=== PATIENT | female | born 1965 | race Caucasian/White ===

== ENCOUNTER 2018-07-21 15:04 | Outpatient (REF) | payer BC, SELFPAY ==
[2018-07-21 21:26] LABS: Absolute Basophil Count 0.05 k/cumm (0.0-0.2); Absolute Eosinophil Count 0.07 k/cumm (0.0-0.7); Absolute Lymphocyte Count 2.85 k/cumm (1.2-3.4); Absolute Neutrophil Count 3.22 k/cumm (1.2-6.7); Basophils % 0.7; HCT 39.5 % (36.0-46.0); HGB 13.5 g/dL (12.0-15.5); Lymphocytes % 42.6; Mean Corp. HGB Concentration 34.2 g/dL (32.0-36.0); Mean Corpuscular Hemoglobin 29.3 pg (27.0-33.0); Mean Corpuscular Volume 85.7 fL (80-95); Mean Platelet Volume 10.3 fL (8.0-11.0); Monocytes % 7.5; Neutrophils % 48.2; Platelet Count 246 x1000/uL (130-400); RBC 4.61 m/cumm (4.00-5.20); RBC Distribution Width 12.4 % (11.7-14.6); White Blood Cell Count 6.69 k/cumm (4.4-10.8)
[2018-07-21 21:46] LABS: Anion Gap 10.8 mmol/L (3-11); BUN 11 mg/dL (7-18); CO2 27.2 mmol/L (21.0-32.0); CREATININE 0.74 mg/dL (0.55-1.02); Chloride 103 mmol/L (98-107); Glucose 94 mg/dL (70-100); Potassium 3.9 mmol/L (3.5-5.1); Sodium 141 mmol/L (136-145); TSH (W/Ref FT4) 6.98 uIU/mL (0.358-3.74)
[2018-07-21 22:10] LABS: FREE T4 1.33 ng/dL (0.76-1.46)
== END 2018-07-21 15:24 ==
LOC: NCHCN 15:04
PROVIDERS: PCP Family Medicine; Visit Provider Specialist/Technologist Athletic Trainer
DX: E03.9 Hypothyroidism, unspecified (principal); K21.9 Gastro-esophageal reflux disease without esophagitis; Z01.818 Encounter for other preprocedural examination
CPT/HCPCS: 80048; 84439; 84443; 85025

== ENCOUNTER 2019-04-28 02:33 | Outpatient (CLI) | payer BC, SELFPAY ==
--- NOTE | 2019-04-28 12:48 | DI.MAMMO_ITS ---
EXAM: MAMMO SCREENING CLINICAL HISTORY: SCREENING, [facility],Z00.00 TECHNIQUE: Mammograms were interpreted according to the usual protocol including computer analysis w [employer] CAD system, tomosynthesis and C-view imaging. COMPARISON: 2010 through 2016 FINDINGS: The breasts are composed of heterogeneously dense fibroglandular densities, Breast Density category C . No suspicious masses or suspicious microcalcifications are seen. No skin thickening or abnormal axillary lymph nodes are seen. There has been no significant change from prior exams. IMPRESSION: BIRADS Category 1, negative mammogram. Yearly screening mammography is recommended. BI-RADS Cat 1 - Negative Breast Density - Category C - Heterogeneously dense BREAST DENSITY: The mammogram demonstrates the patient's breast tissue is dense. Dense breast tissue is very common and is not abnormal but dense breast tissue can make it harder to find cancer on a ma mmogram. Also, dense breast tissue may increase their breast cancer risk. This information about the result of the mammogram report was provided to the patient to raise their awareness. Use this report when you speak with the patient about their risks for breast cancer, which includes their family hist ory. At that time, you may recommend for more screening tests (Ultrasound or MRI) as they might be us eful based on their risk. A negative radiographic report should not delay biopsy if a dominant or clinically suspicious mass is present. Up to ten percent of cancers are not identified on mammography. A negative report may reinforce clinical impression. Adenosis and dense breasts may obscure an underlying neoplasm. False positive reports average 6 to 10%.
== END 2019-04-28 02:53 ==
PROVIDERS: PCP Family Medicine; Visit Provider Physician Assistant Medical
DX: Z00.00 Encounter for general adult medical examination without abnormal findings (principal); Z12.31 Encounter for screening mammogram for malignant neoplasm of breast
CPT/HCPCS: 77063; 77067

== ENCOUNTER 2019-09-21 16:30 | Outpatient (REF) | payer BC, SELFPAY ==
[2019-09-23 17:17] LABS: COVID-19 RT-PCR UVMMC Result Negative (Negative)
== END 2019-09-21 16:50 ==
LOC: NCHCN 16:30
PROVIDERS: PCP Family Medicine; Visit Provider Nurse Practitioner Family
DX: J06.9 Acute upper respiratory infection, unspecified (principal)
CPT/HCPCS: U0003

== ENCOUNTER 2019-12-02 04:01 | Outpatient (CLI) | payer BC, SELFPAY ==
[2019-12-02 09:36] LABS: ALT 23 U/L (14-59); Calculated LDL 165 mg/dL (<100); Cholesterol 235 mg/dL (<200); HDL Cholesterol 43 mg/dL (40-60); TSH 0.58 uIU/mL (0.36-3.74); Triglyceride 138 mg/dL (<150)
== END 2019-12-02 04:21 ==
PROVIDERS: PCP Family Medicine; Visit Provider Family Medicine
DX: E03.9 Hypothyroidism, unspecified (principal); E78.5 Hyperlipidemia, unspecified; Z00.00 Encounter for general adult medical examination without abnormal findings
CPT/HCPCS: 36415; 80061; 84439; 84443; 84460

== ENCOUNTER 2019-12-26 12:44 | Emergency (ER) | payer BC, SELFPAY ==
[2019-12-26 12:48] VITALS: BP 153/84; PULSE 86; RESP 16; TEMP 36.7; O2SAT 98
--- NOTE | 2019-12-26 12:53 | ED.GENADUL_ITS ---
Discharge Plan Disposition Patient Disposition: HOME Condition: Good Discharge Details Chief Complaint: Cellulitis Clinical Impression: Cellulitis of finger Primary Care Provider: Rand Harley V ED Provider: Tova Chandra Home Meds and New Rx's Prescriptions: New doxycycline hyclate 100 mg tablet 100 mg PO BID Qty: 14 RF: 0 Continued sumatriptan succinate 50 MG tablet 50 mg PO ONCE PRNRF: 0 pantoprazole 20 MG tablet,delayed release (DR/EC) 40 mg PO PRN RF: 0 levothyroxine [Synthroid] 50 MCG tablet 175 mcg PO DAILY RF: 0 bupropion HCl [Wellbutrin XL] 300 MG tablet extended release 24 hr 300 mg PO DAILY RF: 0 magnesium oxide 400 mg (241.3 mg magnesium) tablet 400 mg PO DAILY RF: 0 Discharge Instructions Instructions: Cellulitis (ED) Additional Instructions: Tylenol and/or ibuprofen as needed for discomfort. Please keep current dressing in place until tomorrow. After that time, he may cover with a Band-Aid. Please take the doxycycline as prescribed. Even if symptoms improve, please take the entire course. If you develop fever/chills, increased pain, spreading of the redness or other new/worsening symptoms please seek care urgently once again. Otherwise, I would like for you to follow-up with primary care at beginning the week for reevaluation. Referrals: Rand Harley MD [Primary Care Provider] - Discharge Data Discharge Date/Time-TO BE ENTERED AT DEPARTURE: 12/26/19 14:18 Medical Decision Making Patient is a pleasant 54 year old RHD female presenting today wtih discomfort, erythema and swelling along the dorsal aspect ofr the right ring finger DIP joint. She states that she suffered a small abrasion, believes that she may have scratched herself with her fingernail. She states that over the past 4 days the erythema has been developing. Has noted eruythema, warmth, swelling and pain. The small area of opening is not currently draining. No fevers/chills. States that she is feeling well otherwise. She sttes that she is UTD on immunization. On exam, campbell has a focal area of small abscess with surrounding cellulitis. She has normal passive and acitve ROM of DIP and PIP. Nail and distal finger is uninvolved. She appears nontoxic. She has a small open area that appears to have closed off. She and I discussed risk/benefits as well as expected procedural steps of opening abscess. She voices understanding and wishes to proceed. Please see procedure note. She tolerated this well. It was preformed using standard, sterile technique. We discussed care of the area. As she has surrounding cellulitis, and I am concerned given the location of the infection, will begin her on antibiotics. Encouraged close f/u with PCP for reevalutation. She was given strict return precautions. All of her questions and concerns were addressed, she is in agreement with this plan. HPI General Mode of arrival: ambulatory . Date/Time Provider Initiated Documentation: 12/26/19 12:53 . Limitations to Documentation: no limitations . Information obtained by: patient and RN notes reviewed . History of Present Illness 54 year old F presents to the emergency department with the chief complaint of right ring finger pain, erythema, described as mild, with intensity rated at 3. Quality is described as aching, and is localized to the right and upper extremity. Patient reports no radiation. Patient started experiencing this day(s) (4) and it has been constant. Immobilization improves symptom(s), Movement worsens symptoms . Patient notes no other symptoms.; denies fever/chills. Patient did receive the following treatments prior to arrival, none Related Data Home Medications Medication Instructions Recorded Confirmed levothyroxine [Synthroid] 175 mcg PO DAILY 12/22/12 12/26/19 pantoprazole 40 mg PO PRN tab-cap 07/12/16 12/26/19 sumatriptan succinate 50 mg PO ONCE PRN tab-cap 07/12/16 12/26/19 bupropion HCl [Wellbutrin XL] 300 mg PO DAILY 08/15/16 12/26/19 doxycycline hyclate 100 mg PO BID #14 tab 12/26/19 magnesium oxide 400 mg PO DAILY 12/26/19 12/26/19 Previous Rx's Medication Instructions Recorded doxycycline hyclate 100 mg PO BID #14 tab 12/26/19 Allergies Allergy/AdvReac Type Severity Reaction Status Date / Time atenolol AdvReac very sleepy Unverified 12/26/19 12:50 diltiazem AdvReac LE Unverified 12/26/19 12:50 edema/joint aches General Stated Complaint: Cellulitis CHERELLE: 4 Review of Systems Constitutional Constitutional: Reports as per HPI, Denies chills, Denies fever(s), Denies headache(s) and Denies weakness ENT Ears, Nose, Mouth, and Throat: Denies headache(s) Cardiovascular Cardiovascular: Reports as per HPI Respiratory Respiratory: Reports as per HPI and Denies cough Musculoskeletal Musculoskeletal: Reports as per HPI and Denies tingling Integumentary/Breasts Skin/Breast: Reports as per HPI, Reports erythema, Denies rash and Reports wounds (states she had a small abrasion over dorsal DIP) Neurologic Neurologic: Reports as per HPI, Denies headache(s), Denies tingling, Denies pa resthesias and Denies weakness PFSH Medical History GERD hx basal cell CA on chin hx tobacco use Hypothyroidism SAD Surgical History Abdominal hysterectomy Appendectomy Arthroplasty of knee section Colonoscopy - MAC (07/20/16) thyroidectomy Family History Father Diabetes Essential hypertension Heart disease Brother Essential hypertension Social History Smoking/Tobacco Use Status: Former Tobacco Use Drug use: Never Substance use type: does not use Do you feel safe at home: Yes Do you feel safe in your relationship?: Yes Exam Const General: cooperative, healthy appearing, comfortable, no acute distress, well developed and well groomed Nutritional Appearance: average body habitus and well nourished Orientation: alert and awake Resp Effort & Inspection: normal respiratory effort, able to speak in complete sentences and no respiratory distress Cardio Rate: regular rate Rhythm: regular rhythm Skin General skin exam: erythema and fluctuance Neuro General: patient alert and patient awake Cognition: normal cognition Speech: speech normal Gait: normal gait Motor: muscle tone normal throughout Sensory Exam: no sensory deficits noted Extrem Hand/finger images: 1. Well defined area of erythema over DIP. There is a small open area that appears that it has been draining but is not doing so now. Around this is a focal, circular fluctuant area consistent with abscess. Tender to palpation. Able to both passively and actively flex and extend the PIP and DIPwithout discomfort. No evidence of tendon involvement at this time. Brisk capillary refill. Sensation intact distally. This is only along the dorsal side, does not go along the palmar side. Exam is most consistent with abscess with cellulitis surrounding. Psych Appearance: grossly normal and well kempt Mental Status: mental status grossly normal Speech and Movement: speech and movement normal Course Vital Signs Vital signs: Vital Signs Temperature 36.7 C 12/26/19 12:48 Pulse 86 12/26/19 12:48 Respiratory Rate 16 12/26/19 12:48 Blood Pressure 153/84 H 12/26/19 12:48 Pulse Oximetry 98 12/26/19 12:48 Temperature 36.7 C 12/26/19 12:48 Temperature Source Skin 12/26/19 12:48 Pulse 86 12/26/19 12:48 Respiratory Rate 16 12/26/19 12:48 Blood Pressure 153/84 H 12/26/19 12:48 Blood Pressure Position Sitting 12/26/19 12:48 Pulse Oximetry 98 12/26/19 12:48 Oxygen Delivery Method Room Air 12/26/19 12:48 Oxygen Flow Rate 0 12/26/19 12:48 Pain Level 3 12/26/19 12:48 Procedures Abscess I/D Site: Hand Side (if applicable): Right Local Anesthetic: Lidocaine 1% Amount of anesthesia used (mL): 1 Technique: Incised with #11 Blade Amount of fluid expressed (mL): 1 Irrigation: Yes Packing used?: None Complications: Other (none)
== END 2019-12-26 14:18 | disposition home or self-care (01) ==
PROVIDERS: Emergency Provider Physician Assistant; PCP Family Medicine
DX: S61.234A Puncture wound without foreign body of right ring finger without damage to nail, initial encounter (principal); L02.413 Cutaneous abscess of right upper limb; L03.011 Cellulitis of right finger; X58.XXXA Exposure to other specified factors, initial encounter
CPT/HCPCS: 10060

== ENCOUNTER 2020-04-26 21:04 | Outpatient (REF) | payer BC, SELFPAY ==
[2020-04-26 20:43] LABS: Abs Immature Grans 0.01 10^3/uL (0.0-0.06); Absolute Basophil Count 0.08 10^3/uL (0.0-0.2); Absolute Lymphocyte Count 2.45 10^3/uL (1.2-3.4); Absolute Monocyte Count 0.38 10^3/uL (0.1-0.8); Absolute Neutrophil Count 2.85 10^3/uL (1.2-6.7); Basophils % 1.4; Eosinophils % 1.7; HCT 41.1 % (36.0-46.0); HGB 13.1 g/dL (11.2-15.7); Immature Grans % 0.2; Lymphocytes % 41.7; MCH 27.9 pg (27.0-33.0); MCHC 31.9 % (32.0-36.0); MCV 87.6 fL (80-95); MPV 10.5 fL (8.0-11.0); Monocytes % 6.5; Neutrophils % 48.5; Nucleated RBC 0 %; Platelet Count 245 10^3/uL (130-400); RBC 4.69 10^6/uL (3.93-5.22); RDW-SD 38.5 fL; WBC 5.87 10^3/uL (4.4-10.8)
[2020-04-26 21:06] LABS: Calculated LDL 95 mg/dL (<100); Cholesterol 162 mg/dL (<200); HDL Cholesterol 43 mg/dL (40-60); TSH 0.11 uIU/mL (0.36-3.74); Triglyceride 121 mg/dL (<150)
[2020-04-26 21:22] LABS: Creatine Kinase 80 U/L (26-192); FREE T4 1.46 ng/dL (0.76-1.46)
[2020-04-26 21:57] LABS: ESR 17 mm/hr (0-30)
== END 2020-04-26 21:24 ==
LOC: NCHCN 21:04
PROVIDERS: PCP Family Medicine; Visit Provider Family Medicine
DX: Z00.00 Encounter for general adult medical examination without abnormal findings (principal)
CPT/HCPCS: 80061; 82550; 85652; 84439; 84443; 85025

== ENCOUNTER 2020-05-08 17:21 | Emergency (ER) | payer BC, SELFPAY ==
[2020-05-08 17:25] VITALS: BP 163/85; PULSE 92; RESP 16; TEMP 36.7; O2SAT 98
--- NOTE | 2020-05-08 17:37 | ED.GENADUL_ITS ---
Discharge Plan Disposition Patient Disposition: HOME Condition: Improving Discharge Details Clinical Impression: Calcific tendinitis of left shoulder Primary Care Provider: Rand Harley V ED Provider: Kenn De Oliveira Home Meds and New Rx's Prescriptions: Continued sumatriptan succinate 50 MG tablet 50 mg PO ONCE PRNRF: 0 pantoprazole 20 MG tablet,delayed release (DR/EC) 40 mg PO PRN RF: 0 levothyroxine [Synthroid] 50 MCG tablet 175 mcg PO DAILY RF: 0 bupropion HCl [Wellbutrin XL] 300 MG tablet extended release 24 hr 300 mg PO DAILY RF: 0 magnesium oxide 400 mg (241.3 mg magnesium) tablet 400 mg PO DAILY RF: 0 Discharge Instructions Instructions: Tendinitis (ED) Stand Alone Forms: Physical Therapy Referral Medical Decision Making 54-year-old female states that she was lifting large objects such as [employer] tree and television yesterday with her . This morning she woke with dull achy left lateral shoulder pain that worsened throughout the day and became worse with movement particularly in abduction. No direct trauma, fall or other injury. She does not have a fever. She is tender overlying the lateral deltoid and I am most suspicious for calcific tendinitis. Patient referred for x-ray which does indeed reveal calcific tendinosis. Patient consented for steroid injection. She was prepped and draped in standard sterile fashion, Kenalog 40 mg and 2 and half cc of lidocaine were injected. Patient was placed in sling for comfort. I will have her follow-up in physical therapy. She is stable and appropriate for outpatient management. HPI General Mode of arrival: ambulatory . Date/Time Provider Initiated Documentation: 05/08/20 17:22 . Limitations to Documentation: no limitations . Information obtained by: patient . History of Present Illness 54 year old F presents to the emergency department with the chief complaint of Left lateral shoulder pain, described as moderate, Quality is described as dull, and is localized to the left and upper extremity. Patient reports no radiation. Patient started experiencing this hour(s) and it has been constant. Rest improves symptom(s), Movement worsens symptoms . Patient notes denies fever/chills and rash. Patient did receive the following treatments prior to arrival, other (Acetaminophen) Related Data Home Medications Medication Instructions Recorded Confirmed levothyroxine [Synthroid] 175 mcg PO DAILY 12/22/12 05/08/20 pantoprazole 40 mg PO PRN tab-cap 07/12/16 05/08/20 sumatriptan succinate 50 mg PO ONCE PRN tab-cap 07/12/16 05/08/20 bupropion HCl [Wellbutrin XL] 300 mg PO DAILY 08/15/16 05/08/20 magnesium oxide 400 mg PO DAILY 12/26/19 05/08/20 Allergies Allergy/AdvReac Type Severity Reaction Status Date / Time atenolol AdvReac very sleepy Unverified 05/08/20 17:28 diltiazem AdvReac LE Unverified 05/08/20 17:28 edema/joint aches General Stated Complaint: Orthopedic CHERELLE: 4 Review of Systems Narrative: 6 systems reviewed and otherwise negative. No weakness, no numbness, no rash or fever. PFSH Medical History GERD hx basal cell CA on chin hx tobacco use Hypothyroidism SAD Surgical History Abdominal hysterectomy Appendectomy Arthroplasty of knee section Colonoscopy - MAC (07/20/16) thyroidectomy Family History Father Diabetes Essential hypertension Heart disease Brother Essential hypertension Social History Smoking/Tobacco Use Status: Former Tobacco Use Smoking risk assessment performed?: Yes Drug use: Never Substance use type: does not use Do you feel safe at home: Yes Do you feel safe in your relationship?: Yes Exam Narrative Exam Narrative: GEN: awake, alert, oriented 3. Pleasant, well groomed, interactive. HEAD: Normocephalic, atraumatic ENT: External ear exam unremarkable EYES: PERRL, EOMI EXT: 2+ radial pulse bilateral upper extremity. Motor is intact and 5 out of 5 but limited by pain on the left, particularly with left shoulder abduction. Tender over the left lateral deltoid. Normal distal motor and sensory function. Neuro: Grossly normal neurologic exam, conversant, interactive. Psych: Speech fluent, thoughts congruent, affect normal Course Vital Signs Vital signs: Vital Signs Temperature 36.7 C 05/08/20 17:25 Pulse 92 H 05/08/20 17:25 Respiratory Rate 16 05/08/20 17:25 Blood Pressure 163/85 H 05/08/20 17:25 Pulse Oximetry 98 05/08/20 17:25 Temperature 36.7 C 05/08/20 17:25 Temperature Source Skin 05/08/20 17:25 Pulse 92 H 05/08/20 17:25 Respiratory Rate 16 05/08/20 17:25 Respiratory Effort Non-Labored 05/08/20 17:25 Blood Pressure 163/85 H 05/08/20 17:25 Pulse Oximetry 98 05/08/20 17:25 Oxygen Delivery Method Room Air 05/08/20 17:25 Oxygen Flow Rate 0 05/08/20 17:25 Pain Level 8 05/08/20 17:25 Procedures Joint Aspiration/Injection Joint Asp./Inject. 1: Time Out Performed: Yes Side of body: left Local Anesthetic: Lidocaine 1% Medication Injected, if any: Triamcinolone Acetate Patient Tolerated Procedure: well
[2020-05-08] MEDS: Ibuprofen 800 MG TAB PO (17:39)
--- NOTE | 2020-05-08 17:52 | DI.RAD_ITS ---
EXAM: XR SHOULDER LT COMPLETE 2+V CLINICAL HISTORY: LAteral pain, ? tendonitis. TECHNIQUE: 2D digital imaging was performed. COMPARISON: CR LEFT SHOULDER COMPLETE from 06/19/2017 FINDINGS: There is no evidence of acute fracture nor dislocation. Again noted is calcification in the subacrom ial space just above the greater tuberosity consistent with calcific tendinitis-bursitis. There is a lso a calcific density at the level of the coracoid process which is unchanged in probably related to calcification within the coracoacromial ligament. The AC joint appears unremarkable. No degenerati ve changes in the glenohumeral joint. IMPRESSION: No acute fracture or dislocation. Calcific rotator cuff tendinitis again evident. DATA REPOSITORY: RADIATION DOSE DELIVERED:
--- NOTE | 2020-05-08 17:56 | DI.VRAD_ITS ---
PROCEDURE INFORMATION: Exam: XR Left Shoulder Exam date and time: 05/08/2020 5:52 PM Age: 54 years old Clinical indication: Pain; Shoulder; Left TECHNIQUE: Imaging protocol: XR Left shoulder. Views: 2 or more views. COMPARISON: CR LEFT SHOULDER COMPLETE 06/19/2017 9:11 AM FINDINGS: Bones/joints: Calcific tendinosis of the rotator cuff is stable. No acute fracture or dislocation. No glenohumeral acromioclavicular joint space narrowing. Lungs: The visualized left upper lung field is clear. Soft tissues: Normal. IMPRESSION: 1. No acute findings of fracture or dislocation. No significant degenerative changes. 2. Calcific tendinosis. Dictated and Authenticated by: Danii Astorga MD. Ordering:CATALINA Hawk MD
[2020-05-08] MEDS: Triamcinolone 40 MG/ML VIAL IM (18:03)
== END 2020-05-08 18:30 | disposition home or self-care (01) ==
PROVIDERS: Emergency Provider Emergency Medicine; PCP Family Medicine
DX: M75.32 Calcific tendinitis of left shoulder (principal); X50.0XXA Overexertion from strenuous movement or load, initial encounter
CPT/HCPCS: 20610; 73030

== ENCOUNTER 2021-05-02 16:56 | Outpatient (REF) | payer BC, SELFPAY ==
[2021-05-02 21:36] LABS: ALT 29 U/L (14-59); AST 15 U/L (15-37); Albumin 4.4 g/dL (3.4-5.0); Alkaline Phosphatase 138 U/L (46-116); Anion Gap 11.4 mmol/L (3-11); BUN 8 mg/dL (7-18); Bilirubin, Total 0.5 mg/dL (0.2-1.0); CO2 26.6 mmol/L (21.0-32.0); CREATININE 0.6 mg/dL (0.55-1.02); Calcium 9.1 mg/dL (8.5-10.1); Chloride 104 mmol/L (98-107); FREE T4 1.32 ng/dL (0.76-1.46); Glucose 95 mg/dL (74-106); Sodium 142 mmol/L (136-145); Total Protein 7.6 g/dL (6.4-8.2)
== END 2021-05-02 16:57 | disposition home or self-care (01) ==
LOC: NCHCN 16:56
PROVIDERS: PCP Family Medicine; Visit Provider Family Medicine
DX: E03.9 Hypothyroidism, unspecified (principal); E78.5 Hyperlipidemia, unspecified; M25.59 Pain in other specified joint; I47.2 Ventricular tachycardia
CPT/HCPCS: 80053; 84439

== ENCOUNTER 2021-06-12 00:37 | Outpatient (CLI) | payer BC, SELFPAY ==
--- NOTE | 2021-06-12 08:13 | DI.MAMMO_ITS ---
Exam(s) MAMMO SCREENING EXAM: MAMMO SCREENING CLINICAL HISTORY: SCREENING, COUNTS INCLUDE 234 BEDS AT THE [facility], Z00.00 TECHNIQUE: Mammograms were interpreted according to the usual protocol including computer analysis w [employer] CAD system, tomosynthesis and C-view imaging. COMPARISON: 2013 through 2018 FINDINGS: The breasts are composed of scattered fibroglandular densities, Breast Density category B. No suspicious masses or suspicious microcalcifications are seen. No skin thickening or abnormal axillary lymph nodes are seen. There has been no significant change from prior exams. IMPRESSION: BI-RADS Category 1, Negative mammogram Yearly screening mammography is recommended. Breast Density - Category B, scattered fibroglandular densities. A negative radiographic report should not delay biopsy if a dominant or clinically suspicious mass is present. Up to ten percent of cancers are not identified on mammography. A negative report may reinforce clinical impression. Adenosis and dense breasts may obscure an underlying neoplasm. False positive reports average 6 to 10%. Patient will receive a letter notifying them of these results.
== END 2021-06-12 00:57 ==
PROVIDERS: PCP Family Medicine; Visit Provider Family Medicine
DX: Z00.00 Encounter for general adult medical examination without abnormal findings (principal); Z12.31 Encounter for screening mammogram for malignant neoplasm of breast
CPT/HCPCS: 77063; 77067

== ENCOUNTER 2021-11-02 16:42 | Outpatient (REF) | payer BC, SELFPAY ==
[2021-11-02 19:21] LABS: HCT 43.4 % (36.0-46.0); HGB 14.7 g/dL (11.2-15.7); MCH 28.7 pg (27.0-33.0); MCHC 33.9 % (32.0-36.0); MCV 85 fL (80-95); MPV 10.8 fL (8.0-11.0); Platelet Count 230 10^3/uL (130-400); RBC 5.12 10^6/uL (3.93-5.22); RDW 11.9 % (11.7-14.6); RDW-SD 36.8 fL; WBC 6.58 10^3/uL (4.4-10.8)
[2021-11-02 19:28] LABS: ALT 35 U/L (14-59); AST 26 U/L (15-37); Albumin 4.3 g/dL (3.4-5.0); Alkaline Phosphatase 130 U/L (46-116); Anion Gap 9.6 mmol/L (3-11); BUN 16 mg/dL (7-18); Bilirubin, Total 0.4 mg/dL (0.2-1.0); C-Reactive Protein 0.18 mg/dL (0.0-0.3); CO2 25.4 mmol/L (21.0-32.0); CREATININE 0.7 mg/dL (0.55-1.02); Calcium 8.8 mg/dL (8.5-10.1); Chloride 102 mmol/L (98-107); Creatine Kinase 69 U/L (26-192); FREE T4 1.48 ng/dL (0.76-1.46); Glucose 119 mg/dL (74-106); Potassium 4.1 mmol/L (3.5-5.1); Sodium 137 mmol/L (136-145); TSH 0.07 uIU/mL (0.36-3.74); Total Protein 8.1 g/dL (6.4-8.2)
[2021-11-02 19:52] LABS: Calculated LDL 87 mg/dL (<100); Cholesterol 174 mg/dL (<200); HDL Cholesterol 50 mg/dL (40-60); Triglyceride 189 mg/dL (<150)
[2021-11-03 22:06] LABS: Thyroglobulin Antibody <15 U/mL (<=60)
== END 2021-11-02 16:43 | disposition home or self-care (01) ==
LOC: NCHCN 16:42
PROVIDERS: PCP Family Medicine; Visit Provider Family Medicine
DX: Z00.00 Encounter for general adult medical examination without abnormal findings (principal); E03.9 Hypothyroidism, unspecified; I10 Essential (primary) hypertension; E78.5 Hyperlipidemia, unspecified; E06.3 Autoimmune thyroiditis; C73 Malignant neoplasm of thyroid gland
CPT/HCPCS: 80053; 80061; 82550; 85027; 84439; 84443; 86140; 86800

== ENCOUNTER 2022-01-16 17:29 | Outpatient (REF) | payer BC, SELFPAY ==
[2022-01-16 16:02] LABS: FREE T4 1.36 ng/dL (0.76-1.46)
== END 2022-01-16 17:30 | disposition home or self-care (01) ==
LOC: NCHCN 17:29
PROVIDERS: PCP Family Medicine; Visit Provider Family Medicine
DX: E03.9 Hypothyroidism, unspecified (principal); E06.3 Autoimmune thyroiditis
CPT/HCPCS: 84439

== ENCOUNTER 2022-02-12 11:08 | Emergency (ER) | payer BC, SELFPAY ==
[2022-02-12 11:12] VITALS: BP 145/87; PULSE 79; RESP 18; TEMP 36.8; O2SAT 98
[2022-02-12] MEDS: oxyCODONE 5 mg/Acetaminophen 325 mg TAB 1 TAB PO (12:45)
--- NOTE | 2022-02-12 13:01 | ED.GENADUL_ITS ---
Discharge Plan Disposition Patient Disposition: HOME Condition: Stable Discharge Details Clinical Impression: Chronic left shoulder pain Primary Care Provider: Rand Harley V ED Provider: Leonarda Montoya Home Meds and New Rx's Prescriptions: New oxycodone-acetaminophen [Percocet] 5-325 mg tablet 1 tab PO Q8H PRNQty: 8 0RF Continued sumatriptan succinate 50 MG tablet 50 mg PO ONCE PRN pantoprazole 20 MG tablet,delayed release (DR/EC) 40 mg PO PRN levothyroxine [Synthroid] 50 MCG tablet 175 mcg PO DAILY bupropion HCl [Wellbutrin XL] 300 MG tablet extended release 24 hr 300 mg PO DAILY magnesium oxide 400 mg (241.3 mg magnesium) tablet 400 mg PO DAILY Label Comments: TK 1 T PO QD atorvastatin 20 mg tablet 20 mg PO DAILY Label Comments: TAKE 1 TABLET BY MOUTH ONCE DAILY losartan 25 mg tablet 25 mg PO DAILY Label Comments: TAKE 1 TABLET BY MOUTH EVERY DAY cholecalciferol (vitamin D3) [Vitamin D3] 50 mcg (2,000 unit) tablet 50 mcg PO DAILY Label Comments: Take 1 tablet by mouth once a day use daily during the colder weather months Discharge Instructions Instructions: Oxycodone/Acetaminophen (By mouth), Shoulder Pain (ED) Additional Instructions: Please return immediately to the emergency department if you develop any new or worsening symptoms, if your condition does not improve as expected, or if you become otherwise concerned. It is extremely important that you call soon as possible to make an appointment to be seen in follow-up for this visit by your primary care doctor and orthopedic surgery. Referrals: Rand Harley MD [Primary Care Provider] - Saturnino Mendez MD [ [facility]] - Medical Decision Making Concern for exacerbation of chronic shoulder pain, other. Exam/history at this time is not consistent with septic arthritis, acute bony pathology, sepsis, other acute emergent life/limb threatening process. I offered the patient x- rays for screening and to facilitate outpatient follow-up, patient declined. Plan for outpatient follow-up with orthopedics and patient's PCP. Plan for Percocet, orthopedics referral, outpatient follow-up. I had a discussion with Patient regarding return to emergency department precautions, home care, and importance of outpatient follow-up. Pt verbalizes understanding of the plan and is amenable. Patient discharged to home with clear plan for outpatient follow- up. All questions were answered. Disposition decision was made weighing the risks and benefits of hospitalization versus outpatient treatment, the risk for further decompensation, and the patient's wishes. Medical Records Medical records reviewed: Yes I reviewed the patient's medical records. HPI General Mode of arrival: ambulatory . Date/Time Provider Initiated Documentation: 02/12/22 11:53 . Limitations to Documentation: no limitations . Information obtained by: patient, RN notes reviewed and old records reviewed . HPI Narrative: Jc James is a 56-year-old woman with a history of hyperlipidemia, hypertension, hypothyroidism status post thyroid resection for thyroid cancer 30 years ago presenting to the emergency department with shoulder pain. Patient reports that she has had left-sided shoulder pain for years and has been diagnosed with calcific tendinitis of the shoulder. Patient reports that she had steroid injection to the shoulder in 2017 and again in 2019. She reports that the steroid injections did improve symptoms for some time. Patient reports that over the past few weeks she has gradually noticed similar worsening of her pain that she has had in the past. Patient reports that she has not had to take pain medication at home until this morning when she did take Advil. Patient reports that pain is worse at night with sleeping. She states that pain is exactly similar as her prior exacerbations of pain in location, quality, and severity. She denies any new or unusual symptoms. Denies any other pain, fever, cough, shortness of breath, vomiting, diarrhea, numbness, weakness, rash. Denies any trauma or other apparent inciting event. Related Data Home Medications Medication Instructions Recorded Confirmed levothyroxine 50 mcg tablet 175 mcg PO DAILY 12/22/12 02/12/22 (Synthroid) pantoprazole 20 mg tablet,delayed 40 mg PO PRN 07/12/16 02/12/22 release sumatriptan succinate 50 mg tablet 50 mg PO ONCE PRN 07/12/16 02/12/22 bupropion HCl 300 mg 24 hr tablet, 300 mg PO DAILY 08/15/16 02/12/22 extended release (Wellbutrin XL) magnesium oxide 400 mg (241.3 mg 400 mg PO DAILY 12/26/19 02/12/22 magnesium) tablet atorvastatin 20 mg tablet 20 mg PO DAILY 02/12/22 02/12/22 cholecalciferol (vitamin D3) 50 50 mcg PO DAILY 02/12/22 02/12/22 mcg (2,000 unit) tablet (Vitamin D3) losartan 25 mg tablet 25 mg PO DAILY 02/12/22 02/12/22 oxycodone-acetaminophen 5 mg-325 1 tab PO Q8H PRN #8 tabs 02/12/22 mg tablet (Percocet) Previous Rx's Medication Instructions Recorded oxycodone-acetaminophen 5 mg-325 1 tab PO Q8H PRN #8 tabs 02/12/22 mg tablet (Percocet) Allergies Allergy/AdvReac Type Severity Reaction Status Date / Time atenolol AdvReac very sleepy Unverified 02/12/22 11:14 diltiazem AdvReac LE Unverified 02/12/22 11:14 edema/joint aches General Stated Complaint: Orthopedic CHERELLE: 4 Review of Systems Narrative: Constitutional: denies fevers Eyes: denies eye pain ENT: denies ear pain, dental pain, sore throat Cardiovascular: denies chest pain, edema Respiratory: denies SOB, cough GI: denies abdominal pain, vomiting, diarrhea : denies flank pain MSK: Reports left shoulder pain denies back pain, neck pain, other arthralgias, myalgias Skin: denies rash Neuro: denies headaches, numbness, weakness PFSH All Active Problems Chronic left shoulder pain (Acute) Medical History GERD hx basal cell CA on chin hx tobacco use Hypothyroidism SAD Surgical History Abdominal hysterectomy Appendectomy Arthroplasty of knee section Colonoscopy - MAC (07/20/16) thyroidectomy Family History Father Diabetes Essential hypertension Heart disease Brother Essential hypertension Social History Smoking/Tobacco Use Status: Former Tobacco Use Smoking risk assessment performed?: Yes Alcohol Intake: current Alcohol Intake frequency: holidays/special occasions only Drug use: Never Substance use type: does not use Do you feel safe at home: Yes Do you feel safe in your relationship?: Yes Exam Narrative Exam Narrative: Constitutional: well and [id number], pleasant, conversing normally HENT: head atraumatic/normocephalic/normal inspection, mucous membranes moist Eyes: conjunctiva normal, sclera normal, pupils 3mm b/l Neck: no stridor, normal ROM, trachea midline Resp: normal work of breathing, speaking in full sentences Cardio: normal rate, normal rhythm Skin: warm, dry, normal color, no rash Neuro: alert, not altered, grossly non-focal, normal tone Ext: no edema, left shoulder joint tender to palpation over anterior and posterior aspect, no clavicular tenderness, no scapular tenderness palpation, range of motion limited secondary to pain (able to range approximately 30 degrees in all directions without pain), motor 5 out of 5 left upper extremity, sensation intact, radial pulse intact Psych: normal mood, normal affect, normal behavior Course Vital Signs Vital signs: Vital Signs Temperature 36.8 C 02/12/22 11:12 Pulse 79 02/12/22 11:12 Respiratory Rate 18 02/12/22 11:12 Blood Pressure 145/87 H 02/12/22 11:12 Pulse Oximetry 98 02/12/22 11:12 Temperature 36.8 C 02/12/22 11:12 Temperature Source Temporal Artery Scan 02/12/22 11:12 Pulse 79 02/12/22 11:12 Respiratory Rate 18 02/12/22 11:12 Respiratory Effort Non-Labored 02/12/22 11:17 Blood Pressure 145/87 H 02/12/22 11:12 Blood Pressure Position Sitting 02/12/22 11:12 Pulse Oximetry 98 02/12/22 11:12 Oxygen Delivery Method Room Air 02/12/22 11:12 Oxygen Flow Rate 0 02/12/22 11:12
== END 2022-02-12 12:34 | disposition home or self-care (01) ==
PROVIDERS: Emergency Provider Student in an Organized Health Care Education/Training Program; PCP Family Medicine
DX: M25.512 Pain in left shoulder (principal); G89.29 Other chronic pain; I10 Essential (primary) hypertension; Z87.891 Personal history of nicotine dependence
CPT/HCPCS: 99283; 99284

== ENCOUNTER 2022-02-28 09:24 | Outpatient (CLI) | payer BC, SELFPAY ==
--- NOTE | 2022-02-28 09:00 | DI.RAD_ITS ---
Exam(s) XR SHOULDER LT COMPLETE 2+V EXAM: XR SHOULDER LT COMPLETE 2+V CLINICAL HISTORY: LEFT SHOULDER PAIN. TECHNIQUE: 2D digital imaging was performed. COMPARISON: CR,XR XR SHOULDER LT COMPLETE 2+V from 05/08/2020 FINDINGS: Two views: No evidence of acute fracture or dislocation. Calcification again noted in the soft tissues adjacent to the greater tuberosity off the lateral aspect of the humeral head, consistent with calcific rotat or cuff tendinitis.. There are no obvious degenerative changes in the glenohumeral joint. Minimal d egenerative change in the AC joint. Clavicle intact. No osseous lesions. IMPRESSION: Calcific rotator cuff tendinitis. DATA REPOSITORY: RADIATION DOSE DELIVERED:
== END 2022-02-28 09:25 | disposition home or self-care (01) ==
LOC: DIORS 09:24
PROVIDERS: PCP Family Medicine; Referring Provider Family Medicine; Visit Provider Student in an Organized Health Care Education/Training Program
DX: G89.29 Other chronic pain (principal); M75.32 Calcific tendinitis of left shoulder
CPT/HCPCS: 73030

== ENCOUNTER 2022-03-21 02:14 | Outpatient (CLI) | payer BC, SELFPAY ==
--- NOTE | 2022-03-21 07:00 | DI.MRI_ITS ---
Exam(s) MR UPPER JOINT LT WO EXAM: MR UPPER JOINT LT WO CLINICAL HISTORY: L SHOULDER Pain,m25.512. TECHNIQUE: Multiplanar multisequence MRI was performed. COMPARISON: CR XR SHOULDER LT COMPLETE 2+V from 02/28/2022 FINDINGS: BONES: There is no fracture or contusion pattern. JOINTS: There are mild degenerative changes of the acromioclavicular joint. The glenohumeral joint i s normal. TENDONS: Supraspinatus: There is tendinosis of the supraspinatus tendon. There is a focus of hyperintense sig nal in the central tendon which may represent a small intrasubstance tear. Infraspinatus: Unremarkable. Subscapularis: Unremarkable. Teres Minor: Unremarkable. Biceps and Atkinson: Unremarkable. MUSCLES: There is mild edema seen in the supraspinatus muscle. GLENOID LABRUM: Unremarkable on this noncontrast examination. SOFT TISSUES: Unremarkable. LIGAMENTS: Unremarkable. OTHER: There is a small amount of fluid in the subacromial subdeltoid bursa. IMPRESSION: 1. Findings suspicious for small intrasubstance supraspinatus tendon tear. Tendinosis of the suprasp inatus tendon. 2. Mild edema seen in the supraspinatus muscle without evidence of a annmarie tear. 3. Mild degenerative changes seen at the acromioclavicular joint. 4. Small amount of fluid in the subacromial subdeltoid bursa which may represent a bursitis. DATA REPOSITORY:
== END 2022-03-21 02:34 ==
LOC: DI 02:14
PROVIDERS: PCP Family Medicine; Visit Provider Student in an Organized Health Care Education/Training Program
DX: G89.29 Other chronic pain (principal); M25.512 Pain in left shoulder; M19.012 Primary osteoarthritis, left shoulder; R60.0 Localized edema
CPT/HCPCS: 73221

== ENCOUNTER 2022-11-22 13:02 | Outpatient (REF) | payer BC, SELFPAY | END 2022-11-22 13:03 | disposition home or self-care (01) | LOC: LBN 13:02 | PROVIDERS: PCP Family Medicine; Visit Provider Nurse Practitioner Family | DX: M79.674 Pain in right toe(s); L03.031 Cellulitis of right toe; S91.114D Laceration without foreign body of right lesser toe(s) without damage to nail, subsequent encounter | CPT/HCPCS: 87077; 87070; 87186; 87205 ==

== ENCOUNTER 2023-04-11 12:46 | Outpatient (REF) | payer BC, SELFPAY ==
[2023-04-11 15:53] LABS: Abs Immature Grans 0.04 10^3/uL (0.0-0.06); Absolute Basophil Count 0.09 10^3/uL (0.0-0.2); Absolute Lymphocyte Count 2.31 10^3/uL (1.2-3.4); Absolute Neutrophil Count 11.05 10^3/uL (1.2-6.7); Basophils % 0.6; HGB 13.5 g/dL (11.2-15.7); Immature Grans % 0.3; Lymphocytes % 16.3; MCH 28.4 pg (27.0-33.0); MCHC 32.9 % (32.0-36.0); MCV 86 fL (80-95); MPV 9.9 fL (8.0-11.0); Monocytes % 4.9; Neutrophils % 77.9; Platelet Count 279 10^3/uL (130-400); RBC 4.75 10^6/uL (3.93-5.22); RDW 12.2 % (11.7-14.6); RDW-SD 38.5 fL; WBC 14.19 10^3/uL (4.4-10.8)
[2023-04-11 16:10] LABS: ALT 24 U/L (14-59); AST 14 U/L (15-37); Albumin 4.3 g/dL (3.4-5.0); Alkaline Phosphatase 154 U/L (46-116); Anion Gap 11.3 mmol/L (3-11); BUN 12 mg/dL (7-18); Bilirubin, Total 0.8 mg/dL (0.2-1.0); CO2 29.7 mmol/L (21.0-32.0); CREATININE 0.9 mg/dL (0.55-1.02); Calcium 9.8 mg/dL (8.5-10.1); Chloride 103 mmol/L (98-107); Creatine Kinase 60 U/L (26-192); Estimated GFR 74.57 (mL/min/1.73m2); Glucose 115 mg/dL (74-106); Potassium 4.1 mmol/L (3.5-5.1); Sodium 144 mmol/L (136-145); TSH 0.13 uIU/mL (0.36-3.74)
[2023-04-12 00:02] LABS: FREE T4 1.32 ng/dL (0.76-1.46)
[2023-04-12 11:03] LABS: Lyme Ab w Rflx to Lyme Confirm Negative (Negative)
[2023-04-13 22:37] LABS: Anaplasma phagocytophilum Negative (Negative); B. miyamotoi PCR Negative (Negative); Babesia divergens/MO-1 Negative (Negative); Babesia duncani Negative (Negative); Babesia microti Negative (Negative); Ehrlichia chaffeensis Negative (Negative); Ehrlichia ewingii/canis Negative (Negative); Ehrlichia muris eauclairensis Negative (Negative)
== END 2023-04-11 12:47 | disposition home or self-care (01) ==
LOC: NCHCN 12:46
PROVIDERS: PCP Family Medicine; Visit Provider Family Medicine
DX: I10 Essential (primary) hypertension (principal); R50.9 Fever, unspecified; E03.9 Hypothyroidism, unspecified; E78.5 Hyperlipidemia, unspecified; W57.XXXA Bitten or stung by nonvenomous insect and other nonvenomous arthropods, initial encounter
CPT/HCPCS: 80053; 82550; 87798; 84439; 84443; 85025; 86618

== ENCOUNTER 2023-06-14 15:06 | Outpatient (REF) | payer BC, SELFPAY ==
[2023-06-14 15:17] LABS: HCT 40.3 % (36.0-46.0); HGB 13.5 g/dL (11.2-15.7); MCH 27.7 pg (27.0-33.0); MCHC 33.5 % (32.0-36.0); MCV 83 fL (80-95); MPV 10.2 fL (8.0-11.0); Platelet Count 240 10^3/uL (130-400); RBC 4.87 10^6/uL (3.93-5.22); RDW 12.2 % (11.7-14.6); RDW-SD 37.1 fL; WBC 14.47 10^3/uL (4.4-10.8)
[2023-06-14 15:44] LABS: ALT 25 U/L (14-59); AST 13 U/L (15-37); Albumin 4.1 g/dL (3.4-5.0); Alkaline Phosphatase 140 U/L (46-116); Anion Gap 10.7 mmol/L (3-11); BUN 10 mg/dL (7-18); CO2 26.3 mmol/L (21.0-32.0); CREATININE 0.8 mg/dL (0.55-1.02); Calcium 9.2 mg/dL (8.5-10.1); Chloride 101 mmol/L (98-107); Estimated GFR 85.89 (mL/min/1.73m2); Glucose 135 mg/dL (74-106); Lipase 36 U/L (16-77); Potassium 3.9 mmol/L (3.5-5.1); Sodium 138 mmol/L (136-145); Total Protein 8.1 g/dL (6.4-8.2)
[2023-06-14 15:54] LABS: Hemoglobin A1C 6.7 % (<5.7)
== END 2023-06-14 15:07 | disposition home or self-care (01) ==
LOC: NCHCN 15:06
PROVIDERS: PCP Family Medicine; Visit Provider Family Medicine
DX: R10.10 Upper abdominal pain, unspecified (principal)
CPT/HCPCS: 80053; 83690; 85027; 83036; 84439

== ENCOUNTER 2023-09-19 15:52 | Outpatient (REF) | payer BC, SELFPAY ==
[2023-09-19 19:08] LABS: Abs Immature Grans 0.01 10^3/uL (0.0-0.06); HCT 41.7 % (36.0-46.0); HGB 13.6 g/dL (11.2-15.7); MCH 28.3 pg (27.0-33.0); MCHC 32.6 % (32.0-36.0); MCV 87 fL (80-95); MPV 9.7 fL (8.0-11.0); Platelet Count 273 10^3/uL (130-400); RBC 4.81 10^6/uL (3.93-5.22); RDW 12.3 % (11.7-14.6); RDW-SD 39.3 fL; WBC 7.38 10^3/uL (4.4-10.8)
[2023-09-19 19:26] LABS: Absolute Basophil Count 0.07 10^3/uL (0.0-0.2); Absolute Eosinophil Count 0.07 10^3/uL (0.0-0.7); Absolute Lymphocyte Count 3.39 10^3/uL (1.2-3.4); Absolute Monocyte Count 0.22 10^3/uL (0.1-0.8); Absolute Neutrophil Count 3.62 10^3/uL (1.2-6.7); Atypical Lymphocytes % 1 %
[2023-09-19 19:27] LABS: Diff Comment Manual Differential; RBC Morphology Normal
[2023-09-19 19:31] LABS: Iron 45 ug/dL (50-170)
[2023-09-19 19:45] LABS: ALT 36 U/L (14-59); AST 17 U/L (15-37); Albumin 4.4 g/dL (3.4-5.0); Alkaline Phosphatase 144 U/L (46-116); Anion Gap 7.9 mmol/L (3-11); BUN 16 mg/dL (7-18); Bilirubin, Total 0.4 mg/dL (0.2-1.0); CO2 32.1 mmol/L (21.0-32.0); CREATININE 0.9 mg/dL (0.55-1.02); Calcium 9.4 mg/dL (8.5-10.1); Chloride 102 mmol/L (98-107); Estimated GFR 74.57 (mL/min/1.73m2); FREE T4 1.26 ng/dL (0.76-1.46); Glucose 113 mg/dL (74-106); Sodium 142 mmol/L (136-145); Total Protein 7.9 g/dL (6.4-8.2); Vitamin B12 385 pg/mL (193-986)
[2023-09-19 20:16] LABS: Creatine Kinase 100 U/L (26-192)
== END 2023-09-19 15:53 | disposition home or self-care (01) ==
LOC: NCHCN 15:52
PROVIDERS: PCP Family Medicine; Visit Provider Family Medicine
DX: E03.9 Hypothyroidism, unspecified (principal)
CPT/HCPCS: 80053; 82550; 82607; 83540; 84439; 85025

== ENCOUNTER 2024-02-10 18:21 | Outpatient (REF) | payer BC, SELFPAY ==
--- NOTE | 2024-02-10 17:20 | SKI_PTH ---
PATIENT: Jc James LOC: [facility]#:[id number] AGE/SX: 58/F ROOM: RE02/10/[address]: Madiha Dillon : 1965 BED: DIS: 02/10/2024 SPEC #: [id number] RECD: 02/10/24 18:40 STATUS: ROSALINDA REQ #: [id number] ELIANE: 02/10/24 17:[address]: Madiha Dillon DEPT: Surgical Specimen RECD BY: Brooke Vázquez ENTERED: 02/10/24 18:41 SP TYPE: SKI OTHR DR: Rand Harley V Tissues: 1 - SKIN BIOPSY(SHAVE/PUNCH) Procedures: SKIN LEVEL 4 Comments: [id number]
--- OUTSIDE RECORDS SUMMARY | 2024-02-10 18:23 | XMS_ITS | Encounter Summary ---
Author Organization [facility] Address [address] [place] [address] Care Team Providers Care Cemetery Laborer Name Role Phone Rand Harley MD Primary Care Provider [phone] Encounter Details Date Type Department Care Team (Late st Contact Info) Description 09/22/2019 Lab Requisition [facility] Pathology & Laboratory Medicine - [address] [address] Outr Resulting Lab, Provider Social History Tobacco Use Types Packs/Day Years Used Date Smoking Tobacco: Former Cigarettes 0.8 7 0 05/13/2004 - 05/13/2011 Smokeless Tobacco: Never Alcohol Use Standard Drinks/Week Comments Yes 0 (1 standard drink = 0.6 oz pur e alcohol) 1/5months Sex and Gender Information Value Date Recorded Sex Assigned at Not on file Gender Identity Not on file Sexual Orientation Not on file documented as of this encounter Functional Status Functional Status Response Date of Assess ment Because of a physical, menta l, or emotional condition, does this person have difficulty doing errands alone such as visiting a doctor's office or shopping? No 01/31/2016 Cognitive Status Response Date of Assessm ent Because of a physical, menta l, or emotional condition, does this person have serious difficulty concentrating, remembering, or making decisions? No 01/31/2016 documented as of this encounter Plan of Treatment Not on file documented as of this encounter Procedures Procedure Name Priority Date/Time Associated Diagnosis Comments ZZCOVID-19 TEST [facility] PCR Today 09/21/2019 15:30 EDT COVID-19 TESTING Routine 09/21/2019 15:3 0 EDT documented in this encounter Results * COVID-19 TEST [facility] PCR (09/21/2019 15:30 EDT) Swab ENTIRE NASOPHARYNX / Unknown 09/21/2019 15:30 EDT 09/22/2019 20:22 EDT Provider Outr Resulting Lab MICROBIOLOGY - GENERAL ORDERABLES Performing Organization Address [facility] Co de Phone Number [facility] [address] [place] [address] * COVID-19 TESTING (09/21/2019 15:30 EDT) COVID-19 rt-PCR Result Negative Negative 09/23/2019 17:[address] [facility] Comment: Negative results do not preclude 2019-nCoV infection and should not be used as the sole basis for treatment or other patient management decisions. Negative results must be combined with clinical observations, patient history, and epidemiological information. This test was developed and its performance characteristics determined by [facility]. It has not been cleared or approved by the US Food and Drug Administration. FDA does not require this test to go through premarket FDA review. This test is used for clinical purposes. It should not be regarded as investigational or for research. This laboratory is certified under the Clinical Laboratory Improvement Amendments (CLIA) as qualified to perform high complexity clinical laboratory testing. This test is based on the CDC COVID-19 Emergency Use Authorization (EUA) assay, with minor modification as defined by the FDA Performed on the [employer] - teamwork across global offices Fast. Performing Lab [facility] 09/23/2019 17:[address] [facility] Swab ENTIRE NASOPHARYNX / Unknown 09/21/2019 15:30 EDT 09/22/2019 20:22 EDT Provider Outr Resulting Lab MICROBIOLOGY - GENERAL ORDERABLES Performing Organization Address City/[facility]/ZIP Co de Phone Number [facility] [address] [place] [address] documented in this encounter Visit Diagnoses Not on filedocumented in this encounter Care Teams Cemetery Laborer Relationship Specialty Start Date End Date Rand Harley MD [address] [place] [id number] PCP - General 07/30/16 documented as of this encounter
--- OUTSIDE RECORDS SUMMARY | 2024-02-10 18:23 | XMS_ITS | Encounter Summary ---
Author Organization [facility] Address [address] [place] [address] Care Team Providers Care Scale Attendant Name Role Phone Rand Harley MD Primary Care Provider [phone] Encounter Details Date Type Department Care Team (Latest Contact Info) Description 01/20/2018 11:40 EDT Procedure visit [facility] Endocrinology - [facility] [address] [place] [address] Ale Hsu MD PhD [address] [place] [address] Phlebotomy, [facility] Postsurgical hypothyroidism; History of thyroid cancer Discharge Disposition: Auto Discharge Social History Tobacco Use Types Packs/Day Years [...] No 01/31/2016 documented as of this encounter Discharge Diagnoses Diagnosis E89.0 POSTPROCEDURAL HYPOTHYROIDISM[ICD-10-CM] documented in this encounter Discharge Disposition Disposition Code Departure Means Destination Auto Discharge documented in this encounter Progress Notes * Carolyn Khoury - 01/20/2018 1140 EDT Venipuncture preformed for Thyroglobulin TM, TSH, T4 free Per orders of Ronnell Hsu Diagnosis of Z85.850 V10.87 I was supervised by Ronnell Oneill who was present and immediately available in the office suite. Carolyn Khoury 01/20/2018 11:48 documented in this encounter Plan of Treatment Not on file documented as of this encounter Procedures Procedure Name Priority Date/Time Associated Diagnosis Comments THYROGLOBULIN, TUMOR MARKER, S Routine 01/20/2018 11:43 EDT History of thyroid cancer TSH Routine 01/20/2018 11:43 EDT Postsurgical hypothyroidism T4 FREE Routine 01/20/2018 11:43 EDT Postsurgical hypothyroidism documented in this encounter Results * THYROGLOBULIN, TUMOR MARKER, S (01/20/2018 11:43 EDT) Thyroid Suppression? YES 01/20/2018 11:43 EDT [facility] Thyroglob,Tumor Mrkr <0.1 ng/mL 01/22/2018 8:16 [facility] Comment: (Note) . REFERENCE VALUE Athyrotic <0.1 Intact Thyroid <=33 . Thyroglobulin Ab, S 3.5 <4.0 IU/mL 01/22/2018 8:16 T [facility] Thyroglobulin Interp (Note) 01/22/2018 8:16 T [facility] Comment: Thyroglobulin (Tg) levels must be interpreted in the context of TSH levels, serial Tg measurements and radioiodine ablation status. Tg levels <0.1 ng/mL in athyrotic individuals on suppressive therapy indicate a minimal risk (<1-2%) of clinically detectable recurrent papillary/follicular thyroid cancer. . ADDITIONAL INFORMATION PLEASE NOTE: Thyroglobulin flagging is based on athyrotic reference values. . The thyroglobulin and thyroglobulin antibody testing methods are immunoenzymatic assays manufactured by [employer]. and performed on the [employer]. . Values obtained from different assay methods or kits may be different and cannot be used interchangeably. . The results cannot be interpreted as absolute evidence for the presence or absence of malignant disease. Performed by: [facility]: [address], [place] [address] Blood specimen (specimen) BLOOD SPECIMEN / Unknown 01/20/2018 11:43 EDT 01/20/2018 15:59 EDT Ale Hsu MD PhD CHEMISTRY & BLOOD GAS ORDERABLES Performing Organization Address City/[facility]/ZIP Co de Phone Number [facility] [address] [place] [address] * T4 FREE (01/20/2018 11:43 EDT) T4, Free 1.5 0.8 - 2.2 ng/dl 01/20/2018 16:37 EDT [facility] Blood specimen (specimen) BLOOD SPECIMEN / Unknown 01/20/2018 11:43 EDT 01/20/2018 15:59 EDT Ale Hsu MD PhD CHEMISTRY & BLOOD GAS ORDERABLES [facility] [address] [place] [address] * TSH (01/20/2018 11:43 EDT) TSH 3.41 0.47 - 4.68 uIU/ml 01/20/2018 16:49 EDT [facility] Comment: The results of this assay can be falsely lowered due to the consumption of Biotin. Blood specimen (specimen) BLOOD SPECIMEN / Unknown 01/20/2018 11:43 EDT 01/20/2018 15:59 EDT Ale Hsu MD PhD CHEMISTRY & BLOOD GAS ORDERABLES [facility] [address] [place] [address] documented in this encounter Visit Diagnoses Diagnosis Postsurgical hypothyroidism History of thyroid cancer Personal history of malignant neoplasm of thyroid documented in this encounter Care Teams Scale Attendant Relationship Specialty Start Date End Date Rand Harley MD [address] [place] [id number] PCP - General 07/30/16 documented as of this encounter
--- OUTSIDE RECORDS SUMMARY | 2024-02-10 18:23 | XMS_ITS | Encounter Summary ---
Author Organization [facility] Address [address] [place] [address] Care Team Providers Care Weigher And Charger Name Role Phone Rand Harley MD Primary Care Provider [phone] Reason for Visit * Reason Comments New Patient Visit Skin lesion of phillip rn on chest present for 4-5 weeks, patient reports changes * Consult (3 - 10 Business Days) - Closed Specialty Diagnoses / Procedures Referred By Uriel kramer Referred To Contact Dermatology Diagnoses Disorder of the skin and subcutaneous tissue, unspecified Zahra Edgar, SLEEVE FIXER [address] [place] [address] [facility] Dermatology [address] [place] [id number] Referral ID Status Reason Start Date Expiration Date Visits Re quested Visits Authorized [id number] Closed 1 1 Encounter Details Date Type Department Care Team (Late st Contact Info) Description 01/30/2021 15:10 EDT Office Visit [facility] Dermatology 5th Floor [facility] [address], [place] [address] Iron De Oliveira MD [address] [place] [phone] Neoplasm of uncertain behavior of skin (Primary Dx) Social History Tobacco Use Types Packs/Day Years Used Date Smoking Tobacco: Former Cigarettes 0.8 7 0 05/13/2004 - 05/13/2011 Smokeless Tobacco: Never Alcohol Use Standard Drinks/Week Comments Yes 0 (1 standard drink = 0.6 oz pur e alcohol) 1/5months Interpersonal Safety Answer Date Record ed Physically Hurt Never 12/13/2019 Verbally Threaten Not on file 12/13/2019 Sex and Gender Information Value Date Recorded [...] No 01/31/2016 documented as of this encounter Patient Instructions * Patient Instructions* Iron De Oliveira MD - 01/30/2021 15:10 EDT DERMATOLOGY WOUND CARE INSTRUCTIONS FOR SKIN BIOPSY The DRESSING/BANDAID should remain in place for 24 hours. You may shower or bathe after 24 hours; remove the bandage and replace it after the shower. DISCOMFORT: Extra-Strength Tylenol, as directed by ticket attendant, usually relieves any pain you may have. BLEEDING: You may notice some blood on the edges of the dressing the first day and this is NORMAL. If the bleeding soaks through the dressing, remove the dressing, and apply firm, steady pressure with a moist clean wash cloth for fifteen minutes. If the bleeding stops, redress the wound, if not, call our office at . ACTIVITY: You may resume normal activity in 1 day unless instructed otherwise. WOUND CARE: ?? Wash hands with soap and water before changing the dressing. ?? Change the dressing daily and when it becomes wet. Clean the wound daily with mild soap and water. You may gently loosen any crusts with a cotton swab. The wound may be slightly tender and may bleed a small amount. A small amount of discharge is normal. Apply a thin layer of sterile petroleum jelly over the wound. Cover the wound with a Telfa (non-stick) dressing or bandage. It is important to keep the wound covered. CONTACT THE OFFICE IF YOU EXPERIENCE: ?? increased redness ?? warmth to touch ?? increased pain ?? drainage with a foul odor ?? rapid swelling of the wound ?? fever or chills Please call our office or . documented in this encounter Progress Notes * Iron De Oliveira MD - 01/30/2021 1510 EDT Dermatology Outpatient Visit Note Chief Complaint Patient presents with ??? New Patient Visit Skin lesion of concern on chest present for 4-5 weeks, patient reports changes Dermatologic History: History of basal cell carcinoma of right chin, s/p Mohs in Dec 2011 (at [facility]) SUBJECTIVE: Ms. James is a 55 y.o. female who presents for evaluation of spot of concern on the left chest. It has been present for approximately 5 to 6 weeks, and occasionally opens up. She has a history of BCC of the right chin as noted above. She is diligent about sun protection. OBJECTIVE: Focused cutaneous examination was performed. -Eroded pink papule on the left upper chest ASSESSMENT & PLAN: Neoplasm of uncertain behavior of , left upper chest -Differential includes basal cell carcinoma, squamous cell carcinoma, and inflamed seborrheic keratosis versus less likely persistent arthropod bite -Given the diagnostic uncertainty, offered biopsy today. Patient agrees. PROCEDURE: SHAVE BIOPSY PATIENT INFORMATION: Jc James : MRN: [id number] SURGEON: MD Anderson Flores MD The indication, risks, benefits and alternatives to this procedure were discussed in detail with the patient and all questions were answered. Informed consent was obtained in writing. PROCEDURE NOTE Specimen A Procedure: Tangential Shave Indication: Diagnostic Biopsy Site: left chest Anesthesia: 1% lidocaine with epinephrine 1:100,000 local infiltration Prep: Alcohol The lesion was prepped as above and locally anesthetized. The specimen was removed by tangential shave using a Dermablade??. Hemostasis was achieved with pressure and/or aluminum chloride. The wound was cleansed with alcohol and a sterile dressing was applied over Petrolatum ointment. Verbal and written wound care instructions were given.The specimen was submitted to pathology for histological evaluation. FOLLOW UP: Return for f/u pending biopsy results. Iron De Oliveira MD 01/30/2021 19:32 Attestation Statement: I saw and examined the patient with the resident/fellow. I agree with the findings and plan of care documented in the resident's/fellow's note. I was present for the entire procedure. Anderson Wagner MD * Suhail Walter MA - 01/30/2021 1510 EDT Review of Systems Constitutional: Negative for fatigue, fever and unexpected weight change. HENT: Negative for mouth sores. Eyes: Negative for pain. Respiratory: Negative for cough and shortness of breath. Cardiovascular: Negative for chest pain and palpitations. Gastrointestinal: Negative for abdominal pain, blood in stool, constipation, diarrhea, nausea and vomiting. Genitourinary: Negative for dysuria, frequency and hematuria. Musculoskeletal: Negative for myalgias, joint swelling, arthralgias and muscle stiffness in the morning. Skin: Negative for rash. Neurological: Negative for numbness and headaches. Endo/Heme/Allergies: Does not bruise/bleed easily. Psychiatric/Behavioral: Negative for sleep disturbance. The patient is not nervous/anxious. SUHAIL WALTER MA 01/30/2021 15:24 documented in this encounter Miscellaneous Notes * Result Encounter Note - Iron De Oliveira MD - 01/30/2021 1510 EDT Spoke with patient regarding benign biopsy results - inflamed keratosis. Analy, please call patient to schedule FBSE in my clinic in 2-3 months. Thanks! Iron * Result Encounter Note - Jenny Oates MA - 01/30/2021 1510 EDT Patient is scheduled 04/24 at 3:30pm with Dr. Yennifer OATES MA 02/01/2021 14:04 documented in this encounter Plan of Treatment Not on file documented as of this encounter Procedures Procedure Name Priority Date/Time Associated Diagnosis Comments SURGICAL PATHOLOGY Routine 01/30/2021 15 :38 EDT Neoplasm of uncertain behavior of skin documented in this encounter Results * SURGICAL PATHOLOGY (01/30/2021 15:38 EDT) Note to Patient The following pathology results have been interpreted by your pathologist and may be available to you before your health provider has had the opportunity to review them. Please allow time for your provider to receive these results and explore management options, if applicable. 01/31/2021 9:55 [facility] Final Diagnosis A. SKIN OF CHEST, LEFT, SHAVE BIOPSY: - Lichenoid keratosis (lichen planus-like keratosis). 01/31/2021 9:55 [facility] Attestation By the signature below, the attending physician certifies that they have 1) personally conducted a gross and/or microscopic examination of the described specimen(s), and/or personally interpreted the results of laboratory testing of the described specimen(s), and 2) personally rendered or confirmed the above diagnosis. 01/31/2021 9:55 [facility] at 0955 Microscopic Description There is mild compact ortho- and parakeratosis. The epidermis is of variable thickness with areas of relative rete effacement. The dermis is marked by a lichenoid lymphomononuclear inflammatory infiltrate that partially obscures the dermal-epidermal interface. The infiltrate is associated with vacuolar change of the basal keratinocytes and scattered necrotic cells. Melanophages are present in the superficial dermis. 01/31/2021 9:55 [facility] Clinical History Eroded pink papule; BCC vs. SCCIS vs. inflamed SK vs. other; clinical diagnosis code: D48.5 01/31/2021 9:55 [facility] Gross Description A. Received in formalin labelled with proper patient identification (initials M, A) and left chest is a shave biopsy of white-pink skin (0.8 x 0.6 x 0.1 cm). There is a red-pink eroded focus (0.3 x 0.2 x less than 0.1 cm) located on the skin surface. The margin is inked blue. The tissue is trisected and entirely submitted in A1. RJ CONRAD(ASCP) 01/30/2021 17:34 01/31/2021 9:55 EDT [facility] Performing Lab [facility] 01/31/2021 9:55 EDT [facility] Scanned Images 01/31/2021 9:55 T [facility] Tissue TISSUE SPECIMEN FROM SKIN / Unknown Collection, Other / Unknown 01/30/2021 15:38 EDT 01/30/2021 16:47 EDT Anderson Wagner MD PATHOLOGY ORDERABLES Performing Organization Address City/State/[facility] Co de Phone Number [facility] [address] [place] [address] documented in this encounter Visit Diagnoses Diagnosis Neoplasm of uncertain behavior of skin- Primary documented in this encounter Care Teams Weigher And Charger Relationship Specialty Start Date End Date Rand Harley MD [address] [place] [id number] PCP - General 07/30/16 documented as of this encounter
--- OUTSIDE RECORDS SUMMARY | 2024-02-10 18:23 | XMS_ITS | Encounter Summary ---
Author Organization [facility] Address [address] [place] [address] Care Team Providers Care Special Warfare Combatant Crewman Name Role Phone Rand Harley MD Primary Care Provider [phone] Encounter Details Date Type Department Care Team (Late st Contact Info) Description 11/03/2021 Lab Requisition [facility] Pathology & Laboratory Medicine - [address] [address] Outr Resulting Lab, Provider Social History Tobacco [...] Procedure Name Priority Date/Time Associated Diagnosis Comments ANTI THYROGLOBULIN Routine 11/02/2021 15 :52 EDT documented in this encounter Results * ANTI THYROGLOBULIN (11/02/2021 15:52 EDT) Anti-Thyroglob ulin <15 <=60 U/mL 11/03/2021 22:02 EDT [facility] Blood VENOUS BLOOD / Unknown 11/02/2021 15:52 EDT 11/03/2021 20:06 EDT Provider Outr Resulting Lab CHEMISTRY & BLOOD GAS ORDERABLES [facility] [address] [place] [address] documented in this encounter Visit Diagnoses Not on filedocumented in this encounter Care Teams Special Warfare Combatant Crewman Relationship Specialty Start Date End Date Rand Harley MD [address] [place] [id number] PCP - General 07/30/16 documented as of this encounter
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
--- OUTSIDE RECORDS SUMMARY | 2024-02-10 18:23 | XMS_ITS | Encounter Summary ---
Author Organization [facility] Address [address] [place] [address] Care Team Providers Care Auto Air Conditioning Mechanic Name Role Phone Rand Harley MD Primary Care Provider [phone] Reason for Visit * Reason Comments Thyroid Problem Encounter Details Date Type Department Care Team (Latest Contact Info) Description 01/20/2018 11:00 EDT Office Visit [facility] Endocrinology - [address] [address] Ale Hsu MD PhD [address] [place] [address] [place] [phone] Postsurgical hypothyroidism (Primary Dx); History of thyroid cancer Discharge Disposition: Auto [...] on file documented as of this encounter Last Filed Vital Signs Vital Sign Reading Time Taken Comments Blood Pressure 149/73 01/20/2018 1110 EDT Pulse 73 01/20/2018 1110 EDT Temperature - - Respiratory Rate - - Oxygen Saturation - - Inhaled Oxygen Concentration - - Weight 82.6 kg (182 lb) 01/20/2018 1110 EDT Height 165.1 cm (5' 5) 01/20/2018 1110 EDT Body Mass Index 30.29 01/20/2018 1110 EDT documented in this encounter Functional Status Functional Status Response [...] encounter Discharge Diagnoses Diagnosis E89.0 POSTPROCEDURAL HYPOTHYROIDISM[ICD-10-CM] Z85.850 Personal history of malignant neoplasm of thyroid-Z85.850[ICD-10-CM] documented in this encounter Patient Instructions * Patient Instructions* Ale Hsu MD - 01/20/2018 11:00 EDT TSH goal is around 0.5 Thyroglobulin tumor marker < 2 is good and < 0.1 excellent. documented in this encounter Ordered Prescriptions Prescription Sig Dispensed Refills Start Date End Da te levothyroxine (SYNTHROID) 125 mcg tablet Take 1 Tab by mouth daily. 90 Tab 3 01/20/2018 documented in this encounter Discharge Disposition Disposition Code Departure Means Destination Auto Discharge documented in this encounter Progress Notes * Ale Hsu MD - 01/20/2018 1100 EDT Endocrinology Thyroid Follow-Up Evaluation CHIEF COMPLAINT: Chief Complaint Patient presents with ??? Thyroid Problem HPI: Jc Banerjee is a 52 y.o. female who I am asked to see in consultation for evaluation of 1. Postsurgical hypothyroidism 2. History of thyroid cancer HPI History of papillary thyroid cancer, 1988. ?? A. T2, N1, M0. ?? B. Treated with total thyroidectomy. ?? C. Post-surgical hypothyroidism . Cancer was diagnosed 30??years ago. She never had I-131 due to . ? Medications: Synthroid (Levothyroxine) 125 mcg/d. ? Prior studies/tests include Prior Thyroid Imaging: thyroid ultrasound 2000. ? 1. Several small nonpathological lymph nodes in the right and left? neck. No masses are seen.?? U/SD 2003 ?? Sonography of the thyroid bed shows no normal thyroid structure.? Comparison is made with the prior study of 03/05/01. There has been? no significant change. ?? CT neck , 2005 ?? EXAM: CONTRAST-ENHANCED CT SCAN OF THE NECK: 07/13/05 1244 HOURS? COMPARISON: None.? IMPRESSION:? 1. 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 2. Patient has had prior thyroidectomy.? 3. No radiographic evidence of metastatic disease.?? CT chest, 2005 IMPRESSION:? 1. No evidence of metastatic disease to the chest.?? Tg <??0.1 in 2013, but in 2014, assay changed and AB level was positive at 11. That assay last used 2009-AB at that time was 13. 2017- TSH < 0.02, Tg < 0.1, AB positive at 5.1. PAST SOCIAL HISTORY Social History Social History ??? Marital status: Spouse name: N/A ??? Number of children: N/A ??? Years of education: N/A Social History Main Topics ??? Smoking status: Former Smoker Packs/day: 0.75 Years: 7.00 Quit date: 05/13/2011 ??? Smokeless tobacco: Never Used ??? Alcohol use Yes Comment: 1/5months ??? Drug use: No ??? Sexual activity: Not Asked Other Topics Concern ??? None Social History Narrative MEDICATIONS Jc has a current medication list which includes the following prescription(s): bupropion, levothyroxine, loratadine, and ranitidine hcl. ALLERGIES Cardizem [diltiazem hcl] REVIEW OF SYSTEMS: ROMMEL Denies dysphagia, hoarseness, no diarrhea or constip,no muscle cramping. Losing some wt.. No chest pain, SOB or palpitations. BMI AND WEIGHT 04/30/2017 01/20/2018 Weight (lb) 187 lb 182 lb OBJECTIVE: Vitals: BP (!) 149/73 Pulse 73 Ht 165.1 cm (65) Wt 82.6 kg (182 lb) LMP 02/06/2010 BMI 30.29 kg/m2 BMI: Body mass index is 30.29 kg/(m^2). Physical Exam General: alert, cooperative, no distress Eyes: no lid lag, periorbital edema, stare, proptosis or exophthalamus. EOM full. Neck: supple, symmetrical, trachea midline, no adenopathy, no carotid bruit and no JVD Lung: clear to auscultation bilaterally, non labored breathing Heart: regular rate and rhythm, S1, S2 normal, no murmur, click, rub or gallop Abdomen: deferred Extremities: extremities warm, atraumatic, no cyanosis or edema positive pulses bilat Pulses: 2+ and symmetric Skin: warm and dry Neuro: reflexes normal with no hung-up relaxation phase mental status, speech normal, alert and oriented x iii fundi are normal cranial nerves 2-12 intact muscle tone and strength normal and symmetric no tremors LAB REVIEW: TSH < 0.02, FT4 2.0, Tg < 0.1, AB 5.1. ASSESSMENT: 1. Postsurgical hypothyroidism 2. History of thyroid cancer This woman had a more aggressive papillary due to , but the T-score was <3, so good prognosis. Her AB level for thyroglobulin tumor marker has been decreasing, but to date has still been positive, interfering with measurement of the Tg. Decreasing is a good sign, but with this in mind, would keep TSH 0.1- 0.5. For bone health would avoid undetectable levels now due to perimenopause. PLAN: 1. TSH and Tg level. 2. Continue for now 125 mcg/d LT4 as this is < 1.6 mcg/kg. The risks and benefits of my recommendations, as well as other treatment options were discussed with the patient today. Questions were answered. Ale Hsu MD 01/20/2018 12:37 documented in this encounter Plan of Treatment Not on file documented as of this encounter Results * THYROGLOBULIN, TUMOR MARKER, S (01/20/2018 11:43 EDT) Thyroid Suppression? YES 01/20/2018 11:43 EDT [facility] Thyroglob,Tumor Mrkr <0.1 ng/mL 01/22/2018 8:16 EDT [facility] Comment: (Note) . REFERENCE VALUE Athyrotic <0.1 Intact Thyroid <=33 . Thyroglobulin Ab, S 3.5 <4.0 IU/mL 01/22/2018 8:16 T [facility] Thyroglobulin Interp (Note) 01/22/2018 8:16 EDT [facility] Comment: Thyroglobulin (Tg) levels must [...] testing methods are immunoenzymatic assays manufactured by [employer] and performed on the [employer] DXI 800. . Values obtained from different assay methods or kits may be different and cannot be used interchangeably. . The results cannot be interpreted as absolute evidence for the presence or absence of malignant disease. Performed by: [facility]: [address], [place] [address] Blood specimen (specimen) BLOOD SPECIMEN / Unknown 01/20/2018 11:43 EDT 01/20/2018 15:59 EDT Ale Hsu MD PhD CHEMISTRY & BLOOD GAS ORDERABLES [facility] [address] [place] [address] * T4 FREE (01/20/2018 11:43 EDT) Pathologist [facility] T4, Free 1.5 0.8 - 2.2 ng/dl 01/20/2018 16:37 EDT [facility] Blood specimen (specimen) BLOOD SPECIMEN / Unknown 01/20/2018 11:43 EDT 01/20/2018 15:59 EDT Ale Hsu MD PhD CHEMISTRY & BLOOD GAS ORDERABLES Performing Organization Address [facility] [address] [facility] Co de Phone Number [facility] [address] [place] [address] * TSH (01/20/2018 11:43 EDT) TSH 3.41 0.47 - 4.68 uIU/ml 01/20/2018 16:49 EDT [facility] Comment: The results of this assay can be falsely lowered due to the consumption of Biotin. Blood specimen (specimen) BLOOD SPECIMEN / Unknown 01/20/2018 11:43 EDT 01/20/2018 15:59 EDT Ale Hsu MD PhD CHEMISTRY & BLOOD GAS ORDERABLES Performing Organization Address [facility] [address]/[facility] Co de Phone Number [facility] [address] [place] [address] documented in this encounter Visit Diagnoses Diagnosis Postsurgical hypothyroidism- Primary History of thyroid cancer Personal history of malignant neoplasm of thyroid documented in this encounter Discontinued Medications Medication Sig Discontinue Reason Start Date End Da te levothyroxine (SYNTHROID) 125 mcg tablet Take 1 Tab by mouth daily. Reorder 05/03/2017 01/20/2018 documented as of this encounter Care Teams Auto Air Conditioning Mechanic Relationship Specialty Start Date End Date Rand Harley MD [address] [place] [address] PCP - General 07/30/16 documented as of this encounter
--- OUTSIDE RECORDS SUMMARY | 2024-02-10 18:23 | XMS_ITS | Encounter Summary ---
Author Organization [facility] Address [address] [place] [address] Care Team Providers Care Generation Technologist Name Role Phone Rand Harley MD Primary Care Provider [phone] Reason for Visit * Reason Comments Follow-up 2-3 month re-eval Encounter Details Date Type Department Care Team (Late st Contact Info) Description 04/24/2021 15:30 EST Office Visit [facility] Dermatology 5th Floor [address] [address] Iron De Oliveira MD [address] [place] [phone] Adverse effect of vaccine, initial encounter (Primary Dx); Multiple benign nevi; History of malignant neoplasm of skin Social History Tobacco Use Types Packs/Day Years [...] No 01/31/2016 documented as of this encounter Ordered Prescriptions Prescription Sig Dispensed Refills Start Date End Da te triamcinolone (KENALOG) 0.1 % ointment Apply topically to affected area 2 times daily. Do not apply to face, armpit or groin. 80 g 3 04/24/2021 documented in this encounter Progress Notes * Iron De Oliveira MD - 04/24/2021 1530 EST Dermatology Outpatient Visit Note Dermatologic History: History of basal cell carcinoma of right chin, s/p Mohs in Dec 2011 (at [facility]) SUBJECTIVE: Ms. James is a 55 y.o. female who presents for a chief complaint of: Follow-up (2-3 month re-eval) She has no new spots of concern, but has developed redness and itchiness at the site of her COVID booster vaccine from last week and wonders if anything can be prescribed topically for this. She has a history of BCC as noted above. OBJECTIVE: Cutaneous full body examination was performed. - erythematous plaque with some overlying scale on the left shoulder and arm - Scattered medium brown macules and low papules with uniform pigment pattern on dermoscopy - scar on the right chin without nodularity or ulceration ASSESSMENT & PLAN: Adverse effect of vaccine, initial encounter - rx triamcinolone 0.1% ointment to be applied twice daily until resolution Multiple benign nevi - counseled on benign appearance today. Call the office with any concerning changes. History of malignant neoplasm of skin - well-healed scar, no evidence of recurrence FOLLOW UP: Return in about 1 year (around 04/24/2022) for FBSE, h/o BCC. Iron De Oliveira MD 04/24/2021 17:04 I saw and examined the patient with the resident/fellow. I agree with the findings and plan of caredocumented in the resident's/fellow's note. Injection site reaction is pruritic - agree with short course of topical steroid. Christian Gutierres MD 04/25/21 documented in this encounter Plan of Treatment Not on file documented as of this encounter Visit Diagnoses Diagnosis Adverse effect of vaccine, initial encounter- Primary Multiple benign nevi Benign neoplasm of skin, site unspecified History of malignant neoplasm of skin Personal history of other malignant neoplasm of skin documented in this encounter Care Teams Generation Technologist Relationship Specialty Start Date End Date Rand Harley MD [address] [place] [id number] PCP - General 07/30/16 documented as of this encounter
--- OUTSIDE RECORDS SUMMARY | 2024-02-10 18:23 | XMS_ITS | Referral Summary ---
Author Organization [facility] Address [address] [place] [address] Care Team Providers Care Manager Investigations Name Role Phone Rand Harley MD Primary Care Provider [phone] Allergies Active Allergy Reactions Criticality Noted Date Comments Diltiazem Hcl Swelling,Muscle Aches 02/14/2016 Medications Medication Sig Dispensed Refills Start Date End Date Status RANITIDINE HCL ORAL Take 1 Tab by mouth as needed. 02/06/2010 Active loratadine (CLARITIN) 10 mg tablet Take 10 mg by mouth at bedtime as needed. 02/05/2011 Active buPROPion (WELLBUTRIN SR) 150 mg SR tablet Take 150 mg by mouth daily. Active levothyroxine (SYNTHROID) 125 mcg tablet Take 1 Tab by mouth daily. 90 Tab 3 01/20/2018 Active triamcinolone (KENALOG) 0.1 % ointment Apply topically to affected area 2 times daily. Do not apply to face, armpit or groin. 80 g 3 04/24/2021 Active Active Problems Problem Noted Date Diagnosed Date SVT (supraventricular tachycardia) ([facility]) Postsurgical hypothyroidism 02/04/2012 Malignant neoplasm of thyroid gland ([facility]) Endometriosis 02/01/2010 Overview: S/p hysterectomy, 10/16 Resolved Problems Problem Noted Date Diagnosed Date Resolved Date Hypothyroidism, iatrogenic 02/01/2010 0 02/04/2012 Overview: ICD10 Update Auto Replacement History of malignant neoplasm of thyroid 02/01/2010 02/04/2012 Overview: Papillary thyroid cancer, T2 N1 M0 S/p total thyroidectomy, 1988 Social History Tobacco Use Types Packs/Day Years [...] on file Sexual Orientation Not on file Last Filed Vital Signs Vital Sign Reading Time Taken Comments Blood Pressure 149/73 01/20/2018 1110 EDT Pulse 73 01/20/2018 1110 EDT Temperature 36.6 ??C (97.9 ??F) 07/01/2013 1245 EST Respiratory Rate 17 07/01/2013 1600 EST Oxygen Saturation 95% 07/01/2013 1600 EST Inhaled Oxygen Concentration - - Weight 82.6 kg (182 lb) 01/20/2018 1110 EDT Height 165.1 cm (5' 5) 01/20/2018 1110 EDT Body Mass Index 30.29 01/20/2018 1110 EDT Functional Status Functional Status Response Date of [...] concentrating, remembering, or making decisions? No 01/31/2016 Plan of Treatment Not on file Advance Directives For more information, please contact: [phone] * Full Code (Latest Code Status on File) Date Activated Date Inactivated Comments 07/01/2013 6:57 07/01/2013 18:36 Care Teams Manager Investigations Relationship Specialty Start Date End Date Rand Harley MD [address] [place] [phone] (work) [facility] - General 07/30/16
--- OUTSIDE RECORDS SUMMARY | 2024-02-10 18:23 | XMS_ITS | Encounter Summary ---
Author Organization [facility] Address [address] [place] [address] Care Team Providers Care Plumbing Designer Name Role Phone Rand Harley MD Primary Care Provider [phone] Encounter Details Date Type Department Care Team (Late st Contact Info) Description 04/11/2023 Lab Requisition [facility] Pathology & Laboratory Medicine - [address] [address] Outr Resulting Lab, Provider Social History Tobacco [...] Procedure Name Priority Date/Time Associated Diagnosis Comments LYME AB Routine 04/11/2023 11:05 EST documented in this encounter Results * LYME AB (04/11/2023 11:05 EST) Lyme Ab Negative Negative 04/12/2023 10:57 EST [facility] Blood VENOUS BLOOD / Unknown 04/11/2023 11:05 EST 04/11/2023 22:00 EST Provider Outr Resulting Lab IMMUNOLOGY A ND SEROLOGY ORDERABLES [facility] [address] [place] [address] documented in this encounter Visit Diagnoses Not on filedocumented in this encounter Care Teams Plumbing Designer Relationship Specialty Start Date End Date Rand Harley MD [address] [place] [id number] PCP - General 07/30/16 documented as of this encounter
--- OUTSIDE RECORDS SUMMARY | 2024-02-10 18:23 | XMS_ITS | Encounter Summary ---
Author Organization [facility] Address [address] [place] [address] Care Team Providers Care Video Coordinator Name Role Phone Rand Harley MD Primary Care Provider [phone] Reason for Visit * Reason Onset Date Comments Appointment Related 03/13/2018 Encounter Details Date Type Department Care Team (Late st Contact Info) Description 03/13/2018 Telephone [facility] Dermatology [address] [facility] [address] [place], [place] [phone] Elida Culp MD [address] [place] [phone] Appointment Related Social History Tobacco Use Types Packs/Day Years [...] No 01/31/2016 documented as of this encounter Miscellaneous Notes * Telephone Encounter - Elissa Lan - 03/13/2018 1651 EDT Left message for patient to call back to reschedule appointment which was bumped. When patient calls back, ok to offer frozen/ available appointment with Meche Weiss MD or Bob Casarez MD in late March or early/ mid April. Appointment type to be scheduled: FUR Scheduling comment: 1 yr fbse Elissa Lan 03/13/2018 16:52 documented in this encounter Plan of Treatment Not on file documented as of this encounter Visit Diagnoses Not on filedocumented in this encounter Care Teams Video Coordinator Relationship Specialty Start Date End Date Rand Harley MD [address] [place] [address] PCP - General 07/30/16 documented as of this encounter
--- OUTSIDE RECORDS SUMMARY | 2024-02-10 18:23 | XMS_ITS | Clinical Summary ---
Author Organization [facility] Address [address] [place] [address] Care Team Providers Care Corrections Nurse Name Role Phone Rand Harley MD Primary Care Provider [phone] Allergies Active Allergy Reactions Criticality Noted Date [...] Noted Date Diagnosed Date SVT (supraventricular tachycardia) ([facility]) Postsurgical hypothyroidism 02/04/2012 Malignant neoplasm of thyroid gland ([facility]) Endometriosis 02/01/2010 Overview: S/p hysterectomy, 10/16 Resolved Problems Problem Noted Date Diagnosed Date Resolved Date Hypothyroidism, iatrogenic 02/01/2010 0 02/04/2012 Overview: ICD10 Update Auto Replacement History of malignant neoplasm of thyroid 02/01/2010 02/04/2012 Overview: Papillary thyroid cancer, T2 N1 M0 S/p total thyroidectomy, 1987 Surgical History Surgery Date Site/Laterality Comments HYSTERECTOMY, TOTAL ABDOMINAL 10/16 ovaries intact, endometriosis THYROIDECTOMY 1987 total, cancer APPENDECTOMY ABDOMEN SURGERY SECTION Medical History Medical History Date Comments Basal cell carcinoma Thyroid cancer ([facility]) SVT (supraventricular tachycardia) ([facility]) Social History Tobacco Use Types Packs/Day Years [...] on file Sexual Orientation Not on file Obstetrics History Last Filed Vital Signs Vital Sign Reading [...] Body Mass Index 30.29 01/20/2018 1110 EDT Plan of Treatment Health Maintenance Due Date Last Done Comments Hepatitis C Screen 1965 Hepatitis B Vaccine (1 of 3 - 19+ 3-dose series) 10/31 COVID-19 Vaccine (2022-24 season) 2023 Advance Directives For more information, please contact: [phone] * Full Code (Latest Code Status on File) Date Activated Date Inactivated Comments 07/01/2013 6:57 07/01/2013 18:36 Care Teams Corrections Nurse Relationship Specialty Start Date End Date Rand Harley MD [address] [place] [id number] PCP - General 07/30/16
--- OUTSIDE RECORDS SUMMARY | 2024-02-10 18:24 | XMS_ITS | Encounter Summary ---
Author Organization [facility] Address [address] [place] [address] Care Team Providers Care Pole Peeling Machine Operator Helper Name Role Phone Catina Chowdhury NP Primary Care Provider [phone] Reason for Visit * Reason Onset Date Comments Medications Refill 03/25/2014 Encounter Details Date Type Department Care Team (Late st Contact Info) Description 03/25/2014 Refill [facility] Endocrinology - [address] [address] Ale Hsu MD PhD [address] [place] [address] [place] [phone] Medications Refill Social History Tobacco Use Types Packs/Day Years [...] on file documented as of this encounter Ordered Prescriptions Prescription Sig Dispensed Refills Start Date End Da te levothyroxine (SYNTHROID) 137 mcg tablet Take 137 mcg by mouth daily Brand Only. 90 Tab 3 03/25/2014 02/05/2016 documented in this encounter Miscellaneous Notes * Telephone Encounter - Charley Navarro - 03/25/2014 0941 EST Abu from [facility] asking for a verbal to dispense this as brand only Synthroid, received script butit didn't have [facility] documented in this encounter Plan of Treatment Not on file documented as of this encounter Visit Diagnoses Not on filedocumented in this encounter Discontinued Medications Medication Sig Discontinue Reason Start Date End Da te levothyroxine (SYNTHROID) 137 mcg tablet Take 137 mcg by mouth daily. Reorder 03/25/2014 03/25/2014 documented as of this encounter Care Teams Pole Peeling Machine Operator Helper Relationship Specialty Start Date End Date Catina Chowdhury NP [facility] [address] [place] [address] PCP - General 02/02/14 07/29/16 documented as of this encounter
--- OUTSIDE RECORDS SUMMARY | 2024-02-10 18:24 | XMS_ITS | Encounter Summary ---
Author Organization [facility] Address [address] [place] [address] Care Team Providers Care Cold Mill Operator Name Role Phone Rand Harley MD Primary Care Provider [phone] Reason for Visit * Reason Comments Follow-up FBSE Hx BCC Encounter Details Date Type Department Care Team ([facility] Contact Info) Description 02/04/2013 10:15 EDT Office Visit [facility] Dermatology 3rd Floor [facility] [address] [place], [place] [id number] Elida Culp MD [address] [place] [address] Md Jose Francisco History of basal cell cancer (Primary Dx) Social History Tobacco Use Types Packs/Day Years Used Date Smoking Tobacco: Former Cigarettes 0.8 7 Smokeless Tobacco: Never Alcohol Use Standard Drinks/Week Comments Yes 0 (1 standard drink = 0.6 oz pur e alcohol) Sex and Gender Information Value Date Recorded Sex Assigned at Not on file Gender Identity Not on file Sexual Orientation Not on file documented as of this encounter Progress Notes * Elida Culp - 02/04/2013 1630 EDT DIVISION OF DERMATOLOGY?? PROGRESS NOTE - 02/04/2013 ? Chief Complaint Patient presents with ??? Follow-up FBSE Hx BCC Problem List: 1. History of basal cell carcinoma of right chin, s/p Mohs in Dec 2011 (at [facility]) 2. History of angiofibroma of the right cheek SUBJECTIVE:?? Ms. Up presents today to the clinic in follow up, requesting a skin check. The patient has been doing well since the last visit. Nothing on the skin has been bleeding or changing. Ather last visit, she had a changing papule on the right cheek, and biopsy proved to be angiofibroma.She thinks that the spot healed well after shave biopsy. She has no concerns about her skin today. S he works for [employer]. The patient does try to be reasonable about sun exposure. For patient's past medical history, past surgical history, medications, medication allergies, social history and family history please refer to the patient's electronic record in [facility]. OBJECTIVE: VS: LMP 02/06/2010 On physical examination, Ms. Up is a female who is alert and interactive and is in no apparent distress. She has a fair skin phenotype. Cutaneous examination of the head (including scalp and face), neck, back, chest, abdomen, upper extremities, lower extremities, hands and feet was performed. Significant findings: - On the right chin is an arcuate well healed scar without nodularity or pigmentation - subtle scar on the right cheek - In a photo-distribution there are multiple homogeneously pigmented medium brown macules. ASSESSMENT 1. Lentigines and actinic injury, mild 2. History of basal cell carcinoma, without evidence of recurrence PLAN: 1. Patient education and reassurance about the benign nature of the remainder of the exam. The importance of sunscreen use, sun avoidance and self-examination was discussed. The patient showed a goodunderstanding. 2. The importance of sun avoidance, sun protection and regular self skin examinations for the prevention and detection of skin cancers reviewed. Return for skin check in 12 months, sooner as needed for any new or changing lesions as ongoing skin surveillance is recommended. Elida Culp MD * Ranjit Sheth IV - 02/04/2013 1030 EDT Review of Systems Constitutional: Negative for fever, fatigue and unexpected weight change. HENT: Negative for mouth sores. Eyes: Negative for pain. Respiratory: Negative for cough and shortness of breath. Cardiovascular: Negative for chest pain and palpitations. Gastrointestinal: Negative for nausea, vomiting, abdominal pain, diarrhea, constipation and blood in stool. Genitourinary: Negative for dysuria, frequency and hematuria. Musculoskeletal: Negative for myalgias, joint swelling, arthralgias and muscle stiffness in the morning. Skin: Negative for rash. Neurological: Negative for numbness and headaches. Endo/Heme/Allergies: Does not bruise/bleed easily. Psychiatric/Behavioral: Negative for sleep disturbance. The patient is not nervous/anxious. Elida Culp MD 02/04/2013 documented in this encounter Plan of Treatment Not on file documented as of this encounter Visit Diagnoses Diagnosis History of basal cell cancer- Primary Personal history of other malignant neoplasm of skin documented in this encounter Care Teams Cold Mill Operator Relationship Specialty Start Date End Date Rand Harley MD [address] [place] [id number] PCP - General 07/21/12 02/01/14 documented as of this encounter
--- OUTSIDE RECORDS SUMMARY | 2024-02-10 18:24 | XMS_ITS | Encounter Summary ---
Author Organization [facility] Address [address] [place] [address] Care Team Providers Care Knife Edger Name Role Phone Catina Chowdhury NP Primary Care Provider [phone] Reason for Visit * Reason Comments Follow-up thyroid CA Encounter Details Date Type Department Care Team (Late st Contact Info) Description 10/06/2010 15:00 EDT Office Visit [address] [address] Lance Valdes MD [address] [facility], [address] [place] [address] Thyroid cancer (CMS-HCC) (HCC-CMS) (Primary Dx) Social History Tobacco Use Types Packs/Day Years Used Date Smoking Tobacco: Never Assessed Sex and Gender Information Value Date Recorded Sex Assigned at Not on file Gender Identity Not on file Sexual Orientation Not on file documented as of this encounter Progress Notes * Lance Valdes MD, MD - 10/06/2010 9538 EDT SUBJECTIVE Jc Banerjee is seen in follow up today for a history of thyroid papillary carcinoma. This was a T2, N1, M0 lesion treated with total thyroidectomy back in 1987. She did not receive radioactive iodine at that time because she was despite several positive nodes. I last saw her in March 2010. Ultrasound of the neck was clear at that time but there is concern regarding trending upward thyroglobulin antibody levels. She has not had a recent metastatic survey. She had a neck/chest CT scan in 2005 which was clear. She has continued to do well with no hoarseness, dysphagia or palpable neck masses. Recent Labs: 02/06/2010 11:59 TSH 1.45 uIU/m... 0.35-5.00 Final * 02/06/2010 11:59 T4, Free 1.5 ng/dL 0.8-1.8 Final * 02/06/2010 11:59 Thyroglob Ab Scrn H 13 02/06/2010 11:59 Thyroglob Tumor Mrkr <0.1 Final * OBJECTIVE On examination today the patient was in no acute distress with no stridor. Her voice is normal. Otologic exam is normal bilaterally. Anterior rhinoscopy is within normal limits. The oral cavity and oropharynx are free of masses or lesions. Her thyroidectomy incision has healed well with minimal scarring. There is no palpable adenopathy or masses in the neck. A comprehensive ultrasound of the thyroid bed, central ellie compartment and bilateral internal jugular chains was performed with the Hodges IU-22 system in biplanar mode with power doppler. There is no residual thyroid tissue or masses in the area of the previous thyroidectomy. The esophagus is prominent. There is no adenopathy in the neck of concern. ASSESSMENT/PLAN Remote history of papillary thyroid carcinoma (T2N1M0). There has been a slight increase in her thyroglobulin antibodies (from 11 to 13, although was 14 back in 2006). Today's ultrasound did not demonstrate any suspicious adenopathy or masses. I have ordered updated labs today. If the thyroglobulinantibody levels continue to rise, she will need an updated NASH metastatic survey. Otherwise, I willsee her back in [address] Hsu again in 6 months. documented in this encounter Plan of Treatment Not on file documented as of this encounter Visit Diagnoses Diagnosis Thyroid cancer (HCC-CMS)- Primary Malignant neoplasm of thyroid gland documented in this encounter Care Teams Knife Edger Relationship Specialty Start Date End Date Catina Chowdhury NP [facility] [address] [place], [place] [address] PCP - General 02/03/09 07/20/12 documented as of this encounter
--- OUTSIDE RECORDS SUMMARY | 2024-02-10 18:24 | XMS_ITS | Encounter Summary ---
Author Organization [facility] Address [address] [place] [address] Care Team Providers Care Horticulture Teacher Name Role Phone Catina Chowdhury NP Primary Care Provider [phone] Encounter Details Date Type Department Care Team (Late st Contact Info) Description 01/31/2016 Phlebotomy Only [address] [address] Social Worker Masters, Outpatient Postsurgical hypothyroidism; History of thyroid cancer Social History Tobacco Use Types Packs/Day Years [...] Diagnosis Comments THYROGLOBULIN, TUMOR MARKER, S Routine 01/31/2016 12:16 EDT History of thyroid cancer TSH Routine 01/31/2016 12:16 EDT Postsurgical hypothyroidism T4 FREE Routine 01/31/2016 12:16 EDT Postsurgical hypothyroidism documented in this encounter Results * (ABNORMAL) THYROGLOBULIN, TUMOR MARKER, S (01/31/2016 12:16 EDT) Thyroid Suppression? YES 01/31/2016 12:15 EDT [facility] Thyroglob,Tumor Mrkr <0.1 ng/mL 02/02/2016 9:00 [facility] Comment: (Note) REFERENCE VALUE Athyrotic <0.1 Intact Thyroid <=33 Thyroglobulin Ab, S 5.9(H) <4.0 IU/mL 02/02/2016 9:00 T [facility] Thyroglobulin Interp (Note) 02/02/2016 9:00 [facility] Comment: Quantitation of thyroglobulin may be unreliable due to the presence of anti-thyroglobulin antibodies. Thyroglobulin (Tg) levels must be interpreted in the context of TSH levels, serial Tg measurements and radioiodine ablation status. Tg levels <0.1 ng/mL in athyrotic individuals on suppressive therapy indicate a minimal risk (<1-2%) of clinically detectable recurrent papillary/follicular thyroid cancer. ADDITIONAL INFORMATION PLEASE NOTE: Thyroglobulin flagging is based on athyrotic reference values. The thyroglobulin and thyroglobulin antibody testing methods are immunoenzymatic assays manufactured by [employer] and performed on the [employer] DXI 800. Values obtained from different assay methods or kits may be different and cannot be used interchangeably. The results cannot be interpreted as absolute evidence for the presence or absence of malignant disease. Performed by: [facility]: [facility], [place] [address], Lab Dir: Andrew Jimenez II, M.D., Ph.D. Blood specimen (specimen) BLOOD SPECIMEN / Unknown 01/31/2016 12:16 EDT 01/31/2016 12:44 EDT Ale Hsu MD PhD CHEMISTRY & BLOOD GAS ORDERABLES Performing Organization Address City/[facility]/ZIP Co de Phone Number [facility] [address] [place] [address] * T4 FREE (01/31/2016 12:16 EDT) Free T4 1.5 0.8 - 1.8 ng/dl 01/31/2016 14:45 EDT [facility] Blood specimen (specimen) BLOOD SPECIMEN / Unknown 01/31/2016 12:16 EDT 01/31/2016 12:44 EDT Ale Hsu MD PhD CHEMISTRY & BLOOD GAS ORDERABLES Performing Organization Address [facility] Co de Phone Number [facility] [address] [place] [phone] * (ABNORMAL) TSH (01/31/2016 12:16 EDT) TSH 0.03(L) 0.55 - 4.78 uIU/ml 01/31/2016 14:45 EDT [facility] Blood specimen (specimen) BLOOD SPECIMEN / Unknown 01/31/2016 12:16 EDT 01/31/2016 12:44 EDT Ale Hsu MD PhD CHEMISTRY & BLOOD GAS ORDERABLES Performing Organization Address City/[facility] Co de Phone Number [facility] [address] [place] [address] documented in this encounter Visit Diagnoses Diagnosis Postsurgical hypothyroidism History of thyroid cancer Personal history of malignant neoplasm of thyroid documented in this encounter Care Teams Horticulture Teacher Relationship Specialty Start Date End Date Catina Chowdhury NP [facility] [address] [place] [id number] PCP - General 02/02/14 07/29/16 documented as of this encounter
--- OUTSIDE RECORDS SUMMARY | 2024-02-10 18:24 | XMS_ITS | Encounter Summary ---
Author Organization [facility] Address [address] [place] [address] Care Team Providers Care Shactor Helper Name Role Phone Rand Harley MD Primary Care Provider [phone] Encounter Details Date Type Department Care Team (Late st Contact Info) Description 10/01/2012 Results Only [facility] Dermatology 5th Floor [address] [address] Yuri Cowan MD Social History Tobacco Use Types Packs/Day Years Used Date Smoking Tobacco: Former Alcohol Use Standard Drinks/Week Comments Yes 0 (1 standard drink = 0.6 oz pur e alcohol) Sex and Gender Information Value Date Recorded Sex Assigned at Not on file Gender Identity Not on file Sexual Orientation Not on file documented as of this encounter Plan of Treatment Not on file documented as of this encounter Procedures Procedure Name Priority Date/Time Associated Diagnosis Comments SURGICAL PATHOLOGY Routine 10/01/2012 15 :13 EDT documented in this encounter Results * SURGICAL PATHOLOGY (10/01/2012 15:13 EDT) Pathology Report: SURGICAL PATHOLOGY REPORT Reports generated via electronic interface contain original data; however they are lacking the format of the original report. Caution should be taken when reading/interpreti ng unformatted reports. Name: ? JC BANERJEE ? Accession #: ? [id number] ? : ? 1965 (Age: 46) ??F ? Collect Date: ? 10/01/2012 ? Location: ? [facility] ? Receive Date: ? 10/01/2012 ? Provider: YURI COWAN MD Copy to: MARGARITA MCCALL MD ? Final Pathologic Diagnosis: ? Skin of cheek, right, shave biopsy: - Angiofibroma, irritated. ??See comment. Comment: ? Present are features of an angiofibroma with associated excoriation. ??(Dr. Delgado)/[facility] Document reviewed and electronically signed by: SHUKRI DELGADO MD Report ??Date: 10/02/2012 16:58 By the signature above, the attending physician certifies that he/she has personally conducted a gross and/or microscopic examination of the described specimens and rendered or confirmed the above diagnosis. Specimen(s) Received: ? Right cheek shave Clinical History: ? New pink papule with rolled edges. DDX: BCC, irritated SK, other; clinical diagnosis code: ??239.2 Gross Description: ? Received in formalin labelled Jc Banerjee and right cheek is a 0.5 x 0.4 cm irregular shave biopsy of luis-white skin. ??There is a central 0.4 x 0.4 by less than 0.1 cm circular luis-white smooth papule. ??The specimen is bisected and entirely submitted as (1). (Lydia Jauregui/radha ?? End of Report KIIK MARTINEZ 10/01/2012 15:1 3 EDT 10/01/2012 15:13 EDT Yuri Cowan MD PATHOLOGY [facility] [address] [place] [address] documented in this encounter Visit Diagnoses Not on filedocumented in this encounter Care Teams Shactor Helper Relationship Specialty Start Date End Date Rand Harley MD [address] [place] [address] PCP - General 07/21/12 02/01/14 documented as of this encounter
--- OUTSIDE RECORDS SUMMARY | 2024-02-10 18:24 | XMS_ITS | Encounter Summary ---
Author Organization [facility] Address [address] [place] [address] Care Team Providers Care Obstetrical Anesthesiologist Name Role Phone Jerry Harley MD Primary Care Provider [phone] Encounter Details Date Type Department Care Team (Latest Contact Info) Description 07/01/2013 6:37 EST - 07/01/2013 16:15 EST Hospital Encounter [facility] Cardiovascular Unit [address] [place] [address] Hebert Malone MD [address] [place] [address] [address] [place] [address] SVT (supraventricular tachycardia) ([facility]) (Primary Dx) Discharge Disposition: Home or Self Care Social History Tobacco Use Types Packs/Day Years [...] Sign Reading Time Taken Comments Blood Pressure 108/73 07/01/2013 1600 EST Pulse - - Temperature 36.6 ??C (97.9 ??F) 07/01/2013 1245 EST Respiratory Rate 17 07/01/2013 1600 EST Oxygen Saturation 95% 07/01/2013 1600 EST Inhaled Oxygen Concentration - - Weight 76.2 kg (168 lb) 07/01/2013 0700 EST Height 170.2 cm (5' 7) 07/01/2013 0700 EST Body Mass Index 26.31 07/01/2013 0700 EST documented in this encounter Discharge Instructions * Discharge Instructions* Kennedi Zapata RN - 07/01/2013 14:07 EST [facility] Department of Cardiology Ablation Discharge Instructions: Jc Banerjee has had a SVT Ablation today Performed by . Phone# : [facility] Department of Cardiology Wound Care: You May Shower tomorrow.NO Tub bath, Swimming or Jacuzzi use for 1 Week. -Remove the dressings from the sites the next morning in the shower. Dry area gently & then place a clean dry Band Aid in each site daily after your shower for the next 3-4 days. DO NOT put any lotion, powder or Antibiotic ointment on procedure areas. Watch areas for any signs of infection or bleeding. Call Our Office If You Have Any Of The Following Problems: -You develop drainage, redness, or swelling at any of the sites -You develop a fever -You develop increased tenderness and/or increased bruising over sites which does not resolve in 2 days. -Your symptoms resume -You have any questions Activity: -You can resume your normal activities in 1 week, unless you have been otherwise instructed. -If you are traveling by car or airplane in the next week, you will need to stand and move around every 2 hours to promote circulation. -No vigorous activity for 1 week -You may resume driving after 3-4 days You may return to work in 3-4 days unless directed otherwise by your Doctor. Medications: -Resume your prior medications UNLESS otherwise indicated by your Doctor. Please call our office if you have any questions or concerns about your Ablation sites. We can be reached At Wound Care: You May Shower tomorrow.NO Tub bath, Swimming or Jacuzzi use for 1 Week. -Remove the dressings from the sites the next morning in the shower. Dry area gently & then place a clean dry Band Aid in each site daily after your shower for the next 3-4 days. DO NOT put any lotion, powder or Antibiotic ointment on procedure areas. Watch areas for any signs of infection or bleeding. Call Our Office If You Have Any Of The Following Problems: -You develop drainage, redness, or swelling at any of the sites -You develop a fever -You develop increased tenderness and/or increased bruising over sites which does not resolve in 2 days. -Your symptoms resume -You have any questions Activity: -You can resume your normal activities in 1 week, unless you have been otherwise instructed. -If you are traveling by car or airplane in the next week, you will need to stand and move around every 2 hours to promote circulation. -No vigorous activity for 1 week -You may resume driving after 3-4 days You may return to work in 3-4 days unless directed otherwise by your Doctor. Medications: -Resume your prior medications UNLESS otherwise indicated by your Doctor. Please call our office if you have any questions or concerns about your Ablation sites. We can be reached At documented in this encounter Medications at Time of Discharge Medication Sig Dispensed Refills Start Date End Date loratadine (CLARITIN) 10 mg tablet Take 10 mg by mouth at bedtime as needed. 02/05/2011 RANITIDINE HCL ORAL Take 1 Tab by mouth as needed. 02/06/2010 SYNTHROID 150 mcg tablet Take 1 Tab by mouth daily. 90 Tab 3 02/09/2013 03/25/2014 documented as of this encounter Discharge Disposition Disposition Code Departure Means Destination Home or Self Care documented in this encounter Progress Notes * Sparkle Salas RN - 07/01/2013 1630 EST 1550 Received report from Gatito De RN assumed responsibility of pt. Pt states feels much better, vss right and left groin cdi.Pt up oob orthostatic vss. Pt amb to bathroom voided. Discharge instructions reviewed. IV dc'd dry sterile dressing applied 1615 Pt discharged to home via wheel chiar in stable condition. * Radha De RN - 07/01/2013 1543 EST 1540 Report from Kennedi. Patient with no further vomiting at present. Dr. Malone in to see patient and Mother. Patient states much more comfortable at present. Tolerating po without difficulty. 1600 report to PARISH Villagran and care assumed by her. * Kennedi Zapata RN - 07/01/2013 1322 EST 1216 pt arrives to CVU s/pSVT ablation. PT denies pain, vss, monitored post procedure as ordered, family at bedside, post 12 lead EKG obtained, remains on bedrest post procedure as ordered, ket Family in at intervals, voided on bedpan, tolerates regular diet, d/c instructions reviewed, Dr Malone in to see pt post procedure. KET 1450 d/c instructions reviewed, written copy given, 1500 Pt sitting at bedside, tolerates well, 1510 blood noted from R groin dsg, pt back to bed, dsg changed, pt became diaphoretic, nauseated, bp and HR as documented, IV fluids running, Dr Malone into see pt at 1540, Attempted to void on bedpan, vomited mod amt, medicated w zofran by CJS. CJS given report and assumes care of pt. KET * Staci Hernandez RN - 07/01/2013 0738 EST Do not need to send UA per Dr. Malone. * Coby Mckinley RN - 07/01/2013 0754 EST Jc Neema Banerjee arrived to the Cardiovascular Unit via ambulatory. Patient greeted and identified per [facility] policy, Allergies, procedure verified & patient oriented to Unit. Reviewed all pre-procedure instructions with Jc Banerjee. Patient denies pain. Discussed history, med list, allergies, NPO, sedation,& procedure information. All questions answered & patient verbalizes understandi kika. Pre-SVT Ablation prep completed. Patient stretcher in low position with side rails up & call [place] within patient reach. Patient's boyfriend Kip & her mother not available at present.0735Dr. Roxanne in to see patient. documented in this encounter H&P Notes * Hebert Malone MD - 07/01/2013 0755 EST Cardiology Admitting H&P Admit Date: 07/01/2013 Date of Service: 07/01/2013 PCP: JERRY HARLEY MD Code Status: Full Code Chief Complaint: Recurrent palpitations HPI: 47 yo W with remote h/o thyroid cancer, now presenting with a 2 year history of palpitations occurring increasing frequency. Initially episodes lasted only seconds to minutes, happening a few times ayear. She now has episodes up to several time a month lasting up to several hours. They are associated with dizziness and presyncope. Vagal maneuvers have worked in the past, but less currently. Onset and offset of tachycardia up to 170-180/min is abrupt. Both betablockers and CCB have caused severe fatigue. She denies CP, SOB, syncope, orthopnea, PND, fevers, chills, bleeding, digestive troubles. Prior Cardiac History: PMH PSH Past Medical History Diagnosis Date ??? Basal cell carcinoma ??? Thyroid cancer ??? SVT (supraventricular tachycardia) Past Surgical History Procedure Laterality Date ??? Hysterectomy, total abdominal 10/16 ovaries intact, endometriosis ??? Thyroidectomy 1988 total, cancer ??? Appendectomy ??? Abdomen surgery ??? section Social History Family History History Substance Use Topics ??? Smoking status: Former Smoker -- 0.75 packs/day for 7 years Quit date: 05/13/2011 ??? Smokeless tobacco: Never Used ??? Alcohol Use: Yes Comment: 1/5months Both parents with sleep apnea. Father with NE at 49. Medications Prescriptions prior to admission Medication Sig Dispense Refill ??? loratadine (CLARITIN) 10 mg tablet Take 10 mg by mouth at bedtime as needed. ??? RANITIDINE HCL ORAL Take 1 Tab by mouth as needed. ??? SYNTHROID 150 mcg tablet Take 1 Tab by mouth daily. 90 Tab 3 Allergies Allergies Allergen Reactions ??? No Known Allergies Review of Systems: A ten point review of systems was performed. Pertinent positives are listed above in HPI, all others are negative. Objective/Physical Exam: VS: Patient Vitals for the past 8 hrs: BP Resp Temp SpO2 O2 Device 07/01/13 0700 104/72 mmHg 16 36.8 ??C (98.2 ??F) 95 % Room air Pain: Patient Vitals for the past 8 hrs: Numeric Pain Level (Scale 1-10) 07/01/13 0700 0 Weight: Weight : 76.204 kg (168 lb) Body mass index is 26.31 kg/(m^2). Glucose Readings (last 8 hours): No results found for this basename: GLUCOSEFINGE, in the last 72 hours Exam: General appearance: alert, cooperative, no distress Skin: Skin color, temperature, turgor normal. No rashes or lesions Head: Normocephalic, without obvious abnormality, atraumatic Eyes: conjunctivae/corneas clear. Throat/Mouth: lips, mucosa, and tongue normal; teeth and gums normal Neck: supple, symmetrical, trachea midline, no carotid bruit and no JVD Lungs: clear to auscultation bilaterally Heart: regular rate and rhythm, S1, S2 normal, no murmur, click, rub or gallop Abdomen: soft, non-tender; bowel sounds normal Mental Status: awake and alert; oriented to person, place, and time Extremities: extremities warm, atraumatic, no cyanosis or edema, 2+ pulses B. Pressure Ulcer Present on admission? No Data Review: Labs: I have personally reviewed CBC: Lab Results Component Value Date WBC 11.74 07/01/2013 RBC 4.56 07/01/2013 HGB 13.6 07/01/2013 HCT 40.4 07/01/2013 MCV 89 07/01/2013 MCH 29.9 07/01/2013 MCHC 33.7 07/01/2013 PLT 209 07/01/2013 BMP: Lab Results Component Value Date NA 138 07/01/2013 K 4.3 07/01/2013 CL 105 07/01/2013 CO2 22* 07/01/2013 BUN 11 07/01/2013 CREATININE 0.54 07/01/2013 Coagulation: Lab Results Component Value Date PROTIME 10.0 07/01/2013 INR 0.9 07/01/2013 eGFR calculation: GFR, Calculated Date Value Range Status 07/01/2013 >60 >60 ml/min/1.73m2 Final Assessment: 47 yo W with remote h/o thyroid cancer, now presenting with a 2 year history of palpitations and tachycardia occurring with increasing frequency. Clinically documented HR 170-180/min at ED visits. Tachycardia terminated before EKG documentation could be obtained. History c/w reentrant SVT. Patient does not tolerate AV node slowing meds. Tachycardia is very symptomatic and patient desires definitive treatment if possible. Plan : Patient Active Hospital Problem List: SVT (supraventricular tachycardia) (07/01/2013) Assessment: see above. Plan: EPS +/- ablation today. Discharge Plan: Home or self care Today. HEBERT MALONE MD 07/01/2013 7:56 documented in this encounter Procedure Notes * Hebert Malone MD - 07/01/2013 1515 ESTProcedure(s): [id number] Pre-Procedure Diagnose(s): SVT (supraventricular tachycardia) ([facility]) Post-Procedure Diagnose(s): AVNRT (AV ellie re-entry tachycardia) ([facility]) Electrophysiology Laboratory Preliminary Report -- Invasive Electrophysiology Procedure Date of Service/Procedure: 07/01/2013 Attending Physician: Hebert Malone MD Zoning Engineer: Aniket Cruz RN Pre-Procedure Diagnosis/Indication: Jc Banerjee is a 47 y.o. year old female Presents to [facility] Electrophysiology Laboratory on [address] for an Electrophysiological study which is Indicated for supraventricular tachycardia, based on findings of EP study an ablation was indicated for AVNRT. Anesthesia: A moderate level of anesthesia/conscious sedation was used., Local anesthesia was used.. Access: Right femoral vein 1 x 7.0 fr and 8.5 fr Left femoral vein 3 x 7.0 fr Post-Procedure Condition: The condition of the patient was Good. Complications: None. Estimated Blood Loss: Minimal. Unless otherwise noted, there were no specimens removed, cultures obtained, or drains retained. Clinical Trial: The patient is not enrolled in a clinical trial. Summary of Procedure: 1. Comprehensive EPS with induction of AVNRT at Isoproterenol 2 mcg/min. 2. Successful Slow pathway ablation. Post-Procedure Diagnosis: AVNRT Plan: see post-procedure orders, bedrest for 3 hour(s) and discharge home from CVU after bedrest. At the completion of the procedure, the attending physician has explained the findings, therapies, any complications and treatment plan to the patient. With the patients consent, all family members and patient support persons who were present at the conclusion of the procedure have been notified ofthese results and treatment plans as well. Post Procedural Disposition: Outpatient status is indicated. Reference: Hospitalization Criteria for Pacemaker and ICD Placement and EP/Ablation; Heart Rhythm Society; Revised October, Final report will appear on imaging tab when complete. HEBERT MALONE MD 07/01/2013 15:17 documented in this encounter Plan of Treatment Not on file documented as of this encounter Procedures Procedure Name Priority Date/Time Associated Diagnosis Comments ECG REPORT - SCANNED 07/08/2013 14:02 EST ECG REPORT - SCANNED 07/06/2013 12:29 EST ECG REPORT - SCANNED 07/06/2013 11:14 EST INVASIVE CARDIOLOGY REPORT-SCANNED 07/06/2013 11:14 EST EKG 12-LEAD Routine 07/01/2013 13:14 EST EKG 12-LEAD Routine 07/01/2013 7:14 EST PROTIME STAT 07/01/2013 7:09 EST COMPLETE BLOOD COUNT STAT 07/01/2013 7:09 EST QUANT BETA HCG, STAT 07/01/2013 7:09 EST BUN STAT 07/01/2013 7:09 EST CREATININE STAT 07/01/2013 7:09 EST ELECTROLYTES STAT 07/01/2013 7:09 EST documented in this encounter Results * ECG REPORT - SCANNED (07/08/2013 14:02 EST) 07/08/2013 14:0 2 EST Scan 2 Ancillary Services Manager Therapy PROCEDURE/MINOR SHITAL GICAL ORDERABLES * ECG REPORT - SCANNED (07/06/2013 12:29 EST) 07/06/2013 12:2 9 EST Scan 2 Ancillary Services Manager Therapy PROCEDURE/MINOR SHITAL GICAL ORDERABLES * ECG REPORT - SCANNED (07/06/2013 11:14 EST) 07/06/2013 11:1 4 EST Scan 2 Ancillary Services Manager Therapy PROCEDURE/MINOR SHITAL GICAL ORDERABLES * INVASIVE CARDIOLOGY REPORT-SCANNED (07/06/2013 11:14 EST) 07/06/2013 11:1 4 EST Scan 2 Ancillary Services Manager Therapy PROCEDURE/MINOR SHITAL GICAL ORDERABLES * EKG 12-LEAD (07/01/2013 13:14 EST) 07/01/2013 13:1 4 EST Narrative [facility] EKG - 07/07/2013 11:39 EST ?[facility] ? Test Date: ?2013-07-01 Pat Name: ? JC BANERJEE ? Department: ?? CVU ? Room: ? CVU02 Gender: ? F ?Manager Learning: ?? [id number] : ?1965 ? Requested By: HEBERT MALONE MD Order Number: [id number] ? Reading MD: ?? JACOB CAMERON MD ? Measurements Intervals ?[place] ? Rate: ? 79 ? P: ?61 W[place]: ? 158 ?QRS: ?52 QRSD: ? 82 ? T: ?22 QT: ? 370 ? QTc: ?425 ? Interpretive Statements SINUS RHYTHM Nonspecific T abnormalities diffuse leads. Compared to ECG 07/01/2013 07:14:00 No significant changes I have reviewed the tracing and have either agreed or edited the findings in this report. Electronically Signed On 07-07-13 11:39:10 EST by JACOB CAMERON MD. Procedure Note Jacob Cameron MD - 07/07/2013 [facility] Cardiology Test Date: 2013-07-01 Pat Name: JC BANERJEE Department: CVU Room: [facility] Gender: F Manager Learning: [id number] : 1965 Requested By: HEBERT MALONE MD Order Number: [id number] Reading MD: JACOB CAMERON MD Measurements Intervals [place] Rate: 79 P: 61 W[place]: 158 QRS: 52 QRSD: 82 T: 22 QT: 370 QTc: 425 Interpretive Statements SINUS RHYTHM Nonspecific T abnormalities diffuse leads. Compared to ECG 07/01/2013 07:14:00 No significant changes I have reviewed the tracing and have either agreed or edited the findingsin this report. Electronically Signed On 07-07-13 11:39:10 EST by JACOB CAMERON MD. Hebert Malone MD CARDIAC ECG ORD ERABLES [facility] EKG * EKG 12-LEAD (07/01/2013 7:14 EST) 07/01/2013 7:14 EST Narrative [facility] EKG - 07/03/2013 13:07 EST ?[facility] ? Test Date: ?2013-07-01 Pat Name: ? JC BANERJEE ? Department: ?? CVU ? Room: ? CVU02 Gender: ? F ?Manager Learning: ?? [id number] : ?1965 ? Requested By: HEBERT MALONE MD Order Number: [id number] ? Reading MD: ?? GELACIO MELLO MD ? Measurements Intervals ?[place] ? Rate: ? 69 ? P: ?58 WY: ? 154 ?QRS: ?49 QRSD: ? 80 ? T: ?36 QT: ? 403 ? QTc: ?433 ? Interpretive Statements SINUS RHYTHM normal ecg No previous ECG available for comparison I have reviewed the tracing and have either agreed or edited the findings in this report. Electronically Signed On 07-03-13 13:07:22 EST by GELACIO MELLO MD. Procedure Note Gelacio Mello MD - 07/03/2013 [facility] Test Date: 2013-07-01 Pat Name: JC BANERJEE Department: CVU Room: [facility] Gender: F Manager Learning: [id number] : 1965 Requested By: HEBERT MALONE MD Order Number: [id number] Reading MD: GELACIO MELLO MD Measurements Intervals [place] Rate: 69 P: 58 WY: 154 QRS: 49 QRSD: 80 T: 36 QT: 403 QTc: 433 Interpretive Statements SINUS RHYTHM normal ecg No previous ECG available for comparison I have reviewed the tracing and have either agreed or edited the findingsin this report. Electronically Signed On 07-03-13 13:07:22 EST by EUSEBIO MENDEZ. Hebert Malone MD CARDIAC ECG ORD ERABLES Performing Organization Address City/[facility] Co de Phone Number [facility] EKG * PROTIME (07/01/2013 7:09 EST) Pro Time 10.0 9.5 - 13.1 secs [facility] I.N.R. 0.9 0.9 - 1.1 Ratio [facility] Comment: Moderate Intensity Coumadin INR = 2.0-3.0 Adjustments in anticoagulant therapy dose should be based upon the INR and NOT the Pro Time. Blood specimen (specimen) 07/01/2013 7:09 EST 07/01/2013 7:10 EST Hebert Malone MD HEMATOLOGY & PF 4 ORDERABLES Performing Organization Address City/[facility] Co de Phone Number [facility] [address] [place] [address] * HEMAGRAM (07/01/2013 7:09 EST) WBC 11.74 4.0 - 12.4 K/cmm [facility] RBC 4.56 3.86 - 5.04 M/cmm [facility] Hemoglobin 13.6 11.6 - 15.2 gm/dl [facility] HCT 40.4 34.9 - 44.4 % [facility] MCV 89 81 - 98 fl [facility] MCH 29.9 26.7 - 33.3 pg [facility] MCHC 33.7 32.1 - 35.9 gm/dl [facility] PLT 209 141 - 320 K/cmm [facility] RDW-CV 12.8 11.7 - 14.6 % [facility] Blood specimen (specimen) 07/01/2013 7:09 EST 07/01/2013 7:10 EST Hebert Malone MD HEMATOLOGY & PF 4 ORDERABLES Performing Organization Address [facility] Co de Phone Number [facility] [address] [place] [address] * HCG FOR (07/01/2013 7:09 EST) Pathologist [facility] Quant Beta HCG, Preg <5 <5 mIU/ml [facility] Comment: Reference Range: Negative = <5 Indeterminate = 5-25 recommend repeat in 48 hours. Positive = >25 Blood specimen (specimen) 07/01/2013 7:09 EST 07/01/2013 7:10 EST Hebert Malone MD CHEMISTRY & BLO OD GAS ORDERABLES Performing Organization Address [facility] Co de Phone Number [facility] [address] [place] [address] * (ABNORMAL) ELECTROLYTES (07/01/2013 7:09 EST) Pathologist [facility] Sodium 138 136 - 145 mEq/L [facility] Potassium 4.3 3.5 - 5.0 mEq/L [facility] Chloride 105 96 - 110 mEq/L [facility] CO2 22(L) 24 - 32 mEq/L [facility] Blood specimen (specimen) 07/01/2013 7:09 EST 07/01/2013 7:10 EST Hebert Malone MD CHEMISTRY & BLO OD GAS ORDERABLES Performing Organization Address [facility] Co de Phone Number [facility] [address] [place] [address] * CREATININE (07/01/2013 7:09 EST) Creatinine 0.54 0.52 - 1.04 mg/dl [facility] GFR, Calculated >60 >60 ml/min/1.7 3m2 [facility] Blood specimen (specimen) 07/01/2013 7:09 EST 07/01/2013 7:10 EST Hebert Malone MD CHEMISTRY & BLO OD GAS ORDERABLES Performing Organization Address [facility] de Phone Number [facility] [address] [place] [address] * BUN (07/01/2013 7:09 EST) BUN 11 10 - 26 mg/dl [facility] Blood specimen (specimen) 07/01/2013 7:09 EST 07/01/2013 7:10 EST Hebert Malone MD CHEMISTRY & BLO OD GAS ORDERABLES Performing Organization Address [facility] de Phone Number [address] [address] documented in this encounter Visit Diagnoses Diagnosis SVT (supraventricular tachycardia) (HCC-CMS)- Primary Other specified cardiac dysrhythmias SVT (supraventricular tachycardia) (HCC-CMS) Other specified cardiac dysrhythmias documented in this encounter Administered Medications Inactive Administered Medications - up to 3 most recent administrations Medication Order MAR Action Action Date Dose Rate Site sodium chloride 0.9 % (NS) infusion 30 mL/hr, intravenous, CONTINUOUS, Starting on Sat07/01/13 at 0715, Until Sat07/01/13 at 1836, Routine, Preprocedure New Bag 07/01/2013 7:18 EST 30 mL/hr 30 mL/hr documented in this encounter Active and Recently Administered Medications Times are shown in EST. Continuous Medication Order 06/29/2013 06/30/2013 07/01/2013 sodium chloride 0.9 % (NS) infusion (CANCELED) 30 mL/hr, intravenous, CONTINUOUS, Starting on Sat07/01/13 at 0715, Until Sat07/01/13 at 1836, Routine, Preprocedure 0718 (New Bag - Prov ider: Coby Mckinley RN) documented in this encounter Orders Medications Ordered That Yoandy ht Not Have Been Administered Count Last Ordered Date First Ordered Date Acetaminophen (TYLENOL) tablet 650 mg 1 fentaNYL citrate (PF) 50 mcg/mL injection 2 07/01/2013 heparin 1,000 unit/mL injection 1 4 isoproterenol (ISUPREL) 0.2 mg/mL injection 1 07/01/2013 lidocaine 10 mg/mL (1 %) injection 1 2013 midazolam (PF) (VERSED) 1 mg/mL injection 1 07/01/2013 ondansetron (PF) (ZOFRAN) 4 mg/2 mL injection 1 07/01/2013 ondansetron (PF) (ZOFRAN) injection 4 mg 1 07/01/2013 sodium chloride 0.9 % (NS) infusion 1 07/01 Nursing Count Last Ordered Date First Orde red Date BEDREST 1 07/01/2013 CARDIAC MONITORING 1 07/01/2013 CHANGE IV TO SALINE LOCK 1 07/01/2013 CONTRAINDICATION TO ANTICOAG ULATION THERAPY 1 07/01/2013 INSERT PERIPHERAL IV 1 07/01/2013 PATIENT NOT A CANDIDATE FOR MECHANICAL VTE PROPHYLAXIS 1 07/01/2013 VITAL SIGNS 1 07/01/2013 Admission Count Last Ordered Date First Orde red Date STATUS: OUTPATIENT MEDICAL OP BED/SERVICES 1 07/01/2013 STATUS: OUTPATIENT OBSERVATION SERVICES 1 0 07/01/2013 Transfer Count Last Ordered Date First Orde red Date NON-TEACHING SERVICE 1 07/01/2013 NOTIFY PPS OF DISCHARGE COMPLETE 1 07/01/19 14 Discharge Count Last Ordered Date First Orde red Date DISCHARGE PATIENT 1 07/01/2013 documented in this encounter Care Teams Obstetrical Anesthesiologist Relationship Specialty Start Date End Date Jerry Harley MD [address] [place] [address] PCP - General 07/21/12 02/01/14 documented as of this encounter
--- OUTSIDE RECORDS SUMMARY | 2024-02-10 18:24 | XMS_ITS | Encounter Summary ---
Author Organization [facility] Address [address] [place] [address] Care Team Providers Care Operation Manager Name Role Phone Rand Harley MD Primary Care Provider Reason for Visit * Reason Comments Skin Exam h/o bcc, spots on ch eeks and joint pain Encounter Details Date Type Department Care Team (Late st Contact Info) Description 04/16/2017 10:45 EST Office Visit [facility] Dermatology [address] [facility] [address], [place] [id number] Elida Culp MD [address] [place] [id number] Rash (Primary Dx); History of basal cell carcinoma Social History Tobacco Use Types Packs/Day Years [...] No 01/31/2016 documented as of this encounter Progress Notes * Stevie Saini MD - 04/16/2017 1045 EST Dermatology Outpatient Visit Note Chief Complaint Patient presents with ??? Skin Exam h/o bcc, spots on cheeks and joint pain Dermatologic History: 1. History of basal cell carcinoma of right chin, s/p Mohs in Dec 2011 (at [facility]) Last Dermatology office visit: 07/2016 SUBJECTIVE Ms. Banerjee is a 51 y.o. female who presents for follow up for FBSE. Patient has recently been having rash on face and joint pains. She is being worked up by rheumatology. Rash is improved today. Patient denies any spots that are changing, bleeding, itching, painful. In usual state of health otherwise. For full Medical, Surgical, Family, and Social histories, please see the History section of this encounter in the electronic chart which I have personally reviewed. For Review of Systems, Medications and Allergies, please see those sections of this encounter in the electronic chart which I have also reviewed. She has a current medication list which includes the following prescription(s): bupropion, levothyroxine, loratadine, and ranitidine hcl. She is allergic to cardizem [diltiazem hcl]. OBJECTIVE VS: LMP 02/06/2010 Ms. Banerjee is healthy female sitting on the examination table with a normal affect. She is alert andoriented to person, place and time. She has Montaño type II skin. Cutaneous full body examination including the hair, scalp, face, eyelids, lips, neck, chest, back, abdomen, all four extremities,hands, feet, digits and nails was performed.The examination was normal with the addition of the following comments: There were no lesions suspicious for malignancy. - Bilateral cheeks: scattered telangectasia with occasional acneiform papules - Well healed surgical scar on right chin ASSESSMENT and PLAN 1. Rash NOS: being worked up by rheumatology for rash and joint pains. Possible rosacea vs lupus vsDM vs other - The nature of sun-induced photo-aging and skin cancers is discussed. Sun avoidance, protective clothing, and the use of 30-SPF sunscreens is advised. Observe closely for skin damage/changes, and call if such occurs. - Can consider metrocream, if workup negative 2. History of BCC: no evidence of recurrence - The nature of sun-induced photo-aging and skin cancers is discussed. Sun avoidance, protective clothing, and the use of 30-SPF sunscreens is advised. Observe closely for skin damage/changes, and call if such occurs. - ABCDE's of melanoma discussed as well as the importance of the ugly duckling rule and self skin exams at least monthly or every other month of which the patient showed a good understanding. She will f/u as planned or in the interim should problems arise. Stevie Saini MD 04/16/2017 10:57 Attestation Statement: I saw and examined the patient with the resident/fellow. I agree with the findings and plan of care documented in the resident's/fellow's note. Elida Culp MD 04/16/2017 * Zahra Cobb. - 04/16/2017 1045 EST Review of Systems Constitutional: Positive for fatigue. Negative for fever and unexpected weight change. HENT: Negative for mouth sores. Eyes: Negative for pain. Respiratory: Negative for cough and shortness of breath. Cardiovascular: Negative for chest pain and palpitations. Gastrointestinal: Negative for abdominal pain, blood in stool, constipation, diarrhea, nausea and vomiting. Genitourinary: Negative for dysuria, frequency and hematuria. Musculoskeletal: Positive for myalgias, back pain, joint swelling and muscle stiffness in the morning. Negative for arthralgias. Skin: Positive for rash. Neurological: Negative for numbness and headaches. Endo/Heme/Allergies: Does not bruise/bleed easily. Psychiatric/Behavioral: Negative for sleep disturbance. The patient is not nervous/anxious. Zahra Cobb 04/16/2017 10:45 documented in this encounter Plan of Treatment Not on file documented as of this encounter Visit Diagnoses Diagnosis Rash- Primary Rash and other nonspecific skin eruption History of basal cell carcinoma Personal history of other malignant neoplasm of skin documented in this encounter Care Teams Operation Manager Relationship Specialty Start Date End Date Rand Harley MD [address] [place] [address] PCP - General 07/30/16 documented as of this encounter
--- OUTSIDE RECORDS SUMMARY | 2024-02-10 18:24 | XMS_ITS | Encounter Summary ---
Author Organization [facility] Address [address] [place] [address] Care Team Providers Care Retail Warehouse Associate Name Role Phone Catina Chowdhury NP Primary Care Provider Reason for Visit * Reason Comments Follow-up FBSE. Lesion right n ose Encounter Details Date Type Department Care Team (Late st Contact Info) Description 02/03/2014 10:15 EDT Office Visit [facility] Dermatology 3rd Floor [facility] [address] [place] [address] Elida Culp MD [address] [place] [phone] Personal history of other malignant neoplasm of skin (Primary Dx); Sun-damaged skin Social History Tobacco Use Types Packs/Day [...] on file documented as of this encounter Discharge Diagnoses Diagnosis 692.74 CHR SOLAR SKIN DAMAGE NOS[ICD-9-CM] V10.83 PERS HX SKIN MALIGNANCY NEC[ICD-9-CM] documented in this encounter Patient Instructions * Patient Instructions* Viet Rashid - 02/03/2014 10:11 EDT SUN PROTECTION AND SUN SCREENS Most of a person's lifetime sun exposure occurs before the age of 18!! Skin cancer can be prevented! Protect yourself and your child from the sun! Avoiding the sun is the best protection! IF YOUR CHILD IS GETTING A SUNTAN DESPITE USING SUNSCREEN, THEY ARE STILL GETTING TOO MUCH SUN! YOUWILL NEED TO USE COVER-UP CLOTHING AND KEEP THEM OUT OF THE SUN! Repeated and prolonged exposure to sunlight greatly increases your risk of all types of skin cancer. In addition, chronic sun exposure is the major cause of wrinkles, spotty, and unhealthy appearing skin. It???s important to have a healthy and active lifestyle and we encourage you to continue this.However, some common sense guidelines will help to keep your skin and eyes safe. ?? Avoid the hot mid-day sun. Try to schedule your outdoor activities for heavy equipment operator or early evening. ?? Make clothing a regular part of protection. Keep your shirt on - wear long sleeves and a wide brimmed hat. ?? Be especially careful when on the water, snow or sand as sunlight is reflected upwards from these surfaces. ?? Don???t forget your eyes and lips! Wear sunglasses- Sun exposure increases your risk for cataracts. Wear lip balm with an SPF. ?? Make sure your children practice good sun protection. Early sun damage increases their risk of developing skin cancer. ?? Wear a sunscreen. We recommend using a sunscreen with both UVA and UVB protection and a SPF of at least 30. If you sunburn more easily or are in more intense sun, you will need a higher SPF. A ???waterproof?? sunscreen is usually good for about 2 hours, even if you???re swimming. A sunscreen should be reapplied every 2 hours and after swimming. Remember to put sunscreen on your ears and lips.There are many lip balms available with sunscreen. For more information about sun protection, skin cancer, and all skin topics, visit: www.skincancer.org and www.aad.org Sunscreens: Sunlight is made up of different wavelengths, some of which we can see as the various colors of therainbow, or ???visible?? light. UVA and UVB are invisible wavelengths, which penetrate into the skin and in excess amounts, cause injury. When the injury is severe, skin cells and become inflamed and we see sunburn. UVB causes sunburn more quickly than UVA and most sunscreens are targeted towards this wavelength. Tanning while wearing sunscreen may mean that primarily UVA light is reaching the skin. This is the same UVA light that is used in tanning beds and is responsible for causing wrinkles, brown spots and possibly melanoma. For this reason, we recommend that you don???t use tanning b eds and that you use sunscreen with both UVA and UVB protection. Most sunscreen ingredients are good at blocking UVB light. The only ingredients that also do a goodjob blocking UVA light are listed below. Make sure your sunscreen contains one of these ingredients. CAUTION: in some people Parasol may cause staining of white clothing. ?? Parasol (avobenzone) ?? Zinc Oxide ?? Titanium Oxide Some recommended brands: ?? Blue Lizard ?? Coppertone ?? Neutrogena ?? Bull Frog Good ???everyday?? moisturizer for the face: ?? Tizo daily moisturizer with SPF ?? Elta MD daily moisturizer with SPF ?? Oil of Olay Complete Sun Protection ?? Cetaphil daily facial moisturizer ?? Neutrogena daily facial moisturizer Recommended resources for sun protective clothing and hats: ?? www.Playfish.Price Squid ?? Www.Datumate.Price Squid ?? For sensitive skin, look for sunscreens that contain: Zinc Oxide & Titanium Oxide. These areoften labeled baby or sensitive. documented in this encounter Progress Notes * Viet Rashid - 02/03/2014 1010 EDT Dermatology Outpatient Visit Note Chief Complaint Patient presents with ??? Follow-up FBSE. Lesion right nose Dermatologic History: 1. History of basal cell carcinoma of right chin, s/p Mohs in Dec 2011 (at [facility]) Last Dermatology office visit: Jan 2013 SUBJECTIVE Ms. Banerjee is a 48 y.o. female who presents for follow up for a skin check. There are is one spot of concern today on the right cheek that looked like a zit back in December, and was very tender. She used hot compresses and slowly went down. It eventually broke open and bled, but now it is largely resolved. There are no significant interim health changes. The patient reports regular sun avoidance and sunscreen use. For full Medical, Surgical, Family, and Social histories, please see the History section of this encounter in the electronic chart which I have personally reviewed. For Review of Systems, Medications and Allergies, please see those sections of this encounter in the electronic chart which I have also reviewed. She has a current medication list which includes the following prescription(s): loratadine, ranitidine hcl, and synthroid. She is allergic to no known allergies. OBJECTIVE VS: LMP 02/06/2010 Ms. Banerjee is well developed, well-nourished and in no acute distress female sitting on the examination table with a normal affect. She is alert and oriented to person, place and time. She has Montaño type II skin. Cutaneous full body examination including the hair, scalp, face, eyelids, lips, neck, chest, back, abdomen, all four extremities, hands, feet, digits and nails was performed.The examination was normal with the addition of the following comments: There were no lesions suspicious for malignancy. -There is evidence of photodamage in sun exposed areas ASSESSMENT 1. Chronic actinic damage 2. History of BCC PLAN 1. The nature of sun-induced photo-aging and skin cancers is discussed. Sun avoidance, protective clothing, and the use of 30-SPF sunscreens is advised. Observe closely for skin damage/changes, and call if such occurs. 2. Return in about 1 year (around 02/03/2015) for FBSE, h/o NMSC. She will f/u as planned or in the interim should problems arise. Viet Rashid MD 02/03/2014 10:11 Attestation Statement: I saw and examined the patient with the resident/fellow. I agree with the findings and plan of care documented in the resident's/fellow's note. Elida Culp MD 02/03/2014 * Ranjit Sheth IV - 02/03/2014 1007 EDT Review of Systems Constitutional: Negative for [...] sleep disturbance. The patient is not nervous/anxious. documented in this encounter Plan of Treatment Not on file documented as of this encounter Visit Diagnoses Diagnosis Personal history of other malignant neoplasm of skin- Primary Sun-damaged skin Other dermatitis due to solar radiation documented in this encounter Care Teams Retail Warehouse Associate Relationship Specialty Start Date End Date Catina Chowdhury NP [facility] [address] [place] [address] PCP - General 02/02/14 07/29/16 documented as of this encounter
--- OUTSIDE RECORDS SUMMARY | 2024-02-10 18:24 | XMS_ITS | Encounter Summary ---
Author Organization [facility] Address [address] [place] [address] Care Team Providers Care Mainspring Former Arbor End Name Role Phone Catina Chowdhury NP Primary Care Provider [phone] Reason for Visit * Reason Comments Thyroid Problem Encounter Details Date Type Department Care Team (Latest Contact Info) Description 01/31/2015 11:20 EDT Office Visit [facility] Endocrinology - [address] [address] Ale Hsu MD PhD [address] [place] [address] [place] [phone] Malignant neoplasm of thyroid gland (HCC-CMS) (Primary Dx); Postsurgical hypothyroidism Social History Tobacco Use Types Packs/Day Years [...] Sign Reading Time Taken Comments Blood Pressure 134/75 01/31/2015 1108 EDT Pulse 86 01/31/2015 1108 EDT Temperature - - Respiratory Rate - - Oxygen Saturation - - Inhaled Oxygen Concentration - - Weight 77 kg (169 lb 11.2 oz) 01/31/2015 1108 ED T Height 167.6 cm (5' 6) 01/31/2015 1108 EDT Body Mass Index 27.39 01/31/2015 1108 EDT documented in this encounter Functional Status Functional Status Response Date of Assess ment Because of a physical, menta l, or emotional condition, does this person have difficulty doing errands alone such as visiting a doctor's office or shopping? No 01/31/2015 Cognitive Status Response Date of Assessm ent Because of a physical, menta l, or emotional condition, does this person have serious difficulty concentrating, remembering, or making decisions? No 01/31/2015 documented as of this encounter Discharge Diagnoses Diagnosis 193. MALIGN NEOPL THYROID[ICD-9-CM] 244.0 POSTSURGICAL HYPOTHYROID[ICD-9-CM] documented in this encounter Progress Notes * Ale Hsu MD - 02/03/2015 0807 EDT Endocrinology Thyroid Follow-Up Evaluation CHIEF COMPLAINT: Chief Complaint Patient presents with ??? Thyroid Problem HPI: Jc Banerjee is a 49 y.o. female who I am asked to see in consultation for evaluation of 1. Malignant neoplasm of thyroid gland 2. Postsurgical hypothyroidism HPI This woman is seen for thyroid replacement and surveillance for a remote hx of 1. History of papillary thyroid cancer, 1987. A. T2, N1, M0. B. Treated with total thyroidectomy. C. Post-surgical hypothyroidism She states that she feel fine now. Hx cardiac bypass tract ablation. Cancer was diagnosed 17 years ago. She never had I-131 due to . Medications: Synthroid (Levothyroxine) 137 mcg/d. Prior studies/tests include Prior Thyroid Imaging: thyroid ultrasound 2000. 1. Several small nonpathological lymph nodes in the right and left neck. No masses are seen. U/SD 2003 Sonography of the thyroid bed shows no normal thyroid structure. Comparison is made with the prior study of 03/05/01. There has been no significant change. CT neck , 2005 EXAM: CONTRAST-ENHANCED CT SCAN OF THE NECK: 07/13/05 1244 HOURS COMPARISON: None. IMPRESSION: 1. Degenerative disc disease of C5-6. 2. Patient has had prior thyroidectomy. 3. No radiographic evidence of metastatic disease. CT chest, 2005 IMPRESSION: 1. No evidence of metastatic disease to the chest. PAST SOCIAL HISTORY History Social History ??? Marital Status: Spouse Name: N/A Number of Children: N/A ??? Years of Education: N/A Social History Main Topics ??? Smoking status: Former Smoker -- 0.75 packs/day for 7 years Quit date: 05/13/2011 ??? Smokeless tobacco: Never Used ??? Alcohol Use: Yes Comment: 1/5months ??? Drug Use: No ??? Sexual Activity: None Other Topics Concern ??? None Social History Narrative MEDICATIONS Jc has a current medication list which includes the following prescription(s): levothyroxine, loratadine, and ranitidine hcl. ALLERGIES No known allergies REVIEW OF SYSTEMS: ROMMEL Denies dysphagia, hoarseness, no diarrhea or constip,no muscle cramping. Appetite and weight are stable. OBJECTIVE: Vitals: BP 134/75 mmHg Pulse 86 Ht 167.6 cm (66) Wt 76.975 kg (169 lb 11.2 oz) BMI 27.40 kg/m2 LMP 02/06/2010 BMI: Body mass index is 27.4 kg/(m^2). Physical Exam General: alert, cooperative, no distress Eyes: no lid lag, periorbital edema, stare, proptosis or exophthalamus. EOM full. Neck: supple, symmetrical, trachea midline, no adenopathy, no carotid bruit and no JVD Lung: clear to auscultation bilaterally, non labored breathing Heart: regular rate and rhythm, S1, S2 normal, no murmur, click, rub or gallop Abdomen: soft, non-tender; bowel sounds normal; no masses, no organomegaly Extremities: extremities warm, atraumatic, no cyanosis or edema positive pulses bilat Pulses: 2+ and symmetric Skin: cool and dry Neuro: reflexes normal with no hung-up relaxation phase mental status, speech normal, alert and oriented x iii fundi are normal cranial nerves 2-12 intact muscle tone and strength normal and symmetric no tremors LAB REVIEW: Lab Results Component Value Date TSH 0.39 01/31/2015 ASSESSMENT: 1. Malignant neoplasm of thyroid gland 2. Postsurgical hypothyroidism This woman has a remote history of papillary thyroid cancer with some aggressive features. She had a positive anti-thyroglobulin antibody leading to more investigation 9 years ago, but then cleared the antibody in 2010. At this time she seems free of disease. As for her TSH goal we were keeping this low because of the positive antibody but she no longer needs to be suppressed. PLAN: 1. TSH and Tg 2. Can continue Medications: Synthroid (Levothyroxine) 137 mcg/d. The risks and benefits of my recommendations, as well as other treatment options were discussed with the patient today. Questions were answered. Ale Hsu MD 02/03/2015 8:07 documented in this encounter Plan of Treatment Not on file documented as of this encounter Results * (ABNORMAL) THYROGLOBULIN, TUMOR MARKER, S (01/31/2015 11:33 EDT) [facility] Thyroid Suppression? YES 01/31/2015 11:32 EDT [facility] Thyroglob,Tumor Mrkr <0.1 ng/mL 02/01/2015 7:51 [facility] Comment: (Note) REFERENCE VALUE Athyrotic <0.1 Intact Thyroid <=33 Thyroglobulin Ab, S 11(H) <4.0 IU/mL 02/01/2015 7:51 EDT [facility] Thyroglobulin Interp (Note) 02/01/2015 7:51 T [facility] Comment: Quantitation of thyroglobulin may [...] testing methods are immunoenzymatic assays manufactured by [employer] and performed on the [employer] DXI 800. Values obtained from different assay methods or kits may be different and cannot be used interchangeably. The results cannot be interpreted as absolute evidence for the presence or absence of malignant disease. Performed by: [facility], [address], [place] [address], Photostat Operator: Brooke Flores, Ph.D. Blood specimen (specimen) BLOOD SPECIMEN / Unknown 01/31/2015 11:33 EDT 01/31/2015 13:15 EDT Ale Hsu MD PhD CHEMISTRY & BLOOD GAS ORDERABLES Performing Organization Address City/[facility]/ZIP Co de Phone Number [facility] [address] [place] [address] * THYROID CASCADE (01/31/2015 11:33 EDT) TSH 0.39 0.35 - 5.00 uIU/ml 01/31/2015 15:09 EDT [facility] Comment: TSH cascade is not recommended for patients in which pituitary or hypothalamic disorders are suspected. Blood specimen (specimen) BLOOD SPECIMEN / Unknown 01/31/2015 11:33 EDT 01/31/2015 13:15 EDT Ale Hsu MD PhD CHEMISTRY & BLOOD GAS ORDERABLES Performing Organization Address City/[facility]/ZIP Co de Phone Number [facility] [address] [place] [address] documented in this encounter Visit Diagnoses Diagnosis Malignant neoplasm of thyroid gland (HCC-CMS)- Primary Malignant neoplasm of thyroid gland Postsurgical hypothyroidism documented in this encounter Care Teams [employer] Former [employer] End Relationship Specialty Start Date End Date Catina Chowdhury NP [facility] [address] [place] [address] PCP - General 02/02/14 07/29/16 documented as of this encounter
--- OUTSIDE RECORDS SUMMARY | 2024-02-10 18:24 | XMS_ITS | Encounter Summary ---
Author Organization [facility] Address [address] [place] [address] Care Team Providers Care Horticultural Manager Name Role Phone Rand Harley MD Primary Care Provider [phone] Encounter Details Date Type Department Care Team (Late st Contact Info) Description 04/30/2017 Phlebotomy Only [address] [address] Box [place], Outpatient S/P total thyroidectomy; History of thyroid cancer; Pain of both hip joints Social History Tobacco Use Types Packs/Day Years [...] Procedure Name Priority Date/Time Associated Diagnosis Comments LUPUS ANTICOAGULANT CASCADE Routine 04/30/2017 13:42 EST Pain of both hip joints THYROGLOBULIN, TUMOR MARKER, S Routine 04/30/2017 13:42 EST History of thyroid cancer ZZHN SSA ANTIBODIES BY LLUVIA Routine 04/30/2017 13:42 EST Pain of both hip joints SM (BANERJEE) ANTIBODY, IGG Routine 04/30/2017 13:42 EST Pain of both hip joints CCP ANTIBODIES Routine 04/30/2017 13:42 EST Pain of both hip joints THYROID CASCADE Routine 04/30/2017 13:42 EST S/P total thyroidectomy MYOMARKER PANEL 2 Routine 04/30/2017 13: 42 EST Pain of both hip joints ALDOLASE Routine 04/30/2017 13:42 EST Pain of both hip joints ANCA, IFA Routine 04/30/2017 13:42 EST Pain of both hip joints SED RATE Routine 04/30/2017 13:42 EST Pain of both hip joints ANGIOTENSIN CONVERTING ENZYME (JEFERSON) Routine 04/30/2017 13:42 EST Pain of both hip joints C REACTIVE PROTEIN Routine 04/30/2017 13 :42 EST Pain of both hip joints CK Routine 04/30/2017 13:42 EST Pain of both hip joints documented in this encounter Results * ANCA, IFA (04/30/2017 13:42 EST) ANCA Interpretation Negative Negative 05/01/2017 12:45 EST [facility] Comment: MARC Positive, suggest follow-up MARC testing if clinically indicated. Cannot rule out Atypical ANCA (A-ANCA). No titer performed, ANCA screen is negative. Results were obtained with the INOVA NOVA Lite ANCA kit by indirect immunofluorescence. Blood specimen (specimen) BLOOD SPECIMEN / Unknown 04/30/2017 13:42 EST 04/30/2017 15:29 EST Ale Hsu MD PhD IMMUNOLOGY AND SE ROLOGY ORDERABLES [facility] [address] [place] [address] * ANGIOTENSIN CONVERTING ENZYME (JEFERSON) (04/30/2017 13:42 EST) Pathologist [facility] Angiotensin Converting Enzyme 42 8 - 53 U/L 05/02/2017 8:07 EST [facility] Comment: Performed or Referred by: [facility], [address] [place] [address], Lab Dir: Andrew Jimenez II, M.D., Ph.D. Blood specimen (specimen) BLOOD SPECIMEN / Unknown 04/30/2017 13:42 EST 04/30/2017 15:29 EST Ale Hsu MD PhD CHEMISTRY & BLOOD GAS ORDERABLES Performing Organization Address [facility] Co de Phone Number [facility] [address] [place] [address] * LUPUS ANTICOAGULANT CASCADE (04/30/2017 13:42 EST) [facility] [place] Summary Negative for detection of lupus anticoagulant (LA). 05/02/2017 15:43 EST [facility] Comment: Where clinical suspicion for antiphospholipid syndrome is high, it may be appropriate to perform alternative LA or aPL assays. The laboratory criteria for Antiphospholipid Syndrome (aPL) include positive testing for one of the following on 2 or more occasions, atleast 12 weeks apart: 1. Lupus anticoagulant (LA), 2. Cardiolipin antibodies (IgG or IgM) in medium or high titer, 3. Beta 2 glycoprotein 1 antibodies (IgG of IgM). Solid-phase assays for Beta2 glycoprotein 1 (B2GP1) and Cardiolipin antibodies are recommended when evaluating a patient for antiphospholipid syndrome. ?? Correlation with those results is advised. Reviewed by Dr. Rand Esquivel Dilute Viper Venom 33.0 secs 2016 10:58 EST [facility] Comment: Reference Range = 27.2-36.9 secs Results must be interpreted with caution if the patient is on oral anticoagulant, direct thrombin inhibitors or heparin. Silica Clotting Time 33.7 sec 05/02/2017 10:20 [facility] Comment: Reference Range = 30.2-48.4 secs Results must be interpreted with caution if the patient is on oral anticoagulant, direct thrombin inhibitors or heparin. Blood specimen (specimen) BLOOD SPECIMEN / Unknown 04/30/2017 13:42 EST 04/30/2017 15:29 EST Ale Hsu MD PhD HEMATOLOGY & PF4 ORDERABLES Performing Organization Address [facility] Co de Phone Number [facility] [address] [place] [address] * CK (04/30/2017 13:42 EST) CK 63 30 - 135 U/L 04/30/2017 16:01 [facility] Blood specimen (specimen) BLOOD SPECIMEN / Unknown 04/30/2017 13:42 EST 04/30/2017 15:29 EST Ale Hsu MD PhD CHEMISTRY & BLOOD GAS ORDERABLES Performing Organization Address [facility] Co de Phone Number [facility] [address] [place] [address] * MYOMARKER PANEL 2 (04/30/2017 13:42 EST) PA 2 Negative Negative 06/01/2017 12:49 [facility] [address] Negative Negative 06/01/2017 12:49 [facility] [address] Negative Negative 06/01/2017 12:49 [facility] EJ Negative Negative 06/01/2017 12:49 [facility] OJ Negative Negative 06/01/2017 12:49 [facility] SRP Negative Negative 06/01/2017 12:49 [facility] KU Negative Negative 06/01/2017 12:49 [facility] U2 snRNP Negative Negative 06/01/2017 12:49 [facility] Anti PM/Scl 100 Ab <20 <20 Units 2017 12:49 EST [facility] Anti Tere 1 Ab <20 <20 Units 06/01/2017 12:49 EST [facility] Comment: (Note) . ADDITIONAL INFORMATION EIA Interpretation: Negative ? <20 Units Weak Positive ?20-39 Units Moderate Positive ??40-80 Units Strong Positive ?>80 Units . This panel was developed and its performance characteristics validated by [facility]. There is no FDA approved assay for the above tests. As a lab developed test (LDT), approval or clearance by the FDA is not required. This test may be used for clinical purposes and should not be regarded as investigational or for research. . Test Performed by: [facility] [address] [place] [address] BLOOD SPECIMEN / Unknown 04/30/2017 13:42 EST 04/30/2017 15:29 EST Ale Hsu MD PhD IMMUNOLOGY AND CHELERishi ORDERABLES [facility] [address] [place] [address] * SM (BANERJEE) ANTIBODY (04/30/2017 13:42 EST) Sm (Banerjee) Antibody 2.6 <20 Units 05/02/2017 14:40 EST [facility] Comment: Negative: <20 Units Weak Positive: 20 - 39 Units Moderate Positive: 40 - 80 Units Strong Positive: >80 Units Results were obtained with the [employer] QUANTA Lite Sm LLUVIA. Sm values obtained with different manufacturers' assay methods may not be used interchangeably. The magnitude of the reported IgG levels cannot be correlated to an endpoint titer. Blood specimen (specimen) BLOOD SPECIMEN / Unknown 04/30/2017 13:42 EST 04/30/2017 15:29 EST Ale Hsu MD PhD IMMUNOLOGY AND SE ROLOGY ORDERABLES Performing Organization Address City/[facility]/ZIP Co de Phone Number [facility] [address] [place] [address] * CCP ANTIBODIES (04/30/2017 13:42 EST) CCP Antibodies <2.5 <5.0 U/mL 05/01/2017 13:07 EST [facility] BLOOD SPECIMEN / Unknown 04/30/2017 13:42 EST 04/30/2017 15:29 EST Ale Hsu MD PhD IMMUNOLOGY AND SE ROLOGY ORDERABLES Performing Organization Address [facility] Co de Phone Number [facility] [address] [place] [address] * SED. RATE:WESTERGREN (04/30/2017 13:42 EST) Pathologist [facility] Sed. Rate Westergren 8 0 - 30 mm/hr 04/30/2017 15:54 EST [facility] Blood specimen (specimen) BLOOD SPECIMEN / Unknown 04/30/2017 13:42 EST 04/30/2017 15:29 EST Ale Hsu MD PhD HEMATOLOGY & PF4 ORDERABLES Performing Organization Address [facility] Co de Phone Number [facility] [address] [place] [address] * C REACTIVE PROTEIN (04/30/2017 13:42 EST) Pathologist [facility] C Reactive Protein <7.0 <10.0 mg/L 04/30/2017 16:05 EST [facility] Blood specimen (specimen) BLOOD SPECIMEN / Unknown 04/30/2017 13:42 EST 04/30/2017 15:29 EST Ale Hsu MD PhD CHEMISTRY & BLOOD GAS ORDERABLES Performing Organization Address City/[facility]/ZIP Co de Phone Number [facility] [address] [place] [address] * SSA ANTIBODIES BY LLUVIA (04/30/2017 13:42 EST) [facility] SSA Antibody 3.1 <20 Units 05/02/2017 14:40 EST [facility] Comment: Negative: <20 Units Weak Positive: 20 - 39 Units Moderate Positive: 40 - 80 Units Strong Positive: >80 Units Results were obtained with the [employer] QUANTA Lite SS-A LLUVIA. SS-A values obtained with different manufacturers' assay methods may not be used interchangeably. The magnitude of the reported IgG levels cannot be correlated to an endpoint titer. Blood specimen (specimen) BLOOD SPECIMEN / Unknown 04/30/2017 13:42 EST 04/30/2017 15:29 EST Ale Hsu MD PhD IMMUNOLOGY AND SE ROLOGY ORDERABLES Performing Organization Address [facility] de Phone Number [facility] [address] [place] [address] * ALDOLASE (04/30/2017 13:42 EST) [facility] Aldolase, S 5.5 <7.7 U/L 05/02/2017 8:07 [facility] Comment: Performed or Referred by: [facility], [address] [place] [address], Lab Dir: Andrew Jimenez II, M.D., Ph.D. Blood specimen (specimen) BLOOD SPECIMEN / Unknown 04/30/2017 13:42 EST 04/30/2017 15:29 EST Ale Hsu MD PhD CHEMISTRY & BLOOD GAS ORDERABLES Performing Organization Address [facility] de Phone Number [facility] [address] [place] [address] * (ABNORMAL) THYROGLOBULIN, TUMOR MARKER, S (04/30/2017 13:42 EST) [facility] Thyroid Suppression? YES 04/30/2017 13:29 EST [facility] Thyroglob,Tumor Mrkr <0.1 ng/mL 05/02/2017 8:07 [facility] Comment: (Note) . REFERENCE VALUE Athyrotic <0.1 Intact Thyroid <=33 . Thyroglobulin Ab, S 5.1(H) <4.0 IU/mL 05/02/2017 8:07 EST [facility] Thyroglobulin Interp (Note) 05/02/2017 8:07 EST [facility] Comment: Quantitation of thyroglobulin may be unreliable due to the presence of anti-thyroglobulin antibodies. . Thyroglobulin (Tg) levels must be interpreted in [...] testing methods are immunoenzymatic assays manufactured by [employer] and performed on the LMN-1 DXI 800. . Values obtained from different assay methods or kits may be different and cannot be used interchangeably. . The results cannot be interpreted as absolute evidence for the presence or absence of malignant disease. Performed by: [facility]: [facility] [address], [place] [address], Lab Dir: Andrew Jimenez II, M.D., Ph.D. Blood specimen (specimen) BLOOD SPECIMEN / Unknown 04/30/2017 13:42 EST 04/30/2017 15:29 EST Ale Hsu MD PhD CHEMISTRY & BLOOD GAS ORDERABLES [facility] [address] [place] [address] * (ABNORMAL) THYROID CASCADE (04/30/2017 13:42 EST) TSH <0.02(L) 0.47 - 4.68 uIU/ml 04/30/2017 16:30 EST [facility] Comment: New methodology in use 11/07/16. TSH cascade is not recommended for patients in which pituitary or hypothalamic disorders are suspected. Blood specimen (specimen) BLOOD SPECIMEN / Unknown 04/30/2017 13:42 EST 04/30/2017 15:29 EST Ale Hsu MD PhD CHEMISTRY & BLOOD GAS ORDERABLES [facility] [address] [place] [address] documented in this encounter Visit Diagnoses Diagnosis S/P total thyroidectomy Other postprocedural status History of thyroid cancer Personal history of malignant neoplasm of thyroid Pain of both hip joints documented in this encounter Care Teams Horticultural Manager Relationship Specialty Start Date End Date Rand Harley MD [address] [place] [address] PCP - General 07/30/16 documented as of this encounter
--- OUTSIDE RECORDS SUMMARY | 2024-02-10 18:24 | XMS_ITS | Encounter Summary ---
Author Organization [facility] Address [address] [place] [address] Care Team Providers Care Custom Wood Stair Builder Name Role Phone Rand Harley MD Primary Care Provider [phone] Reason for Visit * Reason Onset Date Comments Results 02/16/2013 Encounter Details Date Type Department Care Team (Late st Contact Info) Description 02/16/2013 Telephone [facility] Endocrinology - [address] [address] Ale Fernández MD PhD [address] [place] [address] [place] [id number] Results Social History Tobacco Use Types Packs/Day Years Used Date Smoking Tobacco: Former Cigarettes 0.8 7 Smokeless Tobacco: Never Alcohol Use Standard Drinks/Week Comments Yes 0 (1 standard drink = 0.6 oz pur e alcohol) Sex and Gender Information Value Date Recorded Sex Assigned at Not on file Gender Identity Not on file Sexual Orientation Not on file documented as of this encounter Miscellaneous Notes * Telephone Encounter - Nirali Rivera - 02/16/2013 1412 EDT Left message labs are all normal. Gave her values. Advised make no changes per Dr fernández's note. Can call back with questions/concerns. * Telephone Encounter - Carolyn Aden - 02/16/2013 1101 EDT Pt calling for results of 02-02 labs documented in this encounter Plan of Treatment Not on file documented as of this encounter Visit Diagnoses Not on filedocumented in this encounter Care Teams Custom Wood Stair Builder Relationship Specialty Start Date End Date Rand Harley MD [address] [place] [address] PCP - General 07/21/12 02/01/14 documented as of this encounter
--- OUTSIDE RECORDS SUMMARY | 2024-02-10 18:24 | XMS_ITS | Encounter Summary ---
Author Organization [facility] Address [address] [place] [address] Care Team Providers Care Traffic Supervisor Name Role Phone Catina Chowdhury NP Primary Care Provider [phone] Reason for Visit * Reason Comments Labs Only Encounter Details Date Type Department Care Team (Latest Contact Info) Description 02/03/2014 13:15 EDT Procedure visit [facility] [place] [address] Unknown, Provider, Phlebotomy, [facility] Postsurgical hypothyroidism; History of thyroid cancer Social [...] as of this encounter Discharge Diagnoses Diagnosis 244.0 POSTSURGICAL HYPOTHYROID[ICD-9-CM] V10.87 PERS HX OF THYROID MALIGNANCY[ICD-9-CM] documented in this encounter Progress Notes * Colette Glover - 02/08/2014 1600 EDT Blood sample drawn from vein for testing at the order of Dr. Hsu ???I was supervised by Dr. Hsu who was in the suite and readily available.?? documented in this encounter Plan of Treatment Not on file documented as of this encounter Procedures Procedure Name Priority Date/Time Associated Diagnosis Comments THYROGLOBULIN, TUMOR MARKER, S Routine 02/03/2014 13:07 EDT History of thyroid cancer THYROID CASCADE Routine 02/03/2014 13:07 EDT Postsurgical Hypothyroidism T4, FREE REFLEX Routine 02/03/2014 13:07 EDT documented in this encounter Results * (ABNORMAL) T4, FREE REFLEX (02/03/2014 13:07 EDT) Free T4 2.0(H) 0.8 - 1.8 ng/dl [facility] 02/03/2014 13:0 7 EDT 02/03/2014 15:22 EDT Ale Hsu MD PhD CHEMISTRY & BLOOD GAS ORDERABLES Performing Organization Address City/State/[facility] Co de Phone Number [facility] [address] [place] [address] * THYROGLOBULIN TUMOR MARKER (02/03/2014 13:07 EDT) Thyroid Suppression? YES [facility] Thyroglob Ab Screen <20 <22 IU/mL [facility] Comment: (Note) The thyroglobulin testing method is an immunoenzymatic assay manufactured by [employer] and performed on the [employer] DXI 800. The thyroglobulin antibody testing method is an electrochemiluminescence assay manufactured by [employer] and performed on the Modular or Demi System. ? Values obtained from different assay methods or kits may be different and cannot be used interchangeably. ? The results cannot be interpreted as absolute evidence for the presence or absence of malignant disease. ? Specimens with thyroglobulin concentrations greater than 250,000 ng/mL may give falsely lower results. Thyroglobulin, Tumor Marker, S <0.1 ng/mL [facility] Comment: (Note) -- REFERENCE VALUE -- <=33 Athyrotic individuals normally have hTg values <=2. Performed by: [facility], [address], [place] [address], Skin Drier: Brooke Flores, Ph.D. Blood specimen (specimen) 02/03/2014 13:07 EDT 02/03/2014 15:22 EDT Ale Hsu MD PhD CHEMISTRY & BLOOD GAS ORDERABLES Performing Organization Address City/[facility] Co de Phone Number [facility] [address] [place] [address] * (ABNORMAL) THYROID CASCADE (02/03/2014 13:07 EDT) TSH 0.13(L) 0.35 - 5.00 uIU/ml [facility] Comment: TSH cascade is not recommended for patients in which pituitary or hypothalamic disorders are suspected. Blood specimen (specimen) 02/03/2014 13:07 EDT 02/03/2014 15:22 EDT Ale Hsu MD PhD CHEMISTRY & BLOOD GAS ORDERABLES Performing Organization Address [facility] Co de Phone Number [facility] [address] [place] [address] documented in this encounter Visit Diagnoses Diagnosis Postsurgical hypothyroidism History of thyroid cancer Personal history of malignant neoplasm of thyroid documented in this encounter Care Teams Traffic Supervisor Relationship Specialty Start Date End Date Catina Chowdhury NP [facility] [address] [place] [address] PCP - General 02/02/14 07/29/16 documented as of this encounter
--- OUTSIDE RECORDS SUMMARY | 2024-02-10 18:24 | XMS_ITS | Encounter Summary ---
Author Organization [facility] Address [address] [place] [address] Care Team Providers Care Boil[employer]aker [employer] Name Role Phone Catina Chowdhury NP Primary Care Provider [phone] Reason for Visit * Reason Comments Other Thyroid U/S Encounter Details Date Type Department Care Team (Late st Contact Info) Description 03/30/2010 14:20 EST Office Visit [address] [address] Lance Valdes MD [address] [facility], [address] [place] [address] Malignant neoplasm of thyroid gland (HCC-CMS) (Primary Dx) Social History Tobacco Use Types Packs/Day Years Used Date Smoking Tobacco: Never Assessed Sex and Gender Information Value Date Recorded Sex Assigned at Not on file Gender Identity Not on file Sexual Orientation Not on file documented as of this encounter Progress Notes * Lance Valdes MD - 03/30/2010 5378 EST SUBJECTIVE Jc Banerjee is seen in follow up today for a history of thyroid papillary carcinoma. This was a T2, N1, M0 lesion treated with total thyroidectomy back in 1987. She did not receive radioactive iodine at that time because she was despite several positive nodes. I last saw her in 2006. She has continued to do well. She has antibodies to thyroglobulin which precludes accurate monitoring with thyroglobulin levels alone. She has has not kept her follow-up appointments with me for annual neck ultrasound as recommended. She is also followed by Dr. Hsu in endocrinology, who saw her in January with concerns about rising thyroglobulin antibodies ( had been in the 7-11 range in recent years). She had similar issues in 2005 when her antibody went up to 14. A CT scan of the neck atthat time was clear. Recent Labs: 02/06/2010 11:59 TSH 1.45 uIU/m... [...] to 13, although was 14 back in 2005). Today's ultrasound did not demonstrate any suspicious adenopathy or masses. She will continue to follow up with Dr. Hsu. If the levels continue to rise over time, she may benefit from more aggressive imaging (ie. NASH metastatic survey) Otherwise, I will see her back in 6 months for a repeat ultrasound. documented in this encounter Miscellaneous Notes * Scanned Note-Null - Jacinto, Chip Person - 10/03/2010 1353 EDT * Scanned Note-Null - Inpatient, Physician - 04/25/2010 1131 EST documented in this encounter Plan of Treatment Not on file documented as of this encounter Visit Diagnoses Diagnosis Malignant neoplasm of thyroid gland (HCC-CMS)- Primary Malignant neoplasm of thyroid gland documented in this encounter Care Teams [employer] Relationship Specialty Start Date End Date Catina Chowdhury NP [facility] [address] [place] [address] PCP - General 02/03/09 07/20/12 documented as of this encounter
--- OUTSIDE RECORDS SUMMARY | 2024-02-10 18:24 | XMS_ITS | Encounter Summary ---
Author Organization [facility] Address [address] [place] [address] Care Team Providers Care Yardage Tufting Machine Operator Name Role Phone Rand Harley MD Primary Care Provider [phone] Reason for Visit * Reason Comments New Patient Visit skin check Encounter Details Date Type Department Care Team (Late st Contact Info) Description 07/22/2012 14:30 EDT Office Visit [facility] Dermatology 3rd Floor [address] [id number] Yuri Cowan MD History of basal cell cancer (Primary Dx); Dermatofibroma Discharge Disposition: Auto Discharge Social History Tobacco Use Types Packs/Day Years Used Date Smoking Tobacco: Former Alcohol Use Standard Drinks/Week Comments Yes 0 (1 standard drink = 0.6 oz pur e alcohol) Sex and Gender Information Value Date Recorded Sex Assigned at Not on file Gender Identity Not on file Sexual Orientation Not on file documented as of this encounter Discharge Disposition Disposition Code Departure Means Destination Auto Discharge documented in this encounter Progress Notes * Sindy Rose MD - 07/22/2012 8711 EDT Dermatology Outpatient Visit Note Problem List 1. History of basal cell carcinoma of right chin, s/p Mohs in Dec 2011 (at [facility]) SUBJECTIVE Chief Complaint Patient presents with ??? New Patient Visit skin check History of Present Illness: Ms. Banerjee is a 46 y.o. female who presents for new evaluation and full skin check with a history of basal cell carcinoma of the chin. 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 She does not have any spots that she is concerned about today, although she states she has a few bumps on her right lower leg that get traumatized when she shaves and have not healed. They have been present about one year and are otherwise asymptomatic. She sees Dr. Ale Hsu here for endocrine visits for her history papillary thyroid cancer, and is happy to follow up with us for skin checks on the same days she is scheduled to see endocrine. For full Medical, Surgical, Family, and Social histories, please see the History section of this encounter in the electronic chart which I have personally reviewed. For Review of Systems, Medications and Allergies, please see those sections of this encounter in the electronic chart which I have also reviewed. OBJECTIVE VS: LMP 02/06/2010 Physical Exam: On physical examination, Ms. Banerjee is a female who is alert and interactive and is in no apparent distress. She has a fair skin phenotype. Cutaneous examination of the head (including scalp and face), neck, back, chest, abdomen, upper extremities, lower extremities, hands and feet was performed.Theexamination was normal with the addition of the following comments: - Well healed surgical scar on right chin, no evidence or recurrence of BCC - Three 2-3 mm pink firm papules of right lower legs ASSESSMENT 1. Dermatofibromas of right lower leg 2. History of basal cell carcinoma, chin, no evidence of recurrence PLAN 1. Reassurance about the benign nature of the dermatofibromas was discussed. 2. The nature of sun-induced photo-aging and skin cancers was discussed. Sun avoidance, protective clothing, and the use of 30-SPF sunscreens is advised. Observe closely for skin damage/changes, and call if such occurs. 3. Recommend follow up in 6 months to one year. The patient has an appointment with Dr. Ale Hsu in January and can come back to see us on the same day. Sindy Rose MD 07/22/2012 14:51 Attestation Statement: I saw and examined the patient with the resident/fellow. I agree with the findings and plan of care documented in the resident's/fellow's note. YURI COWAN MD 07/24/2012 17:33 pharmaceutical service representative * Daniela Ordaz - 07/22/2012 1420 EDT Review of Systems Constitutional: Negative for [...] Does not bruise/bleed easily. Psychiatric/Behavioral: Negative for disturbed wake/sleep cycle. The patient is not nervous/anxious. SINDY ROSE MD 07/22/2012 16:50 documented in this encounter Plan of Treatment Not on file documented as of this encounter Visit Diagnoses Diagnosis History of basal cell cancer- Primary Personal history of other malignant neoplasm of skin Dermatofibroma Benign neoplasm of skin, site unspecified documented in this encounter Care Teams Yardage Tufting Machine Operator Relationship Specialty Start Date End Date Rand Harley MD [address] [place] [address] PCP - General 07/21/12 02/01/14 documented as of this encounter
--- OUTSIDE RECORDS SUMMARY | 2024-02-10 18:24 | XMS_ITS | Encounter Summary ---
Author Organization [facility] Address [address] [place] [address] Care Team Providers Care Safety Risk Lead Name Role Phone Rand Harley MD Primary Care Provider [phone] Reason for Visit * Reason Comments Skin Lesion spots on scalp, h/o BCC Encounter Details Date Type Department Care Team (Late st Contact Info) Description 07/31/2016 15:45 EDT Office Visit [facility] Dermatology 3rd Floor [address] [address] Yuri Cowan MD Neoplasm of uncertain behavior (Primary Dx); History of basal cell carcinoma Discharge Disposition: Auto Discharge Social History Tobacco [...] as of this encounter Discharge Diagnoses Diagnosis D48.5 Neoplasm of uncertain behavior of skin-D48.5[ICD-10-CM] D23.9 Other benign neoplasm of skin, unspecified-D23.9[ICD-10-CM] documented in this encounter Discharge Disposition Disposition Code Departure Means Destination Auto Discharge documented in this encounter Progress Notes * Lilia Pan MD - 07/31/2016 1545 EDT Images from the original note were not included. DERMATOLOGY OUTPATIENT CLINIC NOTE Chief Complaint Patient presents with ??? Skin Lesion spots on scalp, h/o BCC Dermatologic History: 1. History of basal cell carcinoma of right chin, s/p Mohs in Dec 2011 (at [facility]) Last Dermatology office visit: 02/14/2016 SUBJECTIVE Ms. Banerjee is a 50 y.o. female who presents for two spots she has noticed on her scalp. She has regular skin exams but she recently noticed these spots since her last appointment. They are both on her scalp and neither is painful tender or bleeds. She has just noticed them when running herfingers through her hair. She has no other cutaneous concerns today. For full Medical, Surgical, Family, and Social [...] allergic to cardizem [diltiazem hcl]. OBJECTIVE VS: Visit Vitals ??? LMP 02/06/2010 Ms. Banerjee is healthy, well developed, well-nourished and in no acute distress female sitting on theexamination table with a normal affect. She is alert and oriented to person, place and time. She has Montaño type II skin. Cutaneous head, neck and arms examined including the hair, scalp, face, eyelids, lips, neck, upper extremities, hands, digits and nails was performed. The dermatologic examination was normal with the addition of the following comments: A) pink-fleshy papule on right parietal scalp with dermoscopic telangiectasia B) anterior parietal scalp: verrucous luis fleshy papule IMPRESSION: 1.Neoplasm of uncertain diagnosis of right superior parietal scalp. Differential diagnosis includesthe following: benign intradermal nevus vs basal cell carcinoma vs other 2. Seborrheic keratosis of scalp 3. History of basal cell carcinoma of chin, no evidence of recurrence PLAN: 1. Recommended biopsy of the lesion located on the right superoparietal scalp given the diagnostic uncertainty. Patient was advised of the risks of biopsy, including pain, infection, bleeding and inevitability of scar formation. Patient was made aware he/she will be called with biopsy results when available, at which time further treatment recommendations will be made based on the results attained. The patient understood and was in agreement with this plan. 2. The benign nature of this/these lesion(s) was discussed and patient was made aware no further treatment is needed to the area. 3. The nature of skin cancers and sun-induced photo-aging was discussed. Sun avoidance, protective clothing, and the use of 30-SPF sunscreens is advised. The ABCDEs and leoly duckling rule of melanoma screening were reviewed with the patient. Vitamin D supplementation encouraged for health maintenance particularly in the winter and while practicing good photoprotection techniques. Patient was instructed to observe closely for any skin damage/changes, and call if such occurs. Otherwise, to follow-up in 1 year (or as planned) for repeat full-body skin exam. She will follow-up as outlined above or in the interim should concerns arise. SHAVE BIOPSY PATIENT INFORMATION: Jc Banerjee : MRN: [id number] SURGEON: Lilia Pan MD, Yuri Cowan MD The indication, risks, benefits and alternatives to this procedure were discussed in detail with the patient and all questions were answered. Informed consent was obtained in writing. PROCEDURE NOTE Specimen A Procedure: Tangential Shave Indication: Diagnostic Biopsy Site: right and superior parietal scalp Anesthesia: 1% lidocaine with epinephrine 1:100,000 local [...] was submitted to pathology for histological evaluation. Lilia Pan MD 07/31/2016 16:48 Attestation Statement: I saw and examined the patient with the resident/fellow. I agree with the findings and plan of care documented in the resident's/fellow's note. I was present for the entire procedure. YURI COWAN MD 08/01/2016 18:22 chip frier * Padmaja Mcknight - 07/31/2016 1545 EDT Review of Systems Constitutional: Negative for [...] sleep disturbance. The patient is not nervous/anxious. Padmaja Mcknight 07/31/2016 15:38 documented in this encounter Plan of Treatment Scheduled Orders Name Type Priority Associated Diagnoses Orde r Schedule SURGICAL PATHOLOGY- ORDER ONLY Pathology Routine Neoplasm of uncertain behavior Ordered: 07/31/2016 documented as of this encounter Visit Diagnoses Diagnosis Neoplasm of uncertain behavior- Primary Neoplasm of uncertain behavior, site unspecified History of basal cell carcinoma Personal history of other malignant neoplasm of skin documented in this encounter Historical Medications * This list may reflect changes made after this encounter. Medication Sig Dispensed Refills Start Date End Date buPROPion (WELLBUTRIN SR) 150 mg SR tablet Take 150 mg by mouth daily. added in this encounter Care Teams Safety Risk Lead Relationship Specialty Start Date End Date Rand Harley MD [address] [place] [id number] PCP - General 07/30/16 documented as of this encounter
--- OUTSIDE RECORDS SUMMARY | 2024-02-10 18:24 | XMS_ITS | Encounter Summary ---
Author Organization [facility] Address [address] [place] [address] Care Team Providers Care Hand Splitter Name Role Phone Rand Harley MD Primary Care Provider Reason for Visit * Reason Comments Thyroid Problem Encounter Details Date Type Department Care Team (Latest Contact Info) Description 02/02/2013 11:20 EDT Office Visit [facility] - [address] [address] Con Tillman MD PhD [address] [place] [address] [place] [id number] History of thyroid cancer (Primary Dx); Postsurgical hypothyroidism Social History Tobacco [...] Sign Reading Time Taken Comments Blood Pressure 118/74 02/02/2013 1125 EDT Pulse 72 02/02/2013 1125 EDT Temperature - - Respiratory Rate - - Oxygen Saturation - - Inhaled Oxygen Concentration - - Weight 74.4 kg (164 lb) 02/02/2013 1125 EDT Height 170.2 cm (5' 7) 02/02/2013 1125 EDT Body Mass Index 25.69 02/02/2013 1125 EDT documented in this encounter Progress Notes * Con Tillman MD - 02/02/2013 1142 EDT Endocrinology Thyroid Follow-Up Evaluation CHIEF COMPLAINT: Chief Complaint Patient presents with ??? Thyroid Problem HPI: Jc Banerjee is a 47 y.o. female who I am asked to see in consultation for evaluation of 1. History of thyroid cancer 2. Postsurgical hypothyroidism HPI This 47 year old woman has a remote hx of thyroid cancer (a. T2N1M0. b. Treated with thyroid lobectomy. c. Thyroid hormone replacement. and is here for replacement of thyroid hormone. She states that she had an episode in December, she has been losing wt by dieting and exercising, where she felt her heart racing after exercise and she felt SOB. After a few hours at home, it did not arian, and she went to the ER. Just when they were going to give her IV medication, the tachycardia resolved without treatment. The ER suspected her thyroid medication, but after all she has been on this for 25 years, and she believes her TSH that day was normal at 0.5-range. She has not been on suppression, and her last TSH here was 0.97 (normal). Cancer was diagnosed 25 years ago. The patient denies URI symptoms, tender neck / sore throat. Medications: Synthroid (Levothyroxine) 150 mcg/d. PAST SOCIAL HISTORY History Social History ??? Marital Status: Spouse Name: N/A Number of Children: N/A ??? Years of Education: N/A Social History Main Topics ??? Smoking status: Former Smoker ??? Smokeless tobacco: None ??? Alcohol Use: Yes ??? Drug Use: No ??? Sexually Active: None Other Topics Concern ??? None Social History Narrative ??? None MEDICATIONS Jc has a current medication list which includes the following prescription(s): levothyroxine, loratadine, and ranitidine hcl. ALLERGIES Review of patient's allergies indicates no known allergies. REVIEW OF SYSTEMS: ROS Denies dysphagia, hoarseness, no diarrhea or constip,no muscle cramping. Lost around ten lbs ondiet. OBJECTIVE: Vitals: BP 118/74 Pulse 72 Ht 170.2 cm (67) Wt 74.39 kg (164 lb) BMI 25.69 kg/m2 LMP 02/06/2010 BMI: Body mass index is 25.69 kg/(m^2). General: alert, cooperative Eyes: no lid lag, periorbital edema, stare, [...] reflexes normal with no hung-up relaxation phase fundi are normal muscle tone and strength normal and symmetric no tremors LAB REVIEW: Lab Results Component Value Date TSH 0.97 02/04/2012 ASSESSMENT: 1. History of thyroid cancer 2. Postsurgical hypothyroidism This woman has a remote hx of thyroid cancer with an intact lobe and is not on suppression but at aims to keeping the TSH in the lower end of the normal range. While her wt loss may mean that she needs tweaking of the dose to prevent a lower level, it is not likely that the thyroid medication led to tachycardia with exercise--more likely this was due to dehydration/skipped beat. PLAN: 1. TSH today with goal of 0.4-2.5. The risks and benefits of my recommendations, as well as other treatment options were discussed with the patient today. Questions were answered. CON TILLMAN MD 02/02/2013 11:42 Procedure visit on 02/02/2013 Component Date Value Range Status ??? TSH 02/02/2013 1.67 0.35 - 5.00 uIU/ml Final Comment: TSH cascade is not recommended for patients in which pituitary or hypothalamic disorders are suspected. ??? Thyroid Suppression? 02/02/2013 YES Final ? ? Thyroglob Ab Screen 02/02/2013 <20 <22 IU/mL Final Comment: (Note) The thyroglobulin testing method is an immunoenzymatic assay manufactured by [employer] and performed on the [employer] DXI 800. The thyroglobulin antibody testing method is an electrochemiluminescence assay manufactured by [employer] and performed on the Modular [employer] Demi System. Values obtained from different assay methods or kits may be different and cannot be used interchangeably. The results cannot be interpreted as absolute evidence for the presence or absence of malignant disease. Specimens with thyroglobulin concentrations greater than 250,000 ng/mL may give falsely lower results. ? ? Thyroglobulin, Tumor Marker, S 02/02/2013 <0.1 Final Comment: (Note) -- REFERENCE VALUE -- <=33 Athyrotic individuals normally have hTg values <=2. Performed by: [email or web address] [place], [address], [place] [address], [place]: Brooke Flores, Ph.D. All at [facility]. Formerly [facility]. documented in this encounter Plan of Treatment Not on file documented as of this encounter Results * THYROGLOBULIN TUMOR MARKER (02/02/2013 11:56 EDT) Pathologist [facility] Thyroid Suppression? YES [facility] Thyroglob Ab Screen <20 <22 IU/mL [facility] Comment: (Note) The thyroglobulin testing method is an immunoenzymatic assay manufactured by [employer] and performed on the [employer] DXI 800. The thyroglobulin antibody testing method [...] normally have hTg values <=2. Performed by: [email or web address] [place], [address], [place] [address], [place]ank Turner: Brooke Flores, Ph.D. Blood specimen (specimen) 02/02/2013 11:56 EDT 02/02/2013 15:41 EDT Con Tillman MD PhD CHEMISTRY & BLOOD GAS ORDERABLES Performing Organization Address City/[facility] Co de Phone Number [facility] [address] [place] [address] * THYROID CASCADE (02/02/2013 11:56 EDT) TSH 1.67 0.35 - 5.00 uIU/ml [facility] Comment: TSH cascade is not recommended for patients in which pituitary or hypothalamic disorders are suspected. Blood specimen (specimen) 02/02/2013 11:56 EDT 02/02/2013 15:41 EDT Con Tillman MD PhD CHEMISTRY & BLOOD GAS ORDERABLES Performing Organization Address [facility] de Phone Number [facility] [address] [place] [address] documented in this encounter Visit Diagnoses Diagnosis History of thyroid cancer- Primary Personal history of malignant neoplasm of thyroid Postsurgical hypothyroidism documented in this encounter Care Teams Hand Splitter Relationship Specialty Start Date End Date Rand Harley MD [address] [place] [address] PCP - General 07/21/12 02/01/14 documented as of this encounter
--- OUTSIDE RECORDS SUMMARY | 2024-02-10 18:24 | XMS_ITS | Encounter Summary ---
Author Organization [facility] Address [address] [place] [address] Care Team Providers Care Pocketed Spring Machine Operator Name Role Phone Catina Chowdhury NP Primary Care Provider [phone] Encounter Details Date Type Department Care Team (Latest Contact Info) Description 03/25/2014 Orders Only [facility] Endocrinology - [facility] [address] [place] [address] Ale Hsu MD PhD [address] [facility] [address] [place] [address] Postsurgical hypothyroidism (Primary Dx); History of thyroid cancer Social History Tobacco [...] tablet Take 137 mcg by mouth daily. 90 Tab 3 03/25/2014 03/25/2014 documented in this encounter Plan of Treatment Not on file documented as of this encounter Visit Diagnoses Diagnosis Postsurgical hypothyroidism- Primary History of thyroid cancer Personal history of malignant neoplasm of thyroid documented in this encounter Discontinued Medications Medication Sig Discontinue Reason Start Date End Da te SYNTHROID 150 mcg tablet Take 1 Tab by mouth daily. Dose adjustment 02/09/2013 03/25/2014 documented as of this encounter Care Teams Pocketed Spring Machine Operator Relationship Specialty Start Date End Date Catina Chowdhury, CONCR[employer] [facility] [address] [place] [address] PCP - General 02/02/14 07/29/16 documented as of this encounter
--- OUTSIDE RECORDS SUMMARY | 2024-02-10 18:24 | XMS_ITS | Encounter Summary ---
Author Organization [facility] Address [address] [place] [address] Care Team Providers Care Powder Blender Name Role Phone Catina Chowdhury NP Primary Care Provider [phone] Encounter Details Date Type Department Care Team (Late st Contact Info) Description 01/31/2015 Phlebotomy Only [address] [address] [place], Outpatient Postsurgical hypothyroidism; Malignant neoplasm of thyroid gland (HCC-CMS) Social History Tobacco Use Types Packs/Day [...] No 01/31/2015 documented as of this encounter Plan of Treatment Not on file documented as of this encounter Procedures Procedure Name Priority Date/Time Associated Diagnosis Comments THYROGLOBULIN, TUMOR MARKER, S Routine 01/31/2015 11:33 EDT Malignant neoplasm of thyroid gland (HCC-CMS) THYROID CASCADE Routine 01/31/2015 11:33 EDT Postsurgical hypothyroidism documented in this encounter Results * (ABNORMAL) THYROGLOBULIN, TUMOR MARKER, S (01/31/2015 11:33 EDT) Thyroid Suppression? YES 01/31/2015 11:32 EDT [facility] Thyroglob,Tumor Mrkr <0.1 ng/mL 02/01/2015 7:51 [facility] Comment: (Note) REFERENCE VALUE Athyrotic <0.1 Intact Thyroid <=33 Thyroglobulin Ab, S 11(H) <4.0 IU/mL 02/01/2015 7:51 T [facility] Thyroglobulin Interp (Note) 02/01/2015 7:51 [facility] Comment: Quantitation of thyroglobulin [...] testing methods are immunoenzymatic assays manufactured by [employer] and performed on the [employer] DXI 800. Values obtained from different assay methods or kits may be different and cannot be used interchangeably. The results cannot be interpreted as absolute evidence for the presence or absence of malignant disease. Performed by: [facility], [facility] [place], [place] [address], Development Scientist: Brooke Flores, Ph.D. Blood specimen (specimen) BLOOD SPECIMEN / Unknown 01/31/2015 11:33 EDT 01/31/2015 13:15 EDT Ale Hsu MD PhD CHEMISTRY & BLOOD GAS ORDERABLES Performing Organization Address City/[facility] Co de Phone Number [facility] [address] [place] [address] * THYROID CASCADE (01/31/2015 11:33 EDT) TSH 0.39 0.35 - 5.00 uIU/ml 01/31/2015 15:09 EDT [facility] Comment: TSH cascade is not recommended for patients in which pituitary or hypothalamic disorders are suspected. Blood specimen (specimen) BLOOD SPECIMEN / Unknown 01/31/2015 11:33 EDT 01/31/2015 13:15 EDT Ale Hsu MD PhD CHEMISTRY & BLOOD GAS ORDERABLES Performing Organization Address [facility] Co de Phone Number [facility] [address] [place] [address] documented in this encounter Visit Diagnoses Diagnosis Postsurgical hypothyroidism Malignant neoplasm of thyroid gland (HCC-CMS) Malignant neoplasm of thyroid gland documented in this encounter Care Teams Powder Blender Relationship Specialty Start Date End Date Catina Chowdhury NP [facility] [address] [place] [address] PCP - General 02/02/14 07/29/16 documented as of this encounter
--- OUTSIDE RECORDS SUMMARY | 2024-02-10 18:24 | XMS_ITS | Encounter Summary ---
Author Organization [facility] Address [address] [place] [address] Care Team Providers Care Wool Sorter Name Role Phone Rand Harley MD Primary Care Provider [phone] Encounter Details Date Type Department Care Team (Late st Contact Info) Description 04/30/[address] [facility] Endocrinology - [address] [address] Ale Hsu MD PhD [address] [facility] [address] [place] [address] Social History Tobacco Use Types Packs/Day Years [...] Procedure Name Priority Date/Time Associated Diagnosis Comments T4, FREE REFLEX Routine 04/30/2017 13:42 EST documented in this encounter Results * T4, FREE REFLEX (04/30/2017 13:42 EST) T4, Free Reflex 2.0 0.8 - 2.2 ng/dl 04/30/2017 17:15 EST [facility] Comment:New methodology in u se 11/07/16. BLOOD SPECIMEN / Unknown 04/30/2017 13:42 EST 04/30/2017 15:29 EST Ale Hsu MD PhD CHEMISTRY & BLOOD GAS ORDERABLES Performing Organization Address City/State/[facility] Co de Phone Number [facility] [address] [place] [address] documented in this encounter Visit Diagnoses Not on filedocumented in this encounter Care Teams Wool Sorter Relationship Specialty Start Date End Date Rand Harley MD [address] [place] [address] PCP - General 07/30/16 documented as of this encounter
--- OUTSIDE RECORDS SUMMARY | 2024-02-10 18:24 | XMS_ITS | Encounter Summary ---
Author Organization [facility] Address [address] [place] [address] Care Team Providers Care Power House Control Room Operator Name Role Phone Catina Chowdhury NP Primary Care Provider [phone] Reason for Visit * Reason Comments Skin Exam Annual FBSE, h/o BCC Encounter Details Date Type Department Care Team (Late st Contact Info) Description 02/14/2016 11:00 EDT Office Visit [facility] Dermatology 3rd Floor [facility] [address] [place] [address] Elida Culp MD [address] [place] [id number] History of basal cell carcinoma (Primary Dx); Sun-damaged skin Social History Tobacco [...] as of this encounter Discharge Diagnoses Diagnosis Z85.828 Personal history of other malignant neoplasm of skin-Z85.828[ICD-10-CM] L57.8 Other skin changes due to chronic exposure to nonionizing radiation-L57.8[ICD-10-CM] documented in this encounter Progress Notes * Stevie Saini MD - 02/14/2016 1100 EDT Dermatology Outpatient Visit Note Chief Complaint Patient presents with ??? Skin Exam Annual FBSE, h/o BCC Dermatologic History: 1. History of basal cell carcinoma of right chin, s/p Mohs in Dec 2011 (at [facility]) Last Dermatology office visit: 01/2015 SUBJECTIVE Ms. Banerjee is a 50 y.o. female who presents for follow up for FBSE. Patient has no areas of concern today. She denies any new, changing, bleeding, itching or painful lesions. She regularly practices sun protection with SPF30 or above sunscreen and sun avoidance. She is otherwise in her usual state of health. For full Medical, Surgical, Family, and Social [...] following prescription(s): levothyroxine, loratadine, and ranitidine hcl. She is allergic to cardizem [diltiazem hcl]. OBJECTIVE VS: Visit Vitals ??? LMP 02/06/2010 Ms. Banerjee is healthy female [...] were no lesions suspicious for malignancy. - Well healed linear scar on right chin ASSESSMENT and PLAN 1. History of BCC: no evidence of recurrence - The benign nature of her exam was discussed today. - The nature of sun-induced photo-aging and [...] interim should problems arise. Stevie Saini MD 02/14/2016 11:19 Attestation Statement: I saw and examined the patient with the resident/fellow. I agree with the findings and plan of care documented in the resident's/fellow's note. Elida Culp MD 02/20/2016 * Barb Rooney - 02/14/2016 1100 EDT Review of Systems Constitutional: Negative for [...] sleep disturbance. The patient is not nervous/anxious. Barb Rooney 02/14/2016 11:05 documented in this encounter Plan of Treatment Not on file documented as of this encounter Visit Diagnoses Diagnosis History of basal cell carcinoma- Primary Personal history of other malignant neoplasm of skin Sun-damaged skin Other dermatitis due to solar radiation documented in this encounter Care Teams Power House Control Room Operator Relationship Specialty Start Date End Date Catina Chowdhury NP [facility] [address] [place] [address] PCP - General 02/02/14 07/29/16 documented as of this encounter
--- OUTSIDE RECORDS SUMMARY | 2024-02-10 18:24 | XMS_ITS | Encounter Summary ---
Author Organization [facility] Address [address] [place] [address] Care Team Providers Care Joiner Apprentice Name Role Phone Rand Harley MD Primary Care Provider [phone] Catina Chowdhury NP Primary Care Provider [phone] Rand Harley MD Primary Care Provider [phone] Reason for Visit * Reason Onset Date Comments Medications Refill 02/09/2013 Encounter Details Date Type Department Care Team (Late st Contact Info) Description 02/09/2013 Refill [facility] Endocrinology - [address] [address] Ale Hsu MD PhD [address] [place] [address] [address] [place] [address] Medications Refill Social History Tobacco Use [...] Dispensed Refills Start Date End Da te SYNTHROID 150 mcg tablet Take 1 Tab by mouth daily. 90 Tab 3 02/09/2013 03/25/2014 documented in this encounter Miscellaneous Notes * Telephone Encounter - Krysta Lamas - 02/09/2013 1610 EDT Venessa Baron has not received script for patient's Synthroid, patient needs brand name, patient is out of medication. Patient checking for lab results on 02/02/13 documented in this encounter Plan of Treatment Not on file documented as of this encounter Visit Diagnoses Not on filedocumented in this encounter Discontinued Medications Medication Sig Discontinue Reason Start Date End Da te levothyroxine (SYNTHROID) 150 mcg tablet Take 1 Tab by mouth daily. Reorder 02/04/2012 02/09/2013 documented as of this encounter Care Teams Joiner Apprentice Relationship Specialty Start Date End Date Rand Harley MD [address] [place] [address] PCP - General 07/21/12 02/01/14 Catina Chowdhury NP [facility] [address] [place] [address] PCP - General 02/02/14 07/29/16 Rand Harley MD [address] [place] [address] PCP - General 07/30/16 documented as of this encounter
--- OUTSIDE RECORDS SUMMARY | 2024-02-10 18:24 | XMS_ITS | Encounter Summary ---
Author Organization [facility] Address [address] [place] [address] Care Team Providers Care Warehouse Team Member Name Role Phone Catina Chowdhury NP Primary Care Provider Reason for Visit * Reason Onset Date Comments Appointment Related 04/10/2010 Patient call ed to discuss her Dr Valdes appointment with Dr. Hsu Encounter Details Date Type Department Care Team (Late st Contact Info) Description 04/10/2010 Telephone [facility] Endocrinology - [address] [address] Ale Hsu MD PhD [address] [place] [address] [place] [address] Appointment Related (Patient called to discuss her Dr Valdes appointment with Dr. Hsu) Social History Tobacco Use Types Packs/Day Years Used Date Smoking Tobacco: Never Assessed Sex and Gender Information Value Date Recorded Sex Assigned at Not on file Gender Identity Not on file Sexual Orientation Not on file documented as of this encounter Miscellaneous Notes * Telephone Encounter - Janae Chamorro - 12/05/2010 3527 EDT Follow up documented in this encounter Plan of Treatment Not on file documented as of this encounter Visit Diagnoses Not on filedocumented in this encounter Care Teams Warehouse Team Member Relationship Specialty Start Date End Date Catina Chowdhury NP [facility] [address] [place] [address] PCP - General 02/03/09 07/20/12 documented as of this encounter
--- OUTSIDE RECORDS SUMMARY | 2024-02-10 18:24 | XMS_ITS | Encounter Summary ---
Author Organization [facility] Address [address] [place] [address] Care Team Providers Care Chicken Buyer Name Role Phone Rand Harley MD Primary Care Provider [phone] Encounter Details Date Type Department Care Team (Late st Contact Info) Description 05/03/2017 Orders Only [facility] Endocrinology - [address] [address] Ale Hsu MD PhD [address] [place] [address] [address] [place] [address] Social History Tobacco Use Types [...] Tab by mouth daily. 90 Tab 3 05/03/2017 01/20/2018 documented in this encounter Plan of Treatment Not on file documented as of this encounter Visit Diagnoses Not on filedocumented in this encounter Discontinued Medications Medication Sig Discontinue Reason Start Date End Da te levothyroxine (SYNTHROID) 112 mcg tabletIndications:S/P complete thyroidectomy Take 1 Tab by mouth daily. Dose adjustment 02/05/2016 05/03/2017 documented as of this encounter Care Teams Chicken Buyer Relationship Specialty Start Date End Date Rand Harley MD [address] [place] [address] PCP - General 07/30/16 documented as of this encounter
--- OUTSIDE RECORDS SUMMARY | 2024-02-10 18:24 | XMS_ITS | Encounter Summary ---
Author Organization [facility] Address [address] [place] [address] Care Team Providers Care Pusher Runner Name Role Phone Catina Chowdhury NP Primary Care Provider [phone] Reason for Visit * Reason Comments Labs Only Encounter Details Date Type Department Care Team (Latest Contact Info) Description 02/04/2012 11:45 EDT Procedure visit [facility] [place] [address] Unknown, Provider, Phlebotomy, [facility] Postsurgical hypothyroidism; Malignant neoplasm of thyroid gland [...] Diagnosis Comments THYROGLOBULIN, TUMOR MARKER, S Routine 02/04/2012 11:36 EDT Malignant neoplasm of thyroid gland (HCC-CMS) THYROID CASCADE Routine 02/04/2012 11:36 EDT Postsurgical hypothyroidism documented in this encounter Results * THYROGLOBULIN TUMOR MARKER (02/04/2012 11:36 EDT) Thyroid Suppression? YES [facility] Thyroglob Ab Screen <20 <22 IU/mL [facility] Comment: (Note) The thyroglobulin testing method is an immunoenzymatic assay manufactured by [employer] and performed on the [employer] DXI 800. The thyroglobulin antibody testing method [...] results. Thyroglobulin, Tumor Marker, S <0.1 ng/mL [facility] Comment: (Note) -- REFERENCE VALUE -- <=33 Athyrotic individuals normally have hTg values <=2. Performed by: [facility], [address], [place] [address], Lithographic Camera Operator: Brooke Flores, Ph.D. Blood specimen (specimen) 02/04/2012 11:36 EDT 02/04/2012 15:30 EDT Ale Hsu MD PhD CHEMISTRY & BLOOD GAS ORDERABLES Performing Organization Address [facility] de Phone Number [facility] [address] [place] [address] * THYROID CASCADE (02/04/2012 11:36 EDT) TSH 0.97 0.35 - 5.00 uIU/ml [facility] Comment: TSH cascade is not recommended for patients in which pituitary or hypothalamic disorders are suspected. Blood specimen (specimen) 02/04/2012 11:36 EDT 02/04/2012 15:30 EDT Ale Hsu MD PhD CHEMISTRY & BLOOD GAS ORDERABLES Performing Organization Address [facility] de Phone Number [facility] [address] [place] [address] documented in this encounter Visit Diagnoses Diagnosis Postsurgical hypothyroidism Malignant neoplasm of thyroid gland (HCC-CMS) Malignant neoplasm of thyroid gland documented in this encounter Care Teams Pusher Runner Relationship Specialty Start Date End Date Catina Chowdhury NP [facility] [address] [place] [address] PCP - General 02/03/09 07/20/12 documented as of this encounter
--- OUTSIDE RECORDS SUMMARY | 2024-02-10 18:24 | XMS_ITS | Encounter Summary ---
Author Organization [facility] Address [address] [place] [address] Care Team Providers Care Direct Customer Service Representative Name Role Phone Catina Chowdhury NP Primary Care Provider Reason for Visit * Reason Comments Thyroid Cancer Encounter Details Date Type Department Care Team (Latest Contact Info) Description 02/04/2012 11:20 EDT Office Visit [facility] Endocrinology - [address] [address] Ale Hsu MD PhD [address] [place] [address] [place] [phone] Postsurgical hypothyroidism; Malignant neoplasm of thyroid gland (HCC-CMS) Discharge Disposition: Auto Discharge Social History Tobacco Use Types Packs/Day Years Used Date Smoking Tobacco: Never Assessed Sex and Gender Information Value Date Recorded Sex Assigned at Not on file Gender Identity Not on file Sexual Orientation Not on file documented as of this encounter Last Filed Vital Signs Vital Sign Reading Time Taken Comments Blood Pressure 128/80 02/04/2012 1105 EDT Pulse 72 02/04/2012 1105 EDT Temperature - - Respiratory Rate - - Oxygen Saturation - - Inhaled Oxygen Concentration - - Weight 78.2 kg (172 lb 4.8 oz) 02/04/2012 1105 E DT Height 170.2 cm (5' 7) 02/04/2012 1105 EDT Body Mass Index 26.99 02/04/2012 1105 EDT documented in this encounter Ordered Prescriptions Prescription Sig Dispensed Refills Start Date End Da te levothyroxine (SYNTHROID) 150 mcg tablet Take 1 Tab by mouth daily. 90 Tab 3 02/04/2012 02/09/2013 documented in this encounter Discharge Disposition Disposition Code Departure Means Destination Auto Discharge documented in this encounter Progress Notes * Ale Hsu MD - 02/04/2012 1118 EDT Subjective: Patient ID: Jc Banerjee is an 46 y.o. female. Chief Complaint Patient presents with ??? Thyroid Cancer HPI This 46 year old woman is seen for thyroid hormone replacement and surveillance. 1. History of papillary thyroid cancer in 1987 a. T2N1M0. b. Treated with thyroid lobectomy. c. Thyroid hormone suppression. She is on 150 Mcg of LT4/d. Denies dysphagia, hoarseness, no diarrhea or constip,no muscle cramping. Appetite and weight are stable. Recently had Mohs for basal cell Ca. Patient Active Problem List Diagnoses ??? Endometriosis ??? Postsurgical hypothyroidism ??? Malignant neoplasm of thyroid gland History reviewed. No pertinent past medical history. Past Surgical History Procedure Date ??? Hysterectomy, total abdominal 10/16 ovaries intact, endometriosis ??? Thyroidectomy 1987 total, cancer History reviewed. No pertinent family history. Social History Social History ??? Marital Status: Spouse Name: N/A Number of Children: N/A ??? Years of Education: N/A Occupational History ??? Not on file. Social History Main Topics ??? Smoking status: Not on file ??? Smokeless tobacco: Not on file ??? Alcohol Use: Not on file ??? Drug Use: Not on file ??? Sexually Active: Not on file Other Topics Concern ??? Not on file Social History Narrative ??? No narrative on file Current Outpatient Prescriptions on File Prior to Visit Medication Sig Dispense Refill ??? levothyroxine (SYNTHROID) 150 mcg tablet Take 1 Tab by mouth daily. 90 Tab 3 ??? loratadine (CLARITIN) 10 mg tablet Take 10 mg by mouth at bedtime as needed. ??? RANITIDINE HCL ORAL Take 1 Tab by mouth as needed. No Known Allergies ROS - See HPI Objective: BP 128/80 Pulse 72 Ht 170.2 cm (67) Wt 78.155 kg (172 lb 4.8 oz) BMI 26.99 kg/m2 LMP 02/06/2010 Physical Exam Constitutional: She is oriented to person, place, and time. She appears well- developed and well-nourished. HENT: Head: Normocephalic. Mouth/Throat: No oropharyngeal exudate. Eyes: Conjunctivae and EOM are normal. Pupils are equal, round, and reactive to light. No scleral icterus. Neck: Normal range of motion. Neck supple. No thyromegaly present. Cardiovascular: Normal rate, regular rhythm, normal heart sounds and intact distal pulses. Exam reveals no gallop. No murmur heard. Pulmonary/Chest: Effort normal and breath sounds normal. She has no wheezes. Abdominal: Soft. Bowel sounds are normal. She exhibits no distension. Musculoskeletal: Normal range of motion. She exhibits no edema and no tenderness. Lymphadenopathy: She has no cervical adenopathy. Neurological: She is alert and oriented to person, place, and time. She has normal reflexes. Coordination normal. Skin: Skin is warm and dry. No rash noted. No erythema. No pallor. Psychiatric: She has a normal mood and affect. Her behavior is normal. Judgment and thought contentnormal. No palpable tissue in neck. Assessment: This woman has had thyroid cancer and is doing well on medication. She is not having issues about this and last Tg was undetectable. Her prognosis is excellent and will recheck for stability. Plan: Jc was seen today for thyroid cancer. Diagnoses and associated orders for this visit: Postsurgical hypothyroidism Malignant neoplasm of thyroid gland 1. Continue medication. RX renewed. Procedure visit on 02/04/2012 Component Date Value Range Status ??? TSH (uIU/ml) 02/04/2012 0.97 0.35-5.00 Final Comment: TSH cascade is not recommended for patients in which pituitary or hypothalamic disorders are suspected. ??? Thyroid Suppression? 02/04/2012 YES Final ? ? Thyroglob Ab Screen (IU/mL) 02/04/2012 <20 <22 Final Comment: (Note) The thyroglobulin testing method is an immunoenzymatic assay manufactured by [employer] and performed on the [employer]) DXI 800. The thyroglobulin antibody testing method is an electrochemiluminescence assay manufactured by [employer] and performed on the Veebeam or Demi System. Values obtained from different assay methods or kits may be different and cannot be used interchangeably. The results cannot be interpreted as absolute evidence for the presence or absence of malignant disease. Specimens with thyroglobulin concentrations greater than 250,000 ng/mL may give falsely lower results. ? ? Thyroglobulin, Tumor Marker, S (ng/mL) 02/04/2012 <0.1 Final Comment: (Note) -- REFERENCE VALUE -- <=33 Athyrotic individuals normally have hTg values <=2. Performed by: [facility], [address], [place] [address], Soup Mixer: Brooke Flores, Ph.D. Everything is at goal. documented in this encounter Plan of Treatment Not on file documented as of this encounter Results * THYROGLOBULIN TUMOR MARKER (02/04/2012 11:36 EDT) Thyroid Suppression? YES [facility] Thyroglob Ab Screen <20 <22 IU/mL [facility] Comment: (Note) The thyroglobulin testing method is an immunoenzymatic assay manufactured by [employer] and performed on the [employer] Direct ([employer]) DXI 800. The thyroglobulin antibody testing method [...] normally have hTg values <=2. Performed by: [facility], [address], [place] [address], Soup Mixer: Brooke Flores, Ph.D. Blood specimen (specimen) 02/04/2012 11:36 EDT 02/04/2012 15:30 EDT Ale Hsu MD PhD CHEMISTRY & BLOOD GAS ORDERABLES Performing Organization Address City/[facility] Co de Phone Number [facility] [address] [place] [address] * THYROID CASCADE (02/04/2012 11:36 EDT) TSH 0.97 0.35 - 5.00 uIU/ml [facility] Comment: TSH cascade is not recommended for patients in which pituitary or hypothalamic disorders are suspected. Blood specimen (specimen) 02/04/2012 11:36 EDT 02/04/2012 15:30 EDT Ale Hsu MD PhD CHEMISTRY & BLOOD GAS ORDERABLES Performing Organization Address [facility] Co de Phone Number [facility] [address] [place] [address] documented in this encounter Visit Diagnoses Diagnosis Postsurgical hypothyroidism Malignant neoplasm of thyroid gland ([facility]-CMS) Malignant neoplasm of thyroid gland documented in this encounter Discontinued Medications Medication Sig Discontinue Reason Start Date End Da te levothyroxine (SYNTHROID) 150 mcg tablet Take 1 Tab by mouth daily. Reorder 02/05/2011 02/04/2012 documented as of this encounter Care Teams Direct Customer Service Representative Relationship Specialty Start Date End Date Ctaina Chowdhury NP [facility] [address] [place] [address] PCP - General 02/03/09 07/20/12 documented as of this encounter
--- OUTSIDE RECORDS SUMMARY | 2024-02-10 18:24 | XMS_ITS | Encounter Summary ---
Author Organization [facility] Address [address] [place] [address] Care Team Providers Care Wine Maker Name Role Phone Catina Chowdhury NP Primary Care Provider [phone] Reason for Visit * Reason Comments Thyroid Cancer f/u Encounter Details Date Type Department Care Team (Latest Contact Info) Description 02/05/2011 11:20 EDT Office Visit [facility] Endocrinology - [address] [address] Ale Hsu MD PhD [address] [place] [address] [place] [phone] Hx of thyroid cancer; Postsurgical hypothyroidism Social History Tobacco Use Types Packs/Day Years Used Date Smoking Tobacco: Never Assessed Sex and Gender Information Value Date Recorded Sex Assigned at Not on file Gender Identity Not on file Sexual Orientation Not on file documented as of this encounter Last Filed Vital Signs Vital Sign Reading Time Taken Comments Blood Pressure 112/64 02/05/2011 1154 EDT Pulse 64 02/05/2011 1154 EDT Temperature - - Respiratory Rate - - Oxygen Saturation - - Inhaled Oxygen Concentration - - Weight 77.1 kg (170 lb) 02/05/2011 1154 EDT Height 170.2 cm (5' 7) 02/05/2011 1154 EDT Body Mass Index 26.63 02/05/2011 1154 EDT documented in this encounter Ordered Prescriptions Prescription Sig Dispensed Refills Start Date End Da te levothyroxine (SYNTHROID) 150 mcg tablet Take 1 Tab by mouth daily. 90 Tab 3 02/05/2011 02/04/2012 documented in this encounter Progress Notes * Ale Hsu MD - 02/05/2011 1221 EDT This 45 year old woman with a hx of papillary thyroid cancer (T2N1) is here for thyroid replacementand surveillance. She is on 150 mcg LT4/d. Denies dysphagia, hoarseness, no diarrhea or constip,no muscle cramping. Appetite and weight are stable. She had LN disease on presentation, never had I-131due to , and has had a recent visit with Dr. Valdes where U/SD showed no recurrent disea se. BP 112/64 Pulse 64 Ht 170.2 cm (67) Wt 77.111 kg (170 lb) BMI 26.63 kg/m2 LMP 02/06/2010 Neck: No tissue palpated in the neck nor LNs in the cervical or supraclavicular areas. A: This patient had a hx of a papillary thyroid cancer with one aggressive feature (spread to LNs).It has been 20 years-plus since diagnosis and initial surgery, and she is well except that blood testing has shown positive ABs rendering the Tg tumor marker inaccurate for follow up (and the possible low risk of ellie recurrence). She could not get her blood tests when she saw Dr. Valdes in to a computer glitch. We will get this today. Given her positive ABs would like TSH in the low range of normal, but no longer needs to be suppressed to undetectable. P:1) Put in labs again. 2) Renewed RX TSH 1.74 with Tg <0.1, neg ABs. As ABs are negative, does not need suppression. Goal for TSH is now 0.4-2.5 range. Pt called. documented in this encounter Plan of Treatment Not on file documented as of this encounter Results * THYROGLOBULIN TUMOR MARKER (02/05/2011 12:42 EDT) Thyroid Suppression? Yes [facility] Thyroglob Ab Screen <20Reference range: <22 Unit: IU/mL [facility] Thyroglobulin , Tumor Marker, S <0.1Unit: ng/mL -- REFERENCE VALUE -- ? <=33 ? Athyrotic individuals ? normally have hTg values ? <=2. ? The thyroglobulin testing method is an immunoenzymatic ? assay manufactured by [employer] and ? performed on the [employer] DXI 800. ? The thyroglobulin antibody testing method is an ? electrochemilumine scence assay manufactured by [employer] and performed on the [employer] ? System. ? Values obtained from different assay methods or kits ? may be different and cannot be used interchangeably. ? The results cannot be interpreted as absolute evidence ? for the presence or absence of malignant disease. ? Specimens with thyroglobulin concentrations greater ? than 250,000 ng/mL may give falsely lower results. ? Performed by: [facility], [address], ? [place] [address], Test And Research Reactor Operator: Brooke Flores, Ph.D. ? [facility] Blood specimen (specimen) 02/05/2011 12:42 EDT 02/05/2011 12:43 EDT Ale Hsu MD PhD CHEMISTRY & BLOOD GAS ORDERABLES [facility] [address] [place] [address] * THYROID CASCADE (02/05/2011 12:42 EDT) TSH 1.74 0.35 - 5.00 uIU/ml [facility] Comment: ??TSH cascade is not recommended for patients in which pituitary or hypothalamic disorders are suspected. Blood specimen (specimen) 02/05/2011 12:42 EDT 02/05/2011 12:43 EDT Ale Hsu MD PhD CHEMISTRY & BLOOD GAS ORDERABLES [facility] [address] [place] [address] documented in this encounter Visit Diagnoses Diagnosis Hx of thyroid cancer Personal history of malignant neoplasm of thyroid Postsurgical hypothyroidism documented in this encounter Discontinued Medications Medication Sig Discontinue Reason Start Date End Da te BUPROPION HCL (WELLBUTRIN ORAL) Take 150 mg by mouth 2 times daily. Discontinued by another clinician 02/01/2010 02/05/2011 levothyroxine (SYNTHROID) 150 mcg tablet Take 1 Tab by mouth daily. Reorder 02/06/2010 02/05/2011 documented as of this encounter Care Teams Wine Maker Relationship Specialty Start Date End Date Catina Chowdhury NP [facility] [address] [place] [address] PCP - General 02/03/09 07/20/12 documented as of this encounter
--- OUTSIDE RECORDS SUMMARY | 2024-02-10 18:24 | XMS_ITS | Encounter Summary ---
Author Organization [facility] Address [address] [place] [address] Care Team Providers Care Associate Relations Specialist Name Role Phone Rand Harley MD Primary Care Provider [phone] Reason for Visit * Reason Onset Date Comments Requesting Sooner Appointment 09/26/2012 Encounter Details Date Type Department Care Team (Late st Contact Info) Description 09/26/2012 Telephone [facility] Dermatology 3rd Floor [facility] [address], [place] [id number] Robbin Garcia MD Requesting Sooner Appointment Social History Tobacco Use Types Packs/Day Years Used Date Smoking Tobacco: Former Alcohol Use Standard Drinks/Week Comments Yes 0 (1 standard drink = 0.6 oz pur e alcohol) Sex and Gender Information Value Date Recorded Sex Assigned at Not on file Gender Identity Not on file Sexual Orientation Not on file documented as of this encounter Miscellaneous Notes * Telephone Encounter - Angelica Griffith RN - 09/26/2012 7446 EDT Spoke with patient. She states she has a history of basal cell carcinoma and has a lesion that is behaving similar to the basal cell carcinoma. She reports she has an appointment in January but thinks she should be seen sooner. She describes the lesion as a blood filled pimple that started 1 week ago. Now it is a little bump that is sunk in in the middle that looks like a volcano that the top has blown off. It is pearly. It is sore, she rates her pain as 1- 2/10. Patient scheduled 10/01/12 with Robbin Garcia MD. ANGELICA GRIFFITH RN 09/26/2012 15:43 * Telephone Encounter - Isamar Elizabeth - 09/26/2012 1103 EDT Patient has a spot on the right side of the face. Patient has personal history of skin cancer. Please call patient about the appointment. documented in this encounter Plan of Treatment Not on file documented as of this encounter Visit Diagnoses Not on filedocumented in this encounter Care Teams Associate Relations Specialist Relationship Specialty Start Date End Date Rand Harley MD [address] [place] [address] PCP - General 07/21/12 02/01/14 documented as of this encounter
--- OUTSIDE RECORDS SUMMARY | 2024-02-10 18:24 | XMS_ITS | Encounter Summary ---
Author Organization [facility] Address [address] [place] [address] Care Team Providers Care Department Of Natural Resources Officer Name Role Phone Rand Harley MD Primary Care Provider [phone] Encounter Details Date Type Department Care Team (Late st Contact Info) Description 07/31/2016 Results Only [facility] Dermatology 5th Floor [facility] [address] [place] [address] Yuri Cowan MD Social History Tobacco Use [...] Date/Time Associated Diagnosis Comments SURGICAL PATHOLOGY Routine 07/31/2016 18 :13 EDT documented in this encounter Results * SURGICAL PATHOLOGY (07/31/2016 18:13 EDT) Pathology Report: SURGICAL PATHOLOGY REPORT Reports generated via electronic interface contain original data; however they are lacking the format of the original report. Caution should be taken when reading/interpret ing unformatted reports. Name: ? JC BANERJEE ? Accession #: ? [id number] ? : ? 1965 (Age: 50) ??F ? Collect Date: ? 07/31/2016 ? Location: ? [facility] ? Receive Date: ? 08/01/2016 ? Provider: YURI COWAN MD Copy to: EBONIE STARR MD ? Final Pathologic Diagnosis: SKIN OF SCALP, RIGHT PARIETAL, SHAVE BIOPSY: - Melanocytic nevus, intradermal type. - Lesion extends to biopsy base. Document reviewed and electronically signed by: SHUKRI TEJEDA MD Report ??Date: 08/02/2016 16:55 By the signature above, the attending physician certifies that he/she has personally conducted a gross and/or microscopic examination of the described specimens and rendered or confirmed the above diagnosis. Specimen(s) Received: Right parietal scalp Clinical History: New pink flat papule in scalp; R/O BCC vs. IDN vs. other; clinical diagnosis code: D48.9 Gross Description: ? Received in formalin labelled with proper patient identification (initials S, A) and right parietal scalp is a shave biopsy of pearly yellow-white skin (0.5 x 0.4 x 0.1 cm). Bisected and submitted in 1. Dr. Clifford 08/01/2016 7:11 PM End of Report [facility] 07/31/2016 18:1 3 EDT 08/01/2016 18:13 EDT Yuri Cowan MD PATHOLOGY ORDERA HOWARD [facility] [address] [place] [address] documented in this encounter Visit Diagnoses Not on filedocumented in this encounter Care Teams Department Of Natural Resources Officer Relationship Specialty Start Date End Date Rand Harley MD [address] [place] [address] PCP - General 07/30/16 documented as of this encounter
--- OUTSIDE RECORDS SUMMARY | 2024-02-10 18:24 | XMS_ITS | Encounter Summary ---
Author Organization [facility] Address [address] [place] [address] Care Team Providers Care Brick Pointer Name Role Phone Rand Harley MD Primary Care Provider [phone] Reason for Visit * Reason Onset Date Comments Biopsy Results 08/07/2016 Encounter Details Date Type Department Care Team (Late st Contact Info) Description 08/07/2016 Telephone [facility] Dermatology 3rd Floor [facility] [address] [place] [address] Yuri Cowan MD Biopsy Results Social History Tobacco Use Types Packs/Day [...] encounter Miscellaneous Notes * Telephone Encounter - Padmaja Mcknight - 08/07/2016 1401 EDT Patient informed of biopsy results and verbalized understanding. Padmaja Mcknight 08/07/2016 14:01 * Telephone Encounter - Padmaja Mcknight - 08/07/2016 1322 EDT Left message for patient to call back to discuss biopsy results. Padmaja Mcknight 08/07/2016 13:22 * Telephone Encounter - Padmaja Mcknight - 08/07/2016 1322 EDT ----- Message from Yuri Cowan MD sent at 08/07/2016 11:48 EDT ----- PLEASE INFORM PATIENT OF BIOPSY RESULTS: SKIN OF SCALP, RIGHT PARIETAL, SHAVE BIOPSY: - Melanocytic nevus, intradermal type. ??- Lesion extends to biopsy base. BENIGN MOLE, IT DOES EXTEND TO THE BASE. SO IT MAY GROW BACK HOWEVER IT DOES NOT NEED TO BE REMOVED FURTHER YURI COWAN MD 08/07/2016 11:48 physician office assistant documented in this encounter Plan of Treatment Not on file documented as of this encounter Visit Diagnoses Not on filedocumented in this encounter Care Teams Brick Pointer Relationship Specialty Start Date End Date Rand Harley MD [address] [place] [address] PCP - General 07/30/16 documented as of this encounter
--- OUTSIDE RECORDS SUMMARY | 2024-02-10 18:24 | XMS_ITS | Encounter Summary ---
Author Organization [facility] Address [address] [place] [address] Care Team Providers Care Licensed Mental Health Professional Name Role Phone Catina Chowdhury NP Primary Care Provider [phone] Reason for Visit * Reason Comments Hypothyroidism Encounter Details Date Type Department Care Team (Latest Contact Info) Description 01/31/2016 11:20 EDT Office Visit [facility] Endocrinology - [address] [address] Ale Hsu MD PhD [address] [place] [address] [place] [phone] History of thyroid cancer (Primary Dx); Postsurgical hypothyroidism Discharge Disposition: Auto Discharge Social History Tobacco [...] Sign Reading Time Taken Comments Blood Pressure 129/67 01/31/2016 1147 EDT Pulse 72 01/31/2016 1147 EDT Temperature - - Respiratory Rate - - Oxygen Saturation - - Inhaled Oxygen Concentration - - Weight 78.9 kg (174 lb) 01/31/2016 1147 EDT Height 167 cm (5' 5.75) 01/31/2016 1147 EDT Body Mass Index 28.3 01/31/2016 1147 EDT documented in this encounter Functional Status [...] as of this encounter Discharge Diagnoses Diagnosis Z85.850 Personal history of malignant neoplasm of thyroid-Z85.850[ICD-10-CM] E89.0 POSTPROCEDURAL HYPOTHYROIDISM[ICD-10-CM] documented in this encounter Discharge Disposition Disposition Code Departure Means Destination Auto Discharge documented in this encounter Progress Notes * Ale Hsu MD - 02/02/2016 0829 EDT Endocrinology Thyroid Follow-Up Evaluation CHIEF COMPLAINT: Chief Complaint Patient presents with ??? Hypothyroidism HPI: Jc Banerjee is a 50 y.o. female who I am asked to see in consultation for evaluation of 1. History of thyroid cancer 2. Postsurgical hypothyroidism HPI HPI This woman is seen for thyroid replacement and surveillance for a remote hx of 1. History of papillary thyroid cancer, 1987. ?? A. T2, N1, M0. ?? B. Treated with total thyroidectomy. ?? C. Post-surgical hypothyroidism . Cancer was diagnosed 28 years ago. She never had I-131 due to . ?? Medications: Synthroid (Levothyroxine) 137 mcg/d. ?? Prior studies/tests include Prior Thyroid Imaging: thyroid ultrasound 2000. ?? 1. Several small nonpathological lymph nodes in [...] of metastatic disease to the chest.?? Tg < 0.1 in 2013, but in 2014, assay cahnged and AB level was positive at 11. That assay last used 2009-AB at that time was 13. PAST SOCIAL HISTORY Social History Social History [...] dysphagia, hoarseness, no diarrhea or constip,no muscle cramping.Gained back lost wt BMI AND WEIGHT 02/04/2012 02/02/2013 07/01/2013 02/03/2014 Weight (lb) 172 lb 4.8 oz 164 lb 168 lb 163 lb BMI AND WEIGHT 01/31/2015 01/31/2016 Weight (lb) 169 lb 11.2 oz 174 lb OBJECTIVE: Vitals: Visit Vitals ??? BP 129/67 (BP Cuff Location: Right arm, Patient Position: Sitting, BP Cuff Sizes: Adult, regular) ??? Pulse 72 ??? Ht 167 cm (65.75) ??? Wt 78.9 kg (174 lb) ??? LMP 02/06/2010 ??? BMI 28.3 kg/m2 BMI: Body mass index is 28.3 kg/(m^2). Physical Exam General: alert, cooperative, no [...] reflexes normal with no hung-up relaxation phase ASSESSMENT: 1. History of thyroid cancer 2. Postsurgical hypothyroidism This woman has a more than 20-year hx post-surgery for thyroid cancer. While she did have positive LNs at the time of her surgery, she has had U/Sd done 18 years out and CTs that did not show any local LN recurrence (done as positive ABs restricted interpretation of the Tg). Using a different assaythe Tg was undetectable, but with this present assay ABs are positive but not increasing. Will await reading today to decide if additional imaging is needed, bearing in mind her Tg may not be zero asshe did not have ablation. TSH goal is 0.55-3.0 with newer assay and guidelines. PLAN: 1. TFTs and Tg 2. Continue LT4 at 137 mcg/d. The risks and benefits of my recommendations, as well as other treatment options were discussed with the patient today. Questions were answered. Ale Hsu MD 02/02/2016 8:29 documented in this encounter Plan of Treatment Not on file documented as of this encounter Results * (ABNORMAL) THYROGLOBULIN, TUMOR MARKER, S (01/31/2016 12:16 EDT) Thyroid Suppression? YES 01/31/2016 12:15 EDT [facility] Thyroglob,Tumor Mrkr <0.1 ng/mL 02/02/2016 9:00 EDT [facility] Comment: (Note) REFERENCE VALUE Athyrotic <0.1 Intact Thyroid <=33 Thyroglobulin Ab, S 5.9(H) <4.0 IU/mL 02/02/2016 9:00 EDT [facility] Thyroglobulin Interp (Note) 02/02/2016 9:00 EDT [facility] Comment: Quantitation of thyroglobulin may [...] testing methods are immunoenzymatic assays manufactured by [employer] and performed on the [employer] DXI 800. Values obtained from different assay methods or kits may be different and cannot be used interchangeably. The results cannot be interpreted as absolute evidence for the presence or absence of malignant disease. Performed by: [facility]: [address], [place] [address], Lab Dir: Andrew Jimenez II, M.D., Ph.D. Blood specimen (specimen) BLOOD SPECIMEN / Unknown 01/31/2016 12:16 EDT 01/31/2016 12:44 EDT Ale Hsu MD PhD CHEMISTRY & BLOOD GAS ORDERABLES [facility] [address] [place] [address] * T4 FREE (01/31/2016 12:16 EDT) Free T4 1.5 0.8 - 1.8 ng/dl 01/31/2016 14:45 EDT [facility] Blood specimen (specimen) BLOOD SPECIMEN / Unknown 01/31/2016 12:16 EDT 01/31/2016 12:44 EDT Ale Hsu MD PhD CHEMISTRY & BLOOD GAS ORDERABLES Performing Organization Address City/[facility]/ZIP Co de Phone Number [facility] [address] [place] [address] * (ABNORMAL) TSH (01/31/2016 12:16 EDT) TSH 0.03(L) 0.55 - 4.78 uIU/ml 01/31/2016 14:45 EDT [facility] Blood specimen (specimen) BLOOD SPECIMEN / Unknown 01/31/2016 12:16 EDT 01/31/2016 12:44 EDT Ale Hsu MD PhD CHEMISTRY & BLOOD GAS ORDERABLES Performing Organization Address City/[facility] Co de Phone Number [facility] [address] [place] [address] documented in this encounter Visit Diagnoses Diagnosis History of thyroid cancer- Primary Personal history of malignant neoplasm of thyroid Postsurgical hypothyroidism documented in this encounter Care Teams Licensed Mental Health Professional Relationship Specialty Start Date End Date Catina Chowdhury, [facility] [address] [place], [place] [address] PCP - General 02/02/14 07/29/16 documented as of this encounter
--- OUTSIDE RECORDS SUMMARY | 2024-02-10 18:24 | XMS_ITS | Encounter Summary ---
Author Organization [facility] Address [address] [place] [address] Care Team Providers Care Animal Nutrition Teacher Name Role Phone Catina Chowdhury NP Primary Care Provider [phone] Reason for Visit * Reason Onset Date Comments Requesting Sooner Appointment 12/26/2015 Encounter Details Date Type Department Care Team (Late st Contact Info) Description 12/26/2015 Telephone [facility] Dermatology 3rd Floor [facility] [address] [place], [place] [address] Elida Culp MD [address] [place] [address] Requesting Sooner Appointment Social History Tobacco Use [...] No 01/31/2015 documented as of this encounter Miscellaneous Notes * Telephone Encounter - Jenny Armando - 12/26/2015 1656 EDT Spoke with patient, she is rescheduled to 02/14/16 @11:00. Jenny Armando 12/26/2015 16:56 * Telephone Encounter - Hailey Mack - 12/26/2015 1451 EDT Patient needs to reschedule 01/31/16 w/ Dr. Culp due to a scheduling conflict. Would like an appointment sooner than next available. Please call patient. documented in this encounter Plan of Treatment Not on file documented as of this encounter Visit Diagnoses Not on filedocumented in this encounter Care Teams Animal Nutrition Teacher Relationship Specialty Start Date End Date Catina Chowdhury, [facility] [address] [place] [address] PCP - General 02/02/14 07/29/16 documented as of this encounter
--- OUTSIDE RECORDS SUMMARY | 2024-02-10 18:24 | XMS_ITS | Encounter Summary ---
Author Organization [facility] Address [address] [place] [address] Care Team Providers Care Correspondence Review Clerk Name Role Phone Catina Chowdhury NP Primary Care Provider [phone] Reason for Visit * Reason Comments Skin Exam Annual FBSE. h/o BCC . Encounter Details Date Type Department Care Team (Late st Contact Info) Description 02/07/2015 10:45 EDT Office Visit [facility] Dermatology 3rd Floor [address] [id number] Elida Culp MD [address] [place] [id number] Sun-damaged skin (Primary Dx); Personal history of other malignant neoplasm of skin Social History Tobacco [...] this encounter Patient Instructions * Patient Instructions* Rock Knight MD - 02/07/2015 11:13 EDT Recommendations for Sun Protection Ultraviolet (UV) radiation is a known carcinogen (cancer-causing agent) and is primarily responsible for most skin cancers, including Basal Cell Carcinoma, Squamous Cell Carcinoma, and many Melanomas. UV radiation also rapidly ages the skin, leading to wrinkles, uneven color, and poor texture. Minimizing UV exposure has been shown in multiple studies to decrease the likelihood of developing cancers and pre-cancers of the skin, as well as improve overall appearance. To minimize UV exposure: 1) Avoid exposure to sunlight during the middle of the day (10am to 4pm). Seek shade when outside during these hours. Limit outdoor activities to home health outreach coordinator and/or evening hours when the sunlight is less intense. Remember that UV is reflected from water and snow, and can pass through window glass. It is still possible to get burned during cloudy weather and in the winter months. You can check the forecast for the UV Index in your area at most weather sites online. If the UV index is 3 or higher, sun protection/avoidance is recommended. 2) Wear protective clothing. Hats with wide brims that cover the ears and neck, sunglasses (sun exposure increases your risk for cataracts), long-sleeved shirts, long pants, and closed-top shoes offer good protection. Many makers of outdoor clothing test their fabrics for UV Protection Factor (UPF), which is a guide to the level of protection a particular item of clothing should provide. In general, loose weaves (Cotton) and tool room supervisor-colored fabrics offer less protection than tighter weaves or darker/thicker fabrics. It is possible to get a sunburn through clothing, especially if it is wet. 3) Use sunscreen on exposed areas. Choose a sunscreen that has a Sun Protection Factor (SPF) of 30+or higher. Apply the sunscreen generously (so much that you can barely rub it in) to exposed areas 30 minutes before sun exposure. Reapply every 2-3 hours, especially if you are in water or sweating.If you tend to break out from sunscreen, choose a sunscreen designed for Sensitive Skin and/or one with physical blocking agents, such as Zinc Oxide and Titanium Dioxide. For vigorous activity, look for Sport sunscreens, which are resistant to sweating. 4) Avoid artificial sources of UV, such as tanning beds or sun lamps. The UV emitted by these devices is just as damaging, if not more so, than natural sunlight. There is a well-documented increase in the incidence of all common skin cancers in frequent tanning bed users. Other considerations: Vitamin D: Exposure to UV light is one of the ways your body gets Vitamin D, a necessary nutrient. Other sources are from the diet and/or dietary supplements. If you are actively avoiding the sun, itmay be advisable to discuss Vitamin D supplementation with your Primary Care Provider (PCP). In general, taking a supplement of 1,000 to 2,000 International Units (IU) of Vitamin D3 is safe and well-tolerated in individuals who get minimal sun exposure and have normal kidney function. However, moreor less Vitamin D may be recommended, depending on your individual needs, and the use of such supplements should be discussed with your PCP. For more information about sun protection and skin cancer: www.skincancer.org Recommended sunscreens: Chemical sunscreen Neutrogena Ultra Sheer Dry Touch (helioplex) Aveeno (same sunscreen as in Neutrogena) Coppertone Sport La Ariadne-Posay Anthelios (mexoryl -good UVA and UVB) Vichy (mexoryl - available in Sherly) Gel formulations good for hair bearing skin Bullfrog Alcohol based - goes on quickly and good for skin with hair Solbar Physical sunblock good for sensitive skin (titanium dioxide and zinc oxide chemical/fragrance free) Blue Lizard sensitive COTZ TiZO (comes in tinted form) Neutrogena pure and free baby or sensitive Recommended sun protection clothing websites www.sunprecautions.The Library www.coolibar.The Library www.Gesplan www.[employer] documented in this encounter Progress Notes * Rock Knight MD - 02/07/2015 1102 EDT Dermatology Outpatient Visit Note Chief Complaint Patient presents with ??? Skin Exam Annual FBSE. h/o BCC. Dermatologic History: 1. History of basal cell carcinoma of right chin, s/p Mohs in Dec 2011 (at [facility]) Last Dermatology office visit: 02/03/14 SUBJECTIVE Ms. Banerjee is a 49 y.o. female who presents for follow up for history of basal cell carcinoma in 2012 on her anterior chin. She has no lesions of concern today. She denies any new, bleeding,or painful lesions. She is wearing SPF 30+ very diligently while kayaking. She has never had any other skin cancers or actinic keratoses, no family history of melanoma. 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 The patient has no other concerns today on exam. See documentation in [facility] for medical, surgical, social and family history, and the review of systems which I reviewed at this visit. She has a current medication list which includes the following prescription(s): levothyroxine, loratadine, and ranitidine hcl. She is allergic to no known allergies. Objective Ms. Banerjee is healthy female that is alert and oriented to person, place and time. She has Montaño type I skin. Cutaneous exam was performed today of the scalp, face, neck, upper extremities, hands, trunk, lower extremities, feet. The remainder of the skin examination was otherwise normal exceptfor: 1. On the back, shoulders and dorsal forearms there is actinic damage with brown circular macules 2. On the right chin is a 3cm depressed healed surgical scar. There are no lesions concerning for malignancy Assessment: 1. Chronic actinic damage- shoulders, arms, back 2. History of basal cell carcinoma 2012- no evidence of recurrance PLAN 1. The nature of sun-induced photo-aging and skin cancers is discussed. Sun avoidance, protective clothing, and the use of 30-SPF sunscreens is advised. Observe closely for skin damage/changes, and call if such occurs. 2. ABCDE's of melanoma discussed as well as the importance of the ugly duckling rule and self skin exams at least monthly or every other month of which the patient showed a good understanding. Follow up: 1 year or in the interim should problems arise. Rock Knight MD 02/07/2015 11:02 Attestation Statement: I saw and examined the patient with the resident/fellow. I agree with the findings and plan of care documented in the resident's/fellow's note. Elida Culp MD 02/09/2015 * Barb Rooney - 02/07/2015 1058 EDT Review of Systems Constitutional: Negative for [...] The patient is not nervous/anxious. Barb Rooney 02/07/2015 10:59 documented in this encounter Plan of Treatment Not on file documented as of this encounter Visit Diagnoses Diagnosis Sun-damaged skin- Primary Other dermatitis due to solar radiation Personal history of other malignant neoplasm of skin documented in this encounter Care Teams Correspondence Review Clerk Relationship Specialty Start Date End Date Catina Chowdhury NP [facility] [address] [place] [address] PCP - General 02/02/14 07/29/16 documented as of this encounter
--- OUTSIDE RECORDS SUMMARY | 2024-02-10 18:24 | XMS_ITS | Encounter Summary ---
Author Organization [facility] Address [address] [place] [address] Care Team Providers Care Academic Services Coordinator Name Role Phone Catina Chowdhury NP Primary Care Provider [phone] Encounter Details Date Type Department Care Team (Late st Contact Info) Description 07/20/2016 Results Only [facility] [phone] Maria D Krishnan, DO [address] [place] [address] Social History Tobacco Use Types Packs/Day Years [...] Date/Time Associated Diagnosis Comments SURGICAL PATHOLOGY Routine 07/20/2016 9:44 EST documented in this encounter Results * SURGICAL PATHOLOGY (07/20/2016 9:44 EST) Pathology Report: SURGICAL PATHOLOGY REPORT Reports generated via electronic interface contain original data; however they are lacking the format of the original report. Caution should be taken when reading/interpret ing unformatted reports. Name: ? JC BANERJEE ? Accession #: ? [id number] ? : ? 1965 (Age: 50) ??F ? Collect Date: ? 07/20/2016 ? Location: ? [facility] ? Receive Date: ? 07/21/2016 ? Provider: MARIA D KRISHNAN DO Copy to: JERRY SUBRAMANIAN MD ? Final Pathologic Diagnosis: COLON, SIGMOID, POLYP, BIOPSY: - Hyperplastic polyp (1); negative for adenoma. Document reviewed and electronically signed by: Jay Jay Lewis MD Report ??Date: 07/24/2016 13:18 By the signature above, the attending physician certifies that he/she has personally conducted a gross and/or microscopic examination of the described specimens and rendered or confirmed the above diagnosis. Specimen(s) Received: Sigmoid colon polyp Clinical History: Not listed Gross Description: ? Received in formalin labelled with proper patient identification (initials S, A) and sigmoid colon polyp is a single luis-yellow polypoid tissue fragment (0.4 x 0.3 x 0.1 cm). Submitted intact in 1. Jess Pugh 07/23/2016 9:30 AM End of Report [facility] 07/20/2016 9:44 EST 07/21/2016 9:44 EST Maria D Krishnan DO PATHOLOGY ORDERABLES [facility] [address] [place] [address] documented in this encounter Visit Diagnoses Not on filedocumented in this encounter Care Teams Academic Services Coordinator Relationship Specialty Start Date End Date Catina Chowdhury NP [facility] [address] [place] [id number] PCP - General 02/02/14 07/29/16 documented as of this encounter
--- OUTSIDE RECORDS SUMMARY | 2024-02-10 18:24 | XMS_ITS | Encounter Summary ---
Author Organization [facility] Address [address] [place] [address] Care Team Providers Care Pmo Manager Name Role Phone Catina Chowdhury NP Primary Care Provider [phone] Encounter Details Date Type Department Care Team (Latest Contact Info) Description 07/20/2016 6:46 EST - 07/20/2016 23:59 EST Hospital Encounter [address] [address] Unknown, Provider, Discharge Disposition: Home or Self Care Social [...] No 01/31/2016 documented as of this encounter Medications at Time of Discharge Medication Sig Dispensed Refills Start Date End Date loratadine (CLARITIN) 10 mg tablet Take 10 mg by mouth at bedtime as needed. 02/05/2011 RANITIDINE HCL ORAL Take 1 Tab by mouth as needed. 02/06/2010 levothyroxine (SYNTHROID) 112 mcg tabletIndications:S/P complete thyroidectomy Take 1 Tab by mouth daily. 90 Tab 3 02/05/2016 05/03/2017 documented as of this encounter Discharge Disposition Disposition Code Departure Means Destination Home or Self Jail documented in this encounter Plan of Treatment Not on file documented as of this encounter Visit Diagnoses Not on filedocumented in this encounter Care Teams Pmo Manager Relationship Specialty Start Date End Date Catina Chowdhury, [facility] [address] [place] [address] PCP - General 02/02/14 07/29/16 documented as of this encounter
--- OUTSIDE RECORDS SUMMARY | 2024-02-10 18:24 | XMS_ITS | Encounter Summary ---
Author Organization [facility] Address [address] [place] [address] Care Team Providers Care Time Lock Expert Name Role Phone Rand Harley MD Primary Care Provider [phone] Reason for Visit * Reason Comments Labs Only Encounter Details Date Type Department Care Team (Latest Contact Info) Description 02/02/2013 11:[address] [facility] Endocrinology - [address] [address] Ale Hsu MD PhD [address] [place] [address] [place] [phone] Phlebotomy, [facility] Endo Postsurgical hypothyroidism; History of [...] as of this encounter Progress Notes * Colette Glover - 02/02/2013 1205 EDT Blood sample drawn from vein for testing at the order of Dr. Hsu ???I was supervised by Dr. Hsu who was in the suite and readily available.?? documented in this encounter Plan of Treatment Not on file documented as of this encounter Procedures Procedure Name Priority Date/Time Associated Diagnosis Comments THYROGLOBULIN, TUMOR MARKER, S Routine 02/02/2013 11:56 EDT History of thyroid cancer THYROID CASCADE Routine 02/02/2013 11:56 EDT Postsurgical hypothyroidism documented in this encounter Results * THYROGLOBULIN TUMOR MARKER (02/02/2013 11:56 EDT) Thyroid Suppression? YES [facility] Thyroglob Ab Screen <20 <22 IU/mL KIKI MARTINEZ Comment: (Note) The thyroglobulin testing method is an immunoenzymatic assay manufactured by [employer]. and performed on the Done In :60 Seconds DXI 800. The thyroglobulin antibody testing method is an electrochemiluminescence assay manufactured by [employer] and performed on the Modular or [...] normally have hTg values <=2. Performed by: [facility], [address], [place] [address], Sales Team Recruiter: Brooke Flores, Ph.D. Blood specimen (specimen) 02/02/2013 11:56 EDT 02/02/2013 15:41 EDT Ale Hsu MD PhD CHEMISTRY & BLOOD GAS ORDERABLES [facility] [address] [place] [address] * THYROID CASCADE (02/02/2013 11:56 EDT) TSH 1.67 0.35 - 5.00 uIU/ml KIKI MARTINEZ Comment: TSH cascade is not recommended for patients in which pituitary or hypothalamic disorders are suspected. Blood specimen (specimen) 02/02/2013 11:56 EDT 02/02/2013 15:41 EDT Ale Hsu MD PhD CHEMISTRY & BLOOD GAS ORDERABLES Performing Organization Address City/State/[facility] Co de Phone Number [facility] [address] [place] [address] documented in this encounter Visit Diagnoses Diagnosis Postsurgical hypothyroidism History of thyroid cancer Personal history of malignant neoplasm of thyroid documented in this encounter Care Teams Time Lock Expert Relationship Specialty Start Date End Date Rand Harley MD [address] [place] [id number] PCP - General 07/21/12 02/01/14 documented as of this encounter
--- OUTSIDE RECORDS SUMMARY | 2024-02-10 18:24 | XMS_ITS | Encounter Summary ---
Author Organization [facility] Address [address] [place] [address] Care Team Providers Care Town Justice Name Role Phone Rand Harley MD Primary Care Provider [phone] Reason for Visit * Reason Comments Thyroid Problem Encounter Details Date Type Department Care Team (Latest Contact Info) Description 04/30/2017 11:40 EST Office Visit [facility] Endocrinology - [address] [address] Ale Hsu MD PhD [address] [place] [address] [place] [phone] S/P total thyroidectomy (Primary Dx); History of thyroid cancer; Pain of both hip joints Discharge Disposition: Auto Discharge Social History Tobacco [...] Sign Reading Time Taken Comments Blood Pressure 122/65 04/30/2017 1134 EST Pulse 75 04/30/2017 1134 EST Temperature - - Respiratory Rate - - Oxygen Saturation - - Inhaled Oxygen Concentration - - Weight 84.8 kg (187 lb) 04/30/2017 1134 EST Height 167 cm (5' 5.75) 04/30/2017 1134 EST Body Mass Index 30.41 04/30/2017 1134 EST documented in this encounter Functional Status Functional [...] Personal history of malignant neoplasm of thyroid-Z85.850[ICD-10-CM] M25.551 Pain in right hip-M25.551[ICD-10-CM] M25.552 Pain in left hip-M25.552[ICD-10-CM] documented in this encounter Patient Instructions * Patient Instructions* Ale Hsu MD - 04/30/2017 11:40 EST We will check your thyroid tests and the tumor marker. We are getting all the tests that your box blank machine operator helper wanted and they should be sent to her. documented in this encounter Discharge Disposition Disposition Code Departure Means Destination Auto Discharge documented in this encounter Progress Notes * Ale Hsu MD - 04/30/2017 1140 EST Endocrinology Thyroid Follow-Up Evaluation CHIEF COMPLAINT: Chief Complaint Patient presents with ??? Thyroid Problem HPI: Jc Banerjee is a 51 y.o. female who I am asked to see in consultation for evaluation of 1. S/P total thyroidectomy 2. History of thyroid cancer 3. Pain of both hip joints HPI History of papillary thyroid cancer, 1987. ?? A. T2, N1, M0. ?? B. Treated with total thyroidectomy. ?? C. Post-surgical hypothyroidism . Cancer was diagnosed 29 years ago. She never had I-131 due to . Recent problems with bilateral hip pain, keeps her up at night. Saw a box blank machine operator helper outside of [facility], and asking for blood tests when seen here today. ? Medications: Synthroid (Levothyroxine) 112 mcg/d. ? Prior studies/tests include Prior Thyroid [...] 0.1 in 2013, but in 2014, assay changed and AB level was positive at 11. That assay last used 2009-AB at that time was 13. Results for JC BANERJEE ( ) as of 05/01/2017 10:24 Ref. Range 01/31/2016 12:16 Free T4 Latest Ref Range: 0.8 - 1.8 ng/dl 1.5 TSH Latest Ref Range: 0.55 - 4.78 uIU/ml 0.03 (L) THYROGLOBULIN, TUMOR MARKER, S AB < 4 to be accurate for Tg Tg <0.1 AB now 5.9 PAST SOCIAL HISTORY Social History Social History ??? Marital status: Spouse name: N/A ??? Number of children: N/A ??? Years of education: N/A Social History Main Topics ??? Smoking status: Former Smoker Packs/day: 0.75 Years: 7.00 Quit date: 05/13/2011 ??? Smokeless tobacco: Never Used ??? Alcohol use Yes Comment: 15months ??? Drug use: No ??? Sexual activity: Not Asked Other Topics Concern ??? None Social History Narrative MEDICATIONS Jc has a current medication list which includes the following prescription(s): bupropion, levothyroxine, loratadine, and ranitidine hcl. ALLERGIES Cardizem [diltiazem hcl] REVIEW OF SYSTEMS: ROMMEL Denies dysphagia, hoarseness, no diarrhea or constip,no muscle cramping. Wt gain of 13 lbs.. Nochest pain, SOB or palpitations. BMI AND WEIGHT 01/31/2016 04/30/2017 Weight (lb) 174 lb 187 lb OBJECTIVE: Vitals: BP 122/65 Pulse 75 Ht 167 cm (65.75) Wt 84.8 kg (187 lb) LMP 02/06/2010 BMI 30.41 kg/m2 BMI: Body mass index is 30.41 kg/(m^2). Physical Exam General: alert, cooperative, mild distress Eyes: no lid lag, periorbital edema, [...] speech normal, alert and oriented x iii cranial nerves 2-12 intact muscle tone and strength normal and symmetric no tremors ASSESSMENT: 1. S/P total thyroidectomy 2. History of thyroid cancer 3. Pain of both hip joints This woman has a remote hx of thyroid cancer and has a positive but falling AB titer which is good that it is decreasing. She could be prone to other autoimmune disease given positive thyroid AB, andcould have psoriatic arthritis (mother with psoriasis) or osteoarthritis which would be non-autoimmune. Her blood tests for her box blank machine operator helper were ordered and that doctor should get the copy. We discussed that I could send her the results, but may not be able to give her the best Interpretation ofthese. TFTs today with Tg tumor marker which I can do and looking for Tg AB to be same or falling. Hard toknow if wt gain is due to less activity alone or could be under-replaced now, but her pulse is not low. PLAN: 1. TFTs, Tg and rheumatology work up per specialist. Medications: Synthroid (Levothyroxine) 112 mcg/d. Continue for now. The risks and benefits of my recommendations, as well as other treatment options were discussed with the patient and mother today. Questions were answered. Ale Hsu MD 05/01/2017 10:21 documented in this encounter Plan of Treatment Not on file documented as of this encounter Results * ANCA, IFA (04/30/2017 13:42 EST) Pathologist [facility] ANCA Interpretation Negative Negative 05/01/2017 12:45 EST [facility] Comment: MARC Positive, suggest follow-up MARC testing if clinically indicated. Cannot rule out Atypical ANCA (A-ANCA). No titer performed, ANCA screen is negative. Results were obtained with the [employer] NOVA Lite ANCA kit by indirect immunofluorescence. Blood specimen (specimen) BLOOD SPECIMEN / Unknown 04/30/2017 13:42 EST 04/30/2017 15:29 EST Ale Hsu MD PhD IMMUNOLOGY AND SE ROLOGY ORDERABLES [facility] [address] [place] [address] * ANGIOTENSIN CONVERTING ENZYME (JEFERSON) (04/30/2017 13:42 EST) Pathologist [facility] Angiotensin Converting Enzyme 42 8 - 53 U/L 05/02/2017 8:07 EST [facility] Comment: Performed or Referred by: [facility], [facility] [place] [address], Lab Dir: Andrew Jimenez II, M.D., Ph.D. Blood specimen (specimen) BLOOD SPECIMEN / Unknown 04/30/2017 13:42 EST 04/30/2017 15:29 EST Ale Hsu MD PhD CHEMISTRY & BLOOD GAS ORDERABLES [facility] [address] [place] [address] * LUPUS ANTICOAGULANT CASCADE (04/30/2017 13:42 EST) [place] Summary Negative for detection of lupus anticoagulant (LA). 05/02/2017 15:43 EST [facility] Comment: Where clinical suspicion [...] Viper Venom 33.0 secs 2016 10:58 EST [facility] Comment: Reference Range = 27.2-36.9 secs Results must be interpreted with caution if the patient is on oral anticoagulant, direct thrombin inhibitors or heparin. Silica Clotting Time 33.7 sec 05/02/2017 10:20 EST [facility] Comment: Reference Range = 30.2-48.4 secs Results must be interpreted with caution if the patient is on oral anticoagulant, direct thrombin inhibitors or heparin. Blood specimen (specimen) BLOOD SPECIMEN / Unknown 04/30/2017 13:42 EST 04/30/2017 15:29 EST Ale Hsu MD PhD HEMATOLOGY & PF4 ORDERABLES Performing Organization Address City/[facility]/ZIP Co de Phone Number [facility] [address] [place] [address] * CK (04/30/2017 13:42 EST) CK 63 30 - 135 U/L 04/30/2017 16:01 EST [facility] Blood specimen (specimen) BLOOD SPECIMEN / Unknown 04/30/2017 13:42 EST 04/30/2017 15:29 EST Ale Hsu MD PhD CHEMISTRY & BLOOD GAS ORDERABLES [facility] [address] [place] [address] * MYOMARKER PANEL 2 (04/30/2017 13:42 EST) NV 2 Negative Negative 06/01/2017 12:49 EST [facility] [address] Negative Negative 06/01/2017 12:49 EST [facility] [address] Negative Negative 06/01/2017 12:49 EST [facility] EJ Negative Negative 06/01/2017 12:49 EST [facility] OJ Negative Negative 06/01/2017 12:49 EST [facility] SRP Negative Negative 06/01/2017 12:49 [facility] KU Negative Negative 06/01/2017 12:49 [facility] U2 snRNP Negative Negative 06/01/2017 12:49 [facility] Anti PM/Scl 100 Ab <20 <20 Units 2017 12:49 [facility] Anti Tere 1 Ab <20 <20 Units 06/01/2017 12:49 [facility] Comment: (Note) . ADDITIONAL INFORMATION EIA Interpretation: Negative ? <20 Units Weak Positive ?20-39 Units Moderate Positive ??40-80 Units Strong Positive ?>80 Units . This panel was developed and its performance characteristics validated by [facility]. There is no FDA approved assay for the above tests. As a lab developed test (LDT), approval or clearance by the FDA is not required. This test may be used for clinical purposes and should not be regarded as investigational or for research. . Test Performed by: [facility] [address] [place] [address] BLOOD SPECIMEN / Unknown 04/30/2017 13:42 EST 04/30/2017 15:29 EST Ale Hsu MD PhD IMMUNOLOGY AND SE ROLOGY ORDERABLES Performing Organization Address [facility] de Phone Number [facility] [address] [place] [address] * SM (BANERJEE) ANTIBODY (04/30/2017 13:42 EST) Sm (Banerjee) Antibody 2.6 <20 Units 05/02/2017 14:40 EST [facility] Comment: Negative: <20 Units Weak Positive: 20 - 39 Units Moderate Positive: 40 - 80 Units Strong Positive: >80 Units Results were obtained with the [employer] QUANTA Lite Sm LLUVIA. Sm values obtained with different manufacturers' assay methods may not be used interchangeably. The magnitude of the reported IgG levels cannot be correlated to an endpoint titer. Blood specimen (specimen) BLOOD SPECIMEN / Unknown 04/30/2017 13:42 EST 04/30/2017 15:29 EST Ale Hsu MD PhD IMMUNOLOGY AND SE ROLOGY ORDERABLES Performing Organization Address [facility] de Phone Number [facility] [address] [place] [address] * CCP ANTIBODIES (04/30/2017 13:42 EST) CCP Antibodies <2.5 <5.0 U/mL 05/01/2017 13:07 EST [facility] BLOOD SPECIMEN / Unknown 04/30/2017 13:42 EST 04/30/2017 15:29 EST Ale Hsu MD PhD IMMUNOLOGY AND SE ROLOGY ORDERABLES Performing Organization Address [facility] Co de Phone Number [facility] [address] [place] [address] * SED. RATE:WESTERGREN (04/30/2017 13:42 EST) Sed. Rate Westergren 8 0 - 30 mm/hr 04/30/2017 15:54 EST [facility] Blood specimen (specimen) BLOOD SPECIMEN / Unknown 04/30/2017 13:42 EST 04/30/2017 15:29 EST Ale Hsu MD PhD HEMATOLOGY & PF4 ORDERABLES Performing Organization Address [facility] Co de Phone Number [facility] [address] [place] [address] * C REACTIVE PROTEIN (04/30/2017 13:42 EST) C Reactive Protein <7.0 <10.0 mg/L 04/30/2017 16:05 EST [facility] Blood specimen (specimen) BLOOD SPECIMEN / Unknown 04/30/2017 13:42 EST 04/30/2017 15:29 EST Ale Hsu MD PhD CHEMISTRY & BLOOD GAS ORDERABLES Performing Organization Address [facility] Phone Number [facility] [address] [place] [address] * SSA ANTIBODIES BY LLUVIA (04/30/2017 13:42 EST) SSA Antibody 3.1 <20 Units 05/02/2017 14:40 EST [facility] Comment: Negative: <20 Units Weak Positive: 20 - 39 Units Moderate Positive: 40 - 80 Units Strong Positive: >80 Units Results were obtained with the [employer] QUANTA Lite SS-A LLUVIA. SS-A values obtained with different manufacturers' assay methods may not be used interchangeably. The magnitude of the reported IgG levels cannot be correlated to an endpoint titer. Blood specimen (specimen) BLOOD SPECIMEN / Unknown 04/30/2017 13:42 EST 04/30/2017 15:29 EST Ale Hsu MD PhD IMMUNOLOGY AND SE ROLOGY ORDERABLES Performing Organization Address [facility] Co de Phone Number [facility] [address] [place] [address] * ALDOLASE (04/30/2017 13:42 EST) Aldolase, S 5.5 <7.7 U/L 05/02/2017 8:07 [facility] Comment: Performed or Referred by: [facility], [address] [place] [address], Lab Dir: Andrew Jimenez II, M.D., Ph.D. Blood specimen (specimen) BLOOD SPECIMEN / Unknown 04/30/2017 13:42 EST 04/30/2017 15:29 EST Ale Hsu MD PhD CHEMISTRY & BLOOD GAS ORDERABLES [facility] [address] [place] [address] * (ABNORMAL) THYROGLOBULIN, TUMOR MARKER, S (04/30/2017 13:42 EST) Thyroid Suppression? YES 04/30/2017 13:29 [facility] Thyroglob,Tumor Mrkr <0.1 ng/mL 05/02/2017 8:07 [facility] Comment: (Note) . REFERENCE VALUE Athyrotic <0.1 Intact Thyroid <=33 . Thyroglobulin Ab, S 5.1(H) <4.0 IU/mL 05/02/2017 8:07 [facility] Thyroglobulin Interp (Note) 05/02/2017 8:07 [facility] Comment: Quantitation of [...] testing methods are immunoenzymatic assays manufactured by [employer] and performed on the [employer] DXI 800. . Values obtained from different assay methods or kits may be different and cannot be used interchangeably. . The results cannot be interpreted as absolute evidence for the presence or absence of malignant disease. Performed by: [facility]: [facility] [address], [place] [address], Lab Dir: Andrew Jimenez II, M.D., Ph.D. Blood specimen (specimen) BLOOD SPECIMEN / Unknown 04/30/2017 13:42 EST 04/30/2017 15:29 EST Ale Hsu MD PhD CHEMISTRY & BLOOD GAS ORDERABLES Performing Organization Address City/[facility] Co de Phone Number [facility] [address] [place] [phone] * (ABNORMAL) THYROID CASCADE (04/30/2017 13:42 EST) TSH <0.02(L) 0.47 - 4.68 uIU/ml 04/30/2017 16:30 EST [facility] Comment: New methodology in use 11/07/16. TSH cascade is not recommended for patients in which pituitary or hypothalamic disorders are suspected. Blood specimen (specimen) BLOOD SPECIMEN / Unknown 04/30/2017 13:42 EST 04/30/2017 15:29 EST Ale Hsu MD PhD CHEMISTRY & BLOOD GAS ORDERABLES Performing Organization Address City/[facility] Co de Phone Number [facility] [address] [place] [address] documented in this encounter Visit Diagnoses Diagnosis S/P total thyroidectomy- Primary Other postprocedural status History of thyroid cancer Personal history of malignant neoplasm of thyroid Pain of both hip joints documented in this encounter Care Teams Town Justice Relationship Specialty Start Date End Date Rand Harley MD [address] [place] [address] PCP - General 07/30/16 documented as of this encounter
--- OUTSIDE RECORDS SUMMARY | 2024-02-10 18:24 | XMS_ITS | Encounter Summary ---
Author Organization [facility] Address [address] [place] [address] Care Team Providers Care Receptionist Clerk Name Role Phone Catina Chowdhury NP Primary Care Provider [phone] Reason for Visit * Reason Comments Thyroid Problem Encounter Details Date Type Department Care Team (Latest Contact Info) Description 02/03/2014 11:40 EDT Office Visit [facility] Endocrinology - [address] [address] Ale Hsu MD PhD [address] [place] [address] [place] [phone] History of thyroid cancer (Primary Dx); [...] Sign Reading Time Taken Comments Blood Pressure 139/75 02/03/2014 1148 EDT Pulse 78 02/03/2014 1148 EDT Temperature - - Respiratory Rate - - Oxygen Saturation - - Inhaled Oxygen Concentration - - Weight 73.9 kg (163 lb) 02/03/2014 1148 EDT Height 170.2 cm (5' 7) 02/03/2014 1148 EDT Body Mass Index 25.53 02/03/2014 1148 EDT documented in this encounter Discharge Diagnoses Diagnosis 244.0 POSTSURGICAL HYPOTHYROID[ICD-9-CM] V10.87 PERS HX OF THYROID MALIGNANCY[ICD-9-CM] documented in this encounter Progress Notes * Ale Hsu MD - 02/03/2014 1331 EDT Endocrinology Thyroid Follow-Up Evaluation CHIEF COMPLAINT: Chief Complaint Patient presents with ??? Thyroid Problem HPI: Jc Banerjee is a 48 y.o. female who I am asked to see in consultation for evaluation of 1. History of thyroid cancer 2. Postsurgical hypothyroidism HPI This 48 year old woman is here for her annual check up for: 1. History of papillary thyroid cancer, 1987. A. T2, N1, M0. B. Treated with total thyroidectomy. C. Post-surgical hypothyroidism She states that she feel fine now. She is having trouble with palpitations but was found to have a cardiac bypass track and this was ablated in the Spring. Cancer was diagnosed 16 years ago. Medications: Synthroid (Levothyroxine) 150 mcg/d. PAST SOCIAL [...] following prescription(s): loratadine, ranitidine hcl, and synthroid. ALLERGIES No known allergies REVIEW OF SYSTEMS: ROMMEL Denies dysphagia, hoarseness, no diarrhea or constip,no muscle cramping. Appetite and weight are stable. OBJECTIVE: Vitals: BP 139/75 Pulse 78 Ht 170.2 cm (67) Wt 73.936 kg (163 lb) BMI 25.52 kg/m2 LMP 02/06/2010 BMI: Body mass index is 25.52 kg/(m^2). General: alert, cooperative, no distress Eyes: no [...] reflexes normal with no hung-up relaxation phase KATYA fundi are normal cranial nerves 2-12 intact muscle tone and strength normal and symmetric no tremors LAB REVIEW: Lab Results Component Value Date TSH 1.67 02/02/2013 ASSESSMENT: 1. History of thyroid cancer 2. Postsurgical hypothyroidism This woman appears to be doing well. I am happy to hear that she is having no palpitations. Her last TSH was at goal and given that she is more than 10 years out, leading to keep her TSH in the 0.4-2.5 range. Further imaging would only be done if tumor marker is increasing. On exam today her neck was without palpable masses. PLAN: 1. TFTs and Tg today. 2. Continue medication of 150 mcg/d. The risks and benefits of my recommendations, as well as other treatment options were discussed with the patient today. Questions were answered. Ale Hsu MD 02/03/2014 13:31 documented in this encounter Plan of Treatment Not on file documented as of this encounter Results * THYROGLOBULIN TUMOR MARKER (02/03/2014 13:07 EDT) Thyroid Suppression? YES [facility] Thyroglob Ab Screen <20 <22 IU/mL [facility] Comment: (Note) The thyroglobulin testing method is an immunoenzymatic assay manufactured by [employer] and performed on the [employer] DXI 800. The thyroglobulin antibody testing method is an electrochemiluminescence assay manufactured by [employer] and performed on the Smart Checkout or Demi System. ? Values obtained from different assay methods or kits may be different and cannot be used interchangeably. ? The results cannot be interpreted as absolute evidence for the presence or absence of malignant disease. ? Specimens with thyroglobulin concentrations greater than 250,000 ng/mL may give falsely lower results. Thyroglobulin, Tumor Marker, S <0.1 ng/mL [facility] Comment: (Note) -- REFERENCE VALUE -- <=33 Athyrotic individuals normally have hTg values <=2. Performed by: [facility] [place], [address], [place] [address], Rail Car Mechanic: Brooke Flores, Ph.D. Blood specimen (specimen) 02/03/2014 13:07 EDT 02/03/2014 15:22 EDT Ale Hsu MD PhD CHEMISTRY & BLOOD GAS ORDERABLES Performing Organization Address [facility] Co de Phone Number [facility] [address] [place] [address] * (ABNORMAL) THYROID CASCADE (02/03/2014 13:07 EDT) TSH 0.13(L) 0.35 - 5.00 uIU/ml [facility] Comment: TSH cascade is not recommended for patients in which pituitary or hypothalamic disorders are suspected. Blood specimen (specimen) 02/03/2014 13:07 EDT 02/03/2014 15:22 EDT Ale Hsu MD PhD CHEMISTRY & BLOOD GAS ORDERABLES Performing Organization Address [facility] de Phone Number [facility] [address] [place] [address] documented in this encounter Visit Diagnoses Diagnosis History of thyroid cancer- Primary Personal history of malignant neoplasm of thyroid Postsurgical hypothyroidism documented in this encounter Care Teams Receptionist Clerk Relationship Specialty Start Date End Date Catina Chowdhury NP [facility] [address] [place], [place] [id number] PCP - General 02/02/14 07/29/16 documented as of this encounter
--- OUTSIDE RECORDS SUMMARY | 2024-02-10 18:24 | XMS_ITS | Encounter Summary ---
Author Organization [facility] Address [address] [place] [address] Care Team Providers Care Lead Simulation Modeling Engineer Name Role Phone Catina Chowdhury NP Primary Care Provider Encounter Details Date Type Department Care Team (Late st Contact Info) Description 02/05/2011 Phlebotomy Only [address] [address] Client Development Director, Outpatient Postsurgical hypothyroidism; Hx of thyroid cancer Social History Tobacco Use [...] Diagnosis Comments THYROGLOBULIN, TUMOR MARKER, S Routine 02/05/2011 12:42 EDT Hx of thyroid cancer THYROID CASCADE Routine 02/05/2011 12:42 EDT Postsurgical hypothyroidism documented in this encounter Results * THYROGLOBULIN TUMOR MARKER (02/05/2011 12:42 EDT) Thyroid Suppression? Yes [facility] Thyroglob Ab Screen <20Reference range: <22 Unit: IU/mL [facility] Thyroglobulin , Tumor Marker, S <0.1Unit: ng/mL -- REFERENCE VALUE -- ? <=33 ? Athyrotic individuals ? normally have hTg values ? <=2. ? The thyroglobulin testing method is an immunoenzymatic ? assay manufactured by [employer] and ? performed on the [employer] DXI 800. ? The thyroglobulin antibody testing method is an ? electrochemilumine scence assay manufactured by [employer] and performed on the Modular or Demi ? System. ? Values obtained from different assay methods or kits ? may be different and cannot be used interchangeably. ? The results cannot be interpreted as absolute evidence ? for the presence or absence of malignant disease. ? Specimens with thyroglobulin concentrations greater ? than 250,000 ng/mL may give falsely lower results. ? Performed by: [facility] [place], [address], ? [place] [address], Program Management Intern: Brooke Flores, Ph.D. ? KIKI MARTINEZ Blood specimen (specimen) 02/05/2011 12:42 EDT 02/05/2011 12:43 EDT Ale Hsu MD PhD CHEMISTRY & BLOOD GAS ORDERABLES Performing Organization Address [facility] de Phone Number KIKI MARTINEZ [address] [place] [address] * THYROID CASCADE (02/05/2011 12:42 EDT) TSH 1.74 0.35 - 5.00 uIU/ml KIKI MARTINEZ Comment: ??TSH cascade is not recommended for patients in which pituitary or hypothalamic disorders are suspected. Blood specimen (specimen) 02/05/2011 12:42 EDT 02/05/2011 12:43 EDT Ale Hsu MD PhD CHEMISTRY & BLOOD GAS ORDERABLES [facility] [address] [place] [address] documented in this encounter Visit Diagnoses Diagnosis Postsurgical hypothyroidism Hx of thyroid cancer Personal history of malignant neoplasm of thyroid documented in this encounter Care Teams Lead Simulation Modeling Engineer Relationship Specialty Start Date End Date Catina Chowdhury NP [facility] [address] [place] [id number] PCP - General 02/03/09 07/20/12 documented as of this encounter
--- OUTSIDE RECORDS SUMMARY | 2024-02-10 18:24 | XMS_ITS | Encounter Summary ---
Author Organization [facility] Address [address] [place] [address] Care Team Providers Care Suspect Artist Supervisor Name Role Phone Rand Harley MD Primary Care Provider [phone] Reason for Visit * Reason Onset Date Comments Biopsy Results 10/07/2012 Encounter Details Date Type Department Care Team ([facility] Contact Info) Description 10/07/2012 Telephone [facility] Dermatology 3rd Floor [facility] [address], [place] [address] Robbin Garcia MD Biopsy Results Social History Tobacco Use [...] encounter Miscellaneous Notes * Telephone Encounter - Debbie Ordaz - 10/07/2012 1126 EDT Patient called looking for biopsy results. Informed patient of results. Patient verbalized understanding. Debbie Ordaz 10/07/2012 11:26 documented in this encounter Plan of Treatment Not on file documented as of this encounter Visit Diagnoses Not on filedocumented in this encounter Care Teams Suspect Artist Supervisor Relationship Specialty Start Date End Date Rand Harley MD [address] [place] [address] PCP - General 07/21/12 02/01/14 documented as of this encounter
--- OUTSIDE RECORDS SUMMARY | 2024-02-10 18:24 | XMS_ITS | Encounter Summary ---
Author Organization [facility] Address [address] [place] [address] Care Team Providers Care Process Equipment Operator Name Role Phone Rand Harley MD Primary Care Provider [phone] Reason for Visit * Reason Comments Skin Lesion right cheek x 3 week s Encounter Details Date Type Department Care Team (Late st Contact Info) Description 10/01/2012 10:30 EDT Office Visit [facility] Dermatology 3rd Floor [facility] [address] [place], [place] [id number] Yuri Cowan MD Neoplasm of unspecified nature of bone, soft tissue, and skin (Primary Dx) Social History Tobacco Use Types Packs/Day Years Used Date Smoking Tobacco: Former Alcohol Use Standard Drinks/Week Comments Yes 0 (1 standard drink = 0.6 oz pur e alcohol) Sex and Gender Information Value Date Recorded Sex Assigned at Not on file Gender Identity Not on file Sexual Orientation Not on file documented as of this encounter Patient Instructions * Patient Instructions* Rock Campa MD - 10/01/2012 11:04 EDT DERMATOLOGY WOUND CARE INSTRUCTIONS FOR SKIN BIOPSY The DRESSING/BANDAID should remain in place for 24 hours. You may shower or bathe after 24 hours; remove the bandage and replace it after the shower. DISCOMFORT: Extra-Strength Tylenol, as directed by skip loader, usually relieves any pain you may have. [...] in this encounter Progress Notes * Rock Campa MD - 10/01/2012 1057 EDT Images from the original note were not included. Dermatology Outpatient Visit Note Chief Complaint Patient presents with ??? Skin Lesion right cheek x 3 weeks Dermatologic problem list: 1. History of basal cell carcinoma of right chin, s/p Mohs in Dec 2011 (at [facility]) SUBJECTIVE Jc Up is a 46 y.o. female who presents for follow up for new concerning lesion on her right cheek. Present for 3 weeks. She endorses squeezing it 3 weeks ago and since then it has bled profusely and has never completely healed. She has not manipulated it since then. It is very similar in appearance to her previous basal cell carcinoma on her chin. See documentation in [facility] for medical, surgical, social and family history, which I reviewed at this visit. Medications: She has a current medication list which includes the following prescription(s): levothyroxine, loratadine, and ranitidine hcl. Allergies: She has no known allergies. Review of Systems Constitutional: Negative for fever, [...] wake/sleep cycle. The patient is not nervous/anxious. OBJECTIVE VS: vitals taken Physical Exam: Ms. Up is healthy and in no acute distress with a normal affect. She is alert and oriented to person, place and time. She has Montaño type II skin. Cutaneous head and neck examination including the hair, scalp, face, eyelids, lips and neck. was performed. The examination was normal with the addition of the following comments: - Right cheek: 4 mm bright red papule with rolled borders. ASSESSMENT Neoplasm of uncertain etiology, right cheek. This could represent a new basal cell carcinoma versusinflammatory papule vs angiofibroma. PLAN Recommended biopsy of the papule on the cheek given the concern for malignancy. The patient agrees with this plan. Advised the patient on the risks of biopsy, including pain, infection, bleeding and scar formation. Will call with biopsy results when available, and make further treatment recommendations based on the results. See procedure note below. Follow-up: has appointments already scheduled for October for full skin exam SHAVE BIOPSY PATIENT INFORMATION: Jc Up : MRN: [id number] SURGEON: Rock Campa MD The indication, risks, benefits and alternatives to this procedure were discussed in detail with the patient and all questions were answered. Informed consent was obtained in writing. PROCEDURE NOTE Specimen A Procedure: Tangential Shave Indication: Diagnostic Biopsy Site: right cheek Anesthesia: 1% lidocaine with epinephrine 1:100,000 local [...] was submitted to pathology for histological evaluation. Rock Campa MD 10/01/2012 10:52 Attestation Statement: I saw and examined the patient with the resident/fellow. I agree with the findings and plan of care documented in the resident's/fellow's note. YURI COWAN MD 10/06/2012 22:19 wellness trainer * Daniela Ordaz - 10/01/2012 1035 EDT Review of Systems Constitutional: Negative for [...] wake/sleep cycle. The patient is not nervous/anxious. 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
--- OUTSIDE RECORDS SUMMARY | 2024-02-10 18:24 | XMS_ITS | Encounter Summary ---
Author Organization [facility] Address [address] [place] [address] Care Team Providers Care First Mate Name Role Phone Rand Harley MD Primary Care Provider [phone] Encounter Details Date Type Department Care Team (Latest Contact Info) Description 06/08/2013 Pre-Procedure Orders Encounter [facility] Cardiology - [facility] [address] [facility] [place] [address] Michelle Oliveira MD [address] [place] [address] [place] [address] SVT (supraventricular tachycardia) (CMS-HCC) (Primary Dx) Social History Tobacco Use Types [...] Procedure Name Priority Date/Time Associated Diagnosis Comments CARDIAC ABLATION PROCEDURE Routine 07/01/2013 10:08 EST documented in this encounter Results * CARDIAC ABLATION PROCEDURE (07/01/2013 10:08 EST) Anatomical Region Laterality Modality Other 07/01/2013 10:0 8 EST Narrative 07/18/2013 17:21 EST *Cardiology* [address] [place] [address] Electrophysiology Study with Ablation Patient: Jc Up ? Study Date: ?07/01/2013 ?Accession #: ? [id number] : ? 1965 Referring: Rand Harley Attending: Michelle Oliveira MD Fellow: Assisting: Aniket Cruz Copies: SUMMARY OF PROCEDURE: - Baseline rhythm sinus rhythm. 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 - Successful slow pathway ablation. - At the conclusion of the procedure the patient was in sinus rhythm. - There were no complications. PROCEDURE INDICATION: - Electrophysiological study was indicated for palpitations. - Based on findings of EP study an ablation was indicated for AVNRT. HISTORY AND INDICATIONS: ??47 yo W with remote h/o thyroid cancer, now presenting with a 2 year history of palpitations occurring with increasing frequency. Initially episodes lasted only seconds to minutes, happening a few times a year. She now has episodes up to several time a month lasting up to several hours. They are associated with dizziness and presyncope. Vagal maneuvers have worked in the past, but less currently. Onset and offset of tachycardia up to 170-180/min is abrupt. Both betablockers and CCB have caused severe fatigue. ANESTHESIA: Conscious sedation and local anesthesia. PROCEDURE: The risks, benefits, and alternatives to the procedure were explained and informed consent was obtained. The patient name, date of , surgical site, and procedure were verified prior to the procedure. The patient was brought to electrophysiology laboratory in the fasting state. The groin was prepped and draped in the usual sterile manner. ??Local anesthestic was administered to the access site. The right femoral vein and left femoral vein were entered under fluoroscopic guidance with the modified Seldinger technique. Sheath and catheter detail(s) in table below.All catheters were placed under fluoroscopic guidance. The attending physician was physically present for the entire Electrophysiology Study and/or Ablation procedure. VASCULAR ACCESS AND CATHETER PROPERTIES: + +------+ + + Entry site ? Sheath Locations ? Catheter ? + +------+ + + L femoral vein 7Fr ?? RA appendage ?? 6 Fr hexapolar electrode catheter (2 mm ? spacing; proximal ring 25 cm from tip) ?? + +------+ + + L femoral vein 7Fr ?? RV/Para-Hisian 7 Fr deflectable quadrapolar electrode ? catheter (2mm spacing) ? + +------+ + + L femoral vein 7Fr ?? His ? 7 Fr deflectable octapolar electrode ? catheter (2 mm spacing) ? + +------+ + + R femoral vein 7Fr ?? Coronary sinus Bard Decapole 2-5-2 (bard), 6F ? + +------+ + + R femoral vein 8Fr ?? Ablation ? 3.5 mm tip Thermocool Celsius: 7 Fr ? deflectable quadrapolar ablation ? electrode (2 mm-5mm-2mm) ? + +------+ + + EP STUDY: A comprehensive electrophysiology study with attempted induction was performed. Protocols included decremental pacing and programmed stimulation. Pacing and recording were carried out from the left atrial, right atrial, right ventricular, coronary sinus, and His bundle sites . AV ELLIE/HIS-PURKINJE CONDUCTION INTERVALS: + + + + + + State ? Baseline ? Isoproterenol ?? Isoproterenol 1 Isoproterenol 2 ? 0.5 mcg/min ? mcg/min ? mcg/min ? + + + + + + Rhythm ? Sinus ? Sinus ? Sinus ? Sinus ? + + + + + + Cycle length ? 795msec ? 760msec ? 680msec ? 660msec ? + + + + + + A-H ? 75ms ? 75ms ? 70ms ? 70ms ? + + + + + + H-V ? 40ms ? 40ms ? 40ms ? 40ms ? + + + + + + A-V 1:1 ? 510ms ? 460ms ? 410ms ? 350ms ? + + + + + + AV Wenckebach ?? 500ms ? 450ms ? 400ms ? 340ms ? + + + + + + V-A 1:1 ? 420ms ? + + + + + + V-A conduction ?? None ? Concentric ? + + + + + + Dual AV ellie ?? Yes ? Yes ? Yes ? Yes ? pathways ? + + + + + + ERP antegrade ?? 370msec ? 280msec ? 270msec ? + + + + + + FP 1:1 ? 530ms ? 420ms ? 370ms ? + + + + + + SP 1:1 ? 510ms ? 460ms ? 410ms ? 350ms ? + + + + + + AV ellie echoes Yes ? No ? No ? Yes ? + + + + + + Pre-excitation ?? No ? + + + + + + Comments ? A single beat ? Burst pacing at ? with ? CL 320ms ? retrograde ? induced ? slow ? tachycardia ? conduction ? and echo was ? noted ? + + + + + + Pacing from the coronary sinus did not reveal pre-excitation. Para-Hisian pacing showed no retrograde conduction at baseline. Description of induced arrythmia: Arrhythmia induction: ??Attempts at induction with atrial burst pacing at CL 320 ms were successful at inducing regular narrow-complex tachycardia with 1:1 AV conduction. ??Atrial activation was concentric. ?? TCL 370ms, AH 340ms, HV 45ms, VA -15ms. Mapping: Mapping of the tachycardia circuit was performed. His-synchronous PVCs were introduced during tachycardia. The PVCs advanced the timing of ventricular activation by 35ms. This did not change the tachycardia cycle length or timing of atrial activation. Progressively earlier PVCs advanced the retrograde His potential by 120ms. Atrial timing was advanced without change in activation sequence indicating slow-fast/slow-slow AVNRT. Entrainment was performed from the RV basal septum. Retrograde atrial activation was only advanced after retrograde His-bundle activation was advanced by ventricular pacing. Again there was no change in activation sequence. Based on these findings, the mechanism of SVT was slow-fast AVNRT. We elected to perform slow pathway ablation. Isoproterenol was stopped. ABLATION PROCEDURE: A [employer] ThermoCool BLUE (D) 3.5mm ablation catheter was inserted and positioned at the inferior aspect of the tricuspid annulus, near the ostium of the coronary sinus. Radiofrequency ablation was applied while the catheter was withdrawn from the tricuspid annulus to the ostium of the CS. The catheter was then advanced into the CS along the annular aspect midway between the roof and the floor. The temperature was limited to 60degreesC. The power was limited to 35W (25W in the CS). RF was continued for 340seconds; occasional PACs but no junctional extrasystoles were noted. There was 1:1 antegrade fast pathway AVN conduction to 450ms, with Wenckebach over the slow AV ellie pathway at 440ms. More RF energy was applied to the proximal CS as described above. [10:50:45] Repeat testing of AV node function was performed after infusing isoproterenol at 2 mcg/min. Ventricular burst pacing at CL 260ms induced a slower tachycardia (TCL 540ms), possibly junctional tachycardia. [10:51:06] Isoproterenol was stopped and RF energy was applied to the slow pathway area as described above, more septally in reation to the previous ablation area for 210s. RAA pacing showed antegrade AVN 1:1 conduction to 380ms, Wenckebach at 370ms. Isoproterenol was restarted at 2 mcg/min. At this point, atrial pacing showed 1:1 antegrade AVN conduction to 360ms, Wenckebach at 350ms. RV pacing with 1:1 retrograde conduction to 250 ms, block at 240ms. No tachycardia was induced. Isoproterenol was increased to 4 mcg/min. There was 1:1 antegrade AVN conduction to 270 ms, with Wenckebach at 260ms. [11:11:28] Atrial burst pacing at CL 240ms induced AVNRT again (TCL 305ms). This was pace-terminated and isoproterenol was stopped. Subsequently, spontaneus PAC-triggered AVNRT occurred again (TCL 315ms). RF application was restarted, tachycardia terminated after 22s and RF was stopped. RF application to the SP area was continued for 249 s. Repeat testing of AV node function was performed. There was 1:1 antegrade AVN conduction to 380 ms, with Wenckebach at 370ms. There was 1:1 retrograde conduction to 410ms. Isoproterenol was restarted at 4 mcg/min. There was 1:1 antegrade AVN conduction to 310ms, with Wenckebach at 300ms. Atrial burst pacing at CL 240ms induced AVNRT again (TCL 300ms). More RF energy was applied to the SP region for 250s at max. 30 W. On repeat testing of AV node function, there was 1:1 antegrade AVN conduction to 350 ms, with Wenckebach at 340ms. Isoproterenol was restarted at 4 mcg/min. Atrial burst pacing at CL 280ms induced a slower AVNRT again (TCL 380ms). Isoproterenol was stopped and more RF energy was applied to the SP region for 179s at max. 30 W. Some junctional beats were noted. On repeat testing of AV node function, there was 1:1 antegrade AVN conduction to 360 ms, with Wenckebach at 350ms. Isoproterenol was restarted at 4 mcg/min. Atrial burst pacing did not reinduce tachycardia at that point. The patient was monitored for 15minutes after ablation. The patient was in sinus rhythm and the procedure was concluded. Hemostasis. All sheaths and catheters were removed from the body. Compression was applied to the puncture sites. Groin sites were intact with no hematoma. ?? STUDY COMPLETION - Fluoroscopy time: 34min. - Patient in-room time: 08:13 AM. - Patient out-of-room time: 12:10 PM. - Intake: 1300ml - Output: 0ml - Estimated blood loss: 30ml. Clinical Trial: ??The patient is not enrolled in a clinical trial. PLAN: ??See post procedure orders. Bed rest for 3hours. Discharge home from CVU when bed rest complete and discharge criteria met. With the patient's consent, all family members and patient support persons who were present at the conclusion of the procedure have been notified of these results and treatment plans as well. POST PROCEDURAL DISPOSITION: Outpatient status is indicated. ?Electronically signed by Michelle Oliveira MD 07/18/2013 17:20 Procedure Note 09/01/2013 *Cardiology* [address] [place] [address] Electrophysiology Study with Ablation Patient: Jc Up Study Date:07/01/2013 : 1965 Referring: Rand Harley Attending: Michelle Oliveira MD Fellow: Assisting: Aniket Cruz Copies: SUMMARY OF PROCEDURE: - Baseline rhythm sinus rhythm. 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 - Successful slow pathway ablation. - At the conclusion of the procedure the patient was in sinus rhythm. - There were no complications. PROCEDURE INDICATION: - Electrophysiological study was indicated for palpitations. - Based on findings of EP study an ablation was indicated for AVNRT. HISTORY AND INDICATIONS: 47 yo W with remote h/o thyroid cancer, nowpresenting with a 2 year history of palpitations occurring with increasing frequency. Initially episodes lasted only seconds to minutes, happening a few times ayear. She now has episodes up to several time a month lasting up to severalhours. They are associated with dizziness and presyncope. Vagal maneuvers haveworked in the past, but less currently. Onset and offset of tachycardia up to 170-180/min is abrupt. Both betablockers and CCB have caused severefatigue. ANESTHESIA: Conscious sedation and local anesthesia. PROCEDURE: The risks, benefits, and alternatives to the procedure were explained and informed consent was obtained. The patient name, date of , surgical site, and procedure wereverified prior to the procedure. The patient was brought to electrophysiologylaboratory in the fasting state. The groin was prepped and draped in the usualsterile manner. Local anesthestic was administered to the access site. The right femoral vein and left femoral vein were entered under fluoroscopicguidance with the modified Seldinger technique. Sheath and catheter detail(s) in table below.All catheters were placed under fluoroscopic guidance. The attending physician was physically present for the entire Electrophysiology Studyand/or Ablation procedure. VASCULAR ACCESS AND CATHETER PROPERTIES: + +------+ + + Entry site Sheath Locations Catheter + +------+ + + L femoral vein 7Fr RA appendage 6 Fr hexapolar electrode catheter (2mm spacing; proximal ring 25 cm fromtip) + +------+ + + L femoral vein 7Fr RV/Para-Hisian 7 Fr deflectable quadrapolarelectrode catheter (2mm spacing) + +------+ + + L femoral vein 7Fr His 7 Fr deflectable octapolar electrode catheter (2 mm spacing) + +------+ + + R femoral vein 7Fr Coronary sinus Bard Decapole 2-5-2 (), 6F + +------+ + + R femoral vein 8Fr Ablation 3.5 mm tip Thermocool Celsius: 7 Fr deflectable quadrapolar ablation electrode (2 mm-5mm-2mm) + +------+ + + EP STUDY: A comprehensive electrophysiology study with attempted induction wasperformed. Protocols included decremental pacing and programmed stimulation. Pacingand recording were carried out from the left atrial, right atrial, right ventricular, coronary sinus, and His bundle sites . AV ELLIE/HIS-PURKINJE CONDUCTION INTERVALS: + + + + + + State Baseline Isoproterenol Isoproterenol1 Isoproterenol 2 0.5 mcg/min mcg/min mcg/min + + + + + + Rhythm Sinus Sinus Sinus Sinus + + + + + + Cycle length 795msec 760msec 680msec 660msec + + + + + + A-H 75ms 75ms 70ms 70ms + + + + + + H-V 40ms 40ms 40ms 40ms + + + + + + A-V 1:1 510ms 460ms 410ms 350ms + + + + + + AV Estellakebach 500ms 450ms 400ms 340ms + + + + + + V-A 1:1 420ms + + + + + + V-A conduction None Concentric + + + + + + Dual AV ellie Yes Yes Yes Yes pathways + + + + + + ERP antegrade 370msec 280msec 270msec + + + + + + FP 1:1 530ms 420ms 370ms + + + + + + SP 1:1 510ms 460ms 410ms 350ms + + + + + + AV ellie echoes Yes No No Yes + + + + + + Pre-excitation No + + + + + + Comments A single beat Burstpacing at with CL 320ms retrograde induced slow tachycardia conduction and echo was noted + + + + + + Pacing from the coronary sinus did not reveal pre-excitation. Para-Hisian pacing showed no retrograde conduction at baseline. Description of induced arrythmia: Arrhythmia induction: Attempts at induction with atrial burst pacing atCL 320 ms were successful at inducing regular narrow-complex tachycardia with 1:1AV conduction. Atrial activation was concentric. TCL 370ms, AH 340ms, HV45ms, VA -15ms. Mapping: Mapping of the tachycardia circuit was performed. His-synchronous PVCswere introduced during tachycardia. The PVCs advanced the timing of ventricular activation by 35ms. This did not change the tachycardia cycle length ortiming of atrial activation. Progressively earlier PVCs advanced the retrogradeHis potential by 120ms. Atrial timing was advanced without change inactivation sequence indicating slow-fast/slow-slow AVNRT. Entrainment was performedfrom the RV basal septum. Retrograde atrial activation was only advanced after retrograde His-bundle activation was advanced by ventricular pacing. Againthere was no change in activation sequence. Based on these findings, themechanism of SVT was slow-fast AVNRT. We elected to perform slow pathway ablation. Isoproterenol was stopped. ABLATION PROCEDURE: A Celsius ThermoCool BLUE (D) 3.5mm ablation catheter was inserted and positioned at the inferior aspect of the tricuspid annulus, near theostium of the coronary sinus. Radiofrequency ablation was applied while the catheterwas withdrawn from the tricuspid annulus to the ostium of the CS. The catheterwas then advanced into the CS along the annular aspect midway between the roofand the floor. The temperature was limited to 60degreesC. The power waslimited to 35W (25W in the CS). RF was continued for 340seconds; occasional PACs butno junctional extrasystoles were noted. There was 1:1 antegrade fast pathwayAVN conduction to 450ms, with Wenckebach over the slow AV ellie pathway [id number]. More RF energy was applied to the proximal CS as described above.[10:50:45] Repeat testing of AV node function was performed after infusingisoproterenol at 2 mcg/min. Ventricular burst pacing at CL 260ms induced a slowertachycardia (TCL 540ms), possibly junctional tachycardia. [10:51:06] Isoproterenol was stopped and RF energy was applied to the slow pathway area as described above, more septally in reation to the previous ablation area for 210s. RAA pacing showed antegrade AVN 1:1 conduction [id number], Wenckebach at 370ms. Isoproterenol was restarted at 2 mcg/min. At thispoint, atrial pacing showed 1:1 antegrade AVN conduction to 360ms, Wenckebach [id number]. RV pacing with 1:1 retrograde conduction to 250 ms, block at 240ms. No tachycardia was induced. Isoproterenol was increased to 4 mcg/min. Therewas 1:1 antegrade AVN conduction to 270 ms, with Wenckebach at 260ms. [11:11:28] Atrial burst pacing at CL 240ms induced AVNRT again ([id number]). This was pace-terminated and isoproterenol was stopped. Subsequently,spontaneus PAC-triggered AVNRT occurred again (TCL 315ms). RF application wasrestarted, tachycardia terminated after 22s and RF was stopped. RF application to theSP area was continued for 249 s. Repeat testing of AV node function was performed. There was 1:1 antegradeAVN conduction to 380 ms, with Wenckebach at 370ms. There was 1:1 retrograde conduction to 410ms. Isoproterenol was restarted at 4 mcg/min. There was1:1 antegrade AVN conduction to 310ms, with Wenckebach at 300ms. Atrial burstpacing at CL 240ms induced AVNRT again (TCL 300ms). More RF energy was applied tothe SP region for 250s at max. 30 W. On repeat testing of AV node function, there was 1:1 antegrade AVNconduction to 350 ms, with Wenckebach at 340ms. Isoproterenol was restarted at 4mcg/min. Atrial burst pacing at CL 280ms induced a slower AVNRT again (TCL 380ms). Isoproterenol was stopped and more RF energy was applied to the SP regionfor 179s at max. 30 W. Some junctional beats were noted. On repeat testing ofAV node function, there was 1:1 antegrade AVN conduction to 360 ms, withWenckebach at 350ms. Isoproterenol was restarted at 4 mcg/min. Atrial burst pacingdid not reinduce tachycardia at that point. The patient was monitored for 15minutes after ablation. The patient was insinus rhythm and the procedure was concluded. Hemostasis. All sheaths and catheters were removed from the body.Compression was applied to the puncture sites. Groin sites were intact with nohematoma. STUDY COMPLETION - Fluoroscopy time: 34min. - Patient in-room time: 08:13 AM. - Patient out-of-room time: 12:10 PM. - Intake: 1300ml - Output: 0ml - Estimated blood loss: 30ml. Clinical Trial: The patient is not enrolled in a clinical trial. PLAN: See post procedure orders. Bed rest for 3hours. Discharge home fromCVU when bed rest complete and discharge criteria met. With the patient's consent, all family members and patient support personswho were present at the conclusion of the procedure have been notified ofthese results and treatment plans as well. POST PROCEDURAL DISPOSITION: Outpatient status is indicated. Electronically signed by Michelle Oliveira MD 07/18/2013 17:20 Michelle Oliveira MD CARDIAC EP [facility] documented in this encounter Visit Diagnoses Diagnosis SVT (supraventricular tachycardia) (HCC-CMS)- Primary Other specified cardiac dysrhythmias documented in this encounter Care Teams First Mate Relationship Specialty Start Date End Date Rand Harley MD [address] [place] [address] PCP - General 07/21/12 02/01/14 documented as of this encounter
--- OUTSIDE RECORDS SUMMARY | 2024-02-10 18:25 | XMS_ITS | Encounter Summary ---
Author Organization [facility] Address [address] [place] [address] Care Team Providers Care [employer] Administrator Name Role Phone Unavailable Primary Care Provider Unavailabl e Encounter Details Date Type Department Care Team (Late st Contact Info) Description 12/07/2003 17:04 EDT Hospital Encounter [facility] - Other [address] [place] [address] Kenn Cheung PA [address] [place] [id number] Social History Tobacco Use Types Packs/Day Years [...]
--- OUTSIDE RECORDS SUMMARY | 2024-02-10 18:25 | XMS_ITS | Encounter Summary ---
Author Organization [facility] Address [address] [place] [address] Care Team Providers Care Elastic Attacher Zigzag Name Role Phone Catina Chowdhury NP Primary Care Provider [phone] Encounter Details Date Type Department Care Team (Late st Contact Info) Description 12/11/2006 Before PRISM Converted Visit (Maple) [facility] - Maple conversion [address] [place] [address] Ale Hsu MD PhD [facility] [address] [place] [phone] Social History Tobacco Use Types Packs/Day Years Used Date Smoking Tobacco: Never Assessed Sex and Gender Information Value Date Recorded Sex Assigned at Not on file Gender Identity Not on file Sexual Orientation Not on file documented as of this encounter Progress Notes * Ale Hsu MD - 03/22/2009 1333 EST DIVISION OF ENDOCRINOLOGY PROGRESS/FOLLOWUP NOTE - 12/11/2006 PROBLEM History of papillary thyroid cancer in 1987. A. T2, N1, M0. B. Treated with total thyroidectomy. C. Thyroid suppression. D. Positive thyroglobulin antibodies. SUBJECTIVE Ms. Banerjee is a 41-year-old woman who returns to the endocrine clinic for further adjustment of thyroid hormone replacement, given a history of thyroidectomy for thyroid cancer, and also surveillance given that she has positive antibodies. She states that since her last visit overall she has been well. She admits that she has been burning the candle at both ends, not getting a lot of sleep. She has some difficulty sleeping in hot weather. She also states that she had one episode of palpitations. At first she thought it was in May, then she thought it was in July where she ran in the house, the phone range, she answered the phone and she felt a little dizzy and lightheaded. It seemed to last forawhile, but she did not go the emergency room and eventually the palpitations stopped. Interestingly at that time her TSH was not suppressed in that last year December TSH was 1.77 and in July 2.44. So there is no sign that this is related to her thyroidmedication. She does not remember or not whether she could have been dehydrated, being in the winter I think that is a little less likely but not impossible. In any event she states that she has had palpitations every once in awhile but that was the only time that she could marciano mber where it frightened her, but she thinks it was just because she worked herself up a little bitabout it as she was worried that her heart was not going to stop beating fast, but it did on its own. She has no other medicinesother than the Synthroid BJ 125 mcg a day. She takes 1 tablet six days awee and 1 and 1/2 tablets on Saturday. She has had no trouble with the medicine since July and she recently saw ENT people who felt that they did not see any suspicious lymphadenopathy. Her thyroglobulin level was quite high at 14 in the past and that was while her TSH was 1.77 and then in July wit h her TSH still a little high at 2.44 her thyroglobulin antibody had dropped to 7.2, given the antibodies and thyroglobulin level hasalways been undetectable. OBJECTIVE On exam today she is 5 feet 6 inches, weighs 152 pounds, blood pressure 120/78 with a pulse of 80. BMI is 24 and her weight is unchanged. She has a well-healed scar on her neck. No palpable tissue inthe thyroid bed. No suspicious lymphadenopathy in the cervical or supraclavicular areas. ASSESSMENT AND PLAN Ms. Banerjee seems to be doing reasonably well. I was happy to see her antibody level falling. We willcheck thyroglobulin levels again today. If they continue to fall, then we will not intervene with any imaging. If on the other hand they are increasing again, she may benefit from further imaging tests. Otherwise, she will return to the endocrine clinic within twelve months. We will adjust her medicine to try to keep her TSH in the 0.1-0.5 range, until we are sure she is free of any recurrence. 8-4-07: 12/11/2006 11:43 T4, Free 1.8 ng/dL 0.8-1.8 Final * 12/11/2006 11:43 Thyroglobulin Final * 12/11/2006 11:43 Thyroglobulin Ab Scn H 12 Y Final * 12/11/2006 11:43 Thyroglob Tumor Mrkr Y Final * 12/11/2006 11:43 TSH 1.00 uIU/m... 0.35-5.00 Tg AB falling. Would increase T4 to suppress TSH further, but free T4 now at upper end. TSH will likely fall a little in the next few months to goal of therapy. Signed by Ale Hsu MD,PhD 12/14/2006 11:47 Estephanie Hsu MD,PhDMudanyelle Hsu MD,PhD Ale Hsu MD,PhD - Ale Hsu MD,PhD - DD Job ID: [id number] Doc ID: [id number] cc: Cristofer Zapata MD documented in this encounter Plan of Treatment Not on file documented as of this encounter Visit Diagnoses Not on filedocumented in this encounter Care Teams Elastic Attacher Zigzag Relationship Specialty Start Date End Date Catina Chowdhury NP [facility] [address] [place] [address] PCP - General 02/03/09 07/20/12 documented as of this encounter
--- OUTSIDE RECORDS SUMMARY | 2024-02-10 18:25 | XMS_ITS | Encounter Summary ---
Author Organization [facility] Address [address] [place] [address] Care Team Providers Care Gas And Oil Servicer Name Role Phone Catina Chowdhury NP Primary Care Provider [phone] Encounter Details Date Type Department Care Team (Late st Contact Info) Description 08/06/2000 Results Only [facility] conversion [address] [place] [address] Araceli Maldonado, [facility] [address] [place] [address] Social History Tobacco Use Types Packs/Day Years Used Date Smoking Tobacco: Never Assessed Sex and Gender Information Value Date Recorded Sex Assigned at Not on file Gender Identity Not on file Sexual Orientation Not on file documented as of this encounter Plan of Treatment Not on file documented as of this encounter Procedures Procedure Name Priority Date/Time Associated Diagnosis Comments CYTOPATHOLOGY Routine 08/06/2000 0:00 EST documented in this encounter Results * CYTOPATHOLOGY (08/06/2000 0:00 EST) Pathology Report: CYTOPATHOLOGY REPORT Reports generated via electronic interface contain original data; however they are lacking the format of the original report. Caution should be taken when reading/interpreti ng unformatted reports. Name: ? JC BANERJEE ? Accession #: ? [id number] : ? 1965 (Age: 34) ??F ?Collect Date: ? 08/06/2000 Location: ? [facility] ? Receive Date: ? 08/07/2000 Provider: ?ARACELI MALDONADO REPORTING SPECIALIST Copy to: ? Specimen/Source: ?Conventional Pap Test, Cervix/Endocervix Last Menstrual Period: ? 08/02/00 ? SPECIMEN ADEQUACY ? Satisfactory for evaluation. GENERAL CATEGORIZATION ? Within Normal Limits ? Document reviewed and electronically signed by: ? ERIKA Linton(ASCP) ? Report Date: ??08/08/2000 10:45 End of Report KIKI MARTINEZ 08/06/2000 08/07/2000 Araceli Maldonado REPORTING SPECIALIST PATHOLOGY ORDERABLES KIKI MARTINEZ [address] [place] [address] documented in this encounter Visit Diagnoses Not on filedocumented in this encounter Care Teams Gas And Oil Servicer Relationship Specialty Start Date End Date Catina Chowdhury NP [facility] [address] [place] [address] PCP - General 02/03/09 07/20/12 documented as of this encounter
--- OUTSIDE RECORDS SUMMARY | 2024-02-10 18:25 | XMS_ITS | Encounter Summary ---
Author Organization [facility] Address [address] [place] [address] Care Team Providers Care Sea Shell Gatherer Name Role Phone Catina Chowdhury NP Primary Care Provider [phone] Encounter Details Date Type Department Care Team (Late st Contact Info) Description 04/03/2005 Results Only [facility] conversion [address] [place] [address] Judd Marcus MD [address] [place] [address] [phone] Social History Tobacco Use Types Packs/Day Years Used Date Smoking Tobacco: Never Assessed Sex and Gender Information Value Date Recorded Sex Assigned at Not on file Gender Identity Not on file Sexual Orientation Not on file documented as of this encounter Plan of Treatment Not on file documented as of this encounter Procedures Procedure Name Priority Date/Time Associated Diagnosis Comments CYTOPATHOLOGY Routine 04/03/2005 0:00 EST documented in this encounter Results * CYTOPATHOLOGY (04/03/2005 0:00 EST) Pathology Report: CYTOPATHOLOGY REPORT Reports generated via electronic interface contain original data; however they are lacking the format of the original report. Caution should be taken when reading/interpreti ng unformatted reports. Name: ? JC UP ? Accession #: ? [id number] : ? 1965 (Age: 39) ??F ?Collect Date: ? 04/03/2005 Location: ? [facility] ? Receive Date: ? 04/04/2005 Provider: ?JUDD MARCUS MD Copy to: ? Specimen/Source: ?Conventional Pap Test, Cervix/Endocervix Last Menstrual Period: ? 02/22/05 ? SPECIMEN ADEQUACY ? Satisfactory for Evaluation - transformation zone component present GENERAL CATEGORIZATION ? Negative for Intraepithelial Lesion or Malignancy ? Document reviewed and electronically signed by: ? ERIKA Bangura(ASCP) ? Report Date: ??04/04/2005 13:54 End of Report KIKI MARTINEZ 04/03/2005 04/04/2005 Judd Marcus MD PATHOLOGY ORDERABLES Performing Organization Address City/State/[facility] Co de Phone Number KIKI MARTINEZ [address] [place] [address] documented in this encounter Visit Diagnoses Not on filedocumented in this encounter Care Teams Sea Shell Gatherer Relationship Specialty Start Date End Date Catina Chowdhury NP [facility] [address] [place] [address] PCP - General 02/03/09 07/20/12 documented as of this encounter
--- OUTSIDE RECORDS SUMMARY | 2024-02-10 18:25 | XMS_ITS | Encounter Summary ---
Author Organization [facility] Address [address] [place] [address] Care Team Providers Care Ladle Filler Name Role Phone Catina Chowdhury NP Primary Care Provider [phone] Encounter Details Date Type Department Care Team (Late st Contact Info) Description 12/11/2006 Results Only [facility] Endocrinology - [address] [place] [address] Ale Hsu MD PhD [address] [place] [address] [address] [place] [address] Social History Tobacco Use Types [...] Diagnosis Comments THYROGLOBULIN, TUMOR MARKER, S Routine 12/11/2006 11:43 EDT TSH Routine 12/11/2006 11:43 EDT T4 FREE Routine 12/11/2006 11:43 EDT documented in this encounter Results * TSH (12/11/2006 11:43 EDT) TSH 1.00 0.35 - 5.00 uIU/mL KIKI MARTINEZ 12/11/2006 11:4 3 EDT 12/11/2006 11:44 EDT Ale Hsu MD PhD CHEMISTRY & BLOOD GAS ORDERABLES [facility] [address] [place] [address] * (ABNORMAL) THYROGLOBULIN TUMOR MARKER (12/11/2006 11:43 EDT) Thyroglobulin Antibody Screen 80931 12Unit: IU/mL(Note) -- EXPECTED VALUES -- ? (Ref Range) <4.0 ? Please note reference range change effective 08/27/2006. ?(H) [facility] Thyroglobulin Tumor Marker <0.1Unit: ng/mL(Note) Quantitation of thyroglobulin may be unreliable due to the ? presence of anti-thyroglobulin antibodies. ? -- EXPECTED VALUES -- ? (Ref Range) <=33 ? Athyrotic individuals ? normally have hTg values ? less than 5 ng/mL. ? The testing method is an immunoenzymatic assay manufactured ? by [employer] and performed on the [facility] DXI ? 800. ? Values obtained with different assay methods or kits may be ? different and cannot be used interchangeably. ? Test results cannot be interpreted as absolute evidence for ? the presence or absence of malignant disease. ? Specimens with thyroglobulin concentrations greater than ? 250,000 ng/mL may give falsely lower results. ? Test Performed by: ? [facility] Dpt of Lab Med and Pathology ? [address] [place] [address] ? Sharepoint Net Developer: Geovanny Welch III, M.D. ? [facility] 12/11/2006 11:4 3 EDT 12/11/2006 11:44 EDT Ale Hsu MD PhD CHEMISTRY & BLOOD GAS ORDERABLES Performing Organization Address [facility] Co de Phone Number [facility] [address] [place] [address] * T4 FREE (12/11/2006 11:43 EDT) Free T4 1.8 0.8 - 1.8 ng/dL [facility] 12/11/2006 11:4 3 EDT 12/11/2006 11:44 EDT Ale Hsu MD PhD CHEMISTRY & BLOOD GAS ORDERABLES Performing Organization Address [facility] Co de Phone Number [facility] [address] [place] [address] documented in this encounter Visit Diagnoses Not on filedocumented in this encounter Care Teams Ladle Filler Relationship Specialty Start Date End Date Catina Chowdhury, [facility] [address] [place] [address] PCP - General 02/03/09 07/20/12 documented as of this encounter
--- OUTSIDE RECORDS SUMMARY | 2024-02-10 18:25 | XMS_ITS | Encounter Summary ---
Author Organization [facility] Address [address] [place] [address] Care Team Providers Care Field Clerk Name Role Phone Unavailable Primary Care Provider Unavailabl e Encounter Details Date Type Department Care Team ([facility] st Contact Info) Description 07/24/2006 13:27 EDT Hospital Encounter [address] [address] Ale Hsu MD PhD [address] [place] [address] [place] [phone] Social History Tobacco Use Types Packs/Day [...] Diagnosis Comments THYROGLOBULIN, TUMOR MARKER, S Routine 07/24/2006 13:32 EDT TSH Routine 07/24/2006 13:32 EDT T4 FREE Routine 07/24/2006 13:32 EDT documented in this encounter Results * TSH (07/24/2006 13:32 EDT) Pathologist [facility] TSH 2.44 0.35 - 5.00 uIU/mL KIKI MARTINEZ 07/24/2006 13:3 2 EDT 07/24/2006 13:35 EDT Ale Hsu MD PhD CHEMISTRY & BLOOD GAS ORDERABLES [facility] [address] [place] [address] * THYROGLOBULIN TUMOR MARKER (07/24/2006 13:32 EDT) Pathologist [facility] Thyroglobulin Antibody Screen 78344 7.2Unit: IU/mL(Note) This FDA-approved assay has been modified and validated ? by Laboratory Medicine and Pathology, [facility], ? [place], [place] in order to enhance sensitivity. This ? modification has not been cleared or approved by the ? U.S. Food and Drug Administration. ? -- EXPECTED VALUES -- ? (Ref Range) <=10 ? [facility] Thyroglobulin Tumor Marker <0.1Unit: ng/mL(Note) -- EXPECTED VALUES -- ? (Ref Range) <=33 ? Athyrotic individuals ? normally have hTg values ? less than 5 ng/mL. ? The testing method is an immunoenzymatic assay manufactured ? by [employer] and performed on the [employer] DXI ? 800. ? Values obtained with different assay methods or kits may be ? different and cannot be used interchangeably. ? Test results cannot be interpreted as absolute evidence for ? the presence or absence of malignant disease. ? Specimens with thyroglobulin concentrations greater than ? 250,000 ng/mL may give falsely lower results. ? Test Performed by: ? [facility] Dpt of Lab Med and Pathology ? [address] [facility], [place] [address] ? Licensed Real Estate Broker: Geovanny Welch III, M.D. ? [facility] 07/24/2006 13:3 2 EDT 07/24/2006 13:35 EDT Ale Hsu MD PhD CHEMISTRY & BLOOD GAS ORDERABLES Performing Organization Address [facility] Co de Phone Number [facility] [address] [place] [address] * T4 FREE (07/24/2006 13:32 EDT) Free T4 1.5 0.8 - 1.8 ng/dL [facility] 07/24/2006 13:3 2 EDT 07/24/2006 13:35 EDT Ale Hsu MD PhD CHEMISTRY & BLOOD GAS ORDERABLES Performing Organization Address [facility] Co de Phone Number [facility] [address] [place] [address] documented in this encounter Visit Diagnoses Not on filedocumented in this encounter
--- OUTSIDE RECORDS SUMMARY | 2024-02-10 18:25 | XMS_ITS | Encounter Summary ---
Author Organization [facility] Address [address] [place] [address] Care Team Providers Care Air Pollution Control Engineer Name Role Phone Catina Chowdhury NP Primary Care Provider [phone] Encounter Details Date Type Department Care Team (Late st Contact Info) Description 12/12/2005 Before PRISM Converted Visit (Maple) [facility] - Maple conversion [address] [place] [address] Ale Hsu MD PhD [address] [place] [address] [place] [phone] Social History Tobacco Use Types Packs/Day Years Used Date Smoking Tobacco: Never Assessed Sex and Gender Information Value Date Recorded Sex Assigned at Not on file Gender Identity Not on file Sexual Orientation Not on file documented as of this encounter Progress Notes * Ale Hsu MD - 05/17/2009 0027 EST DIVISION OF ENDOCRINOLOGY PROGRESS/FOLLOWUP NOTE - 12/12/2005 PROBLEM: 1. Papillary thyroid cancer 1988. A. Total thyroidectomy. B. T2, N1, M0, treated with thyroidectomy. C. Iatrogenic hypothyroidism. SUBJECTIVE: Ms. Banerjee is a 40 year old woman who returns to the endocrine clinic for further followup of papillary thyroid cancer, in terms of surveillance and also for thyroid hormone replacement. Overall, she has been feeling pretty good. She had to go through a hysterectomy about six weeks ago. She was diagnosed with endometriosis. She states that the surgery was abdominal. She is starting to get her strength back. She has not had any problems with nausea or vomiting, no difficulty taking her medicine. She states that they did leave her ovaries intact. She had no sign of any type of tumor or neoplasia of the uterine lining. She says she has not had trouble swallowing. She has not had any neck pain or hoarseness. It is noted that she was never treated with radioactive iodine, which may account from some problems in termsof antibody level, although thyroglobulin levels have been quite low and an antibody titer was negative in 1998 and again in the year 1999, but suddenly, in 2003, antibody level was elevated. At the time, she was hypothyroid, there were some problems with medication, and since that time, the antibody level has fallen, but it has not disappeared. Antibodies were 11 in 2003, and then, in 2004, 7.6. The last TSH was actually a little too low, but she has been changed and is now taking 125 mcg. of Synthroid on a daily basis. OBJECTIVE: On exam today, height 5 feet 6 inches, weight 160 pounds, BMI 27, BP 117/71, pulse 88. There is a well-healed scar on her neck without any associated cervical lymphadenopathy or tissue felt in the bed. ASSESSMENT/PLAN: Jc is doing quite well, but I am concerned about her AB titer. She may have some residual disease in a cervical lymph node. She had an ultrasound done of the thyroid gland in the radiology department that was unchanged between 2000 and 2003. They did see some lymph nodes, but they all looked small. In addition, there was some bed tissue that measured, at most, 5-6 mm. Since she did not receive radioactive iodine, it would not be unusual for her to have some tissue there. Furthermore, a CT was done and they again saw a lot of lymph nodes in the neck, but nothing was enlarged. If the antibody levels are not clearing, I think it would be prudent to send her to Dr. Goff, as he is very good at picking up micrometastases in the lymph nodes and that way we can clear the antibodies and make sure she is at less risk for late term recurrence. 8-3-06: 12/12/2005 11:35 T4, Free H 1.9 ng/dL 0.8-1.8 Final * 12/12/2005 11:35 TSH 1.77 uIU/m... 0.35-5.00 Final * 12/12/2005 11:35 Thyroglobulin Final * 12/12/2005 11:35 Thyroglobulin Ab Scn H 14 Y Final * 12/12/2005 11:35 Thyroglob Tumor Mrkr Y Final * AB marker increasing. Will refer to Dr. Goff. ABs may be interfering with TFT measurements (aswith a free T4 that is high would expect a low TSH). Will not change medication--goal for TSH is 0.35-2--and given discrepant labs at this point, not clear if TSH or free T4 is inaccurate. Pt bear 0.8 mcg/lb--and thus will continue with present dose--but recheck tests in 3-4 months to see trend. Want to keep TSH in low end of normal range with +-ABs. Signed by Ale Hsu MD,PhD 12/15/2005 11:18 Estephanie Hsu MD,PhDMudanyelle Hsu MD,PhD Ale Hsu MD,PhD - Ale Hsu MD,PhD P - MR Job ID: [id number] Document ID: [id number] cc: Cristofer Zapata MD documented in this encounter Plan of Treatment Not on file documented as of this encounter Visit Diagnoses Not on filedocumented in this encounter Care Teams Air Pollution Control Engineer Relationship Specialty Start Date End Date Catina Chowdhury NP [facility] [address] [place] [address] PCP - General 02/03/09 07/20/12 documented as of this encounter
--- OUTSIDE RECORDS SUMMARY | 2024-02-10 18:25 | XMS_ITS | Encounter Summary ---
Author Organization [facility] Address [address] [place] [address] Care Team Providers Care Upper Cutter Machine Name Role Phone Unavailable Primary Care Provider Unavailabl e Encounter Details Date Type Department Care Team (Latest Contact Info) Description 07/13/2005 12:31 EST Hospital Encounter [facility] [address] [place] [address] Ale Hsu MD PhD [address] [place] [phone] Discharge Disposition: Auto Discharge Social History Tobacco Use Types Packs/Day Years Used Date Smoking Tobacco: Never Assessed Sex and Gender Information Value Date Recorded Sex Assigned at Not on file Gender Identity Not on file Sexual Orientation Not on file documented as of this encounter Discharge Disposition Disposition Code Departure Means Destination Auto Discharge documented in this encounter Plan of Treatment Not on file documented as of this encounter Procedures Procedure Name Priority Date/Time Associated Diagnosis Comments CT CHEST W CONTRAST 07/13/2005 1 3:[address] NECK (SOFT TISSUE) W CONTRAST 07/13/2005 13:04 EST documented in this encounter Results * CT CHEST W CONTRAST (07/13/2005 13:04 EST) Anatomical Region Laterality Modality Other 07/13/2005 13:0 4 EST Narrative 11/27/2008 10:11 EDT H/O PAPILLARY THYROID CA, W/ LYMPH NODE INVOLVEMENT, NEVER TREATED W/ I-131 CT OF THE CHEST WITH CONTRAST: 07/13/05, 1250 HISTORY: Thyroid CA with lymph node involvement. TECHNIQUE: A single breath-hold helical CT acquisition through the chest was performed using 3-3.75 mm collimation at a beam pitch of 1 or 2:1. The scans were obtained from the lung apices through the bases during the intravenous administration of 100 cc of 350 mg% nonionic contrast injected at a rate of 2 cc/second. ??Scans were reconstructed at contiguous intervals for interpretation. ??A small amount of oral contrast was administered immediately prior to the examination. Evaluation of the chest wall shows non-enlarged lymph nodes seen within both axillary regions. ??No other chest wall abnormalities are identified. ??The heart and pericardium appear normal. ??There are no enlarged mediastinal lymph nodes identified, although there are some slightly asymmetric lymph nodes within the left mid-hilar region, as compared to the right, although I believe this is within the range of normal. ??None of the nodes exceed 7mm-8mm in diameter within the hilar regions. ??The mediastinal and hilar vasculature appears normal. There is no pleural abnormality seen. The examination of the airways and lung parenchyma shows a single area of lucency within the lateral segment of the middle lobe, likely on the basis of small airway abnormality. ??No other parenchymal abnormalities are identified. ??Specifically, there is no evidence of metastatic disease to the chest. ??There is a single bleb or a small bulla in the left lung apex noted. Scans that were obtained through the upper abdomen are limited, but demonstrate no obvious abnormality. IMPRESSION: 1. ? No evidence of metastatic disease to the chest. 2. ? Small focus of hyperlucency within a subsegmental portion of the lateral segment of the middle lobe of lung, likely on the basis of small airways disease. 3. ? Slight asymmetry of left hilar lymph node tissue, compared to the right, but the nodes remain within the range of normal. 4. ? No residual thyroid ??tissue identified within the thoracic inlet ??region. /lary Procedure Note Adam Olmedo MD - 11/27/2008 H/O PAPILLARY THYROID CA, W/ LYMPH NODE INVOLVEMENT, NEVER TREATED W/ I-131 CT OF THE CHEST WITH CONTRAST: 07/13/05, 1250 HISTORY: Thyroid CA with lymph node involvement. TECHNIQUE: A single breath-hold helical CT acquisition through the chest was performed using 3-3.75 mm collimation at a beam pitch of 1 or 2:1. The scans were obtained from the lung apices through the bases during the intravenous administration of 100 cc of 350 mg% nonionic contrast injected at a rate of 2 cc/second. Scans were reconstructed at contiguous intervals for interpretation. A small amount of oral contrast was administered immediately prior to the examination. Evaluation of the chest wall shows non-enlarged lymph nodes seen within both axillary regions. No other chest wall abnormalities are identified. The heart and pericardium appear normal. There are no enlarged mediastinal lymph nodes identified, although there are some slightly asymmetric lymph nodes within the left mid-hilar region, as compared to the right, although I believe this is within the range of normal. None of the nodes exceed 7mm-8mm in diameter within the hilar regions. The mediastinal and hilar vasculature appears normal. There is no pleural abnormality seen. The examination of the airways and lung parenchyma shows a single area of lucency within the lateral segment of the middle lobe, likely on the basis of small airway abnormality. No other parenchymal abnormalities are identified. Specifically, there is no evidence of metastatic disease to the chest. There is a single bleb or a small bulla in the left lung apex noted. Scans that were obtained through the upper abdomen are limited, but demonstrate no obvious abnormality. IMPRESSION: 1. No evidence of metastatic disease to the chest. 2. Small focus of hyperlucency within a subsegmental portion of the lateral segment of the middle lobe of lung, likely on the basis of small airways disease. 3. Slight asymmetry of left hilar lymph node tissue, compared to the right, but the nodes remain within the range of normal. 4. No residual thyroid tissue identified within the thoracic inlet region. /[facility] Ale Hsu MD PhD IMG CT ORDERABLES * CT NECK W CONTRAST (07/13/2005 13:04 EST) Anatomical Region Laterality Modality Other 07/13/2005 13:0 4 EST Narrative 11/27/2008 10:11 EDT H/O PAPILLARY THYROID CA, W/ LYMPH NODE INVOLVEMENT, NEVER TREATED W/ I-131 HISTORY: ?? Papillary thyroid cancer. EXAM: ??CONTRAST-ENHANCED CT SCAN OF THE NECK: ??07/13/05 1244 HOURS COMPARISON: ?? None. IMPRESSION: 1. Degenerative disc disease of C5-6. 2. Patient has had prior thyroidectomy. 3. No radiographic evidence of metastatic disease. TECHNIQUE: ??Transverse IV contrast enhanced CT scans of the paranasal sinuses were performed with coronal reformations. FINDINGS: Osseous structures appear normal with the exception of degenerative disc disease of C5-6. ??The trachea and pharynx appear normal. ??The patient has had a prior thyroidectomy and there is no evidence of tumor recurrence in this area. ??A greater than expected number of small lymph nodes are visualized in both cervical chains and subpectorally, greater on the right. ??None of these lymph nodes, however, appear pathologic. ??None of them are necrotic, contain calcification, or meet radiographic criteria for pathologic enlargement. ??Limited views of the upper chest show a pretracheal node which also does not meet pathologic criteria. ??The lung apices appear clear. ??The visualized vascular structures appear normal. Please refer to the CT scan of the chest report. ??The CT scan of the chest was performed at the same time. D: ??07/13/05 T: ??07/16/05 dw I have personally reviewed the images and the above interpretation and agree with the findings. Procedure Note Josefina Estevez DMD / Fernanda Hopson MD - 11/27/2008 H/O PAPILLARY THYROID CA, W/ LYMPH NODE INVOLVEMENT, NEVER TREATED W/ I-131 HISTORY: Papillary thyroid cancer. EXAM: CONTRAST-ENHANCED CT SCAN OF THE NECK: 07/13/05 1244 HOURS COMPARISON: None. IMPRESSION: 1. Degenerative disc disease of C5-6. 2. Patient has had prior thyroidectomy. 3. No radiographic evidence of metastatic disease. TECHNIQUE: Transverse IV contrast enhanced CT scans of the paranasal sinuses were performed with coronal reformations. FINDINGS: Osseous structures appear normal with the exception of degenerative disc disease of C5-6. The trachea and pharynx appear normal. The patient has had a prior thyroidectomy and there is no evidence of tumor recurrence in this area. A greater than expected number of small lymph nodes are visualized in both cervical chains and subpectorally, greater on the right. None of these lymph nodes, however, appear pathologic. None of them are necrotic, contain calcification, or meet radiographic criteria for pathologic enlargement. Limited views of the upper chest show a pretracheal node which also does not meet pathologic criteria. The lung apices appear clear. The visualized vascular structures appear normal. Please refer to the CT scan of the chest report. The CT scan of the chest was performed at the same time. william I have personally reviewed the images and the above interpretation and agree with the findings. Ale Hsu MD PhD IMG CT ORDERABLES documented in this encounter Visit Diagnoses Not on filedocumented in this encounter
--- OUTSIDE RECORDS SUMMARY | 2024-02-10 18:25 | XMS_ITS | Encounter Summary ---
Author Organization [facility] Address [address] [place] [address] Care Team Providers Care Mri Special Procedures Technologist Name Role Phone Unavailable Primary Care Provider Unavailabl e Encounter Details Date Type Department Care Team (Latest Contact Info) Description 02/03/2001 20:03 EDT Hospital Encounter [facility] - Other [address] [place] [address] Ale Hsu MD PhD [address] [place] [address] [place] [phone] Unknown, ProviderMD Discharge Disposition: Auto Discharge Social History Tobacco [...] Diagnosis Comments THYROGLOBULIN, TUMOR MARKER, S Routine 02/03/2001 10:41 EDT TSH Routine 02/03/2001 10:41 EDT T4 FREE Routine 02/03/2001 10:41 EDT documented in this encounter Results * (ABNORMAL) TSH (02/03/2001 10:41 EDT) TSH 34.42(H) 0.35 - 5.50 uIU/ml [facility] 02/03/2001 10:4 1 EDT 02/03/2001 10:53 EDT Ale Hsu MD PhD CHEMISTRY & BLOOD GAS ORDERABLES [facility] [address] [place] [address] * THYROGLOBULIN TUMOR MARKER (02/03/2001 10:41 EDT) Pathologist [facility] Thyroglobulin Ab Negative ?? [facility] Thyroglobulin <0.1Unit: ng/mL ??(Note) Specimens with thyroglobulin concentrations greater than ? 250,000 ng/mL may give falsely lower results. ? -- EXPECTED VALUES -- ? (Ref Range) < or = 33 (> or = 16 years) ?(normal thyroid) ? <5.0 (> or = 16 years) ?(athyroidic patient) ? Test performed by immunoenzymatic assay kit manufactured ? by [employer] ? Serum markers are not specific for malignancy, and values ? may vary by method. ? Please note change in methodology and reference range ? effective January 07, 2001. ? TEST PERFORMED OR REFERRED BY [facility] ? [facility] ? [address] ? [place], [place] ??[address] ? [facility] 02/03/2001 10:4 1 EDT 02/03/2001 10:53 EDT Ale Hsu MD PhD CHEMISTRY & BLOOD GAS ORDERABLES Performing Organization Address [facility] Co de Phone Number [facility] [address] [place] [address] * T4 FREE (02/03/2001 10:41 EDT) Free T4 1.1 0.8 - 1.8 ng/dl [facility] 02/03/2001 10:4 1 EDT 02/03/2001 10:53 EDT Ale Hsu MD PhD CHEMISTRY & BLOOD GAS ORDERABLES Performing Organization Address [facility] Co de Phone Number [facility] [address] [place] [address] documented in this encounter Visit Diagnoses Not on filedocumented in this encounter
--- OUTSIDE RECORDS SUMMARY | 2024-02-10 18:25 | XMS_ITS | Encounter Summary ---
Author Organization [facility] Address [address] [place] [address] Care Team Providers Care Xerox Machine Mechanic Name Role Phone Unavailable Primary Care Provider Unavailabl e Encounter Details Date Type Department Care Team (Late st Contact Info) Description 01/11/2004 10:04 EDT Hospital Encounter [facility] - Other [address] [place] [address] Ale Hsu MD PhD [address] [place] [phone] Social History Tobacco Use Types Packs/Day [...]
--- OUTSIDE RECORDS SUMMARY | 2024-02-10 18:25 | XMS_ITS | Encounter Summary ---
Author Organization [facility] Address [address] [place] [address] Care Team Providers Care Family Practitioner Name Role Phone Unavailable Primary Care Provider Unavailabl e Encounter Details Date Type Department Care Team (Late st Contact Info) Description 12/14/2003 14:26 EDT Hospital Encounter [facility] - Other [address] [place] [address] Ale Hsu MD PhD [address] [place] [address] [place] [phone] Social History Tobacco Use Types Packs/Day [...] Diagnosis Comments THYROGLOBULIN, TUMOR MARKER, S Routine 12/14/2003 14:26 EDT TSH Routine 12/14/2003 14:26 EDT T4 FREE Routine 12/14/2003 14:26 EDT documented in this encounter Results * (ABNORMAL) TSH (12/14/2003 14:26 EDT) Pathologist [facility] TSH 9.49(H) 0.35 - 5.50 uIU/ml [facility] 12/14/2003 14:2 6 EDT 12/14/2003 14:34 EDT Ale Hsu MD PhD CHEMISTRY & BLOOD GAS ORDERABLES [facility] [address] [place] [address] * (ABNORMAL) THYROGLOBULIN TUMOR MARKER (12/14/2003 14:26 EDT) Pathologist [facility] Thyroglobulin Antibody Screen 93278 11Unit: IU/mL(Note) -- EXPECTED VALUES -- ? (Ref Range) <=2.3 ? TEST PERFORMED OR REFERRED BY [facility] ? [address] ? [place] [address] ? Truant Officer: ? Ivan Rosenthal M.D. ?(H) [facility] Thyroglobulin Tumor Marker <0.1Unit: ng/mL(Note) Quantitation of thyroglobulin may be unreliable due to the ? presence of anti-thyroglobulin antibodies. ? Specimens with thyroglobulin concentrations greater than ? 250,000 ng/mL may give falsely lower results. ? -- EXPECTED VALUES -- ? (Ref Range) <=33 ? Athyrotic individuals ? normally have hTg values ? less than 5 ng/mL. ? Test performed by immunoenzymatic assay kit manufactured ? by [employer] ? Serum markers are not specific for malignancy, and values ? may vary by method. ? TEST PERFORMED OR REFERRED BY [facility] ? [address] ? [place] [address] ? Truant Officer: ? Ivan A. Galo M.D. ? [facility] 12/14/2003 14:2 6 EDT 12/14/2003 14:34 EDT Ale Hsu MD PhD CHEMISTRY & BLOOD GAS ORDERABLES Performing Organization Address [facility] de Phone Number [facility] [address] [place] [address] * T4 FREE (12/14/2003 14:26 EDT) Free T4 1.4 0.8 - 1.8 ng/dl [facility] 12/14/2003 14:2 6 EDT 12/14/2003 14:34 EDT Ale Hsu MD PhD CHEMISTRY & BLOOD GAS ORDERABLES Performing Organization Address [facility] de Phone Number [facility] [address] [place] [address] documented in this encounter Visit Diagnoses Not on filedocumented in this encounter
--- OUTSIDE RECORDS SUMMARY | 2024-02-10 18:25 | XMS_ITS | Encounter Summary ---
Author Organization [facility] Address [address] [place] [address] Care Team Providers Care Spare Hand Name Role Phone Catina Chowdhury NP Primary Care Provider [phone] Encounter Details Date Type Department Care Team (Late st Contact Info) Description 01/11/2004 Results Only [facility] Endocr[facility]ology - [facility] [address] [place] [address] Ale Hsu MD PhD [address] [place] [address] [address] [place] [phone] Social History Tobacco Use Types [...] Diagnosis Comments THYROGLOBULIN, TUMOR MARKER, S Routine 01/11/2004 16:59 EDT TSH Routine 01/11/2004 16:59 EDT T4 FREE Routine 01/11/2004 16:59 EDT documented in this encounter Results * (ABNORMAL) TSH (01/11/2004 16:59 EDT) TSH 23.34(H) 0.35 - 5.50 uIU/ml [facility] 01/11/2004 16:5 9 EDT 01/11/2004 17:48 EDT Ale Hsu MD PhD CHEMISTRY & BLOOD GAS ORDERABLES [facility] [address] [place] [address] * (ABNORMAL) THYROGLOBULIN TUMOR MARKER (01/11/2004 16:59 EDT) Thyroglobulin Antibody Screen 62675 9.8Unit: IU/mL(Note) -- EXPECTED VALUES -- ? (Ref Range) <=2.3 ? TEST PERFORMED OR REFERRED BY [facility] ? [address] ? [place] [address] ? Research Food Technologist: ? Ivan Rosenthal M.D. ?(H) [facility] Thyroglobulin Tumor Marker 0.3Unit: ng/mL(Note) Quantitation of thyroglobulin may be unreliable due to the ? presence of anti-thyroglobulin antibodies. ? Specimens with thyroglobulin concentrations greater than ? 250,000 ng/mL may give falsely lower results. ? -- EXPECTED VALUES -- ? (Ref Range) <=33 ? Athyrotic individuals ? normally have hTg values ? less than 5 ng/mL. ? Test performed by immunoenzymatic assay kit manufactured ? by [employer] ? Serum markers are not specific for malignancy, and values ? may vary by method. ? TEST PERFORMED OR REFERRED BY [facility] ? [address] ? [place] [address] ? Research Food Technologist: ? Ivan Rosenthal M.D. ? [facility] 01/11/2004 16:5 9 EDT 01/11/2004 17:48 EDT Ale Hsu MD PhD CHEMISTRY & BLOOD GAS ORDERABLES Performing Organization Address [facility] de Phone Number [facility] [address] [place] [address] * T4 FREE (01/11/2004 16:59 EDT) Free T4 1.4 0.8 - 1.8 ng/dl [facility] 01/11/2004 16:5 9 EDT 01/11/2004 17:48 EDT Ale Hsu MD PhD CHEMISTRY & BLOOD GAS ORDERABLES Performing Organization Address [facility] de Phone Number [facility] [address] [address] documented in this encounter Visit Diagnoses Not on filedocumented in this encounter Care Teams Spare Hand Relationship Specialty Start Date End Date Catina Chowdhury, [facility]I [facility] [address] [place] [address] PCP - General 02/03/09 07/20/12 documented as of this encounter
--- OUTSIDE RECORDS SUMMARY | 2024-02-10 18:25 | XMS_ITS | Encounter Summary ---
Author Organization [facility] Address [address] [place] [address] Care Team Providers Care Sales Representative Electric Service Name Role Phone Catina Chowdhury NP Primary Care Provider [phone] Encounter Details Date Type Department Care Team (Late st Contact Info) Description 01/28/2006 Before PRISM Converted Visit (Maple) [facility] - Maple conversion [address] [place] [address] [facility] MD [facility] [address] [place] [phone] Social History Tobacco Use Types Packs/Day Years Used Date Smoking Tobacco: Never Assessed Sex and Gender Information Value Date Recorded Sex Assigned at Not on file Gender Identity Not on file Sexual Orientation Not on file documented as of this encounter Progress Notes * Ale Hsu MD - 05/06/2009 1317 EST DIVISION OF ENDOCRINOLOGY PROBLEM #1: History of papillary thyroid, 1987 A. T2N1M0 B. Treated with total thyroidectomy C. Thyroid suppression SUBJECTIVE: I called Ms. Banerjee on the phone. She has had, for the last 2 years, elevated thyroglobulin antibody screens. Therefore,measurement of the tumor marker is impossible. Her antibody screen was in the 7 to 9 range. At the last visit in December it was up to 14. What made it a little worrisomewas that back in 2000, 1999, and 1998 antibody screens were negative. Having saidthat it was a different assay. Therefore, we sent Ms. Banerjee to see Dr. Goff as it has been our experience that when patients start to show elevations in tumor marker (or in antibody levels which could mean that tumor marker is elevated) that they may have micrometastases in the lymph nodes. Dr. Goff did a very thorough neck ultrasound and did not see anything unusual. Looking back at her clinic record, she actually had a CT. They did see some lymph nodes ???greater than expected?? in the cervicalchainsand also on the right side of the chest. None of these appeared pathologic. None were necrotic. There were no calcifications, and they were all small in the 7 to 8 mm range. Her original tumor was somewhat aggressive as 2 out of 7 lymph nodes in the superior mediastinal area were positive for cancer, although cervical lymph nodes looked like they were negative. At the same time she also had chronic lymphocytic thyroiditis. Thus our impression is that she may have residual disease that is toosmall to see on present scanning. Therefore, she should be closely followed. We would recommend that she have a follow up neck ultrasound with Dr. Goff in a year. We can also check her thyroid functions with thyroglobulin tumor marker twice a year. Finally, there is a strong possibility that these antibodies were always positive from her history of chronic lymphocytic thyroiditis; that these antibodies never really cleared but that the old assay was not accurate enough to last picker the antibodies.I think time will show which of these diagnoses is the true one. I talked to Ms. Banerjee, and she understands the reason for close observation for now. Thus we will send her lab slip for doing the blood test for twice a year, and we will set up another appointment with Dr. Goff in 1 year. Signed by Ale Hsu MD,PhD 01/30/2006 17:56 Estephanie Hsu MD,PhDAle Hsu MD,PhD Ale Hsu MD,PhD - Ale Hsu MD,PhD P - ds Job ID: [id number] Document ID: [id number] cc: MD Cristofer Rodriguez MD Ms. Jc Banerjee, [address] [facility] [address], [place] [address] documented in this encounter Plan of Treatment Not on file documented as of this encounter Visit Diagnoses Not on filedocumented in this encounter Care Teams Sales Representative Electric Service Relationship Specialty Start Date End Date Catina Chowdhury, [facility]IDI [facility] [address] [place] [address] PCP - General 02/03/09 07/20/12 documented as of this encounter
--- OUTSIDE RECORDS SUMMARY | 2024-02-10 18:25 | XMS_ITS | Encounter Summary ---
Author Organization [facility] Address [address] [place] [address] Care Team Providers Care Mortar Carrier Name Role Phone Catina Chowdhury NP Primary Care Provider [phone] Encounter Details Date Type Department Care Team (Late st Contact Info) Description 12/04/2006 Before PRISM Converted Visit (Maple) [facility] - Maple conversion [address] [place] [address] Lance Valdes MD [address] [facility], [address] [place] [address] Social History Tobacco Use Types Packs/Day Years Used Date Smoking Tobacco: Never Assessed Sex and Gender Information Value Date Recorded Sex Assigned at Not on file Gender Identity Not on file Sexual Orientation Not on file documented as of this encounter Progress Notes * Lance Valdes MD - 03/22/2009 1227 EST DIVISION OF OTOLARYNGOLOGY PROGRESS/FOLLOWUP NOTE - 12/04/2006 GERONIMO Banerjee is seen in follow up today for a history of thyroid papillary carcinoma. This was a T2, N1, M0 lesion treated with total thyroidectomy back in 1987. She not receive radioactive iodine atthat time because she was despite several positive nodes. She has continued to do well. She now has antibodies to thyroglobulin which precludes accurate monitoring with thyroglobulin levels alone. She has been undergoing annual ultrasound to monitor for the possibility of recurrence. The last ultrasound was by Dr. Goff in January 2006 at which point there was no evidence of residual or pathologic adenopathy or suggestions of recurrent papillary carcinoma in the neck. OBJECTIVE On examination today the patient was [...] ellie compartment and bilateral internal jugular chains were performed. There is no residual thyroid tissue or masses in the area of the previous thyroidectomy. There is no adenopathy in the neck of concern. ASSESSMENT/PLAN Remote history of papillary thyroid carcinoma. Todayultrasound did not demonstrate any suspicious adenopathy or masses. She was reassured accordingly. She will continue to follow up with Dr. Hsu. I will see her back in one year for a repeat ultrasound. Signed by Lance Valdes MD 12/11/2006 12:42 Kwabena Jordan MD Lance Valdes MD -Lance Valdes MD -vern Job ID: [id number] Doc ID: [id number] cc: Ale Hsu MD, PhD Cristofer Zapata MD documented in this encounter Plan of Treatment Not on file documented as of this encounter Visit Diagnoses Not on filedocumented in this encounter Care Teams Mortar Carrier Relationship Specialty Start Date End Date Catina Chowdhury NP [facility] [address] [place] [address] PCP - General 02/03/09 07/20/12 documented as of this encounter
--- OUTSIDE RECORDS SUMMARY | 2024-02-10 18:25 | XMS_ITS | Encounter Summary ---
Author Organization [facility] Address [address] [place] [address] Care Team Providers Care Graduate Internship Name Role Phone Unavailable Primary Care Provider Unavailabl e Encounter Details Date Type Department Care Team ([facility] st Contact Info) Description 12/12/2005 10:40 EDT Hospital Encounter [address] [address] Ale Hsu MD PhD [address] [place] [address] [place] [phone] Social History Tobacco Use Types Packs/Day [...] Diagnosis Comments THYROGLOBULIN, TUMOR MARKER, S Routine 12/12/2005 11:35 EDT TSH Routine 12/12/2005 11:35 EDT T4 FREE Routine 12/12/2005 11:35 EDT documented in this encounter Results * TSH (12/12/2005 11:35 EDT) Pathologist [facility] TSH 1.77 0.35 - 5.00 uIU/mL [facility] 12/12/2005 11:3 5 EDT 12/12/2005 11:50 EDT Ale Hsu MD PhD CHEMISTRY & BLOOD GAS ORDERABLES [facility] [address] [place] [address] * (ABNORMAL) THYROGLOBULIN TUMOR MARKER (12/12/2005 11:35 EDT) [facility] Thyroglobulin Antibody Screen 06011 14Unit: IU/mL(Note) -- EXPECTED VALUES -- ? (Ref Range) <=2.3 ?(H) KIKI MARTINEZ Thyroglobulin Tumor Marker <0.1Unit: ng/mL(Note) Quantitation of thyroglobulin may be unreliable due to the ? presence of anti-thyroglobuli n antibodies. ? Specimens with thyroglobulin concentrations greater than ? 250,000 ng/mL may give falsely lower results. ? Method is [employer] [place] Access Immunoassay System. ? -- EXPECTED VALUES -- ? (Ref Range) <=33 ? Athyrotic individuals ? normally have hTg values ? less than 5 ng/mL. ? Serum markers are not specific for malignancy and values ? may vary by method. ? Test Performed by: ? [facility] D[facility] Med and Pathology ? [address] , [place] [address] ? Chemical Handler: Melodie Washington M.D. ? [facility] 12/12/2005 11:3 5 EDT 12/12/2005 11:50 EDT Ale Hsu MD PhD CHEMISTRY & BLOOD GAS ORDERABLES Performing Organization Address [facility] Co de Phone Number [facility] [address] [place] [address] * (ABNORMAL) T4 FREE (12/12/2005 11:35 EDT) Free T4 1.9(H) 0.8 - 1.8 ng/dL [facility] 12/12/2005 11:3 5 EDT 12/12/2005 11:50 EDT Ale Hsu MD PhD CHEMISTRY & BLOOD GAS ORDERABLES Performing Organization Address [facility] de Phone Number [facility] [address] [place] [address] documented in this encounter Visit Diagnoses Not on filedocumented in this encounter
--- OUTSIDE RECORDS SUMMARY | 2024-02-10 18:25 | XMS_ITS | Encounter Summary ---
Author Organization [facility] Address [address] [place] [address] Care Team Providers Care Prosecuting Attorney Name Role Phone Catina Chowdhury AVIATION ELECTRONICS TECHNICIAN Primary Care Provider [phone] Encounter Details Date Type Department Care Team (Late st Contact Info) Description 02/01/2010 Abstract [facility] Endocrinology - [address] [address] Ale Hsu MD PhD [address] [facility] [address] [place] [address] Social History Tobacco Use Types Packs/Day Years Used Date Smoking Tobacco: Never Assessed Sex and Gender Information Value Date Recorded Sex Assigned at Not on file Gender Identity Not on file Sexual Orientation Not on file documented as of this encounter Plan of Treatment Not on file documented as of this encounter Visit Diagnoses Not on filedocumented in this encounter Historical Medications * This list may reflect changes made after this encounter. Medication Sig Dispensed Refills Start Date End Date RANITIDINE HCL ORAL Take 1 Tab by mouth as needed. 02/06/2010 levothyroxine (SYNTHROID) 150 mcg tablet Take 150 mcg by mouth daily. 02/06/2010 BUPROPION HCL (WELLBUTRIN ORAL) Take 150 mg by mouth 2 times daily. 02/01/2010 02/05/2011 added in this encounter Care Teams Prosecuting Attorney Relationship Specialty Start Date End Date Catina Chowdhury NP [facility] [address] [place] [address] PCP - General 02/03/09 07/20/12 documented as of this encounter
--- OUTSIDE RECORDS SUMMARY | 2024-02-10 18:25 | XMS_ITS | Encounter Summary ---
Author Organization [facility] Address [address] [place] [address] Care Team Providers Care Electron Beam Machine Welder Setter Name Role Phone Unavailable Primary Care Provider Unavailabl e Encounter Details Date Type Department Care Team (Late st Contact Info) Description 01/15/2006 14:26 EDT Hospital Encounter [facility] [address] [place] [address] Monico Goff MD Social History Tobacco Use Types Packs/Day [...]
--- OUTSIDE RECORDS SUMMARY | 2024-02-10 18:25 | XMS_ITS | Encounter Summary ---
Author Organization [facility] Address [address] [place] [address] Care Team Providers Care Account Development Specialist Name Role Phone Catina Chowdhury NP Primary Care Provider [phone] Encounter Details Date Type Department Care Team ([facility] st Contact Info) Description 01/15/2006 Before PRISM Converted Visit (Maple) [facility] - Maple conversion [address] [place] [address] Monico Goff MD Social History Tobacco Use Types Packs/Day Years Used Date Smoking Tobacco: Never Assessed Sex and Gender Information Value Date Recorded Sex Assigned at Not on file Gender Identity Not on file Sexual Orientation Not on file documented as of this encounter Progress Notes * Monico Goff MD - 05/19/2009 0806 EST DIVISION OF OTOLARYNGOLOGY January 16, 2006 Ale Hsu MD, PhD [address] [address] DOS: 01/15/06 Dear Ale: I had the pleasure of seeing Jc Banerjee in the office today. I did perform an ultrasound screening of her neck and thyroid bed. In actual fact I caneven appreciate much of significant thyroid tissue in the bed and that is somewhat questionable. I do not know as do you why the patient is all of a sudden in the past year to two becoming antibody positive. However, I am confident that on ultrasound there is no evidence of any pathologic late micrometastasis or lymphadenopathy. I think it would be certainly unusual for her to go all of these years and suddenly determine a significant pathologicrecurrence without anything in the neck but, of course, we havent seen everything imaginable. Meaghan happy to see her again in followup in the future if this screening modality is preferable. Sincerely, Signed by Monico Goff MD 01/22/2006 18:02 Rivas Gilman MD Monico Goff MD - MD Shell P - kmb Job ID: tape Document ID: [id number] cc: Ale Hsu MD,PhD * Monico Goff MD - 05/19/2009 0806 EST DIVISION OF OTOLARYNGOLOGY PROGRESS/FOLLOWUP NOTE - 01/15/2006 S: This patient is requested in consultation by Ale Hsu. She underwent a total thyroidectomy in 1987 and was at the time thus radioactive iodine was not delivered. The original lesion was apparently 2 -3 centimeters and there were 2 of 7 positive lymph nodes in the mediastinum. She has been antibody negative up until 2003 when she then converted to an antibody positive status. There is no evidence of any subjective symptomatology and Dr. Hsu requests her ultrasound examinationsince the antibody marker could not be utilized as a way to determine late term recurrence. O: The ultrasound today fails to show evidence of any significant lymphadenopathy in any of zones 1-6. I have carefully examined her with ultrasound comprehensively through all of these area and am confident that there is nothing pathologic identified. Signed by Monico Goff MD 01/22/2006 18:02 Rivas Gilman MD Monico Goff MD - MD Shell P - kmb Job ID: tape Document ID: [id number] cc: * Monico Goff MD - 05/19/2009 0633 EST DIVISION OF OTOLARYNGOLOGY PROGRESS/FOLLOWUP NOTE - 01/15/2006 ULTRASOUND REPORT: Indications for Procedure: patient has had a previous total thyroidectomy in 1987. The patient had an undetectable thyroglobulin level and was antibody negative until recently. She now is antibody positive and the question is whether ultrasound will be utilized to detect anyoccult thyroid malignancy in the neck. Procedure: a Bvents IU-22 system, biplanar B-mode ultrasound was performed of the neck bilaterally. The patient allegedly has a small remnant of thyroid on the right side but it is very difficult tomake that determination on this ultrasound examination. In addition the patient is free of any significant lymphadenopathy. There are a few very small lymph nodes that are subcentimeter in size in zone 5 bilaterally on the neck. Those measured on the left side were .6 x .2 x 1 centimeter and .6 x .2 x 1 centimeter respectively. A careful inspection from zones 1 - 6 fails to identify any pathologic lymphadenopathy. Impression: 1. Athyrotic patient. 2. No evidence of any residual or pathologic lymphadenopathy. Signed by Monico Goff MD 01/22/2006 18:02 Rivas Gilman MD Monico Goff MD - MD Shell P - kmb Job ID: tape Document ID: [id number] cc: Ale Hsu MD,PhD documented in this encounter Plan of Treatment Not on file documented as of this encounter Visit Diagnoses Not on filedocumented in this encounter Care Teams Account Development Specialist Relationship Specialty Start Date End Date Catina Chowdhury NP [address] [address] PCP - General 02/03/09 07/20/12 documented as of this encounter
--- OUTSIDE RECORDS SUMMARY | 2024-02-10 18:25 | XMS_ITS | Encounter Summary ---
Author Organization [facility] Address [address] [place] [address] Care Team Providers Care City Superintendent Name Role Phone Unavailable Primary Care Provider Unavailabl e Encounter Details Date Type Department Care Team (Late st Contact Info) Description 12/11/2006 11:06 EDT Hospital Encounter [facility] conversion [address] [place] [address] Ale Hsu MD PhD [address] [place] [address] [place] [phone] Social History Tobacco Use Types Packs/Day [...]
--- OUTSIDE RECORDS SUMMARY | 2024-02-10 18:25 | XMS_ITS | Encounter Summary ---
Author Organization [facility] Address [address] [place] [address] Care Team Providers Care Hvac Service Manager Name Role Phone Unavailable Primary Care Provider Unavailabl e Encounter Details Date Type Department Care Team (Late st Contact Info) Description 12/13/2004 11:50 EDT Hospital Encounter [facility] - Other [address] [place] [address] Ale Hsu MD PhD [address] [place] [address] [place] [phone] Social History Tobacco Use Types Packs/Day [...] Diagnosis Comments THYROGLOBULIN, TUMOR MARKER, S Routine 12/13/2004 12:06 EDT TSH Routine 12/13/2004 12:06 EDT T4 FREE Routine 12/13/2004 12:06 EDT documented in this encounter Results * (ABNORMAL) TSH (12/13/2004 12:06 EDT) Pathologist [facility] TSH 0.05(L) 0.35 - 5.50 uIU/ml KIKI MARTINEZ 12/13/2004 12:0 6 EDT 12/13/2004 12:22 EDT Ale Hsu MD PhD CHEMISTRY & BLOOD GAS ORDERABLES [facility] [address] [place] [address] * (ABNORMAL) THYROGLOBULIN TUMOR MARKER (12/13/2004 12:06 EDT) Pathologist [facility] Thyroglobulin Antibody Screen 28946 7.6Unit: IU/mL(Note) -- EXPECTED VALUES -- ? (Ref Range) <=2.3 ? TEST PERFORMED OR REFERRED BY [facility] ? [address] ? [place] [address] ? Compliance Testing Analyst: ? Ivan Rosenthal M.D. ?(H) KIKI MARTINEZ Thyroglobulin Tumor Marker <0.1Unit: ng/mL(Note) Quantitation of thyroglobulin may be unreliable due to the ? presence of anti-thyroglobuli n antibodies. ? Specimens with thyroglobulin concentrations greater than ? 250,000 ng/mL may give falsely lower results. ? Method is [employer] Access Immunoassay System. ? -- EXPECTED VALUES -- ? (Ref Range) <=33 ? Athyrotic individuals ? normally have hTg values ? less than 5 ng/mL. ? Serum markers are not specific for malignancy, and values ? may vary by method. ? TEST PERFORMED OR REFERRED BY [facility] ? [address] ? [place] [address] ? Compliance Testing Analyst: ? Ivan Rosenthal M.D. ? KIKI MARTINEZ 12/13/2004 12:0 6 EDT 12/13/2004 12:22 EDT Ale Hsu MD PhD CHEMISTRY & BLOOD GAS ORDERABLES [facility] [address] [place] [address] * (ABNORMAL) T4 FREE (12/13/2004 12:06 EDT) Free T4 2.0(H) 0.8 - 1.8 ng/dl KIKI MARTINEZ 12/13/2004 12:0 6 EDT 12/13/2004 12:22 EDT Ale Hsu MD PhD CHEMISTRY & BLOOD GAS ORDERABLES [facility] [address] [place] [address] documented in this encounter Visit Diagnoses Not on filedocumented in this encounter
--- OUTSIDE RECORDS SUMMARY | 2024-02-10 18:25 | XMS_ITS | Encounter Summary ---
Author Organization [facility] Address [address] [place] [address] Care Team Providers Care Equipment Maintenance Supervisor Name Role Phone Catina Chowdhury NP Primary Care Provider [phone] Encounter Details Date Type Department Care Team (Late st Contact Info) Description 12/13/2004 Before PRISM Converted Visit (Maple) [facility] - Maple conversion [address] [place] [address] [facility] [address] [place] [address] Social History Tobacco Use Types Packs/Day Years Used Date Smoking Tobacco: Never Assessed Sex and Gender Information Value Date Recorded Sex Assigned at Not on file Gender Identity Not on file Sexual Orientation Not on file documented as of this encounter Progress Notes * Ale Hsu MD - 07/12/2009 1720 EST DIVISION OF ENDOCRINOLOGY PROGRESS/FOLLOWUP NOTE - 12/13/2004 PROBLEM: 1. History of papillary thyroid cancer, 1988. A. T2, N1, M0. B. Treated with total thyroidectomy. C. Thyroid suppression. SUBJECTIVE: Jc returns to the endocrine clinic. Our concern was that in 1996 her thyroglobulin level was undetectably low and her TSH was elevated, and she had negative antibodies. Antibodies were negative again in 1998 and 1999, with the thyroglobulin level being very low. In 2000, TSH was again very elevated at 34; thyroglobulin level was undetectably low, showingthat she had a very good prognosis, likely cured from any disease; and antibodies were negative. This trend continued until 2003. At that time, her TSH was 9.0; the tumor marker was low, but suddenly, antibody screen was very positive. I have to say that between 2002 and 2003 the antibody screen had changed, in that in 2002 the test was done by a certain assay kit. The specimens were all pretreated with heterophile blockingreagents. This had been further refined, and in 2003 she suddenly had a positive antibody scan of 11, with normal being less than 2.3. At that time, the tumor marker was undetectably low, so we repeated the blood tests, wondering if this was a lab error. This time, her TSH was high again at 23; thetumor marker was 0.3; the thyroidantibody screen was positive at 9.8. We recommended an ultrasound and CT of the chest and neck, but Jc had a lot going on in her life. She declined doing the CT at the time. We did get the ultrasound, and this showed no significant change from 2000, when she clearly had no antibodies. We did see a small amount of tissue in the right thyroid bed that measured, at most, 5-6 mm. There were no large masses, and they did not see any cervical lymphadenopathy. She returns to the endocrine clinic stating that overall, she has been feeling well. There has robyn lot of ongoing stress. She did not get a lot of sleep because she took a trip, the plane got delayed, and she did not get home until about 2 a.m. She is presently taking 125 mcg of thyroid medicine, 1 Saturday through Saturday and 1?? on Saturday and Saturday. OBJECTIVE: Her eyes look a little bit puffy. I did not see any conjunctival injection or exophthalmos, but there was a little periorbital swelling. On neck exam, there is no palpable tissue. No lymphadenopathy in the cervical or supraclavicular areas. I did do a quick ultrasound, although I did not charge her for this, and I did not see any specifictissue or lymphadenopathy on the right or left side. She did not have the time to do blood testing, and plans to do it today. AND PLAN: I am not really sure what to make of positive antibodies all of a sudden. I assume that she may have had some inflammation at the surgical site, but again, with her original disease there were some involved lymph nodes, so I do not know if she could have some residual disease. Her original thyroid cancer was diagnosed at a time when she was , and therefore, she was never treatedwith radioactive iodine. Therefore, I would not be surprised if she had some small residual tissue,or a very small amount of residual thyroglobulin. We will see how the blood tests come out this time. If the antibodies have cleared, I do not think she has anything to worry about. Even if they are there, if the titer is decreasing, I would again say there would be little to be concerned about. Only if the titer does not seem to be clearing well and if the thyroglobulin marker is going up, we might consider imaging of the area. Signed by Ale Hsu MD,PHD 12/30/2004 14:40 Estephanie Hsu MD,Ale Hsu MD, Ale Hsu MD, D: - Ale Hsu MD, A - sa Job ID: Document ID: [id number] cc: documented in this encounter Plan of Treatment Not on file documented as of this encounter Visit Diagnoses Not on filedocumented in this encounter Care Teams Equipment Maintenance Supervisor Relationship Specialty Start Date End Date Catina Chowdhury NP [address] [address] PCP - General 02/03/09 07/20/12 documented as of this encounter
--- OUTSIDE RECORDS SUMMARY | 2024-02-10 18:25 | XMS_ITS | Encounter Summary ---
Author Organization [facility] Address [address] [place] [address] Care Team Providers Care Compliance Spec Name Role Phone Unavailable Primary Care Provider Unavailabl e Encounter Details Date Type Department Care Team (Latest Contact Info) Description 03/05/2001 10:06 EDT - 03/05/2001 11:59 EDT Hospital Encounter [facility] [address] [place] [address] Ale Hsu MD PhD [address] [place] [phone] Discharge Disposition: Auto Discharge Social History [...] Procedure Name Priority Date/Time Associated Diagnosis Comments RAD US NECK/THYROID Routine 03/05/2001 1 0:35 EDT documented in this encounter Results * RAD US NECK/THYROID (03/05/2001 10:35 EDT) Anatomical Region Laterality Modality Other 03/05/2001 10:3 5 EDT Impressions 04/01/2009 0:34 EST IMPRESSION: 1. Several small nonpathological lymph nodes in the right and left neck. No masses are seen. 2. Clinical follow-up is recommended given the provided history of a palpable mass on the right, as no distinct mass is palpated at the time of this exam and no pathologic mass is seen on US. /dkd Narrative 04/01/2009 0:34 EST THYROID U/S, HX OF THYROID CA, T2 NO, MORE THEN 10 YEARS AGO, TREATMEN T WITH FX, FELL PALPABLE MASS ON RT SIDE OF NECK R/O EVALUATE MASS, SI ZE ULTRASOUND NECK/THYROID: 03/05/01 1015 HOURS. INDICATION FOR STUDY: History of thyroid cancer T2, N0 ten years ago, treated with thyroidectomy. Palpable right mass mid-neck. Re-check. FINDINGS: Physicial examination in the department prior to the ultrasound by Dr. Sanders, attending physician, and myself did not show a palpable mass on the right side of the neck. The patient was unable to palpate a mass. Ultrasound of the neck showed no remaining thyroid tissue on the right or the left in the region of the thyroid bed. On the left there is a small anterior cervical lymph node, just above the clavicle with a normal fatty hilum. This measures 4 mm in short axis. On the right side in the mid-neck, there are two small normal appearing lymph nodes. These both measure 2 mm in short axis. No masses are seen. Procedure Note Jim Jimenez MD / Mackenzie Sanders MD - 04/01/2009 THYROID U/S, HX OF THYROID CA, T2 NO, MORE THEN 10 YEARS AGO, TREATMEN T WITH FX, FELL PALPABLE MASS ON RT SIDE OF NECK R/O EVALUATE MASS, SI ZE ULTRASOUND NECK/THYROID: 03/05/01 1015 HOURS. INDICATION FOR STUDY: History of thyroid cancer T2, N0 ten years ago, treated with thyroidectomy. Palpable right mass mid-neck. Re-check. FINDINGS: Physicial examination in the department prior to the ultrasound by Dr. Sanders, attending physician, and myself did not show a palpable mass on the right side of the neck. The patient was unable to palpate a mass. Ultrasound of the neck showed no remaining thyroid tissue on the right or the left in the region of the thyroid bed. On the left there is a small anterior cervical lymph node, just above the clavicle with a normal fatty hilum. This measures 4 mm in short axis. On the right side in the mid-neck, there are two small normal appearing lymph nodes. These both measure 2 mm in short axis. No masses are seen. IMPRESSION IMPRESSION: 1. Several small nonpathological lymph nodes in the right and left neck. No masses are seen. 2. Clinical follow-up is recommended given the provided history of a palpable mass on the right, as no distinct mass is palpated at the time of this exam and no pathologic mass is seen on US. /asiya Ale Hsu MD PhD IMG US ORDERABLES documented in this encounter Visit Diagnoses Not on filedocumented in this encounter
--- OUTSIDE RECORDS SUMMARY | 2024-02-10 18:25 | XMS_ITS | Encounter Summary ---
Author Organization [facility] Address [address] [place] [address] Care Team Providers Care Boat Outfitter Name Role Phone Catina Chowdhury NP Primary Care Provider [phone] Reason for Visit * Reason Comments Follow-up thyroid Encounter Details Date Type Department Care Team (Latest Contact Info) Description 02/06/2010 11:20 EDT Office Visit [facility] Endocrinology - [address] [address] Ale Hsu MD PhD [address] [place] [address] [address] [place] [address] Malignant neoplasm of thyroid gland (HCC-CMS) (Primary Dx) Social History Tobacco Use Types Packs/Day Years Used Date Smoking Tobacco: Never Assessed Sex and Gender Information Value Date Recorded Sex Assigned at Not on file Gender Identity Not on file Sexual Orientation Not on file documented as of this encounter Last Filed Vital Signs Vital Sign Reading Time Taken Comments Blood Pressure 122/74 02/06/2010 1128 EDT Pulse 88 02/06/2010 1128 EDT Temperature - - Respiratory Rate - - Oxygen Saturation - - Inhaled Oxygen Concentration - - Weight 74.4 kg (164 lb) 02/06/2010 1128 EDT Height 170.2 cm (5' 7) 02/06/2010 1128 EDT Body Mass Index 25.69 02/06/2010 1128 EDT documented in this encounter Ordered Prescriptions Prescription Sig Dispensed Refills Start Date End Da te levothyroxine (SYNTHROID) 150 mcg tablet Take 1 Tab by mouth daily. 90 Tab 3 02/06/2010 02/05/2011 documented in this encounter Progress Notes * Ale Hsu MD - 02/08/2010 8207 EDT DIVISION OF ENDOCRINOLOGY PROGRESS/FOLLOWUP NOTE - 02/06/2010 PROBLEM: 1. History of papillary thyroid cancer in 1987 a. T2N1M0. b. Treated with thyroid lobectomy. c. Thyroid hormone suppression. SUBJECTIVE: Ms Banerjee is a 44-year-old woman who returns to the endocrine clinic for thyroid hormonereplacement and surveillance given a nonaggressive papillary thyroid cancer that was never treated with radioactive iodine. Having said this, she has shown a positive thyroglobulin antibody and, therefore, we are watching her as she is at higher were risk of recurrence for lymph node microscopic or macroscopic disease given that at her original surgery she did have several positive lymph nodes and again her antibody level was elevated. When she was last seen in the endocrine clinic, her TSH was1.5 a year ago. As I said, the tumor marker was negative, but she has interfering antibody levels at 11 and these have been throughout the years in the 7 to 11 range. It is noted that she did have a formal neck ultrasound when the antibodies were present in 2000 and again in 2003, and this showed just a small amount of tissue in the thyroid bed on the right side that measured 5 to 6 mm. No cervical lymphadenopathy was seen at that time and then she did have a CT of the neck done in 2005 and this shows absent thyroid gland, no evidence of tumor recurrence and lymph nodes that appear normal, without any sign of residual or recurrent disease. She states that she has not had any trouble swallowing, no laryngitis, no trouble with diarrhea or constipation. She has not had muscle cramping. She continues to take Levothyroxine 150 mcg a day and has not had any problems. OBJECTIVE: On exam today, she is 170.2 cm, 74.39 kilograms. Blood pressure 122/74 with a pulse of 88. Medicines in PRISM, as noted her levothyroxine dose is 150 mcg a day. She has a well-healed scar on her neck with no palpable mass in the thyroid bed and no cervical or supraclavicular lymphadenopathy. She is in no active distress. Lungs are clear. Heart is regular without extra heart sounds or murmur. No lower extremity edema. Reflexes are delayed. ASSESSMENT: I have been concerned about the antibody level of this patient. Having said that, it has not risen a precipitous manner. We will recheck again today and if it is decreasing, no further intervention is necessary. On the other hand, if it is increasing, we would repeat ultrasound imaging of the lymph nodes. We did renew her prescription for her thyroid medicine and also put in the orders for blood testing including a free T4, TSH, and a tumor marker. She should do this at least once to twice a year. She expressed understanding of the plan. 10: 02/06/2010 11:59 TSH 1.45 uIU/m... 0.35-5.00 Final * 02/06/2010 11:59 T4, Free 1.5 ng/dL 0.8-1.8 Final * 02/06/2010 11:59 Thyroglob Tumor Mrkr Final * 02/06/2010 11:59 On Suppression? Yes Y Final * 02/06/2010 11:59 Thyroglob Ab Scrn H 13 Y Final * 02/06/2010 11:59 Thyroglob Tumor Mrkr Y Final * Blood tests are OK (TSH in low normal range), but AB to tumor marker is again measurable, so that tumor marker cannot be realiably measured. Refer back to Dr. Valdes for sensitive neck U/SD, LN examination. Electronically Signed by Ale Hsu MD,PhD 02/08/2010 17:57 Ale Hsu MD,PhD - Ale Hsu MD,PhD - WLP Job ID: SM Doc ID: [id number] Ext Doc ID: [id number] cc: Lance Valdes MD * Ale Hsu MD - 02/06/2010 1136 EDT This office note has been dictated. documented in this encounter Plan of Treatment Not on file documented as of this encounter Procedures Procedure Name Priority Date/Time Associated Diagnosis Comments THYROGLOBULIN, TUMOR MARKER, S Routine 02/06/2010 11:59 EDT Malignant neoplasm of thyroid gland (HCC-CMS) TSH Routine 02/06/2010 11:59 EDT Malignant neoplasm of thyroid gland (HCC-CMS) T4 FREE Routine 02/06/2010 11:59 EDT Malignant neoplasm of thyroid gland (HCC-CMS) documented in this encounter Results * (ABNORMAL) THYROGLOBULIN TUMOR MARKER (02/06/2010 11:59 EDT) Thyroid Suppression? Yes ??Corrected on 02/06 AT 1201: Previously reported as Yes [facility] Thyroglobulin Ab Scrn, S 13Reference range: <4.0 Unit: IU/mL(H) [facility] Thyroglobulin, Tumor Marker, S <0.1Unit: ng/mL Quantitation of thyroglobulin may be unreliable due to the ? presence of anti-thyroglobulin antibodies. ? -- REFERENCE VALUE -- ? <=33 ? Athyrotic individuals ? normally have hTg values ? less than 5 ng/mL. ? The testing method is an immunoenzymatic assay manufactured ? by [employer] and performed on the NitroPCRel DXI ? 800. ? Values obtained with different assay methods or kits may be ? different and cannot be used interchangeably. ? Test results cannot be interpreted as absolute evidence for ? the presence or absence of malignant disease. ? Specimens with thyroglobulin concentrations greater than ? 250,000 ng/mL may give falsely lower results. ? Performed by: [facility], [address], ? [place] [address], Senior Environmental Technician: Brooke Flores, Ph.D. ? [facility] Blood specimen (specimen) 02/06/2010 11:59 EDT 02/06/2010 12:00 EDT Ale Hsu MD PhD CHEMISTRY & BLOOD GAS ORDERABLES [facility] [address] [place] [address] * T4 FREE (02/06/2010 11:59 EDT) Free T4 1.5 0.8 - 1.8 ng/dL [facility] Blood specimen (specimen) 02/06/2010 11:59 EDT 02/06/2010 12:00 EDT Ale Hsu MD PhD CHEMISTRY & BLOOD GAS ORDERABLES Performing Organization Address [facility] Co de Phone Number [facility] [address] [place] [address] * TSH (02/06/2010 11:59 EDT) TSH 1.45 0.35 - 5.00 uIU/ml [facility] Blood specimen (specimen) 02/06/2010 11:59 EDT 02/06/2010 12:00 EDT Ale Hsu MD PhD CHEMISTRY & BLOOD GAS ORDERABLES Performing Organization Address [facility] Phone Number [facility] [address] [place] [address] documented in this encounter Visit Diagnoses Diagnosis Malignant neoplasm of thyroid gland ([facility])- Primary Malignant neoplasm of thyroid gland documented in this encounter Discontinued Medications Medication Sig Discontinue Reason Start Date End Da te levothyroxine (SYNTHROID) 150 mcg tablet Take 150 mcg by mouth daily. Reorder 02/06/2010 documented as of this encounter Historical Medications * This list may reflect changes made after this encounter. Medication Sig Dispensed Refills Start Date End Date loratadine (CLARITIN) 10 mg tablet Take 10 mg by mouth at bedtime as needed. 02/05/2011 added in this encounter Care Teams Boat Outfitter Relationship Specialty Start Date End Date Catina Chowdhury NP [facility] [address] [place] [address] PCP - General 02/03/09 07/20/12 documented as of this encounter
--- OUTSIDE RECORDS SUMMARY | 2024-02-10 18:25 | XMS_ITS | Encounter Summary ---
Author Organization [facility] Address [address] [place] [address] Care Team Providers Care Librarian Special Collections Name Role Phone Unavailable Primary Care Provider Unavailabl e Encounter Details Date Type Department Care Team (Late st Contact Info) Description 02/10/2008 11:[address] [facility] conversion [address] [place] [address] Ale Hsu MD PhD [address] [place] [address] [phone] Social History Tobacco Use Types Packs/Day [...] Procedure Name Priority Date/Time Associated Diagnosis Comments TSH Routine 07/07/2008 13:41 EST T4 FREE Routine 07/07/2008 13:41 EST THYROGLOBULIN, TUMOR MARKER, S Routine 02/10/2008 12:13 EDT TSH Routine 02/10/2008 12:13 EDT T4 FREE Routine 02/10/2008 12:13 EDT documented in this encounter Results * TSH (07/07/2008 13:41 EST) TSH 0.50 0.35 - 5.00 uIU/ml [facility] 07/07/2008 13:4 1 EST 07/07/2008 13:42 EST Ale Hsu MD PhD CHEMISTRY & BLOOD GAS ORDERABLES Performing Organization Address [facility] Co de Phone Number [facility] [address] [place] [address] * (ABNORMAL) T4 FREE (07/07/2008 13:41 EST) Free T4 1.9(H) 0.8 - 1.8 ng/dL [facility] 07/07/2008 13:4 1 EST 07/07/2008 13:42 EST Ale Hsu MD PhD CHEMISTRY & BLOOD GAS ORDERABLES Performing Organization Address [facility] Phone Number [facility] [address] [place] [address] * TSH (02/10/2008 12:13 EDT) TSH 3.24 0.35 - 5.00 uIU/mL [facility] 02/10/2008 12:1 3 EDT 02/10/2008 12:14 EDT Ale Hsu MD PhD CHEMISTRY & BLOOD GAS ORDERABLES Performing Organization Address [facility] Co de Phone Number [facility] [address] [place] [address] * T4 FREE (02/10/2008 12:13 EDT) Free T4 1.7 0.8 - 1.8 ng/dL [facility] 02/10/2008 12:1 3 EDT 02/10/2008 12:14 EDT Ale Hsu MD PhD CHEMISTRY & BLOOD GAS ORDERABLES [facility] [address] [place] [address] * (ABNORMAL) THYROGLOBULIN TUMOR MARKER (02/10/2008 12:13 EDT) Thyroglobulin Antibody Screen 53445 8.8Reference range: <4.0 Unit: IU/mL(H) [facility] Thyroglobulin Tumor Marker <0.1Unit: ng/mL Quantitation of thyroglobulin may be unreliable due to the ? presence of anti-thyroglobulin antibodies. ? -- REFERENCE VALUE -- ? <=33 ? Athyrotic individuals ? normally have hTg values ? less than 5 ng/mL. ? The testing method is an immunoenzymatic assay manufactured ? by [employer] and performed on the [employer] DXI ? 800. ? Values obtained with different assay methods or kits may be ? different and cannot be used interchangeably. ? Test results cannot be interpreted as absolute evidence for ? the presence or absence of malignant disease. ? Specimens with thyroglobulin concentrations greater than ? 250,000 ng/mL may give falsely lower results. ? Performed by: [facility] , [address], [place] [address], Lab Dir: ??Geovanny Welch ? III, M.D. ? [facility] 02/10/2008 12:1 3 EDT 02/10/2008 12:14 EDT Ale Hsu MD PhD CHEMISTRY & BLOOD GAS ORDERABLES [facility] [address] [place] [address] documented in this encounter Visit Diagnoses Not on filedocumented in this encounter
--- OUTSIDE RECORDS SUMMARY | 2024-02-10 18:25 | XMS_ITS | Encounter Summary ---
Author Organization [facility] Address [address] [place] [address] Care Team Providers Care New Car Sales Manager Name Role Phone Unavailable Primary Care Provider Unavailabl e Encounter Details Date Type Department Care Team (Late st Contact Info) Description 12/15/2002 15:24 EDT Hospital Encounter [facility] - Other [address] [place] [address] Ale Hsu MD PhD [address] [place] [phone] Jose Hsu, [facility] [address] [place] [address] Social History Tobacco Use Types Packs/Day Years [...]
--- OUTSIDE RECORDS SUMMARY | 2024-02-10 18:25 | XMS_ITS | Encounter Summary ---
Author Organization [facility] Address [address] [place] [address] Care Team Providers Care Laborer Powerhouse Name Role Phone Unavailable Primary Care Provider Unavailabl e Encounter Details Date Type Department Care Team (Latest Contact Info) Description 01/11/2000 16:26 EDT Hospital Encounter [address] [address] Ale Hsu MD PhD [address] [place] [phone] Discharge Disposition: Auto Discharge Social History [...] Diagnosis Comments THYROGLOBULIN, TUMOR MARKER, S Routine 01/11/2000 14:51 EDT TSH Routine 01/11/2000 14:51 EDT T4 FREE Routine 01/11/2000 14:51 EDT documented in this encounter Results * (ABNORMAL) TSH (01/11/2000 14:51 EDT) TSH <0.03(L) 0.35 - 5.50 uIU/ml [facility] 01/11/2000 14:5 1 EDT 01/11/2000 14:57 EDT Ale Hsu MD PhD CHEMISTRY & BLOOD GAS ORDERABLES [facility] [address] [place] [address] * THYROGLOBULIN TUMOR MARKER (01/11/2000 14:51 EDT) Thyroglobulin Ab Negative [facility] Thyroglobulin <0.5Unit: ng/mL ??(Note) -- EXPECTED VALUES -- ? (Ref Range) < or = 59.4 (normal thyroid) ? < 5.0 (athyroidic patient) ? TEST PERFORMED OR REFERRED BY [facility] ? [facility] ? [address] ? [place], [place] ??[address] ? [facility] 01/11/2000 14:5 1 EDT 01/11/2000 14:57 EDT Ale Hsu MD PhD CHEMISTRY & BLOOD GAS ORDERABLES Performing Organization Address [facility] de Phone Number [facility] [address] [place] [address] * (ABNORMAL) T4 FREE (01/11/2000 14:51 EDT) Free T4 2.0(H) 0.8 - 1.8 ng/dl [facility] 01/11/2000 14:5 1 EDT 01/11/2000 14:57 EDT Ale Hsu MD PhD CHEMISTRY & BLOOD GAS ORDERABLES Performing Organization Address [facility] de Phone Number [facility] [address] [place] [address] documented in this encounter Visit Diagnoses Not on filedocumented in this encounter
--- OUTSIDE RECORDS SUMMARY | 2024-02-10 18:25 | XMS_ITS | Encounter Summary ---
Author Organization [facility] Address [address] [place] [address] Care Team Providers Care V Belt Skiver Name Role Phone Catina Chowdhury NP Primary Care Provider [phone] Encounter Details Date Type Department Care Team (Late st Contact Info) Description 04/23/2005 Results Only [facility] conversion [address] [place] [address] Hilda Marcus MD [address] [place] [address] [phone] Social History Tobacco Use Types [...] Date/Time Associated Diagnosis Comments SURGICAL PATHOLOGY Routine 04/23/2005 0:00 EST documented in this encounter Results * SURGICAL PATHOLOGY (04/23/2005 0:00 EST) Pathology Report: SURGICAL PATHOLOGY REPORT Reports generated via electronic interface contain original data; however they are lacking the format of the original report. Caution should be taken when reading/interpreti ng unformatted reports. Name: ? YUSUFJC Neema ? Accession #: ? [id number] ? : ? 1965 (Age: 39) ??F ? Collect Date: ? 04/23/2005 ? Location: ? [facility] ? Receive Date: ? 04/23/2005 ? Provider: HILDA MARCUS MD Copy to: JOSEE GUZMAN MD ? Final Pathologic Diagnosis: ? Endometrium, biopsy: - Fragments of benign secretory endometrium. Document reviewed and electronically signed by: SHA CARPENTER MD Report ??Date: 04/24/2005 11:31 By the signature above, the attending physician certifies that he/she has personally conducted a gross and/or microscopic examination of the described specimens and rendered or confirmed the above diagnosis. Specimen(s) Received: ? Endometrial biopsy Clinical History: ? Menorrhagia, ablation planned; LMP: 04/05/05 Gross Description: ? Received in formalin labelled Banerjee and endometrium is a 1.6 x 1.4 x 0.3 cm aggregate of luis-pink soft tissue. ??Submitted in toto in one cassette. (Lydia Thapa[place] End of Report [facility] 04/23/2005 04/23/2005 15: 29 EST Hilda Marcus MD PATHOLOGY ORDERABLES [facility] [address] [place] [address] documented in this encounter Visit Diagnoses Not on filedocumented in this encounter Care Teams V Belt Skiver Relationship Specialty Start Date End Date Catina Chowdhury NP [facility] [address] [place] [address] (work) PCP - General 02/03/09 07/20/12 documented as of this encounter
--- OUTSIDE RECORDS SUMMARY | 2024-02-10 18:25 | XMS_ITS | Encounter Summary ---
Author Organization [facility] Address [address] [place] [address] Care Team Providers Care Clinical Data Assistant Name Role Phone Unavailable Primary Care Provider Unavailabl e Encounter Details Date Type Department Care Team (Latest Contact Info) Description 07/07/2008 23:10 EST Hospital Encounter [facility] - Other [address] [place] [address] Ale Hsu MD PhD [address] [place] [phone] Discharge Disposition: Home or Self Care Social History Tobacco Use Types Packs/Day Years Used Date Smoking Tobacco: Never Assessed Sex and Gender Information Value Date Recorded Sex Assigned at Not on file Gender Identity Not on file Sexual Orientation Not on file documented as of this encounter Discharge Disposition Disposition Code Departure Means Destination Home or Self Care documented in this encounter Plan of Treatment Not on file documented as of this encounter Procedures Procedure Name Priority Date/Time Associated Diagnosis Comments CYTOPATHOLOGY Routine 02/16/2009 0:00 EDT THYROGLOBULIN, TUMOR MARKER, S Routine 02/07/2009 12:00 EDT TSH Routine 02/07/2009 12:00 EDT T4 FREE Routine 02/07/2009 12:00 EDT documented in this encounter Results * CYTOPATHOLOGY (02/16/2009 0:00 EDT) Pathology Report: CYTOPATHOLOGY REPORT ? Reports generated via electronic interface contain original data; ? however they are lacking the format of the original report. ? Caution should be taken when reading/interpreti ng unformatted reports. ? Name: ? JC BANERJEE ? Accession #: ? [id number] ? : ? 1965 (Age: 43) ??F ?Collect Date: ? 02/16/2009 ? Location: ? [facility] ? Receive Date: ? 02/17/2009 ? Provider: ?PERLA DE LA [place]A ? Copy to: ? Specimen/Source: ?Pap Test, Vagina, ThinPrep Imaging System with manual ?? evaluation ? Last Menstrual Period: ? 2006 ? Treatment History: ? LUIS ? Other: ? HPVA - HPV testing requested if ASC-US on the current ThinPrep Pap test. ? SPECIMEN ADEQUACY ? Satisfactory for Evaluation ? - assessment of transformation zone component not applicable ( e.g. atrophy, ? vaginal sample, hysterectomy) ? GENERAL CATEGORIZATION ? Negative for Intraepithelial Lesion or Malignancy ? Document reviewed and electronically signed by: ? Rand Ricardo, CT(ASCP) ? Report Date: ??02/22/2009 15:23 ? End of Report ? [facility] 02/16/2009 02/17/2009 Perla Bowling PA-[place] PATHOLOGY ORDERA BLES [facility] [address] [place] [address] * (ABNORMAL) THYROGLOBULIN TUMOR MARKER (02/07/2009 12:00 EDT) Thyroglobulin Ab Scrn, S 11Reference range: <4.0 Unit: IU/mL(H) [facility] Thyroglobulin, Tumor Marker, S <0.1Unit: ng/mL Quantitation of thyroglobulin may be unreliable due to the ? presence of anti-thyroglobulin antibodies. ? -- REFERENCE VALUE -- ? <=33 ? Athyrotic individuals ? normally have hTg values ? less than 5 ng/mL. ? The testing method is an immunoenzymatic assay manufactured ? by [employer] and performed on the [employer]el DXI [...] falsely lower results. ? Performed by: [facility], [address], ? [place] [address], Cutter Aluminum Sheet: Brooke Flores, Ph.D. ? [facility] Blood specimen (specimen) 02/07/2009 12:00 EDT 02/07/2009 12:01 EDT Ale Hsu MD PhD CHEMISTRY & BLOOD GAS ORDERABLES Performing Organization Address [facility] de Phone Number [facility] [address] [place] [address] * TSH (02/07/2009 12:00 EDT) TSH 1.54 0.35 - 5.00 uIU/ml [facility] Blood specimen (specimen) 02/07/2009 12:00 EDT 02/07/2009 12:01 EDT Ale Hsu MD PhD CHEMISTRY & BLOOD GAS ORDERABLES Performing Organization Address [facility] de Phone Number [facility] [address] [place] [address] * T4 FREE (02/07/2009 12:00 EDT) Free T4 1.3 0.8 - 1.8 ng/dL [facility] Blood specimen (specimen) 02/07/2009 12:00 EDT 02/07/2009 12:01 EDT Ale Hsu MD PhD CHEMISTRY & BLOOD GAS ORDERABLES Performing Organization Address [facility] de Phone Number [facility] [address] [place] [address] documented in this encounter Visit Diagnoses Not on filedocumented in this encounter
--- OUTSIDE RECORDS SUMMARY | 2024-02-10 18:25 | XMS_ITS | Encounter Summary ---
Author Organization [facility] Address [address] [place] [address] Care Team Providers Care Field Crop Harvest Contractor Name Role Phone Catina Chowdhury NP Primary Care Provider [phone] Encounter Details Date Type Department Care Team (Late st Contact Info) Description 11/08/2005 Results Only [facility] [address] [place] [address] Hilda Marcus MD [address] [place] [address] [address] Social History Tobacco Use Types [...] Date/Time Associated Diagnosis Comments SURGICAL PATHOLOGY Routine 11/08/2005 0:00 EDT documented in this encounter Results * SURGICAL PATHOLOGY (11/08/2005 0:00 EDT) Pathology Report: SURGICAL PATHOLOGY REPORT Reports generated via electronic interface contain original data; however they are lacking the format of the original report. Caution should be taken when reading/interpreti ng unformatted reports. Name: ? BANERJEEJC ? Accession #: ? [id number] ? : ? 1965 (Age: 40) ??F ? Collect Date: ? 11/08/2005 ? Location: ? [facility] ? Receive Date: ? 11/08/2005 ? Provider: HILDA MARCUS MD Copy to: JOSEE GUZMAN MD ? Final Pathologic Diagnosis: ? Uterus and cervix, hysterectomy: 1. ?Endometrium: ? - Focal basalis present with areas of fibrosis and histiocytes consistent with previous ablation. 2. ?Myometrium: ? - Adenomyosis. - Adenomyoma and leiomyomas, subserosal and intramural (largest measuring 2.1 cm). 3. ?Cervix: ? - No pathologic features. 4. ?Serosa: ? - Uterine serosa with fibrous adhesions and focal chronic inflammation. ?? Document reviewed and electronically signed by: Marlene Aly MD Report ??Date: 11/12/2005 17:31 By the signature above, the attending physician certifies that he/she has personally conducted a gross and/or microscopic examination of the described specimens and rendered or confirmed the above diagnosis. Specimen(s) Received: ? Uterus, cervix Clinical History: ? H/O endometriosis, dysmenorrhea, menorrhagia, S/P endometrial ablation (Jun 2005), LMP: 11/08/2005 Gross Description: ? Received in formalin labelled Banerjee and Uterus, cervix is the 129 gram product of a simple hysterectomy specimen that measures 9.6 cm fundus to cervix, 4.7 cm cornu to cornu, and 4.4 cm anterior to posterior. ??The serosa is luis and glistening with hemorrhagic adhesions located along the posterior fundus. ??The white-pink, glistening endometrium is markedly narrowed and has a fibrotic appearance consistent with the previous endometrial ablation, averaging 0.1 cm. The luis-pink, diffusely trabeculated myometrium displays several micro- and macrocystic, blood-filled spaces, the largest of which (0.8 cm) is located subjacent to the endometrium. ??The myometrium averages 2.3 cm and also displays several, luis-white to luis-pink, homogeneous, whorled nodule, subserosal and intramural nodules ranging from 0.6 to 2.1 cm in greatest dimension. ??The smooth, glistening cervical canal is luis-white. ??The ecto- and endocervix are unremarkable with a central, 0.2 cm in diameter, patent os. ??Comber Tender sections are submitted as follows: BLOCK BRIZUELA A1 ?Comber Tender anterior cervix A2 ?Comber Tender posterior cervix A3 ?Comber Tender anterior endomyometrium to include blood-filled cystic space A4 ?Comber Tender posterior endomyometrium A5 ?Comber Tender luis-white whorled nodule nodules A6 ?Comber Tender luis-pink whorled nodules A7 ?Comber Tender serosa to include hemorrhagic adhesions from posterior fundus (Lydia Thapa)/[facility] End of Report [facility] 11/08/2005 11/08/2005 10: 27 EDT Hilda Marcus MD PATHOLOGY ORDERABLES [facility] [address] [place] [address] documented in this encounter Visit Diagnoses Not on filedocumented in this encounter Care Teams Field Crop Harvest Contractor Relationship Specialty Start Date End Date Catina Chowdhury NP [facility] [address] [place], [place] [id number] PCP - General 02/03/09 07/20/12 documented as of this encounter
--- OUTSIDE RECORDS SUMMARY | 2024-02-10 18:25 | XMS_ITS | Encounter Summary ---
Author Organization [facility] Address [address] [place] [address] Care Team Providers Care Court Liaison Name Role Phone Unavailable Primary Care Provider Unavailabl e Encounter Details Date Type Department Care Team (Latest Contact Info) Description 02/04/2004 10:06 EDT - 02/04/2004 11:59 EDT Hospital Encounter [facility] [address] [place] [address] Ale Hsu MD PhD [address] [place] [phone] Discharge Disposition: Auto Discharge Social History [...] Associated Diagnosis Comments RAD US NECK/THYROID Routine 02/04/2004 1 1:03 EDT documented in this encounter Results * RAD US NECK/THYROID (02/04/2004 11:03 EDT) Anatomical Region Laterality Modality Other 02/04/2004 11:0 3 EDT Impressions 01/12/2009 10:05 EDT IMPRESSION: No change since 03/05/01. Specifically, no large thyroid mass or adenopathy. 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 AB IN 2002, HAD NEG. AB YEAR, CHECK NOW POSITIVE, NEVER HAD I 131 DS AROSE IN R/O RECURRENCE. THYROID ULTRASOUND: 02/04/04 Sonography of the thyroid bed shows no normal thyroid structure. Comparison is made with the prior study of 03/05/01. There has been no significant change. There is a small amount of tissue in the right thyroid bed measuring approximately 5-6 mm in diameter. This might represent residual thyroid tissue. In any event, it has not changed. I see no large mass or any change since the last examination. No cervical adenopathy is seen. 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 AB IN 2002, HAD NEG. AB YEAR, CHECK NOW POSITIVE, NEVER HAD I 131 DS AROSE IN R/O RECURRENCE. THYROID ULTRASOUND: 02/04/04 Sonography of the thyroid bed shows no normal thyroid structure. Comparison is made with the prior study of 03/05/01. There has been no significant change. There is a small amount of tissue in the right thyroid bed measuring approximately 5-6 mm in diameter. This might represent residual thyroid tissue. In any event, it has not changed. I see no large mass or any change since the last examination. No cervical adenopathy is seen. IMPRESSION IMPRESSION: No change since 03/05/01. Specifically, no large thyroid mass or adenopathy. william Ale Hsu MD PhD IMG US ORDERABLES documented in this encounter Visit Diagnoses Not on filedocumented in this encounter
--- OUTSIDE RECORDS SUMMARY | 2024-02-10 18:25 | XMS_ITS | Encounter Summary ---
Author Organization [facility] Address [address] [place] [address] Care Team Providers Care Data Systems Analyst Name Role Phone Catina Chowdhury NP Primary Care Provider Encounter Details Date Type Department Care Team (Late st Contact Info) Description 12/15/2002 Results Only [facility] Endocrinology - [facility] [address] [place] [address] Ale Hsu MD PhD [address] [place] [address] Drive [address] [place] [address] Social History Tobacco Use Types [...] Diagnosis Comments THYROGLOBULIN, TUMOR MARKER, S Routine 12/15/2002 15:32 EDT TSH Routine 12/15/2002 15:32 EDT T4 FREE Routine 12/15/2002 15:32 EDT documented in this encounter Results * (ABNORMAL) TSH (12/15/2002 15:32 EDT) TSH 0.10(L) 0.35 - 5.50 uIU/ml [facility] 12/15/2002 15:3 2 EDT 12/15/2002 15:37 EDT Ale Hsu MD PhD CHEMISTRY & BLOOD GAS ORDERABLES [facility] [address] [place] [address] * THYROGLOBULIN TUMOR MARKER (12/15/2002 15:32 EDT) Thyroglobulin Ab Negative [facility] Thyroglobulin <0.1Unit: ng/mL(Note) Specimens with thyroglobulin concentrations greater than ? 250,000 ng/mL may give falsely lower results. ? -- EXPECTED VALUES -- ? (Ref Range) <= 33 (normal thyroid) ? <5.0 ??(athyroidic patient) ? Test performed by immunoenzymatic assay kit manufactured ? by [employer]. The current form of this assay ? displays a higher rate of heterophile antibody interference ? than is considered acceptable. Therefore all specimens are ? pretreated with Scantibodies heterophile blocking reagents ? which, to the best of our knowledge, removes this interference. ? Serum markers are not specific for malignancy, and values ? may vary by method. ? TEST PERFORMED OR REFERRED BY [facility] ? [address] ? [place] [address] ? Youth Counselor: ? Ivan Rosenthal M.D. ? [facility] 12/15/2002 15:3 2 EDT 12/15/2002 15:37 EDT Ale Hsu MD PhD CHEMISTRY & BLOOD GAS ORDERABLES Performing Organization Address [facility] de Phone Number [facility] [address] [place] [address] * T4 FREE (12/15/2002 15:32 EDT) Free T4 1.7 0.8 - 1.8 ng/dl [facility] 12/15/2002 15:3 2 EDT 12/15/2002 15:37 EDT Ale Hsu MD PhD CHEMISTRY & BLOOD GAS ORDERABLES Performing Organization Address [facility] de Phone Number [facility] [address] [place] [address] documented in this encounter Visit Diagnoses Not on filedocumented in this encounter Care Teams Data Systems Analyst Relationship Specialty Start Date End Date Catina Chowdhury NP [facility] [address] [place] [address] PCP - General 02/03/09 07/20/12 documented as of this encounter
== END 2024-02-10 18:22 | disposition home or self-care (01) ==
LOC: NCHCN 18:21
PROVIDERS: PCP Family Medicine; Visit Provider Nurse Practitioner Family
DX: L82.0 Inflamed seborrheic keratosis (principal)
CPT/HCPCS: 88305

== ENCOUNTER 2024-04-22 15:51 | Outpatient (REF) | payer BC, SELFPAY ==
--- OUTSIDE RECORDS SUMMARY | 2024-04-22 15:54 | XMS_ITS | Encounter Summary ---
Author Organization [facility] Address [address] [place] [address] Care Team Providers Care Mining Professionals Name Role Phone Rand Harley MD Primary Care Provider [phone] Reason for Visit * Reason Comments New Patient Visit Skin lesion of phillip rn on chest present for 4-5 weeks, patient reports changes * Consult (3 - 10 Business Days) - Closed Specialty Diagnoses / Procedures Referred By Uriel kramer Referred To Contact Dermatology Diagnoses Disorder of the skin and subcutaneous tissue, unspecified Zahra Edgar, [employer] [address] [place] [address] Phone: tel: fax: [facility] Dermatology [address] [place] [address] Phone: tel: fax: Referral ID Status Reason Start Date Expiration Date Visits Re quested Visits Authorized [id number] Closed 1 1 Encounter Details Date Type Department Care Team (Late st Contact Info) Description 01/30/2021 15:10 EDT Office Visit [facility] Dermatology [address] [place] [phone] Iron De Oliveira MD [address] [place] [phone] Neoplasm of uncertain behavior of skin (Primary Dx) Social History Tobacco Use Types Packs/Day Years Used Date Smoking Tobacco: Former Cigarettes 0.8 7 0 05/13/2004 - 05/13/2011 Smokeless Tobacco: Never Alcohol Use Standard Drinks/Week Comments Yes 0 (1 standard drink = 0.6 oz pur e alcohol) 1/5months Interpersonal Safety Answer Date Record ed Physically Hurt Never 12/13/2019 Verbally Threaten Not on file 12/13/2019 Comments No Sex and Gender Information Value Date Recorded Sex Assigned at Not on file Legal Sex Female 17:47 EST Gender Identity Not on file Sexual Orientation Not on file documented as of this encounter Functional Status * Because of a physical, mental, or emotional condition, does this person have difficulty doing errands alone such as visiting a doctor's office or shopping? Answer Date of Assessment Author No 01/31/2016 11:50 EDT documented as of this encounter Mental Status * Because of a physical, mental, or emotional condition, does this person have serious difficulty concentrating, remembering, or making decisions? Answer Entry Date Author No 01/31/2016 11:50 EDT documented in this encounter Patient Instructions * Patient Instructions* Iron De Oliveira MD - 01/30/2021 15:10 EDT DERMATOLOGY WOUND CARE INSTRUCTIONS FOR SKIN BIOPSY The DRESSING/BANDAID should remain in place for 24 hours. You may shower or bathe after 24 hours; remove the bandage and replace it after the shower. DISCOMFORT: Extra-Strength Tylenol, as directed by associate professor of library science, usually relieves any pain you may have. [...] * Iron De Oliveira MD - 01/30/2021 9950 EDT Dermatology Outpatient Visit Note Chief Complaint Patient presents with ??? New Patient Visit Skin lesion of concern on chest present for 4-5 weeks, patient reports changes Dermatologic History: History of basal cell carcinoma of right chin, s/p Mohs in Dec 2011 (at [facility]) SUBJECTIVE: Ms. James is a 55 [...] PATIENT INFORMATION: Jc James : MRN: [id number] SURGEON: MD Anderson Flores MD The indication, [...] explore management options, if applicable. 01/31/2021 9:55 [facility] Final Diagnosis A. SKIN OF CHEST, LEFT, SHAVE BIOPSY: - Lichenoid keratosis (lichen planus-like keratosis). 01/31/2021 9:55 [facility] Attestation By the signature below, the attending physician certifies that they have 1) personally conducted a gross and/or microscopic examination of the described specimen(s), and/or personally interpreted the results of laboratory testing of the described specimen(s), and 2) personally rendered or confirmed the above diagnosis. 01/31/2021 9:55 [facility] at 0955 Microscopic Description There [...] present in the superficial dermis. 01/31/2021 9:55 [facility] Clinical History Eroded pink papule; BCC vs. SCCIS vs. inflamed SK vs. other; clinical diagnosis code: D48.5 01/31/2021 9:55 EDT [facility] Gross Description A. Received in [...] RJ CONRAD(ASCP) 01/30/2021 17:34 01/31/2021 9:55 EDT [facility] Performing Lab [facility] 01/31/2021 9:55 EDT [facility] Scanned Images 01/31/2021 9:55 EDT [facility] Tissue TISSUE SPECIMEN FROM SKIN / Unknown Collection, Other / Unknown 01/30/2021 15:38 EDT 01/30/2021 16:47 EDT us Anderson Wagner MD PATHOLOGY ORDERABLES Final R esult [facility] [address] [place] [address] documented in this encounter Visit Diagnoses Diagnosis Neoplasm of uncertain behavior of skin- Primary documented in this encounter Care Teams Mining Professionals Relationship Specialty Start Date End Date Rand Harley MD [address] [place] [address] PCP - General 07/30/16 documented as of this encounter
--- OUTSIDE RECORDS SUMMARY | 2024-04-22 15:54 | XMS_ITS | Encounter Summary ---
Author Organization [facility] Address [address] [place] [address] Care Team Providers Care Rn Cvicu Name Role Phone Catina Chowdhury NP Primary Care Provider [phone] Reason for Visit * Reason Comments Thyroid Problem Encounter Details Date Type Department Care Team (Latest Contact Info) Description 02/03/2014 11:40 EDT Office Visit [facility] Endocrinology - [address] [address] Ale Hsu MD PhD [address] [place] [address] [place] [phone] History of thyroid cancer (Primary Dx); Postsurgical hypothyroidism Social History Tobacco Use Types Packs/Day Years Used Date Smoking Tobacco: Former Cigarettes 0.8 7 0 05/13/2004 - 05/13/2011 Smokeless Tobacco: Never Alcohol Use Standard Drinks/Week Comments Yes 0 (1 standard drink = 0.6 oz pur e alcohol) 1/5months Comments No Sex and Gender Information Value [...] method is an immunoenzymatic assay manufactured by [employer] and performed on the [employer] DXI 800. The thyroglobulin antibody testing method [...] normally have hTg values <=2. Performed by: [facility], [address] [place], [place] [address], Stave Log Cut Off Saw Operator: Brooke Flores, Ph.D. Blood specimen (specimen) 02/03/2014 13:07 EDT 02/03/2014 15:22 EDT Ale Hsu MD PhD CHEMISTRY & BLOOD GAS ORD ERABLES Final Result Performing Organization Address [facility] de Phone Number [facility] [address] [place] [address] * (ABNORMAL) THYROID CASCADE (02/03/2014 13:07 EDT) TSH 0.13(L) 0.35 - 5.00 uIU/ml [facility] Comment: TSH cascade is not recommended for patients in which pituitary or hypothalamic disorders are suspected. Blood specimen (specimen) 02/03/2014 13:07 EDT 02/03/2014 15:22 EDT Ale Hsu MD PhD CHEMISTRY & BLOOD GAS ORD ERABLES Final Result Performing Organization Address [facility] de Phone Number [facility] [address] [place] [address] documented in this encounter Visit Diagnoses Diagnosis History of thyroid cancer- Primary Personal history of malignant neoplasm of thyroid Postsurgical hypothyroidism documented in this encounter Care Teams Rn Cvicu Relationship Specialty Start Date End Date Catina Chowdhury NP [facility] [address] [place] [address] PCP - General 02/02/14 07/29/16 documented as of this encounter
--- OUTSIDE RECORDS SUMMARY | 2024-04-22 15:54 | XMS_ITS | Encounter Summary ---
Author Organization [facility] Address [address] [place] [address] Care Team Providers Care Hr Associate Name Role Phone Rand Harley MD Primary Care Provider Reason for Visit * Reason Onset Date Comments Biopsy Results 08/07/2016 Encounter Details Date Type Department Care Team (Late st Contact Info) Description 08/07/2016 Telephone [facility] Dermatology [address] [id number] Yuri Cowan MD Biopsy Results Social History [...] 01/31/2016 11:50 EDT documented in this encounter Miscellaneous Notes * [...] REMOVED FURTHER YURI COWAN MD 08/07/2016 11:48 security intern documented in this encounter Plan of Treatment Not on file documented as of this encounter Visit Diagnoses Not on filedocumented in this encounter Care Teams Hr Associate Relationship Specialty Start Date End Date Rand Harley MD [address] [place] [address] PCP - General 07/30/16 documented as of this encounter
--- OUTSIDE RECORDS SUMMARY | 2024-04-22 15:54 | XMS_ITS | Encounter Summary ---
Author Organization [facility] Address [address] [place] [address] Care Team Providers Care Pan Washer Hand Name Role Phone Catina Chowdhury NP Primary Care Provider [phone] Encounter Details Date Type Department Care Team (Latest Contact Info) Description 07/20/2016 6:46 EST - 07/20/2016 23:59 EST Hospital Encounter [address] [address] Unknown, Provider, MD Discharge Disposition: Home or Self Care Social [...] 01/31/2016 11:50 EDT documented in this encounter Medications at Time of Discharge loratadine (CLARITIN) 10 mg tablet Take 10 mg by mouth at bedtime as needed. 02/05/2011 RANITIDINE HCL ORAL Take 1 Tab by mouth as needed. 02/06/2010 levothyroxine (SYNTHROID) 112 mcg tabletIndications:S /P complete thyroidectomy Take 1 Tab by mouth daily. 90 Tab 3 02/05/2016 7 documented as of this encounter Discharge Disposition Disposition Code Departure Means Destination Home or Self Detention documented in this encounter Plan of Treatment Not on file documented as of this encounter Visit Diagnoses Not on filedocumented in this encounter Care Teams Pan Washer Hand Relationship Specialty Start Date End Date Catina Chowdhury NP [facility] [address] [place] [address] PCP - General 02/02/14 07/29/16 documented as of this encounter
--- OUTSIDE RECORDS SUMMARY | 2024-04-22 15:54 | XMS_ITS | Encounter Summary ---
Author Organization [facility] Address [address] [place] [address] Care Team Providers Care Plasterer Maintenance Name Role Phone Catina Chowdhury NP Primary Care Provider [phone] Encounter Details Date Type Department Care Team (Late st Contact Info) Description 01/31/2015 Phlebotomy Only [address] [address] Provider Relations Coordinator, Outpatient Postsurgical hypothyroidism; Malignant neoplasm of thyroid [...] shopping? Answer Date of Assessment Author No 01/31/2015 11:09 EDT documented as of this encounter Mental Status * Because of a physical, mental, or emotional condition, does this person have serious difficulty concentrating, remembering, or making decisions? Answer Entry Date Author No 01/31/2015 11:09 EDT documented in this encounter Plan of [...] EDT) Thyroid Suppression? YES 01/31/2015 11:32 EDT [facility] Thyroglob,Tumor Mrkr <0.1 ng/mL 02/01/2015 7:51 T [facility] Comment: (Note) REFERENCE VALUE Athyrotic <0.1 Intact Thyroid <=33 Thyroglobulin Ab, S 11(H) <4.0 IU/mL 02/01/2015 7:51 EDT [facility] Thyroglobulin Interp (Note) 02/01/2015 7:51 [facility] Comment: Quantitation of [...] testing methods are immunoenzymatic assays manufactured by [employer] and performed on the Zen[employer] DXI 800. Values obtained from different assay methods or kits may be different and cannot be used interchangeably. The results cannot be interpreted as absolute evidence for the presence or absence of malignant disease. Performed by: [facility] [place], [address], [place] [address], Reactor Fueling Supervisor: Brooke Flores, Ph.D. Blood specimen (specimen) BLOOD SPECIMEN / Unknown 01/31/2015 11:33 EDT 01/31/2015 13:15 EDT Ale Hsu MD PhD CHEMISTRY & BLOOD GAS ORD ERABLES Final Result Performing Organization Address City/[facility]/ZIP Co de Phone Number [facility] [address] [place] [address] * THYROID CASCADE (01/31/2015 11:33 EDT) TSH 0.39 0.35 - 5.00 uIU/ml 01/31/2015 15:09 EDT [facility] Comment: TSH cascade is not recommended for patients in which pituitary or hypothalamic disorders are suspected. Blood specimen (specimen) BLOOD SPECIMEN / Unknown 01/31/2015 11:33 EDT 01/31/2015 13:15 EDT Ael Hsu MD PhD CHEMISTRY & BLOOD GAS ORD ERABLES Final Result Performing Organization Address City/[facility] Co de Phone Number [facility] [address] [place] [address] documented in this encounter Visit Diagnoses Diagnosis Postsurgical hypothyroidism Malignant neoplasm of thyroid gland (HCC-CMS) Malignant neoplasm of thyroid gland documented in this encounter Care Teams Plasterer Maintenance Relationship Specialty Start Date End Date Catina Chowdhury NP [facility] [address] [place] [address] PCP - General 02/02/14 07/29/16 documented as of this encounter
--- OUTSIDE RECORDS SUMMARY | 2024-04-22 15:54 | XMS_ITS | Encounter Summary ---
Author Organization [facility] Address [address] [place] [address] Care Team Providers Care Wood Scaler Name Role Phone Catina Chowdhury NP Primary Care Provider [phone] Encounter Details Date Type Department Care Team (Latest Contact Info) Description 03/25/2014 Orders Only [facility] Endocrinology - [facility] [address] [place] [address] Ale Hsu MD PhD [address] [facility] [address] [place] [address] Postsurgical hypothyroidism (Primary Dx); History [...] of this encounter Ordered Prescriptions Prescription Sig Dispense Quantity Refills Last Filled Start Date End Date levothyroxine (SYNTHROID) 137 mcg tablet Take 137 [...] documented as of this encounter Care Teams Wood Scaler Relationship Specialty Start Date End Date Catina Chowdhury NP [facility] [address] [place] [address] PCP - General 02/02/14 07/29/16 documented as of this encounter
--- OUTSIDE RECORDS SUMMARY | 2024-04-22 15:54 | XMS_ITS | Referral Summary ---
Author Organization [facility] Address [address] [place] [address] Care Team Providers Care Dominatrix Name Role Phone Rand Harley MD Primary Care Provider [phone] Encounters Date Type Department Care Team Description 02/11/2024 Lab Requisition [facility] Pathology & Laboratory Medicine - [facility] [address] [place] [address] Madiha Dillon Encounter for other general examination from Last 3 Months Allergies Active Allergy Reactions Criticality Noted Date Comments Diltiazem Hcl Swelling,Muscle Aches 02/14/2016 Medications RANITIDINE HCL ORAL Take 1 Tab by mouth as needed. 0 Active loratadine (CLARITIN) 10 mg tablet Take 10 mg by mouth at bedtime as needed. 1 Active buPROPion (WELLBUTRIN SR) 150 mg SR tablet Take 150 mg by mouth daily. Active levothyroxine (SYNTHROID) 125 mcg tablet Take 1 Tab by mouth daily. 90 Tab 3 8 Active triamcinolone (KENALOG) 0.1 % ointment Apply topically to affected area 2 times daily. Do not apply to face, armpit or groin. 80 g 3 1 Active Active Problems Problem Noted Date Diagnosed Date SVT (supraventricular tachycardia) ([facility]) Postsurgical hypothyroidism 02/04/2012 Malignant neoplasm of thyroid gland ([facility]) Endometriosis 02/01/2010 Overview (02/01/2010): S/p hysterectomy, 10/16 Resolved Problems Problem Noted Date Diagnosed Date Resolved Date Hypothyroidism, iatrogenic 02/01/2010 0 02/04/2012 Overview (02/10/2015): ICD10 Update Auto Replacement History of malignant neoplasm of thyroid 02/01/2010 02/04/2012 Overview (02/01/2010): Papillary thyroid cancer, T2 N1 M0 S/p total thyroidectomy, 1987 Social History Tobacco Use Types Packs/Day Years [...] Index 30.29 01/20/2018 1110 EDT Functional Status * Because of a physical, mental, or emotional condition, does this person have difficulty doing errands alone such as visiting a doctor's office or shopping? Answer Date of Assessment Author No 01/31/2016 11:50 EDT Mental Status * Because of a physical, mental, or emotional condition, does this person have serious difficulty concentrating, remembering, or making decisions? Answer Entry Date Author No 01/31/2016 11:50 EDT Plan of Treatment Not on file Procedures Procedure Name Priority Date/Time Associated Diagnosis Comments SURGICAL PATHOLOGY Today 02/10/2024 17 :20 EDT Encounter for other general examination from Last 3 Months Results * SURGICAL PATHOLOGY (02/10/2024 17:20 EDT) Note to Patient The following pathology results have been interpreted by your pathologist and may be available to you before your health provider has had the opportunity to review them. Please allow time for your provider to receive these results and explore management options, if applicable. 02/12/2024 9:15 [facility] Final Diagnosis A. SKIN OF CHEST, UPPER, PUNCH BIOPSY: - Seborrheic keratosis, inflamed. 02/12/2024 9:15 [facility] Attestation By the signature below, the attending physician certifies that they have 1) personally conducted a gross and/or microscopic examination of the described specimen(s), and/or personally interpreted the results of laboratory testing of the described specimen(s), and 2) personally rendered or confirmed the above diagnosis. 02/12/2024 9:15 [facility] at 0915 Clinical History Lesion mid upper chest 02/12/2024 9:15 [facility] Gross Description A. Received in formalin labelled with proper patient identification (initials M, A) and upper chest is a punch biopsy of luis-white slightly nodular skin (0.3 cm in diameter by 0.2 cm in depth). Submitted intact in A1. RJ CARABALLO(ASCP) 02/11/2024 9:44 02/12/2024 9:15 T [facility] Performing Lab [facility] 02/12/2024 9:15 [facility] Scanned Images 02/12/2024 9:15 [facility] Tissue SPECIMEN FROM SKIN / Unknown 02/10/2024 17:20 EDT 02/11/2024 8:26 EDT Madiha Dillon PATHOLOGY ORDERABLES Final Result [facility] [address] [place] [address] from Last 3 Months Insurance Advance Directives For more information, please contact: [phone] * Full Code (Latest Code Status on File) Date Activated Date Inactivated Comments 07/01/2013 6:57 07/01/2013 18:36 Care Teams Dominatrix Relationship Specialty Start Date End Date Rand Harley MD [address] [place] [id number] PCP - General 07/30/16
--- OUTSIDE RECORDS SUMMARY | 2024-04-22 15:54 | XMS_ITS | Encounter Summary ---
Author Organization [facility] Address [address] [place] [address] Care Team Providers Care Powerhouse Mechanic Helper Name Role Phone Rand Harley MD Primary Care Provider [phone] Encounter Details Date Type Department Care Team (Late st Contact Info) Description 02/11/2024 Lab Requisition [facility] Pathology & Laboratory Medicine - [address] [address] Madiha Dillon [address] [place], [place] [id number] Encounter for other general examination Social History Tobacco Use Types Packs/Day Years [...] 01/31/2016 11:50 EDT documented in this encounter Plan of Treatment Not on file documented as of this encounter Procedures Procedure Name Priority Date/Time Associated Diagnosis Comments SURGICAL PATHOLOGY Today 02/10/2024 17 :20 EDT Encounter for other general examination documented in this encounter Results * SURGICAL PATHOLOGY (02/10/2024 17:20 EDT) Note to Patient The following pathology results have been interpreted by your pathologist and may be available to you before your health provider has had the opportunity to review them. Please allow time for your provider to receive these results and explore management options, if applicable. 02/12/2024 9:15 [facility] Final Diagnosis A. SKIN OF CHEST, UPPER, PUNCH BIOPSY: - Seborrheic keratosis, inflamed. 02/12/2024 9:15 [facility] Attestation By the signature below, the attending physician certifies that they have 1) personally conducted a gross and/or microscopic examination of the described specimen(s), and/or personally interpreted the results of laboratory testing of the described specimen(s), and 2) personally rendered or confirmed the above diagnosis. 02/12/2024 9:15 [facility] at 0915 Clinical History Lesion mid upper chest 02/12/2024 9:15 [facility] Gross Description A. Received in formalin labelled with proper patient identification (initials M, A) and upper chest is a punch biopsy of luis-white slightly nodular skin (0.3 cm in diameter by 0.2 cm in depth). Submitted intact in A1. RJ CARABALLO(ASCP) 02/11/2024 9:44 02/12/2024 9:15 [facility] Performing Lab [facility] 02/12/2024 9:15 [facility] Scanned Images 02/12/2024 9:[address] [facility] Tissue SPECIMEN FROM SKIN / Unknown 02/10/2024 17:20 EDT 02/11/2024 8:26 EDT Madiha Dillon PATHOLOGY ORDERABLES Final Result [facility] [address] [place], [place] [address] documented in this encounter Visit Diagnoses Diagnosis Encounter for other general examination documented in this encounter Care Teams Powerhouse Mechanic Helper Relationship Specialty Start Date End Date Rand Harley MD [address] [place] [address] PCP - General 07/30/16 documented as of this encounter
--- OUTSIDE RECORDS SUMMARY | 2024-04-22 15:54 | XMS_ITS | Encounter Summary ---
Author Organization [facility] Address [address] [place] [address] Care Team Providers Care Chief Science Officer Name Role Phone Catina Chowdhury NP Primary Care Provider [phone] Reason for Visit * Reason Comments Hypothyroidism Encounter Details Date Type Department Care Team (Latest Contact Info) Description 01/31/2016 11:20 EDT Office Visit [facility] Endocrinology - [address] [address] Ale Hsu MD PhD [address] [place] [address] [place] [phone] History of thyroid cancer (Primary Dx); [...] EDT documented in this encounter Functional Status * Because of [...] 01/31/2016 11:50 EDT documented in this encounter Discharge Diagnoses Diagnosis Z85.850 Personal [...] EDT) Thyroid Suppression? YES 01/31/2016 12:15 EDT [facility] Thyroglob,Tumor Mrkr <0.1 ng/mL 02/02/2016 9:00 EDT [facility] Comment: (Note) REFERENCE VALUE Athyrotic <0.1 Intact Thyroid <=33 Thyroglobulin Ab, S 5.9(H) <4.0 IU/mL 02/02/2016 9:00 EDT [facility] Thyroglobulin Interp (Note) 02/02/2016 9:00 EDT [facility] Comment: Quantitation of thyroglobulin [...] testing methods are immunoenzymatic assays manufactured by [employer]. and performed on the [employer] DXI 800. Values obtained from different assay methods or kits may be different and cannot be used interchangeably. The results cannot be interpreted as absolute evidence for the presence or absence of malignant disease. Performed by: [facility]: [address], [place] [address], Lab Dir: Andrew Jimenez II, M.D., Ph.D. Blood specimen (specimen) BLOOD SPECIMEN / Unknown 01/31/2016 12:16 EDT 01/31/2016 12:44 EDT us Ale Hsu MD PhD CHEMISTRY & BLOOD GAS ORD ERABLES Final Result [facility] [address] [place] [address] * T4 FREE (01/31/2016 12:16 EDT) Free T4 1.5 0.8 - 1.8 ng/dl 01/31/2016 14:45 EDT [facility] Blood specimen (specimen) BLOOD SPECIMEN / Unknown 01/31/2016 12:16 EDT 01/31/2016 12:44 EDT us Ale Hsu MD PhD CHEMISTRY & BLOOD GAS ORD ERABLES Final Result Performing Organization Address City/[facility]/ZIP Co de Phone Number [facility] [address] [place] [address] * (ABNORMAL) TSH (01/31/2016 12:16 EDT) TSH 0.03(L) 0.55 - 4.78 uIU/ml 01/31/2016 14:45 EDT [facility] Blood specimen (specimen) BLOOD SPECIMEN / Unknown 01/31/2016 12:16 EDT 01/31/2016 12:44 EDT us Ale Hsu MD PhD CHEMISTRY & BLOOD GAS ORD ERABLES Final Result Performing Organization Address City/[facility] Co de Phone Number [facility] [address] [place] [address] documented in this encounter Visit Diagnoses Diagnosis History of thyroid cancer- Primary Personal history of malignant neoplasm of thyroid Postsurgical hypothyroidism documented in this encounter Care Teams Chief Science Officer Relationship Specialty Start Date End Date Catina Chowdhury NP [facility] [address] [place] [address] PCP - General 02/02/14 07/29/16 documented as of this encounter
--- OUTSIDE RECORDS SUMMARY | 2024-04-22 15:54 | XMS_ITS | Encounter Summary ---
Author Organization [facility] Address [address] [place] [address] Care Team Providers Care Blocking Machine Operator Second Name Role Phone Rand Harley MD Primary Care Provider [phone] Encounter Details Date Type Department Care Team (Late st Contact Info) Description 04/11/2023 Lab Requisition [facility] Pathology & Laboratory Medicine - [address] [address] Outr Resulting Lab, Provider Social History Tobacco [...] Lyme Ab Negative Negative 04/12/2023 10:57 EST [facility] Blood VENOUS BLOOD / Unknown 04/11/2023 11:05 EST 04/11/2023 22:00 EST us Provider Outr Resulting Lab IMMUNOLOGY AND SEROL OGY ORDERABLES Final Result [facility] [address] [place] [address] documented in this encounter Visit Diagnoses Not on filedocumented in this encounter Care Teams Blocking Machine Operator Second Relationship Specialty Start Date End Date Rand Harley MD [address] [place] [address] PCP - General 07/30/16 documented as of this encounter
--- OUTSIDE RECORDS SUMMARY | 2024-04-22 15:54 | XMS_ITS | Encounter Summary ---
Author Organization [facility] Address [address] [place] [address] Care Team Providers Care Household Appliance Assembler Name Role Phone Rand Harley MD Primary Care Provider [phone] Reason for Visit * Reason Comments Follow-up 2-3 month re-eval Encounter Details Date Type Department Care Team (Late st Contact Info) Description 04/24/2021 15:30 EST Office Visit [facility] Dermatology 5th [address] [address] Iron De Oliveira MD [address] [place] [phone] Adverse effect of vaccine, initial encounter (Primary [...] 01/31/2016 11:50 EDT documented in this encounter Ordered Prescriptions Prescription Sig Dispense Quantity Refills Last Filled Start Date End Date triamcinolone (KENALOG) 0.1 % ointment Apply topically to affected area 2 times daily. Do not apply to face, armpit or groin. 80 g 3 04/24/2021 documented in this encounter Progress Notes * Iron De Oliveira MD - 04/24/2021 1530 EST Dermatology Outpatient Visit Note Dermatologic History: History of basal cell carcinoma of right chin, s/p Mohs in Dec 2011 (at [facility]) SUBJECTIVE: Ms. James is a [...] skin documented in this encounter Care Teams Household Appliance Assembler Relationship Specialty Start Date End Date Rand Harley MD [address] [place] [address] PCP - General 07/30/16 documented as of this encounter
--- OUTSIDE RECORDS SUMMARY | 2024-04-22 15:54 | XMS_ITS | Encounter Summary ---
Author Organization [facility] Address [address] [place] [address] Care Team Providers Care Radiological Technologist Name Role Phone Catina Chowdhury NP Primary Care Provider [phone] Encounter Details Date Type Department Care Team (Late st Contact Info) Description 07/20/2016 Results Only [facility] [phone] Maria D Krishnan, DO [address] [place] [address] Social History Tobacco Use Types [...] ? JC BANERJEE ? Accession #: ? [id number] ? : ? 1965 (Age: 50) ??F [...] Pugh 07/23/2016 9:30 AM End of Report [facility] 07/20/2016 9:44 EST 07/21/2016 9:44 EST us Maria D Krishnan DO PATHOLOGY ORDERABLES Final Res ult [facility] [address] [place] [address] documented in this encounter Visit Diagnoses Not on filedocumented in this encounter Care Teams Radiological Technologist Relationship Specialty Start Date End Date Catina Chowdhury NP [facility] [address] [place], [place] [phone] PCP - General 02/02/14 07/29/16 documented as of this encounter
--- OUTSIDE RECORDS SUMMARY | 2024-04-22 15:54 | XMS_ITS | Encounter Summary ---
Author Organization [facility] Address [address] [place] [address] Care Team Providers Care Piece Marker Small Arms Name Role Phone Catina Chowdhury NP Primary Care Provider [phone] Reason for Visit * Reason Comments Follow-up FBSE. Lesion right n ose Encounter Details Date Type Department Care Team (Late st Contact Info) Description 02/03/2014 10:15 EDT Office Visit [facility] Dermatology 3rd Floor [facility] [address] [place] [address] Elida Culp MD [address] [place] [phone] Personal history of other malignant neoplasm of [...] Try to schedule your outdoor activities for last greaser or early evening. ?? Make clothing a [...] for sun protective clothing and hats: ?? [email or web address] ?? [email or web address] ?? For sensitive skin, look for sunscreens [...] chin, s/p Mohs in Dec 2011 (at [facility]) Last Dermatology office visit: Jan 2013 SUBJECTIVE [...] radiation documented in this encounter Care Teams Piece Marker Small Arms Relationship Specialty Start Date End Date Catina Chowdhury, [facility] [address] [place] [address] PCP - General 02/02/14 07/29/16 documented as of this encounter
--- OUTSIDE RECORDS SUMMARY | 2024-04-22 15:54 | XMS_ITS | Encounter Summary ---
Author Organization [facility] Address [address] [place] [address] Care Team Providers Care Brewery Technician Name Role Phone Catina Chowdhury NP Primary Care Provider [phone] Reason for Visit * Reason Comments Skin Exam Annual FBSE, h/o BCC Encounter Details Date Type Department Care Team (Late st Contact Info) Description 02/14/2016 11:00 EDT Office Visit [facility] Dermatology 3rd Floor [facility] [address] [place] [address] Elida Culp MD [address] [place] [phone] History of basal cell carcinoma (Primary Dx); [...] documented in this encounter Discharge Diagnoses Diagnosis Z85.828 Personal [...] chin, s/p Mohs in Dec 2011 (at [facility]) Last Dermatology office visit: 01/2015 SUBJECTIVE [...] radiation documented in this encounter Care Teams Brewery Technician Relationship Specialty Start Date End Date Catina Chowdhury NP [facility] [address] [place] [address] PCP - General 02/02/14 07/29/16 documented as of this encounter
--- OUTSIDE RECORDS SUMMARY | 2024-04-22 15:54 | XMS_ITS | Encounter Summary ---
Author Organization [facility] Address [address] [place] [address] Care Team Providers Care Carton Filling Machine Operator Name Role Phone Rand Harley MD Primary Care Provider Reason for Visit * Reason Comments Skin Lesion spots on scalp, h/o BCC Encounter Details Date Type Department Care Team (Late st Contact Info) Description 07/31/2016 15:45 EDT Office Visit [facility] Dermatology 3rd Floor [address] [address] Yuri Cowan MD Neoplasm of uncertain behavior [...] documented in this encounter Discharge Diagnoses Diagnosis D48.5 Neoplasm [...] chin, s/p Mohs in Dec 2011 (at [facility]) Last Dermatology office visit: 02/14/2016 SUBJECTIVE Ms. [...] PATIENT INFORMATION: Jc Banerjee : MRN: [id number] SURGEON: Lilia Pan MD, Yuri Cowan MD [...] entire procedure. YURI COWAN MD 08/01/2016 18:22 automation/controls manager * Padmaja Mcknight - 07/31/2016 1545 EDT [...] may reflect changes made after this encounter. buPROPion (WELLBUTRIN SR) 150 mg SR tablet Take 150 mg by mouth daily. added in this encounter Care Teams Carton Filling Machine Operator Relationship Specialty Start Date End Date Rand Harley MD [address] [place] [address] PCP - General 07/30/16 documented as of this encounter
--- OUTSIDE RECORDS SUMMARY | 2024-04-22 15:54 | XMS_ITS | Encounter Summary ---
Author Organization [facility] Address [address] [place] [address] Care Team Providers Care Presiding Judge Name Role Phone Catina Chowdhury NP Primary Care Provider [phone] Reason for Visit * Reason Comments Thyroid Problem Encounter Details Date Type Department Care Team (Latest Contact Info) Description 01/31/2015 11:20 EDT Office Visit [facility] Endocrinology - [address] [address] Ale Hsu MD PhD [address] [place] [address] [place] [phone] Malignant neoplasm of thyroid gland (HCC-CMS) [...] 01/31/2015 11:09 EDT documented in this encounter Discharge Diagnoses Diagnosis 193. MALIGN [...] radiographic evidence of metastatic disease. CT chest, 2006 IMPRESSION: 1. No evidence of metastatic disease [...] THYROGLOBULIN, TUMOR MARKER, S (01/31/2015 11:33 EDT) Pathologist [facility] Thyroid Suppression? YES 01/31/2015 11:32 EDT [facility] Thyroglob,Tumor Mrkr <0.1 ng/mL 02/01/2015 7:51 [facility] Comment: (Note) REFERENCE VALUE Athyrotic <0.1 Intact Thyroid <=33 Thyroglobulin Ab, S 11(H) <4.0 IU/mL 02/01/2015 7:51 [facility] Thyroglobulin Interp (Note) 02/01/2015 7:51 [facility] Comment: Quantitation of thyroglobulin may [...] testing methods are immunoenzymatic assays manufactured by [employer] and performed on the [employer] DXI 800. Values obtained from different assay methods or kits may be different and cannot be used interchangeably. The results cannot be interpreted as absolute evidence for the presence or absence of malignant disease. Performed by: [facility], [address], [place] [address], Supervisor Dials: Brooke Flores, Ph.D. Blood specimen (specimen) BLOOD SPECIMEN / Unknown 01/31/2015 11:33 EDT 01/31/2015 13:15 EDT us Ale Hsu MD PhD CHEMISTRY & BLOOD GAS ORD ERABLES Final Result Performing Organization Address City/[facility] Co de Phone Number [facility] [address] [place] [address] * THYROID CASCADE (01/31/2015 11:33 EDT) TSH 0.39 0.35 - 5.00 uIU/ml 01/31/2015 15:09 EDT [facility] Comment: TSH cascade is not recommended for patients in which pituitary or hypothalamic disorders are suspected. Blood specimen (specimen) BLOOD SPECIMEN / Unknown 01/31/2015 11:33 EDT 01/31/2015 13:15 EDT us Ale Hsu MD PhD CHEMISTRY & BLOOD GAS ORD ERABLES Final Result Performing Organization Address City/[facility]/ZIP Co de Phone Number [facility] [address] [place] [address] documented in this encounter Visit Diagnoses Diagnosis Malignant neoplasm of thyroid gland (HCC-CMS)- Primary Malignant neoplasm of thyroid gland Postsurgical hypothyroidism documented in this encounter Care Teams Presiding Judge Relationship Specialty Start Date End Date Catina Chowdhury NP [facility] [address] [place] [address] PCP - General 02/02/14 07/29/16 documented as of this encounter
--- OUTSIDE RECORDS SUMMARY | 2024-04-22 15:54 | XMS_ITS | Encounter Summary ---
Author Organization [facility] Address [address] [place] [address] Care Team Providers Care Deputy Court Name Role Phone Rand Harley MD Primary Care Provider [phone] Encounter Details Date Type Department Care Team (Late st Contact Info) Description 07/31/2016 Results Only [facility] Dermatology 5th [address] [address] Yuri Cowan MD Social History Tobacco Use [...] ? JC BANERJEE ? Accession #: ? [id number] ? : ? 1965 (Age: 50) ??F [...] Clifford 08/01/2016 7:11 PM End of Report [facility] 07/31/2016 18:1 3 EDT 08/01/2016 18:13 EDT us Yuri Cowan MD PATHOLOGY ORDERABLES Fin al Result [facility] [address] [place] [address] documented in this encounter Visit Diagnoses Not on filedocumented in this encounter Care Teams Deputy Court Relationship Specialty Start Date End Date Rand Harley MD [address] [place] [address] PCP - General 07/30/16 documented as of this encounter
--- OUTSIDE RECORDS SUMMARY | 2024-04-22 15:54 | XMS_ITS | Encounter Summary ---
Author Organization [facility] Address [address] [place] [address] Care Team Providers Care Supervisor [employer] Name Role Phone Catina Chowdhury NP Primary Care Provider [phone] Reason for Visit * Reason Onset Date Comments Requesting Sooner Appointment 12/26/2015 Encounter Details Date Type Department Care Team (Late st Contact Info) Description 12/26/2015 Telephone [facility] Dermatology 3rd Floor [facility] [address] [place], [place] [address] Elida Culp MD [address] [place] [address] Requesting Sooner Appointment Social History Tobacco Use [...] 01/31/2015 11:09 EDT documented in this encounter Miscellaneous Notes [...] on filedocumented in this encounter Care Teams Supervisor Meter Repair [employer] Relationship Specialty Start Date End Date Catina Chowdhury NP [facility] [address] [place] [address] PCP - General 02/02/14 07/29/16 documented as of this encounter
--- OUTSIDE RECORDS SUMMARY | 2024-04-22 15:54 | XMS_ITS | Encounter Summary ---
Author Organization [facility] Address [address] [place] [address] Care Team Providers Care Cloth Winder Machine Operator Name Role Phone Rand Harley MD Primary Care Provider [phone] Reason for Visit * Reason Comments Thyroid Problem Encounter Details Date Type Department Care Team (Latest Contact Info) Description 04/30/2017 11:40 EST Office Visit [facility] Endocrinology - [address] [address] Ale Hsu MD PhD [address] [place] [address] [place] [phone] S/P total thyroidectomy (Primary Dx); History [...] EST documented in this encounter Functional Status * [...] documented in this encounter Discharge Diagnoses Diagnosis E89.0 POSTPROCEDURAL HYPOTHYROIDISM[ICD-10-CM] Z85.850 Personal history of malignant neoplasm of thyroid-Z85.850[ICD-10-CM] M25.551 Pain in right hip-M25.551[ICD-10-CM] M25.552 Pain in left hip-M25.552[ICD-10-CM] documented in this encounter Patient Instructions * Patient Instructions* Ale Hsu MD - 04/30/2017 11:40 EST We will check your thyroid tests and the tumor marker. We are getting all the tests that your bank and savings securities trader wanted and they should be sent to [...] keeps her up at night. Saw a bank and savings securities trader outside of [facility], and asking for blood tests when [...] be non-autoimmune. Her blood tests for her bank and savings securities trader were ordered and that doctor should get [...] ANCA Interpretation Negative Negative 05/01/2017 12:45 EST [facility] Comment: MARC Positive, suggest follow-up MARC testing if clinically indicated. Cannot rule out Atypical ANCA (A-ANCA). No titer performed, ANCA screen is negative. Results were obtained with the [employer] NOVA Lite ANCA kit by indirect immunofluorescence. Blood specimen (specimen) BLOOD SPECIMEN / Unknown 04/30/2017 13:42 EST 04/30/2017 15:29 EST us Ale Hsu MD PhD IMMUNOLOGY AND SEROLOGY O RDERABLES Final Result Performing Organization Address City/State/[facility] Co de Phone Number [facility] [address] [place] [address] * ANGIOTENSIN CONVERTING ENZYME (JEFERSON) (04/30/2017 13:42 EST) Angiotensin Converting Enzyme 42 8 - 53 U/L 05/02/2017 8:07 EST [facility] Comment: Performed or Referred by: [facility], [address] [place] [address], Lab Dir: Andrew Jimenez II, M.D., Ph.D. Blood specimen (specimen) BLOOD SPECIMEN / Unknown 04/30/2017 13:42 EST 04/30/2017 15:29 EST us Ale Hsu MD PhD CHEMISTRY & BLOOD GAS ORD ERABLES Final Result [facility] [address] [place] [address] * LUPUS ANTICOAGULANT CASCADE (04/30/2017 13:42 EST) LA [place] Summary Negative for detection of lupus anticoagulant (LA). 05/02/2017 15:43 EST [facility] Comment: Where clinical suspicion for [...] Viper Venom 33.0 secs 2016 10:58 EST [facility] Comment: Reference Range = 27.2-36.9 secs Results must be interpreted with caution if the patient is on oral anticoagulant, direct thrombin inhibitors or heparin. Silica Clotting Time 33.7 sec 05/02/2017 10:20 EST [facility] Comment: Reference Range = 30.2-48.4 secs Results must be interpreted with caution if the patient is on oral anticoagulant, direct thrombin inhibitors or heparin. Blood specimen (specimen) BLOOD SPECIMEN / Unknown 04/30/2017 13:42 EST 04/30/2017 15:29 EST Ale Hsu MD PhD HEMATOLOGY & PF4 ORDERABL ES Final Result Performing Organization Address City/[facility]/ZIP Co de Phone Number [facility] [address] [place] [address] * CK (04/30/2017 13:42 EST) CK 63 30 - 135 U/L 04/30/2017 16:01 [facility] Blood specimen (specimen) BLOOD SPECIMEN / Unknown 04/30/2017 13:42 EST 04/30/2017 15:29 EST Ale Hsu MD PhD CHEMISTRY & BLOOD GAS ORD ERABLES Final Result [facility] [address] [place] [address] * MYOMARKER PANEL 2 (04/30/2017 13:42 EST) DE 2 Negative Negative 06/01/2017 12:49 EST [facility] [address] Negative Negative 06/01/2017 12:49 [facility] [address] Negative Negative 06/01/2017 12:49 [facility] EJ Negative Negative 06/01/2017 12:49 [facility] OJ Negative Negative 06/01/2017 12:49 [facility] SRP Negative Negative 06/01/2017 12:49 [facility] KU Negative Negative 06/01/2017 12:49 [facility] U2 snRNP Negative Negative 06/01/2017 12:49 [facility] Anti PM/Scl 100 Ab <20 <20 Units 2017 12:49 [facility] Anti Tere 1 Ab <20 <20 Units 06/01/2017 12:49 [facility] Comment: (Note) . ADDITIONAL INFORMATION EIA Interpretation: Negative ? <20 Units Weak Positive ?20-39 Units Moderate Positive ??40-80 Units Strong Positive ?>80 Units . This panel was developed and its performance characteristics validated by [facility]. There is no FDA approved assay for the above tests. As a lab developed test (LDT), approval or clearance by the FDA is not required. This test may be used for clinical purposes and should not be regarded as investigational or for research. . Test Performed by: [facility] [address] [place] [address] BLOOD SPECIMEN / Unknown 04/30/2017 13:42 EST 04/30/2017 15:29 EST us Ale Hsu MD PhD IMMUNOLOGY AND SEROLOGY O RDERABLES Final Result Performing Organization Address [facility] Co de Phone Number [facility] [address] [place] [address] * SM (BANERJEE) ANTIBODY (04/30/2017 13:42 EST) Sm (Banerjee) Antibody 2.6 <20 Units 05/02/2017 14:40 EST [facility] Comment: Negative: <20 Units Weak Positive: 20 - 39 Units Moderate Positive: 40 - 80 Units Strong Positive: >80 Units Results were obtained with the [employer] QUANTA Lite Sm LLUVIA. Sm values obtained with different manufacturers' assay methods may not be used interchangeably. The magnitude of the reported IgG levels cannot be correlated to an endpoint titer. Blood specimen (specimen) BLOOD SPECIMEN / Unknown 04/30/2017 13:42 EST 04/30/2017 15:29 EST us Ale Hsu MD PhD IMMUNOLOGY AND SEROLOGY O RDERABLES Final Result Performing Organization Address [facility] Co de Phone Number [facility] [address] [place] [address] * CCP ANTIBODIES (04/30/2017 13:42 EST) CCP Antibodies <2.5 <5.0 U/mL 05/01/2017 13:07 EST [facility] BLOOD SPECIMEN / Unknown 04/30/2017 13:42 EST 04/30/2017 15:29 EST us Ale Hsu MD PhD IMMUNOLOGY AND SEROLOGY O RDERABLES Final Result Performing Organization Address [facility] Co de Phone Number [facility] [address] [place] [address] * SED. RATE:WESTERGREN (04/30/2017 13:42 EST) Pathologist [facility] Sed. Rate Westergren 8 0 - 30 mm/hr 04/30/2017 15:54 EST [facility] Blood specimen (specimen) BLOOD SPECIMEN / Unknown 04/30/2017 13:42 EST 04/30/2017 15:29 EST us Ale Hsu MD PhD HEMATOLOGY & PF4 ORDERABL ES Final Result Performing Organization Address [facility] Co de Phone Number [facility] [address] [place] [address] * C REACTIVE PROTEIN (04/30/2017 13:42 EST) [facility] C Reactive Protein <7.0 <10.0 mg/L 04/30/2017 16:05 EST [facility] Blood specimen (specimen) BLOOD SPECIMEN / Unknown 04/30/2017 13:42 EST 04/30/2017 15:29 EST Result Nicholas Hsu MD PhD CHEMISTRY & BLOOD GAS ORD ERABLES Final Result Performing Organization Address [facility] de Phone Number [facility] [address] [place] [address] * SSA ANTIBODIES BY LLUVIA (04/30/2017 13:42 EST) [facility] SSA Antibody 3.1 <20 Units 05/02/2017 14:40 EST [facility] Comment: Negative: <20 Units Weak Positive: 20 - 39 Units Moderate Positive: 40 - 80 Units Strong Positive: >80 Units Results were obtained with the [employer] QUANTA Lite SS-A LLUVIA. SS-A values obtained with different manufacturers' assay methods may not be used interchangeably. The magnitude of the reported IgG levels cannot be correlated to an endpoint titer. Blood specimen (specimen) BLOOD SPECIMEN / Unknown 04/30/2017 13:42 EST 04/30/2017 15:29 EST us Ale Hsu MD PhD IMMUNOLOGY AND SEROLOGY O RDERABLES Final Result Performing Organization Address [facility] Co de Phone Number [facility] [address] [place] [address] * ALDOLASE (04/30/2017 13:42 EST) Pathologist [facility] Aldolase, S 5.5 <7.7 U/L 05/02/2017 8:07 [facility] Comment: Performed or Referred by: [facility], [address] [place] [address], Lab Dir: Andrew Jimenez II, M.D., Ph.D. Blood specimen (specimen) BLOOD SPECIMEN / Unknown 04/30/2017 13:42 EST 04/30/2017 15:29 EST Ale Hsu MD PhD CHEMISTRY & BLOOD GAS ORD ERABLES Final Result Performing Organization Address [facility] Co de Phone Number [facility] [address] [place] [address] * (ABNORMAL) THYROGLOBULIN, TUMOR MARKER, S (04/30/2017 13:42 EST) Pathologist [facility] Thyroid Suppression? YES 04/30/2017 13:29 EST [facility] Thyroglob,Tumor Mrkr <0.1 ng/mL 05/02/2017 8:07 [facility] Comment: (Note) . REFERENCE VALUE Athyrotic <0.1 Intact Thyroid <=33 . Thyroglobulin Ab, S 5.1(H) <4.0 IU/mL 05/02/2017 8:07 [facility] Thyroglobulin Interp (Note) 05/02/2017 8:07 [facility] Comment: Quantitation of thyroglobulin [...] testing methods are immunoenzymatic assays manufactured by [employer]. and performed on the [employer] DXI 800. . Values obtained from different assay methods or kits may be different and cannot be used interchangeably. . The results cannot be interpreted as absolute evidence for the presence or absence of malignant disease. Performed by: [facility]: [facility] [address], [place] [address], Lab Dir: Andrew Jimenez II, M.D., Ph.D. Blood specimen (specimen) BLOOD SPECIMEN / Unknown 04/30/2017 13:42 EST 04/30/2017 15:29 EST Ale Hsu MD PhD CHEMISTRY & BLOOD GAS ORD ERABLES Final Result Performing Organization Address City/[facility] Co de Phone Number [facility] [address] [place] [address] * (ABNORMAL) THYROID CASCADE (04/30/2017 13:42 EST) TSH <0.02(L) 0.47 - 4.68 uIU/ml 04/30/2017 16:30 EST [facility] Comment: New methodology in use 11/07/16. TSH cascade is not recommended for patients in which pituitary or hypothalamic disorders are suspected. Blood specimen (specimen) BLOOD SPECIMEN / Unknown 04/30/2017 13:42 EST 04/30/2017 15:29 EST Ale Hsu MD PhD CHEMISTRY & BLOOD GAS ORD ERABLES Final Result Performing Organization Address City/[facility]/ZIP Co de Phone Number [facility] [address] [place] [address] documented in this encounter Visit Diagnoses Diagnosis S/P total thyroidectomy- Primary Other postprocedural status History of thyroid cancer Personal history of malignant neoplasm of thyroid Pain of both hip joints documented in this encounter Care Teams Cloth Winder Machine Operator Relationship Specialty Start Date End Date Rand Harley MD [address] [place] [address] PCP - General 07/30/16 documented as of this encounter
--- OUTSIDE RECORDS SUMMARY | 2024-04-22 15:54 | XMS_ITS | Encounter Summary ---
Author Organization [facility] Address [address] [place] [address] Care Team Providers Care Intensive Care Nurse Name Role Phone Rand Harley MD Primary Care Provider [phone] Encounter Details Date Type Department Care Team (Late st Contact Info) Description 09/22/2019 Lab Requisition [facility] Pathology & Laboratory Medicine - [address] [address] Outr Resulting Lab, Provider Social History Tobacco [...] Priority Date/Time Associated Diagnosis Comments ZZCOVID-19 TEST [facility] PCR Today 09/21/2019 15:30 EDT COVID-19 TESTING Routine 09/21/2019 15:3 0 EDT documented in this encounter Results * COVID-19 TEST [facility] PCR (09/21/2019 15:30 EDT) Swab ENTIRE NASOPHARYNX / Unknown 09/21/2019 15:30 EDT 09/22/2019 20:22 EDT us Provider Outr Resulting Lab MICROBIOLOGY - GENER AL ORDERABLES Final Result [facility] [address] [place] [address] * COVID-19 TESTING (09/21/2019 15:30 EDT) COVID-19 rt-PCR Result Negative Negative 09/23/2019 17:12 EDT [facility] Comment: Negative results do not preclude 2019-nCoV infection and should not be used as the sole basis for treatment or other patient management decisions. Negative results must be combined with clinical observations, patient history, and epidemiological information. This test was developed and its performance characteristics determined by [facility]. It has not been cleared or [...] by the FDA Performed on the [employer] 7500 Fast. Performing Lab [facility] 09/23/2019 17:12 EDT [facility] Swab ENTIRE NASOPHARYNX / Unknown 09/21/2019 15:30 EDT 09/22/2019 20:22 EDT us Provider Outr Resulting Lab MICROBIOLOGY - GENER AL ORDERABLES Final Result [facility] [address] [place] [address] documented in this encounter Visit Diagnoses Not on filedocumented in this encounter Care Teams Intensive Care Nurse Relationship Specialty Start Date End Date Rand Harley MD [address] [place] [address] PCP - General 07/30/16 documented as of this encounter
--- OUTSIDE RECORDS SUMMARY | 2024-04-22 15:54 | XMS_ITS | Encounter Summary ---
Author Organization [facility] Address [address] [place] [address] Care Team Providers Care Stamp Clerk Name Role Phone Rand Harley MD Primary Care Provider [phone] Encounter Details Date Type Department Care Team (Late st Contact Info) Description 04/30/2017 Results Only [facility] Endocrinology - [facility] [address] [place] [address] Ale Hsu MD PhD [address] [facility] [address] [place] [address] Social History Tobacco Use Types [...] 0.8 - 2.2 ng/dl 04/30/2017 17:15 EST [facility] Comment:New methodology in u se 11/07/16. BLOOD SPECIMEN / Unknown 04/30/2017 13:42 EST 04/30/2017 15:29 EST us Ale Hsu MD PhD CHEMISTRY & BLOOD GAS ORD ERABLES Final Result [facility] [address] [place] [address] documented in this encounter Visit Diagnoses Not on filedocumented in this encounter Care Teams Stamp Clerk Relationship Specialty Start Date End Date Rand Harley MD [address] [place] [address] PCP - General 07/30/16 documented as of this encounter
--- OUTSIDE RECORDS SUMMARY | 2024-04-22 15:54 | XMS_ITS | Encounter Summary ---
Author Organization [facility] Address [address] [place] [address] Care Team Providers Care Utility Porter Name Role Phone Rand Harley MD Primary Care Provider [phone] Encounter Details Date Type Department Care Team (Late st Contact Info) Description 11/03/2021 Lab Requisition [facility] Pathology & Laboratory Medicine - [address] [address] Outr Resulting Lab, Provider Social History Tobacco [...] ulin <15 <=60 U/mL 11/03/2021 22:02 EDT [facility] Blood VENOUS BLOOD / Unknown 11/02/2021 15:52 EDT 11/03/2021 20:06 EDT us Provider Outr Resulting Lab CHEMISTRY & BLOOD GA S ORDERABLES Final Result Performing Organization Address City/State/[facility] Co de Phone Number [facility] [address] [place] [address] documented in this encounter Visit Diagnoses Not on filedocumented in this encounter Care Teams Utility Porter Relationship Specialty Start Date End Date Rand Harley MD [address] [place] [address] PCP - General 07/30/16 documented as of this encounter
--- OUTSIDE RECORDS SUMMARY | 2024-04-22 15:54 | XMS_ITS | Encounter Summary ---
Author Organization [facility] Address [address] [place] [address] Care Team Providers Care Graphic Design Professor Name Role Phone Rand Harley MD Primary Care Provider Encounter Details Date Type Department Care Team (Late st Contact Info) Description 04/30/2017 Phlebotomy Only [address] [address] Senior Commissary Agent, Outpatient S/P total thyroidectomy; History of thyroid [...] ANCA Interpretation Negative Negative 05/01/2017 12:45 EST [facility] Comment: MARC Positive, suggest [...] O RDERABLES Final Result Performing Organization Address [facility] Co de Phone Number [facility] [address] [place] [address] * ANGIOTENSIN CONVERTING ENZYME (JEFERSON) (04/30/2017 13:42 EST) Pathologist [facility] Angiotensin Converting Enzyme 42 8 - 53 U/L 05/02/2017 8:07 EST [facility] Comment: Performed or Referred by: [facility], [facility] [place] [address], Lab Dir: Andrew Jimenez II, M.D., Ph.D. Blood specimen (specimen) BLOOD SPECIMEN / Unknown 04/30/2017 13:42 EST 04/30/2017 15:29 EST Ale Hsu MD PhD CHEMISTRY & BLOOD GAS ORD ERABLES Final Result Performing Organization Address [facility] Co de Phone Number [facility] [address] [place] [address] * LUPUS ANTICOAGULANT CASCADE (04/30/2017 13:42 EST) Pathologist [facility] [place] Summary Negative for detection of lupus anticoagulant (LA). 05/02/2017 15:43 EST [facility] Comment: Where clinical suspicion [...] Viper Venom 33.0 secs 2016 10:58 EST [facility] Comment: Reference Range = 27.2-36.9 secs Results must be interpreted with caution if the patient is on oral anticoagulant, direct thrombin inhibitors or heparin. Silica Clotting Time 33.7 sec 05/02/2017 10:20 EST [facility] Comment: Reference Range = 30.2-48.4 secs Results must be interpreted with caution if the patient is on oral anticoagulant, direct thrombin inhibitors or heparin. Blood specimen (specimen) BLOOD SPECIMEN / Unknown 04/30/2017 13:42 EST 04/30/2017 15:29 EST Ale Hsu MD PhD HEMATOLOGY & PF4 ORDERABL ES Final Result Performing Organization Address [facility] Co de Phone Number [facility] [address] [place] [address] * CK (04/30/2017 13:42 EST) CK 63 30 - 135 U/L 04/30/2017 16:01 EST [facility] Blood specimen (specimen) BLOOD SPECIMEN / Unknown 04/30/2017 13:42 EST 04/30/2017 15:29 EST Ale Hsu MD PhD CHEMISTRY & BLOOD GAS ORD ERABLES Final Result Performing Organization Address City/[facility] Co de Phone Number [facility] [address] [place] [address] * MYOMARKER PANEL 2 (04/30/2017 13:42 EST) [place] 2 Negative Negative 06/01/2017 12:49 EST [facility] [address] Negative Negative 06/01/2017 12:49 EST [facility] [address] Negative Negative 06/01/2017 12:49 EST [facility] EJ Negative Negative 06/01/2017 12:49 EST [facility] OJ Negative Negative 06/01/2017 12:49 EST [facility] SRP Negative Negative 06/01/2017 12:49 [facility] KU Negative Negative 06/01/2017 12:49 [facility] U2 snRNP Negative Negative 06/01/2017 12:49 [facility] Anti PM/Scl 100 Ab <20 <20 Units 2017 12:49 [facility] Anti Tere 1 Ab <20 <20 Units 06/01/2017 12:49 [facility] Comment: (Note) . ADDITIONAL INFORMATION [...] Test Performed by: [facility] [address] [place] [address] BLOOD SPECIMEN / Unknown 04/30/2017 13:42 EST 04/30/2017 15:29 EST Ale Hsu MD PhD IMMUNOLOGY AND SEROLOGY O RDERABLES Final Result Performing Organization Address City/State/[facility] Co de Phone Number [facility] [address] [place] [address] * SM (BANERJEE) ANTIBODY (04/30/2017 13:42 EST) Sm (Banerjee) Antibody 2.6 <20 Units 05/02/2017 14:40 EST [facility] Comment: Negative: <20 Units Weak Positive: 20 - 39 Units Moderate Positive: 40 - 80 Units Strong Positive: >80 Units Results were obtained with the [employer] QUANTA Lite Sm LLUVIA. Sm values obtained with different manufacturers' assay methods may not be used interchangeably. The magnitude of the reported IgG levels cannot be correlated to an endpoint titer. Blood specimen (specimen) BLOOD SPECIMEN / Unknown 04/30/2017 13:42 EST 04/30/2017 15:29 EST us Ale Hsu MD PhD IMMUNOLOGY AND SEROLOGY O RDERABLES Final Result Performing Organization Address [facility] de Phone Number [facility] [address] [place] [address] * CCP ANTIBODIES (04/30/2017 13:42 EST) CCP Antibodies <2.5 <5.0 U/mL 05/01/2017 13:07 EST [facility] BLOOD SPECIMEN / Unknown 04/30/2017 13:42 EST 04/30/2017 15:29 EST Result Nicholas Hsu MD PhD IMMUNOLOGY AND SEROLOGY O RDERABLES Final Result Performing Organization Address [facility] de Phone Number [facility] [address] [place] [address] * SED. RATE:WESTERGREN (04/30/2017 13:42 EST) Pathologist [facility] Sed. Rate Westergren 8 0 - 30 mm/hr 04/30/2017 15:54 EST [facility] Blood specimen (specimen) BLOOD SPECIMEN / Unknown 04/30/2017 13:42 EST 04/30/2017 15:29 EST Result Nicholas Hsu MD PhD HEMATOLOGY & PF4 ORDERABL ES Final Result Performing Organization Address [facility] de Phone Number [facility] [address] [place] [address] * C REACTIVE PROTEIN (04/30/2017 13:42 EST) C Reactive Protein <7.0 <10.0 mg/L 04/30/2017 16:05 EST [facility] Blood specimen (specimen) BLOOD SPECIMEN / Unknown 04/30/2017 13:42 EST 04/30/2017 15:29 EST us Ale Hsu MD PhD CHEMISTRY & BLOOD GAS ORD ERABLES Final Result Performing Organization Address City/[facility]/ZIP Co de Phone Number [facility] [address] [place] [address] * SSA ANTIBODIES BY LLUVIA (04/30/2017 13:42 EST) [facility] SSA Antibody 3.1 <20 Units 05/02/2017 14:40 EST [facility] Comment: Negative: <20 Units Weak Positive: 20 - 39 Units Moderate Positive: 40 - 80 Units Strong Positive: >80 Units Results were obtained with the [employer] QUANTA Lite SS-A LLUVIA. SS-A values obtained with different manufacturers' assay methods may not be used interchangeably. The magnitude of the reported IgG levels cannot be correlated to an endpoint titer. Blood specimen (specimen) BLOOD SPECIMEN / Unknown 04/30/2017 13:42 EST 04/30/2017 15:29 EST Result [facility] Ale Hsu MD PhD IMMUNOLOGY AND SEROLOGY O RDERABLES Final Result Performing Organization Address [facility] Co de Phone Number [facility] [address] [place] [address] * ALDOLASE (04/30/2017 13:42 EST) [facility] Aldolase, S 5.5 <7.7 U/L 05/02/2017 8:07 EST [facility] Comment: Performed or Referred by: [facility], [facility] [place] [address], Lab Dir: Andrew Jimenez II, M.D., Ph.D. Blood specimen (specimen) BLOOD SPECIMEN / Unknown 04/30/2017 13:42 EST 04/30/2017 15:29 EST Result [facility] Ale Hsu MD PhD CHEMISTRY & BLOOD GAS ORD ERABLES Final Result Performing Organization Address City/[facility]/ZIP Co de Phone Number [facility] [address] [place] [address] * (ABNORMAL) THYROGLOBULIN, TUMOR MARKER, S (04/30/2017 13:42 EST) Thyroid Suppression? YES 04/30/2017 13:29 EST [facility] Thyroglob,Tumor Mrkr <0.1 ng/mL 05/02/2017 8:07 [facility] Comment: (Note) . REFERENCE VALUE Athyrotic <0.1 Intact Thyroid <=33 . Thyroglobulin Ab, S 5.1(H) <4.0 IU/mL 05/02/2017 8:07 [facility] Thyroglobulin Interp (Note) 05/02/2017 8:07 [facility] Comment: Quantitation of thyroglobulin may [...] testing methods are immunoenzymatic assays manufactured by [employer] and performed on the ConnectFu DXI 800. . Values obtained from different assay methods or kits may be different and cannot be used interchangeably. . The results cannot be interpreted as absolute evidence for the presence or absence of malignant disease. Performed by: [facility]: [address], [place] [address], Lab Dir: Andrew Jimenez II, M.D., Ph.D. Blood specimen (specimen) BLOOD SPECIMEN / Unknown 04/30/2017 13:42 EST 04/30/2017 15:29 EST us Ale Hsu MD PhD CHEMISTRY & BLOOD GAS ORD ERABLES Final Result [facility] [address] [place] [address] * (ABNORMAL) THYROID CASCADE (04/30/2017 13:42 EST) TSH <0.02(L) 0.47 - 4.68 uIU/ml 04/30/2017 16:30 EST [facility] Comment: New methodology in use 11/07/16. TSH cascade is not recommended for patients in which pituitary or hypothalamic disorders are suspected. Blood specimen (specimen) BLOOD SPECIMEN / Unknown 04/30/2017 13:42 EST 04/30/2017 15:29 EST Ale Hsu MD PhD CHEMISTRY & BLOOD GAS ORD ERABLES Final Result [facility] [address] [place] [address] documented in this encounter Visit Diagnoses Diagnosis S/P total thyroidectomy Other postprocedural status History of thyroid cancer Personal history of malignant neoplasm of thyroid Pain of both hip joints documented in this encounter Care Teams Graphic Design Professor Relationship Specialty Start Date End Date Rand Harley MD [address] [place] [address] PCP - General 07/30/16 documented as of this encounter
--- OUTSIDE RECORDS SUMMARY | 2024-04-22 15:54 | XMS_ITS | Encounter Summary ---
Author Organization [facility] Address [address] [place] [address] Care Team Providers Care Manager Statistics Name Role Phone Rand Harley MD Primary Care Provider [phone] Encounter Details Date Type Department Care Team (Latest Contact Info) Description 01/20/2018 11:40 EDT Procedure visit [facility] Endocrinology - [facility] [address] [place] [address] Ale Hsu MD PhD [address] [facility] [address] [place] [address] Phlebotomy, [facility]o Postsurgical hypothyroidism; History of thyroid [...] EDT) Thyroid Suppression? YES 01/20/2018 11:43 EDT [facility] Thyroglob,Tumor Mrkr <0.1 ng/mL 01/22/2018 8:16 EDT [facility] Comment: (Note) . REFERENCE VALUE Athyrotic <0.1 Intact Thyroid <=33 . Thyroglobulin Ab, S 3.5 <4.0 IU/mL 01/22/2018 8:16 EDT [facility] Thyroglobulin Interp (Note) 01/22/2018 8:16 EDT [facility] Comment: Thyroglobulin (Tg) levels must [...] testing methods are immunoenzymatic assays manufactured by [employer]. and performed on the ShoutlyI 800. . Values obtained from different assay methods or kits may be different and cannot be used interchangeably. . The results cannot be interpreted as absolute evidence for the presence or absence of malignant disease. Performed by: [facility]: [address], [place] [address] Blood specimen (specimen) BLOOD SPECIMEN / Unknown 01/20/2018 11:43 EDT 01/20/2018 15:59 EDT us Ale Hsu MD PhD CHEMISTRY & BLOOD GAS ORD ERABLES Final Result Performing Organization Address City/[facility]/ZIP Co de Phone Number [facility] [address] [place] [address] * T4 FREE (01/20/2018 11:43 EDT) T4, Free 1.5 0.8 - 2.2 ng/dl 01/20/2018 16:37 EDT [facility] Blood specimen (specimen) BLOOD SPECIMEN / Unknown 01/20/2018 11:43 EDT 01/20/2018 15:59 EDT us Ale Hsu MD PhD CHEMISTRY & BLOOD GAS ORD ERABLES Final Result Performing Organization Address City/[facility]/ZIP Co de Phone Number [facility] [address] [place] [address] * TSH (01/20/2018 11:43 EDT) TSH 3.41 0.47 - 4.68 uIU/ml 01/20/2018 16:49 EDT [facility] Comment: The results of this assay can be falsely lowered due to the consumption of Biotin. Blood specimen (specimen) BLOOD SPECIMEN / Unknown 01/20/2018 11:43 EDT 01/20/2018 15:59 EDT us Ale Hsu MD PhD CHEMISTRY & BLOOD GAS ORD ERABLES Final Result [facility] [address] [place] [address] documented in this encounter Visit Diagnoses Diagnosis Postsurgical hypothyroidism History of thyroid cancer Personal history of malignant neoplasm of thyroid documented in this encounter Care Teams Manager Statistics Relationship Specialty Start Date End Date Rand Harley MD [address] [place] [address] PCP - General 07/30/16 documented as of this encounter
--- OUTSIDE RECORDS SUMMARY | 2024-04-22 15:54 | XMS_ITS | Encounter Summary ---
Author Organization [facility] Address [address] [place] [address] Care Team Providers Care Freight Broker Name Role Phone Rand Harley MD Primary Care Provider [phone] Reason for Visit * Reason Onset Date Comments Appointment Related 03/13/2018 Encounter Details Date Type Department Care Team (Late st Contact Info) Description 03/13/2018 Telephone [facility] Dermatology 5th Floor [facility] [address] [place], [place] [address] Elida Culp MD [address] [place] [id number] Appointment Related Social History Tobacco Use Types [...] on filedocumented in this encounter Care Teams Freight Broker Relationship Specialty Start Date End Date Rand Harley MD [address] [place] [id number] PCP - General 07/30/16 documented as of this encounter
--- OUTSIDE RECORDS SUMMARY | 2024-04-22 15:54 | XMS_ITS | Encounter Summary ---
Author Organization [facility] Address [address] [place] [address] Care Team Providers Care Curtain Cutter Name Role Phone Rand Harley MD Primary Care Provider [phone] Encounter Details Date Type Department Care Team (Late st Contact Info) Description 05/03/2017 Orders Only [facility] Endocrinology - [facility] [address] [place] [address] Ale Hsu MD PhD [address] [facility] [address] [place] [address] Social History Tobacco Use Types [...] Filled Start Date End Date levothyroxine (SYNTHROID) 125 mcg tablet Take 1 [...] documented as of this encounter Care Teams Curtain Cutter Relationship Specialty Start Date End Date Rand Harley MD [address] [place] [address] PCP - General 07/30/16 documented as of this encounter
--- OUTSIDE RECORDS SUMMARY | 2024-04-22 15:54 | XMS_ITS | Encounter Summary ---
Author Organization [facility] Address [address] [place] [address] Care Team Providers Care Baggage Security Checker Name Role Phone Rand Harley MD Primary Care Provider [phone] Reason for Visit * Reason Comments Skin Exam h/o bcc, spots on ch eeks and joint pain Encounter Details Date Type Department Care Team (Late st Contact Info) Description 04/16/2017 10:45 EST Office Visit [facility] Dermatology 3rd Floor [facility] [address] [place], [place] [address] Elida Culp MD [address] [place] [phone] Rash (Primary Dx); History of basal cell [...] 01/31/2016 11:50 EDT documented in this encounter Progress Notes * Stevie Saini MD - 04/16/2017 1045 EST Dermatology Outpatient Visit Note Chief Complaint Patient presents with ??? Skin Exam h/o bcc, spots on cheeks and joint pain Dermatologic History: 1. History of basal cell carcinoma of right chin, s/p Mohs in Dec 2011 (at [facility]) Last Dermatology office visit: 07/2016 SUBJECTIVE [...] skin documented in this encounter Care Teams Baggage Security Checker Relationship Specialty Start Date End Date Rand Harley MD [address] [place] [id number] PCP - General 07/30/16 documented as of this encounter
--- OUTSIDE RECORDS SUMMARY | 2024-04-22 15:54 | XMS_ITS | Encounter Summary ---
Author Organization [facility] Address [address] [place] [address] Care Team Providers Care Billboard Poster Helper Name Role Phone Catina Chowdhury NP Primary Care Provider [phone] Reason for Visit * Reason Comments Skin Exam Annual FBSE. h/o BCC . Encounter Details Date Type Department Care Team (Late st Contact Info) Description 02/07/2015 10:45 EDT Office Visit [facility] Dermatology 3rd Floor [facility] [address] [place], [place] [phone] Elida Culp MD [address] [place] [id number] Sun-damaged skin (Primary Dx); Personal history of [...] documented in this encounter Discharge Diagnoses Diagnosis 692.74 CHR [...] during these hours. Limit outdoor activities to cheesemaker helper and/or evening hours when the sunlight is [...] provide. In general, loose weaves (Cotton) and licensing director-colored fabrics offer less protection than tighter weaves [...] or sensitive Recommended sun protection clothing websites www.sunprecautions.TapCanvas www.coolibar.[employer]apCanvas www.[employer] www.[employer] documented in this encounter Progress Notes * Rock Knight MD - 02/07/2015 1102 EDT Dermatology Outpatient Visit Note Chief Complaint Patient presents with ??? Skin Exam Annual FBSE. h/o BCC. Dermatologic History: 1. History of basal cell carcinoma of right chin, s/p Mohs in Dec 2011 (at [facility]) Last Dermatology office visit: 02/03/14 SUBJECTIVE Ms. [...] family history of melanoma. 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 [...] skin documented in this encounter Care Teams Billboard Poster Helper Relationship Specialty Start Date End Date Catina Chowdhury NP [facility] [address] [place] [address] PCP - General 02/02/14 07/29/16 documented as of this encounter
--- OUTSIDE RECORDS SUMMARY | 2024-04-22 15:54 | XMS_ITS | Encounter Summary ---
Author Organization [facility] Address [address] [place] [address] Care Team Providers Care Broacher Name Role Phone Catina Chowdhury NP Primary Care Provider [phone] Reason for Visit * Reason Comments Labs Only Encounter Details Date Type Department Care Team (Latest Contact Info) Description 02/03/2014 13:15 EDT Procedure visit [facility] Endocrinology - [address] [address] Unknown, Provider, Phlebotomy, [facility] Endo Postsurgical hypothyroidism; History of thyroid cancer [...] Dr. Hsu ???I was supervised by Dr. Shadi who was in the suite and readily [...] 02/03/2014 13:0 7 EDT 02/03/2014 15:22 EDT us Ale Hsu MD PhD CHEMISTRY & BLOOD GAS ORD ERABLES Final Result [facility] [address] [place] [address] * THYROGLOBULIN TUMOR MARKER (02/03/2014 13:07 EDT) Thyroid Suppression? YES [facility] Thyroglob Ab Screen <20 <22 IU/mL [facility] Comment: (Note) The thyroglobulin testing method is an immunoenzymatic assay manufactured by [employer] and performed on the ExoYou DXI 800. The thyroglobulin antibody testing method [...] normally have hTg values <=2. Performed by: [facility] [place], [address], [place] [address], Rubber Goods Finisher: Brooke Flores, Ph.D. Blood specimen (specimen) 02/03/2014 13:07 EDT 02/03/2014 15:22 EDT Ale Hsu MD PhD CHEMISTRY & BLOOD GAS ORD ERABLES Final Result Performing Organization Address [facility] de Phone Number [facility] [address] [place] [address] * (ABNORMAL) THYROID CASCADE (02/03/2014 13:07 EDT) TSH 0.13(L) 0.35 - 5.00 uIU/ml [facility] Comment: TSH cascade is not recommended for patients in which pituitary or hypothalamic disorders are suspected. Blood specimen (specimen) 02/03/2014 13:07 EDT 02/03/2014 15:22 EDT Ale Hsu MD PhD CHEMISTRY & BLOOD GAS ORD ERABLES Final Result Performing Organization Address [facility] Co de Phone Number [facility] [address] [place] [address] documented in this encounter Visit Diagnoses Diagnosis Postsurgical hypothyroidism History of thyroid cancer Personal history of malignant neoplasm of thyroid documented in this encounter Care Teams Broacher Relationship Specialty Start Date End Date Catina Chodwhury NP [facility] [address] [place] [address] PCP - General 02/02/14 07/29/16 documented as of this encounter
--- OUTSIDE RECORDS SUMMARY | 2024-04-22 15:54 | XMS_ITS | Encounter Summary ---
Author Organization [facility] Address [address] [place] [address] Care Team Providers Care Manager Pipeline Name Role Phone Catina Chowdhury NP Primary Care Provider [phone] Encounter Details Date Type Department Care Team (Late st Contact Info) Description 01/31/2016 Phlebotomy Only [address] [address] Preventive Medicine Officer, Outpatient Postsurgical hypothyroidism; History of thyroid cancer [...] EDT) Thyroid Suppression? YES 01/31/2016 12:15 EDT [facility] Thyroglob,Tumor Mrkr <0.1 ng/mL 02/02/2016 9:00 T [facility] Comment: (Note) REFERENCE VALUE Athyrotic <0.1 Intact Thyroid <=33 Thyroglobulin Ab, S 5.9(H) <4.0 IU/mL 02/02/2016 9:00 T [facility] Thyroglobulin Interp (Note) 02/02/2016 9:00 T [facility] Comment: Quantitation of thyroglobulin may [...] testing methods are immunoenzymatic assays manufactured by [employer] and performed on the [employer] DXI 800. Values obtained from different assay methods or kits may be different and cannot be used interchangeably. The results cannot be interpreted as absolute evidence for the presence or absence of malignant disease. Performed by: [facility]: [address], [place] [address], Lab Dir: Andrew Jimenez II, M.D., Ph.D. Blood specimen (specimen) BLOOD SPECIMEN / Unknown 01/31/2016 12:16 EDT 01/31/2016 12:44 EDT us Ale Hsu MD PhD CHEMISTRY & BLOOD GAS ORD ERABLES Final Result [facility] [address] [place] [address] * T4 FREE (01/31/2016 12:16 EDT) Free T4 1.5 0.8 - 1.8 ng/dl 01/31/2016 14:45 EDT [facility] Blood specimen (specimen) BLOOD SPECIMEN / Unknown 01/31/2016 12:16 EDT 01/31/2016 12:44 EDT us Ale Hsu MD PhD CHEMISTRY & BLOOD GAS ORD ERABLES Final Result Performing Organization Address [facility] Co de Phone Number [facility] [address] [place] [address] * (ABNORMAL) TSH (01/31/2016 12:16 EDT) TSH 0.03(L) 0.55 - 4.78 uIU/ml 01/31/2016 14:45 EDT [facility] Blood specimen (specimen) BLOOD SPECIMEN / Unknown 01/31/2016 12:16 EDT 01/31/2016 12:44 EDT us Ale Hsu MD PhD CHEMISTRY & BLOOD GAS ORD ERABLES Final Result Performing Organization Address City/[facility] Co de Phone Number [facility] [address] [place] [address] documented in this encounter Visit Diagnoses Diagnosis Postsurgical hypothyroidism History of thyroid cancer Personal history of malignant neoplasm of thyroid documented in this encounter Care Teams Manager Pipeline Relationship Specialty Start Date End Date Catina Chowdhury, BARN AND PROPERTY MANAGER [facility] [address] [place] [address] PCP - General 02/02/14 07/29/16 documented as of this encounter
--- OUTSIDE RECORDS SUMMARY | 2024-04-22 15:54 | XMS_ITS | Encounter Summary ---
Author Organization [facility] Address [address] [place] [address] Care Team Providers Care Vending Service Technician Name Role Phone Catina Chowdhury NP Primary Care Provider Reason for Visit * Reason Onset Date Comments Medications Refill 03/25/2014 Encounter Details Date Type Department Care Team (Late st Contact Info) Description 03/25/2014 Refill [facility] Endocrinology - [address] [address] Ale Hsu MD PhD [address] [place] [address] [place] [phone] Medications Refill Social History Tobacco Use [...] Navarro - 03/25/2014 0941 EST Abu from [employer] asking for a verbal to dispense this [...] documented as of this encounter Care Teams Vending Service Technician Relationship Specialty Start Date End Date Catina Chowdhury, [facility] [address] [place] [address] PCP - General 02/02/14 07/29/16 documented as of this encounter
--- OUTSIDE RECORDS SUMMARY | 2024-04-22 15:54 | XMS_ITS | Clinical Summary ---
Author Organization [facility] Address [address] [place] [address] Care Team Providers Care Patternmaker Metal Name Role Phone Rand Harley MD Primary Care Provider [phone] Allergies Active Allergy Reactions Criticality Noted Date [...] Noted Date Diagnosed Date SVT (supraventricular tachycardia) ([facility]) Postsurgical hypothyroidism 02/04/2012 Malignant neoplasm of thyroid gland ([facility]) Endometriosis 02/01/2010 Overview (02/01/2010): S/p hysterectomy, 10/16 Resolved Problems Problem Noted Date Diagnosed Date Resolved Date Hypothyroidism, iatrogenic 02/01/2010 0 02/04/2012 Overview (02/10/2015): ICD10 Update Auto Replacement History of malignant neoplasm of thyroid 02/01/2010 02/04/2012 Overview (02/01/2010): Papillary thyroid cancer, T2 N1 M0 S/p total thyroidectomy, 1988 Encounters Date Type Department Care Team Description 02/11/2024 Lab Requisition [facility] Pathology & Laboratory Medicine - [address] [address] Madiha Dillon Encounter for other general examination from Last 3 Months Surgical History Surgery Date Site/Laterality Comments HYSTERECTOMY, [...] - 19+ 3-dose series) 10/31 COVID-19 Vaccine ( season) 2024 Procedures Procedure Name Priority Date/Time Associated Diagnosis [...] explore management options, if applicable. 02/12/2024 9:15 [facility] Final Diagnosis A. SKIN OF CHEST, UPPER, PUNCH BIOPSY: - Seborrheic keratosis, inflamed. 02/12/2024 9:15 [facility] Attestation By the signature below, the attending physician certifies that they have 1) personally conducted a gross and/or microscopic examination of the described specimen(s), and/or personally interpreted the results of laboratory testing of the described specimen(s), and 2) personally rendered or confirmed the above diagnosis. 02/12/2024 9:15 [facility] at 0915 Clinical History Lesion mid upper chest 02/12/2024 9:15 [facility] Gross Description A. Received in formalin labelled with proper patient identification (initials M, A) and upper chest is a punch biopsy of luis-white slightly nodular skin (0.3 cm in diameter by 0.2 cm in depth). Submitted intact in A1. RJ CARABALLO(ASCP) 02/11/2024 9:44 02/12/2024 9:15 [facility] Performing Lab [facility] 02/12/2024 9:15 [facility] Scanned Images 02/12/2024 9:15 [facility] Tissue SPECIMEN FROM SKIN / Unknown 02/10/2024 17:20 EDT 02/11/2024 8:26 EDT us Madiha DoverSusan PATHOLOGY ORDERABLES Final Result [facility] [address] [place], [place] [id number] from Last 3 Months Insurance [facility] Address: [address] [address] Advance Directives For more information, please contact: [phone] * Full Code (Latest Code Status on File) Date Activated Date Inactivated Comments 07/01/2013 6:57 07/01/2013 18:36 Care Teams Patternmaker Metal Relationship Specialty Start Date End Date Rand Harley MD [address] [place] [address] PCP - General 07/30/16
--- OUTSIDE RECORDS SUMMARY | 2024-04-22 15:54 | XMS_ITS | Encounter Summary ---
Author Organization [facility] Address [address] [place] [address] Care Team Providers Care Color Paste Mixer Name Role Phone Rand Harley MD Primary Care Provider [phone] Reason for Visit * Reason Comments Thyroid Problem Encounter Details Date Type Department Care Team (Latest Contact Info) Description 01/20/2018 11:00 EDT Office Visit [facility] Endocrinology - [address] [address] Ale Hsu MD PhD [address] [place] [address] [place] [phone] Postsurgical hypothyroidism (Primary Dx); History of [...] cancer HPI History of papillary thyroid cancer, 1987. [...] used 2009-AB at that time was 13. 2016- TSH < 0.02, Tg < 0.1, AB [...] EDT) Thyroid Suppression? YES 01/20/2018 11:43 EDT [facility] Thyroglob,Tumor Mrkr <0.1 ng/mL 01/22/2018 8:16 EDT [facility] Comment: (Note) . REFERENCE VALUE Athyrotic <0.1 Intact Thyroid <=33 . Thyroglobulin Ab, S 3.5 <4.0 IU/mL 01/22/2018 8:16 T [facility] Thyroglobulin Interp (Note) 01/22/2018 8:16 T [facility] Comment: Thyroglobulin (Tg) levels must [...] testing methods are immunoenzymatic assays manufactured by [employer] and performed on the [employer] DXI 800. . Values obtained from different assay methods or kits may be different and cannot be used interchangeably. . The results cannot be interpreted as absolute evidence for the presence or absence of malignant disease. Performed by: [facility]: [address], [place] [address] Blood specimen (specimen) BLOOD SPECIMEN / Unknown 01/20/2018 11:43 EDT 01/20/2018 15:59 EDT us Ale Hsu MD PhD CHEMISTRY & BLOOD GAS ORD ERABLES Final Result [facility] [address] [place] [address] * T4 FREE (01/20/2018 11:43 EDT) T4, Free 1.5 0.8 - 2.2 ng/dl 01/20/2018 16:37 EDT [facility] Blood specimen (specimen) BLOOD SPECIMEN / Unknown 01/20/2018 11:43 EDT 01/20/2018 15:59 EDT Ale Hsu MD PhD CHEMISTRY & BLOOD GAS ORD ERABLES Final Result Performing Organization Address City/[facility]/ZIP Co de Phone Number [facility] [address] [place] [address] * TSH (01/20/2018 11:43 EDT) TSH 3.41 0.47 - 4.68 uIU/ml 01/20/2018 16:49 EDT [facility] Comment: The results of this assay can be falsely lowered due to the consumption of Biotin. Blood specimen (specimen) BLOOD SPECIMEN / Unknown 01/20/2018 11:43 EDT 01/20/2018 15:59 EDT Ale Hsu MD PhD CHEMISTRY & BLOOD GAS ORD ERABLES Final Result Performing Organization Address City/[facility]/ZIP Co de Phone Number [facility] [address] [place] [address] documented in this encounter Visit Diagnoses Diagnosis Postsurgical hypothyroidism- Primary History of thyroid cancer Personal history of malignant neoplasm of thyroid documented in this encounter Discontinued Medications Medication Sig Discontinue Reason Start Date End Da te levothyroxine (SYNTHROID) 125 mcg tablet Take 1 Tab by mouth daily. Reorder 05/03/2017 01/20/2018 documented as of this encounter Care Teams Color Paste Mixer Relationship Specialty Start Date End Date Rand Harley MD [address] [place] [address] PCP - General 07/30/16 documented as of this encounter
--- OUTSIDE RECORDS SUMMARY | 2024-04-22 15:54 | XMS_ITS | Continuity of Care Document ---
Author Organization [facility] Address [address] [place] [address] Care Team Providers Care Building Tech Name Role Phone Rand Harley Primary Care Physician Encounter [facility] [id number] Date(s): 02/10/24 - 02/10/24 [facility] [address] [place] [address] Discharge Disposition: Home Allergies, Adverse Reactions, Alerts [...] needed, # 2 tab, 0 Refill(s), Pharmacy: [id number], 167.64, cm, 01/01/24 9:34:00 EDT, Height, 85.82, [...] pain Confirmed Active Nicotine dependence Confirmed Active Obstructive sleep apnea, adult Confirmed Active Low oxygen saturation Confirmed Active [...] Access Member Role: Primary Care Physician Address: [address] [place] [facility] [place] [address]- Care Team Related Persons Name: TANIKA PRADO Insurance Providers Guarantor name: Health Plan Information #: 1 Payer: [facility] Member Number: NA Policy Number: NA
--- OUTSIDE RECORDS SUMMARY | 2024-04-22 15:55 | XMS_ITS | Encounter Summary ---
Author Organization [facility] Address [address] [place] [address] Care Team Providers Care Loading Unit Operator Powder Charging Name Role Phone Rand Harley MD Primary Care Provider [phone] Reason for Visit * Reason Onset Date Comments Results 02/16/2013 Encounter Details Date Type Department Care Team (Late st Contact Info) Description 02/16/2013 Telephone [facility] Endocrinology - [address] [address] Ale Fernández MD PhD [address] [place] [address] [place] [phone] Results Social History Tobacco Use Types Packs/Day Years Used Date Smoking Tobacco: Former Cigarettes 0.8 7 Smokeless Tobacco: Never Alcohol Use Standard Drinks/Week Comments Yes 0 (1 standard drink = 0.6 oz pur e alcohol) Comments No Sex and Gender Information Value [...] on filedocumented in this encounter Care Teams Loading Unit Operator Powder Charging Relationship Specialty Start Date End Date Rand Harley MD [address] [place] [address] PCP - General 07/21/12 02/01/14 documented as of this encounter
--- OUTSIDE RECORDS SUMMARY | 2024-04-22 15:55 | XMS_ITS | Encounter Summary ---
Author Organization [facility] Address [address] [place] [address] Care Team Providers Care Supervisor Drapery Hanging Name Role Phone Catina Chowdhury NP Primary Care Provider [phone] Encounter Details Date Type Department Care Team (Late st Contact Info) Description 12/04/2006 Before PRISM Converted Visit (Maple) [facility] - Maple conversion [address] [place] [address] Lance Valdes MD [address] [facility], [address] [place] [address] Social History Tobacco Use Types Packs/Day Years Used Date Smoking Tobacco: Never Assessed Comments Unknown Sex and Gender Information Value Date Recorded [...] MD Lance Valdes MD -Lance Valdes MD -mld Job ID: [id number] Doc ID: [id number] cc: Ale Hsu MD, PhD Cristofer Zapata MD documented in this encounter Plan of Treatment Not on file documented as of this encounter Visit Diagnoses Not on filedocumented in this encounter Care Teams Supervisor Drapery Hanging Relationship Specialty Start Date End Date Catina Chowdhury NP [facility] [address] [place] [address] PCP - General 02/03/09 07/20/12 documented as of this encounter
--- OUTSIDE RECORDS SUMMARY | 2024-04-22 15:55 | XMS_ITS | Encounter Summary ---
Author Organization [facility] Address [address] [place] [address] Care Team Providers Care Ux Research Associate Name Role Phone Catina Chowdhury NP Primary Care Provider [phone] Encounter Details Date Type Department Care Team (Late st Contact Info) Description 12/13/2004 Before PRISM Converted Visit (Maple) [facility] - Maple conversion [address] [place] [address] Ale Hsu MD PhD [address] [place] [address] [address] [place] [address] Social History Tobacco Use Types [...] A - sa Job ID: Document ID: [id number] cc: documented in this encounter Plan of Treatment Not on file documented as of this encounter Visit Diagnoses Not on filedocumented in this encounter Care Teams Ux Research Associate Relationship Specialty Start Date End Date Catina Chowdhury NP [facility] [address] [place] [address] PCP - General 02/03/09 07/20/12 documented as of this encounter
--- OUTSIDE RECORDS SUMMARY | 2024-04-22 15:55 | XMS_ITS | Encounter Summary ---
Author Organization [facility] Address [address] [place] [address] Care Team Providers Care Manager Banquet Name Role Phone Rand Harley MD Primary Care Provider [phone] Catina Chowdhury NP Primary Care Provider [phone] Rand Harley MD Primary Care Provider [phone] Reason for Visit * Reason Onset Date Comments Medications Refill 02/09/2013 Encounter Details Date Type Department Care Team (Late st Contact Info) Description 02/09/2013 Refill [facility] Endocrinology - [address] [id number] Ale Hsu MD PhD [address] [place] [address] [address] [place] [address] Medications Refill Social History Tobacco [...] Refills Last Filled Start Date End Date SYNTHROID 150 mcg tablet Take 1 Tab [...] documented as of this encounter Care Teams Manager Banquet Relationship Specialty Start Date End Date Rand Harley MD [address] [place] [address] PCP - General 07/21/12 02/01/14 Catina Chowdhury NP [facility] [address] [place] [address] PCP - General 02/02/14 07/29/16 Rand Harley MD [address] [place] [address] PCP - General 07/30/16 documented as of this encounter
--- OUTSIDE RECORDS SUMMARY | 2024-04-22 15:55 | XMS_ITS | Encounter Summary ---
Author Organization [facility] Address [address] [place] [address] Care Team Providers Care Automotive Glass Installer Name Role Phone Catina Chowdhury NP Primary Care Provider [phone] Encounter Details Date Type Department Care Team (Late st Contact Info) Description 12/12/2005 Before PRISM Converted Visit (Maple) [facility] - Maple conversion [address] [place] [address] Ale Hsu MD PhD [address] [place] [address] [place] [phone] Social History Tobacco Use Types Packs/Day [...] Hsu MD,PhD P - MR Job ID: [id number] Document ID: [id number] cc: Cristofer Zapata MD documented in this encounter Plan of Treatment Not on file documented as of this encounter Visit Diagnoses Not on filedocumented in this encounter Care Teams Automotive Glass Installer Relationship Specialty Start Date End Date Catina Chowdhury NP [facility] [address] [place] [address] PCP - General 02/03/09 07/20/12 documented as of this encounter
--- OUTSIDE RECORDS SUMMARY | 2024-04-22 15:55 | XMS_ITS | Encounter Summary ---
Author Organization [facility] Address [address] [place] [address] Care Team Providers Care Toe Lining Closer Name Role Phone Catina Chowdhury NP Primary Care Provider [phone] Encounter Details Date Type Department Care Team (Late st Contact Info) Description 01/15/2006 Before PRISM Converted Visit (Maple) [facility] - Maple conversion [address] [place] [address] Monico Goff MD Social History Tobacco Use [...] January 16, 2006 Ale [facility] MD, PhD [facility] [address] [place] [address] DOS: 01/15/06 Dear Ale: I had the [...] - kmb Job ID: tape Document ID: [id number] cc: Ale Hsu MD,PhD * Monico Goff [...] - kmb Job ID: tape Document ID: [id number] cc: * Monico Goff MD - 05/19/2009 [...] thyroid malignancy in the neck. Procedure: a Sofia IU-22 system, biplanar B-mode ultrasound was performed [...] Goff MD - MD Shell P - shanita Job ID: tape Document ID: [id number] cc: Ale Hsu MD,PhD documented in this encounter Plan of Treatment Not on file documented as of this encounter Visit Diagnoses Not on filedocumented in this encounter Care Teams Toe Lining Closer Relationship Specialty Start Date End Date Catina Chowdhury NP [address] [address] PCP - General 02/03/09 07/20/12 documented as of this encounter
--- OUTSIDE RECORDS SUMMARY | 2024-04-22 15:55 | XMS_ITS | Encounter Summary ---
Author Organization [facility] Address [address] [place] [address] Care Team Providers Care Clearing Distribution Clerk Name Role Phone Catina Chowdhury NP Primary Care Provider [phone] Reason for Visit * Reason Comments Follow-up thyroid CA Encounter Details Date Type Department Care Team (Late st Contact Info) Description 10/06/2010 15:00 EDT Office Visit [address] [address] Lance Valdes MD [address] [facility], [address] [place] [address] Thyroid cancer (CMS-HCC) (HCC-CMS) (Primary Dx) Social History Tobacco Use Types Packs/Day Years Used Date Smoking Tobacco: Never Assessed Comments No Sex and Gender Information Value Date Recorded Sex Assigned at Not on file Legal Sex Female 17:47 EST Gender Identity Not on file Sexual Orientation Not on file documented as of this encounter Progress Notes * Lance Valdes MD, MD - 10/06/2010 2154 EDT SUBJECTIVE Jc Banerjee is seen in [...] gland documented in this encounter Care Teams Clearing Distribution Clerk Relationship Specialty Start Date End Date Catina Chowdhury NP [facility] [address] [place] [address] PCP - General 02/03/09 07/20/12 documented as of this encounter
--- OUTSIDE RECORDS SUMMARY | 2024-04-22 15:55 | XMS_ITS | Encounter Summary ---
Author Organization [facility] Address [address] [place] [address] Care Team Providers Care Director Digital Strategy Name Role Phone Jerry Harley MD Primary Care Provider [phone] Encounter Details Date Type Department Care Team (Latest Contact Info) Description 07/01/2013 6:37 EST - 07/01/2013 16:15 EST Hospital Encounter [facility] [address] [place] [address] Hebert Malone MD [address] [place] [address] [address] [place] [address] SVT (supraventricular tachycardia) ([facility]) (Primary Dx) Discharge Disposition: Home or [...] Kennedi Zapata RN - 07/01/2013 14:07 EST [facility] Department of Cardiology Ablation Discharge Instructions: Jc Banerjee has had a SVT Ablation today Performed by . Phone# : [facility] Department of Cardiology Wound Care: You [...] mod amt, medicated w zofran by CJS. CJIvonne given report and assumes care of pt. KET * Staci Hernandez RN - 07/01/2013 0738 EST Do not need to send UA per Dr. Malone. * Coby Mckinley RN - 07/01/2013 0729 EST Jc Banerjee arrived to the Cardiovascular Unit via ambulatory. Patient greeted and identified per [facility] policy, Allergies, procedure verified & patient oriented to Unit. Reviewed all pre-procedure instructions with Jc Banerjee. Patient denies pain. Discussed history, med list, allergies, NPO, sedation,& procedure information. All questions answered & patient verbalizes understandi ng. Pre-SVT Ablation prep completed. Patient stretcher in [...] Both parents with sleep apnea. Father with [place] at 49. Medications Prescriptions prior to admission [...] Hebert Malone MD - 07/01/2013 1515 ESTProcedure(s): [id number] Pre-Procedure Diagnose(s): SVT (supraventricular tachycardia) ([facility]) Post-Procedure Diagnose(s): AVNRT (AV ellie re-entry tachycardia) ([facility]) Electrophysiology Laboratory Preliminary Report -- Invasive Electrophysiology Procedure Date of Service/Procedure: 07/01/2013 Attending Physician: Hebert Malone MD Vacuum Cleaner Assembler: Aniket Cruz RN Pre-Procedure Diagnosis/Indication: Jc Banerjee is a 47 y.o. year old female Presents to [facility] Laboratory on [place] [address] for an Electrophysiological study which is Indicated [...] (07/08/2013 14:02 EST) 07/08/2013 14:0 2 EST us Scan 2 Christmas Tree Contractor PROCEDURE/MINOR SURGICAL OR DERABLES Final Result * ECG REPORT - SCANNED (07/06/2013 12:29 EST) 07/06/2013 12:2 9 EST us Scan 2 Christmas Tree Contractor PROCEDURE/MINOR SURGICAL OR DERABLES Final Result * ECG REPORT - SCANNED (07/06/2013 11:14 EST) 07/06/2013 11:1 4 EST us Scan 2 Christmas Tree Contractor PROCEDURE/MINOR SURGICAL OR DERABLES Final Result * INVASIVE CARDIOLOGY REPORT-SCANNED (07/06/2013 11:14 EST) 07/06/2013 11:1 4 EST us Scan 2 Christmas Tree Contractor PROCEDURE/MINOR SURGICAL OR DERABLES Final Result * EKG 12-LEAD (07/01/2013 13:14 EST) 07/01/2013 13:1 4 EST Narrative [facility] EKG - 07/07/2013 11:39 EST ?[facility] ? Test Date: ?2013-07-01 Pat Name: ? JC BANERJEE ? Department: ?? CVU ? Room: ? CVU02 Gender: ? F ?Social Service Worker: ?? [id number] : ?1965 ? Requested By: HEBERT MALONE MD Order Number: [id number] ? Reading MD: ?? JACOB CAMERON MD ? Measurements Intervals ?[place] ? Rate: ? 79 ? P: ?61 FL: ? 158 ?QRS: ?52 QRSD: ? 82 [...] Procedure Note Jacob Cameron MD - 07/07/2013 [facility] Test Date: 2013-07-01 Pat Name: JC BANERJEE Department: CVU Room: [facility] Gender: F Social Service Worker: [id number] : 1965 Requested By: HEBERT MALONE MD Order Number: [id number] Reading MD: JACOB CAMERON MD Measurements Intervals [place] Rate: 79 P: 61 FL: 158 QRS: 52 QRSD: 82 T: 22 QT: 370 QTc: 425 Interpretive Statements SINUS RHYTHM Nonspecific T abnormalities diffuse leads. Compared to ECG 07/01/2013 07:14:00 No significant changes I have reviewed the tracing and have either agreed or edited the findingsin this report. Electronically Signed On 07-07-13 11:39:10 EST by JACOB CAMERON MD. us Hebert Malone MD CARDIAC ECG ORDERABLES Final Result [facility] EKG * EKG 12-LEAD (07/01/2013 7:14 EST) 07/01/2013 7:14 EST Narrative [facility] EKG - 07/03/2013 13:07 EST ?[facility] ? Test Date: ?2013-07-01 Pat Name: ? JC BANERJEE ? Department: ?? CVU ? Room: ? CVU02 Gender: ? F ?Social Service Worker: ?? [id number] : ?1965 ? Requested By: HEBERT MALONE MD Order Number: [id number] ? Reading MD: ?? GELACIO MELLO MD ? Measurements Intervals ?[place] ? Rate: ? 69 ? P: ?58 FL: ? 154 ?QRS: ?49 QRSD: ? 80 [...] Pat Name: JC BANERJEE Department: CVU Room: [facility] Gender: F Social Service Worker: [id number] : 1965 Requested By: HEBERT MALONE MD Order Number: [id number] Reading MD: GELACIO MELLO MD Measurements Intervals [place] Rate: 69 P: 58 FL: 154 QRS: 49 QRSD: 80 T: 36 QT: 403 QTc: 433 Interpretive Statements SINUS RHYTHM normal ecg No previous ECG available for comparison I have reviewed the tracing and have either agreed or edited the findingsin this report. Electronically Signed On 07-03-13 13:07:22 EST by EUSEBIO MENDEZ. us Hebert Malone MD CARDIAC ECG ORDERABLES Final Result [facility] EKG * PROTIME (07/01/2013 7:09 EST) Pro Time 10.0 9.5 - 13.1 secs [facility] I.N.R. 0.9 0.9 - 1.1 Ratio [facility] Comment: Moderate Intensity Coumadin INR = 2.0-3.0 Adjustments in anticoagulant therapy dose should be based upon the INR and NOT the Pro Time. Blood specimen (specimen) 07/01/2013 7:09 EST 07/01/2013 7:10 EST us Hebert Malone MD HEMATOLOGY & PF4 ORDERA BLES Final Result Performing Organization Address [facility] Co de Phone Number [facility] [address] [place] [address] * HEMAGRAM (07/01/2013 7:09 EST) Pathologist [facility] WBC 11.74 4.0 - 12.4 K/cmm [facility] RBC 4.56 3.86 - 5.04 M/cmm [facility] Hemoglobin 13.6 11.6 - 15.2 gm/dl [facility] HCT 40.4 34.9 - 44.4 % [facility] MCV 89 81 - 98 fl [facility] MCH 29.9 26.7 - 33.3 pg [facility] MCHC 33.7 32.1 - 35.9 gm/dl [facility] PLT 209 141 - 320 K/cmm [facility] RDW-CV 12.8 11.7 - 14.6 % [facility] Blood specimen (specimen) 07/01/2013 7:09 EST 07/01/2013 7:10 EST us Hebert Malone MD HEMATOLOGY & PF4 ORDERA BLES Final Result Performing Organization Address [facility] de Phone Number [facility] [address] [place] [address] * HCG FOR (07/01/2013 7:09 EST) Pathologist [facility] Quant Beta HCG, Preg <5 <5 mIU/ml [facility] Comment: Reference Range: Negative = <5 Indeterminate = 5-25 recommend repeat in 48 hours. Positive = >25 Blood specimen (specimen) 07/01/2013 7:09 EST 07/01/2013 7:10 EST us Hebert Malone MD CHEMISTRY & BLOOD GAS O RDERABLES Final Result Performing Organization Address [facility] Co de Phone Number [facility] [address] [place] [address] * (ABNORMAL) ELECTROLYTES (07/01/2013 7:09 EST) Sodium 138 136 - 145 mEq/L [facility] Potassium 4.3 3.5 - 5.0 mEq/L [facility] Chloride 105 96 - 110 mEq/L [facility] CO2 22(L) 24 - 32 mEq/L [facility] Blood specimen (specimen) 07/01/2013 7:09 EST 07/01/2013 7:10 EST us Hebert Malone MD CHEMISTRY & BLOOD GAS O RDERABLES Final Result Performing Organization Address [facility] Co de Phone Number [facility] [address] [place] [address] * CREATININE (07/01/2013 7:09 EST) Creatinine 0.54 0.52 - 1.04 mg/dl [facility] GFR, Calculated >60 >60 ml/min/1.7 3m2 [facility] Blood specimen (specimen) 07/01/2013 7:09 EST 07/01/2013 7:10 EST Hebert Malone MD CHEMISTRY & BLOOD GAS O RDERABLES Final Result Performing Organization Address [facility] Co de Phone Number [facility] [address] [place] [address] * BUN (07/01/2013 7:09 EST) BUN 11 10 - 26 mg/dl [facility] Blood specimen (specimen) 07/01/2013 7:09 EST 07/01/2013 7:10 EST Hebert Malone MD CHEMISTRY & BLOOD GAS O RDERABLES Final Result Performing Organization Address [facility] Co de Phone Number [facility] [address] [place] [address] documented in this encounter Visit Diagnoses Diagnosis SVT (supraventricular tachycardia) (HCC-CMS)- Primary Other specified cardiac dysrhythmias SVT (supraventricular tachycardia) ([facility]) Other specified cardiac dysrhythmias documented in this [...] 07/01/2013 lidocaine 10 mg/mL (1 %) injection 2013 midazolam (PF) (VERSED) 1 mg/mL injection 1 07/01/2013 ondansetron (PF) (ZOFRAN) 4 mg/2 mL injection 1 07/01/2013 ondansetron (PF) (ZOFRAN) injection 4 mg 1 07/01/2013 sodium chloride 0.9 % (NS) infusion 1 07/01 Nursing Count Last Ordered Date First Orde red Date BEDREST 1 07/01/2013 CARDIAC MONITORING 1 07/01/2013 CHANGE IV TO SALINE LOCK 07/01/2013 CONTRAINDICATION TO ANTICOAG ULATION THERAPY 1 [...] 07/01/2013 documented in this encounter Care Teams Director Digital Strategy Relationship Specialty Start Date End Date Jerry Harley MD [address] [place] [address] PCP - General 07/21/12 02/01/14 documented as of this encounter
--- OUTSIDE RECORDS SUMMARY | 2024-04-22 15:55 | XMS_ITS | Encounter Summary ---
Author Organization [facility] Address [address] [place] [address] Care Team Providers Care Boat Canvas Maker And Installer Name Role Phone Catina Chowdhury NP Primary Care Provider [phone] Encounter Details Date Type Department Care Team (Late st Contact Info) Description 01/11/2004 Results Only [facility] Endocrinology - [facility] [address] [place] [address] Ale Hsu MD PhD [address] [place] [address] Drive [address] [place] [address] Social History Tobacco Use Types [...] Results * (ABNORMAL) TSH (01/11/2004 16:59 EDT) Pathologist [facility] TSH 23.34(H) 0.35 - 5.50 uIU/ml [facility] 01/11/2004 16:5 9 EDT 01/11/2004 17:48 EDT us Ale Hsu MD PhD CHEMISTRY & BLOOD GAS ORD ERABLES Final Result [facility] [address] [place] [address] * (ABNORMAL) THYROGLOBULIN TUMOR MARKER (01/11/2004 16:59 EDT) Pathologist [facility] Thyroglobulin Antibody Screen 03448 9.8Unit: IU/mL(Note) -- EXPECTED VALUES -- ? (Ref Range) <=2.3 ? TEST PERFORMED OR REFERRED BY [facility] ? [address] ? [place] [address] ? Deli Worker: ? Ivan Rosenthal M.D. ?(H) [facility] [...] method. ? TEST PERFORMED OR REFERRED BY [facility] ? [address] ? [place] [address] ? Deli Worker: ? Ivan A. Galo, M.D. ? [facility] 01/11/2004 16:5 9 EDT 01/11/2004 17:48 EDT Ale Hsu MD PhD CHEMISTRY & BLOOD GAS ORD ERABLES Final Result Performing Organization Address [facility] Co de Phone Number [facility] [address] [place] [address] * T4 FREE (01/11/2004 16:59 EDT) Free T4 1.4 0.8 - 1.8 ng/dl [facility] 01/11/2004 16:5 9 EDT 01/11/2004 17:48 EDT Ale Hsu MD PhD CHEMISTRY & BLOOD GAS ORD ERABLES Final Result Performing Organization Address [facility] de Phone Number [facility] [address] [place] [address] documented in this encounter Visit Diagnoses Not on filedocumented in this encounter Care Teams Boat Canvas Maker And Installer Relationship Specialty Start Date End Date Catina Chowdhury, [facility] [address] [place], [place] [address] PCP - General 02/03/09 07/20/12 documented as of this encounter
--- OUTSIDE RECORDS SUMMARY | 2024-04-22 15:55 | XMS_ITS | Encounter Summary ---
Author Organization [facility] Address [address] [place] [address] Care Team Providers Care Hot Mill Supervisor Name Role Phone Rand Harley MD Primary Care Provider [phone] Reason for Visit * Reason Onset Date Comments Biopsy Results 10/07/2012 Encounter Details Date Type Department Care Team (Late st Contact Info) Description 10/07/2012 Telephone [facility] Dermatology 3rd Floor [address] [id number] Robbin Garcia MD Biopsy Results Social History [...] on filedocumented in this encounter Care Teams Hot Mill Supervisor Relationship Specialty Start Date End Date Rand Harley MD [address] [place] [address] PCP - General 07/21/12 02/01/14 documented as of this encounter
--- OUTSIDE RECORDS SUMMARY | 2024-04-22 15:55 | XMS_ITS | Encounter Summary ---
Author Organization [facility] Address [address] [place] [address] Care Team Providers Care Medical Massage Therapist Name Role Phone Catina Chowdhury NP Primary Care Provider [phone] Encounter Details Date Type Department Care Team (Late st Contact Info) Description 01/28/2006 Before PRISM Converted Visit (Maple) [place] [facility] conversion [address] [place] [address] Ale Hsu MD PhD [facility] [address] [place] [address] Social History Tobacco Use Types [...] old assay was not accurate enough to cook pickled meat the antibodies.I think time will show which [...] Hsu MD,PhD P - ds Job ID: [id number] Document ID: [id number] cc: MD Cristofer Rodriguez MD Ms. Jc Banerjee, [address] [facility] [address] [address] documented in this encounter Plan of Treatment Not on file documented as of this encounter Visit Diagnoses Not on filedocumented in this encounter Care Teams Medical Massage Therapist Relationship Specialty Start Date End Date Catina Chow[facility]ury NP [facility] [address] [place] [phone] PCP - General 02/03/09 07/20/12 documented as of this encounter
--- OUTSIDE RECORDS SUMMARY | 2024-04-22 15:55 | XMS_ITS | Encounter Summary ---
Author Organization [facility] Address [address] [place] [address] Care Team Providers Care Power Transformer Repair Supervisor Name Role Phone Catina Chowdhury NP Primary Care Provider [phone] Encounter Details Date Type Department Care Team (Late st Contact Info) Description 04/03/2005 Results Only [facility] conversion [address] [place] [address] Hilda Marcus MD [address] [place] [address] [address] Social History Tobacco Use Types [...] ? JC BANERJEE ? Accession #: ? [id number] : ? 1965 (Age: 39) ??F ?Collect Date: ? 04/03/2005 Location: ? [facility] ? Receive Date: ? 04/04/2005 Provider: ?HILDA MARCUS MD Copy to: ? Specimen/Source: ?Conventional Pap Test, Cervix/Endocervix Last Menstrual Period: ? 02/22/05 ? SPECIMEN ADEQUACY ? Satisfactory for Evaluation - transformation zone component present GENERAL CATEGORIZATION ? Negative for Intraepithelial Lesion or Malignancy ? Document reviewed and electronically signed by: ? ERIKA Bangura(ASCP) ? Report Date: ??04/04/2005 13:54 End of Report [facility] 04/03/2005 04/04/2005 us Hilda Marcus MD PATHOLOGY ORDERABLES Final Resu lt [facility] [address] [place] [address] documented in this encounter Visit Diagnoses Not on filedocumented in this encounter Care Teams Power Transformer Repair Supervisor Relationship Specialty Start Date End Date Catina Chowdhury NP [facility] [address] [place] [address] PCP - General 02/03/09 07/20/12 documented as of this encounter
--- OUTSIDE RECORDS SUMMARY | 2024-04-22 15:55 | XMS_ITS | Encounter Summary ---
Author Organization [facility] Address [address] [place] [address] Care Team Providers Care Solutions Engineer Name Role Phone Catina Chowdhury NP Primary Care Provider [phone] Reason for Visit * Reason Comments Labs Only Encounter Details Date Type Department Care Team (Latest Contact Info) Description 02/04/2012 11:45 EDT Procedure visit [facility] Endocrinology - [address] [address] Unknown, Provider, Phlebotomy, [facility] Endo Postsurgical hypothyroidism; Malignant neoplasm of thyroid [...] MARKER (02/04/2012 11:36 EDT) Thyroid Suppression? YES [facility] Thyroglob Ab Screen <20 <22 IU/mL [facility] Comment: (Note) The thyroglobulin testing method is an immunoenzymatic assay manufactured by [employer] and performed on the [employer] DXI 800. The thyroglobulin antibody testing method [...] normally have hTg values <=2. Performed by: [facility], [address] [facility], [place] [address], Mixer Attendant: Brooke Flores, Ph.D. Blood specimen (specimen) 02/04/2012 11:36 EDT 02/04/2012 15:30 EDT Ale Hsu MD PhD CHEMISTRY & BLOOD GAS ORD ERABLES Final Result Performing Organization Address [facility] Co de Phone Number [facility] [address] [place] [address] * THYROID CASCADE (02/04/2012 11:36 EDT) TSH 0.97 0.35 - 5.00 uIU/ml [facility] Comment: TSH cascade is not recommended for patients in which pituitary or hypothalamic disorders are suspected. Blood specimen (specimen) 02/04/2012 11:36 EDT 02/04/2012 15:30 EDT Ale Hsu MD PhD CHEMISTRY & BLOOD GAS ORD ERABLES Final Result Performing Organization Address [facility] Co de Phone Number [facility] [address] [place] [address] documented in this encounter Visit Diagnoses Diagnosis Postsurgical hypothyroidism Malignant neoplasm of thyroid gland (HCC-CMS) Malignant neoplasm of thyroid gland documented in this encounter Care Teams Solutions Engineer Relationship Specialty Start Date End Date Catina Chowdhury NP [facility] [address] [place] [address] PCP - General 02/03/09 07/20/12 documented as of this encounter
--- OUTSIDE RECORDS SUMMARY | 2024-04-22 15:55 | XMS_ITS | Encounter Summary ---
Author Organization [facility] Address [address] [place] [address] Care Team Providers Care Corporate Real Estate Manager Name Role Phone Catina Chowdhury NP Primary Care Provider [phone] Reason for Visit * Reason Comments Thyroid Cancer Encounter Details Date Type Department Care Team (Latest Contact Info) Description 02/04/2012 11:20 EDT Office Visit [facility] Endocrinology - [address] [address] Ale Hsu MD PhD [address] [place] [address] [place] [phone] Postsurgical hypothyroidism; Malignant neoplasm of thyroid [...] Filled Start Date End Date levothyroxine (SYNTHROID) 150 mcg tablet Take 1 [...] method is an immunoenzymatic assay manufactured by [employer]. and performed on the [employer] DXI 800. The thyroglobulin antibody testing method [...] normally have hTg values <=2. Performed by: [facility], [address], [place] [address], Cage Fighter: Brooke Flores, Ph.D. Everything is at goal. documented in this encounter Plan of Treatment Not on file documented as of this encounter Results * THYROGLOBULIN TUMOR MARKER (02/04/2012 11:36 EDT) Thyroid Suppression? YES [facility] Thyroglob Ab Screen <20 <22 IU/mL [facility] Comment: (Note) The thyroglobulin testing method is an immunoenzymatic assay manufactured by [employer] and performed on the [employer] DXI 800. The thyroglobulin antibody testing method [...] normally have hTg values <=2. Performed by: [facility], [address], [place] [address], Cage Fighter: Brooke Flores, Ph.D. Blood specimen (specimen) 02/04/2012 11:36 EDT 02/04/2012 15:30 EDT us Ale Hsu MD PhD CHEMISTRY & BLOOD GAS ORD ERABLES Final Result Performing Organization Address [facility] Co de Phone Number [facility] [address] [place] [address] * THYROID CASCADE (02/04/2012 11:36 EDT) TSH 0.97 0.35 - 5.00 uIU/ml [facility] Comment: TSH cascade is not recommended for patients in which pituitary or hypothalamic disorders are suspected. Blood specimen (specimen) 02/04/2012 11:36 EDT 02/04/2012 15:30 EDT us Ale Hsu MD PhD CHEMISTRY & BLOOD GAS ORD ERABLES Final Result Performing Organization Address [facility] de Phone Number [facility] [address] [place] [address] documented in this encounter Visit Diagnoses Diagnosis Postsurgical hypothyroidism Malignant neoplasm of thyroid gland (HCC-CMS) Malignant neoplasm of thyroid gland documented in this encounter Discontinued Medications Medication Sig Discontinue Reason Start Date End Da te levothyroxine (SYNTHROID) 150 mcg tablet Take 1 Tab by mouth daily. Reorder 02/05/2011 02/04/2012 documented as of this encounter Care Teams Corporate Real Estate Manager Relationship Specialty Start Date End Date Catina Chowdhury NP [facility] [address] [place], [place] [address] PCP - General 02/03/09 07/20/12 documented as of this encounter
--- OUTSIDE RECORDS SUMMARY | 2024-04-22 15:55 | XMS_ITS | Encounter Summary ---
Author Organization [facility] Address [address] [place] [address] Care Team Providers Care Narrow Gauge Brakeman Name Role Phone Catina Chowdhury NP Primary Care Provider [phone] Reason for Visit * Reason Comments Thyroid Cancer f/u Encounter Details Date Type Department Care Team (Latest Contact Info) Description 02/05/2011 11:20 EDT Office Visit [facility] Endocrinology - [address] [address] Ale Hsu MD PhD [address] [place] [address] [place] [phone] Hx of thyroid cancer; Postsurgical hypothyroidism [...] MARKER (02/05/2011 12:42 EDT) Thyroid Suppression? Yes [facility] Thyroglob Ab Screen <20Reference range: <22 Unit: IU/mL [facility] Thyroglobulin , Tumor Marker, S <0.1Unit: ng/mL -- REFERENCE VALUE -- ? <=33 ? Athyrotic individuals ? normally have hTg values ? <=2. ? The thyroglobulin testing method is an immunoenzymatic ? assay manufactured by [employer]. and ? performed on the [employer] DXI 800. ? The thyroglobulin antibody testing method is an ? electrochemilumine scence assay manufactured by [employer] and performed on the [...] give falsely lower results. ? Performed by: [facility], [address], ? [place] [address], Underground Heavy Equipment Operator: Brooke Flores, Ph.D. ? [facility] Blood specimen (specimen) 02/05/2011 12:42 EDT 02/05/2011 12:43 EDT us Ale Hsu MD PhD CHEMISTRY & BLOOD GAS ORD ERABLES Final Result [facility] [address] [place] [address] * THYROID CASCADE (02/05/2011 12:42 EDT) TSH 1.74 0.35 - 5.00 uIU/ml [facility] Comment: ??TSH cascade is not recommended for patients in which pituitary or hypothalamic disorders are suspected. Blood specimen (specimen) 02/05/2011 12:42 EDT 02/05/2011 12:43 EDT Ale Hsu MD PhD CHEMISTRY & BLOOD GAS ORD ERABLES Final Result [facility] [address] [place] [address] documented in this encounter Visit Diagnoses Diagnosis [...] documented as of this encounter Care Teams Narrow Gauge Brakeman Relationship Specialty Start Date End Date Catina Chowdhury NP [facility] [address] [place], [place] [phone] PCP - General 02/03/09 07/20/12 documented as of this encounter
--- OUTSIDE RECORDS SUMMARY | 2024-04-22 15:55 | XMS_ITS | Encounter Summary ---
Author Organization [facility] Address [address] [place] [address] Care Team Providers Care Medical Office Assistant Name Role Phone Unavailable Primary Care Provider Unavailabl e Encounter Details Date Type Department Care Team (Late st Contact Info) Description 12/14/2003 14:26 EDT Hospital Encounter [facility] - Other [address] [place] [address] Ale Hsu MD PhD [address] [place] [address] [place] [phone] Social History Tobacco Use Types Packs/Day [...] (ABNORMAL) TSH (12/14/2003 14:26 EDT) Pathologist [facility] TSH 9.49(H) 0.35 - 5.50 uIU/ml [facility] M[facility] 12/14/2003 14:2 6 EDT 12/14/2003 14:34 EDT us Ale Hsu MD PhD CHEMISTRY & BLOOD GAS ORD ERABLES Final Result [facility] [address] [place] [address] * (ABNORMAL) THYROGLOBULIN TUMOR MARKER (12/14/2003 14:26 EDT) Pathologist [facility] Thyroglobulin Antibody Screen 39913 11Unit: IU/mL(Note) -- EXPECTED VALUES -- ? (Ref Range) <=2.3 ? TEST PERFORMED OR REFERRED BY [email or web address] ? [address] ? [place] [address] ? Ash Pit Worker: ? Ivan Rosenthal M.D. ?(H) [facility] Thyroglobulin Tumor Marker <0.1Unit: ng/mL(Note) Quantitation of [...] immunoenzymatic assay kit manufactured ? by [employer] ? Serum markers are not specific for malignancy, and values ? may vary by method. ? TEST PERFORMED OR REFERRED BY [facility] ? [address] ? [place] [address] ? Ash Pit Worker: ? Ivan Rosenthal M.D. ? [facility] 12/14/2003 14:2 6 EDT 12/14/2003 14:34 EDT Ale Hsu MD PhD CHEMISTRY & BLOOD GAS ORD ERABLES Final Result Performing Organization Address [facility] de Phone Number [facility] [address] [place] [address] * T4 FREE (12/14/2003 14:26 EDT) Free T4 1.4 0.8 - 1.8 ng/dl [facility] 12/14/2003 14:2 6 EDT 12/14/2003 14:34 EDT Ale Hsu MD PhD CHEMISTRY & BLOOD GAS ORD ERABLES Final Result Performing Organization Address [facility] de Phone Number [facility] [address] [place] [address] documented in this encounter Visit Diagnoses Not on filedocumented in this encounter
--- OUTSIDE RECORDS SUMMARY | 2024-04-22 15:55 | XMS_ITS | Encounter Summary ---
Author Organization [facility] Address [address] [place] [address] Care Team Providers Care Configuration Technician Name Role Phone Catina Chowdhury NP Primary Care Provider [phone] Encounter Details Date Type Department Care Team (Late st Contact Info) Description 12/15/2002 Results Only [facility] Endocrinology - [address] [place] [address] Ale Hsu MD PhD [address] [place] [address] [address] [place] [address] Social History Tobacco Use Types [...] 12/15/2002 15:3 2 EDT 12/15/2002 15:37 EDT us Ale Hsu MD PhD CHEMISTRY & BLOOD GAS ORD ERABLES Final Result [facility] [address] [place] [address] * THYROGLOBULIN TUMOR MARKER (12/15/2002 15:32 EDT) Pathologist [facility] Thyroglobulin Ab Negative ODELL MARTINEZ Thyroglobulin <0.1Unit: ng/mL(Note) Specimens with thyroglobulin concentrations greater than ? 250,000 ng/mL may give falsely lower results. ? -- EXPECTED VALUES -- ? (Ref Range) <= 33 (normal thyroid) ? <5.0 ??(athyroidic patient) ? Test performed by immunoenzymatic assay kit manufactured ? by [employer]. The current form of this assay ? displays a higher rate of heterophile antibody interference ? than is considered acceptable. Therefore all specimens are ? pretreated with Scantibodies heterophile blocking reagents ? which, to the best of our knowledge, removes this interference. ? Serum markers are not specific for malignancy, and values ? may vary by method. ? TEST PERFORMED OR REFERRED BY [facility] ? [address] ? [place] [address] ? Emt/Paramedic: ? Ivan Rosenthal M.D. ? [facility] 12/15/2002 15:3 2 EDT 12/15/2002 15:37 EDT us Ale Hsu MD PhD CHEMISTRY & BLOOD GAS ORD ERABLES Final Result Performing Organization Address [facility] de Phone Number [facility] [address] [place] [address] * T4 FREE (12/15/2002 15:32 EDT) Free T4 1.7 0.8 - 1.8 ng/dl KIKI MARTINEZ 12/15/2002 15:3 2 EDT 12/15/2002 15:37 EDT us Ale Hsu MD PhD CHEMISTRY & BLOOD GAS ORD ERABLES Final Result Performing Organization Address [facility] Co de Phone Number [facility] [address] [place] [address] documented in this encounter Visit Diagnoses Not on filedocumented in this encounter Care Teams Configuration Technician Relationship Specialty Start Date End Date Catina Chowdhury, [facility] [address] [place] [address] PCP - General 02/03/09 07/20/12 documented as of this encounter
--- OUTSIDE RECORDS SUMMARY | 2024-04-22 15:55 | XMS_ITS | Encounter Summary ---
Author Organization [facility] Address [address] [place] [address] Care Team Providers Care Cash Processor Name Role Phone Rand Harley MD Primary Care Provider [phone] Reason for Visit * Reason Comments Skin Lesion right cheek x 3 week s Encounter Details Date Type Department Care Team (Late st Contact Info) Description 10/01/2012 10:30 EDT Office Visit [facility] Dermatology 3rd Floor [facility] [address] [place] [address] Yuri Cowan MD Neoplasm of unspecified nature [...] shower. DISCOMFORT: Extra-Strength Tylenol, as directed by fruit room hand, usually relieves any pain you may have. [...] Notes * Rock Campa MD - 10/01/2012 1052 EDT Images from the original note were not included. Dermatology Outpatient Visit Note Chief Complaint Patient presents with ??? Skin Lesion right cheek x 3 weeks Dermatologic problem list: 1. History of basal cell carcinoma of right chin, s/p Mohs in Dec 2011 (at [facility]) SUBJECTIVE Jc Banerjee is a 46 y.o. female who [...] OBJECTIVE VS: vitals taken Physical Exam: Ms. Banerjee is healthy and in no acute distress [...] skin exam SHAVE BIOPSY PATIENT INFORMATION: Jc Banerjee : MRN: [id number] SURGEON: Rock Campa MD The indication, risks, [...] resident's/fellow's note. YURI COWAN MD 10/06/2012 22:19 attendance clerk * Daniela Ordaz - 10/01/2012 1035 EDT [...] encounter Miscellaneous Notes * Scanned Note-Null - ENVIRONMENTAL MANAGEMENT SPECIALIST, SCAN 2 - 10/07/2012 1155 EDT documented in this encounter Plan of Treatment Not on file documented as of this encounter Visit Diagnoses Diagnosis Neoplasm of unspecified nature of bone, soft tissue, and skin- Primary documented in this encounter Care Teams Cash Processor Relationship Specialty Start Date End Date Rand Harley MD [address] [place] [address] PCP - General 07/21/12 02/01/14 documented as of this encounter
--- OUTSIDE RECORDS SUMMARY | 2024-04-22 15:55 | XMS_ITS | Encounter Summary ---
Author Organization [facility] Address [address] [place] [address] Care Team Providers Care Manager Metrology Name Role Phone Catina Chowdhury NP Primary Care Provider [phone] Encounter Details Date Type Department Care Team (Late st Contact Info) Description 04/23/2005 Results Only [facility] conversion [address] [place] [address] Judd Marcus MD [address] [place] [address] [phone] Social History Tobacco Use Types [...] ? JC BANERJEE ? Accession #: ? [id number] ? : ? 1965 (Age: 39) ??F ? Collect Date: ? 04/23/2005 ? Location: ? [facility] ? Receive Date: ? 04/23/2005 ? Provider: JUDD MARCUS MD Copy to: JOSEE GUZMAN MD [...] ??Submitted in toto in one cassette. (Lydia Thapa)/[facility] End of Report [facility] MARTINEZ 04/23/2005 04/23/2005 15: 29 EST us Judd Marcus MD PATHOLOGY ORDERABLES Final Resu lt [facility] [address] [place] [address] documented in this encounter Visit Diagnoses Not on filedocumented in this encounter Care Teams Manager Metrology Relationship Specialty Start Date End Date Catina Chowdhury NP [facility] [address] [place] [address] PCP - General 02/03/09 07/20/12 documented as of this encounter
--- OUTSIDE RECORDS SUMMARY | 2024-04-22 15:55 | XMS_ITS | Encounter Summary ---
Author Organization [facility] Address [address] [place] [address] Care Team Providers Care Deep Fat Cook Fry Name Role Phone Unavailable Primary Care Provider Unavailabl e Encounter Details Date Type Department Care Team (Latest Contact Info) Description 02/04/2004 10:06 EDT - 02/04/2004 11:59 EDT Hospital Encounter [facility] [address] [place] [address] Ale Hsu MD PhD [address] [place] [phone] Discharge Disposition: Auto Discharge Social History [...] no large thyroid mass or adenopathy. dw us Ale Hsu MD PhD IMG US ORDERABLES Final R esult documented in this encounter Visit Diagnoses Not on filedocumented in this encounter
--- OUTSIDE RECORDS SUMMARY | 2024-04-22 15:55 | XMS_ITS | Encounter Summary ---
Author Organization [facility] Address [address] [place] [address] Care Team Providers Care Drapery And Upholstery Measurer Name Role Phone Unavailable Primary Care Provider Unavailabl e Encounter Details Date Type Department Care Team (Late st Contact Info) Description 12/13/2004 11:50 EDT Hospital Encounter [facility] - Other [address] [place] [address] Ale Hsu MD PhD [address] [place] [address] [place] [phone] Social History Tobacco Use Types Packs/Day [...] * (ABNORMAL) TSH (12/13/2004 12:06 EDT) Pathologist [facility] TSH 0.05(L) 0.35 - 5.50 uIU/ml KIKI MARTINEZ 12/13/2004 12:0 6 EDT 12/13/2004 12:22 EDT us Ale Hsu MD PhD CHEMISTRY & BLOOD GAS ORD ERABLES Final Result [facility] [address] [place] [address] * (ABNORMAL) THYROGLOBULIN TUMOR MARKER (12/13/2004 12:06 EDT) Pathologist [facility] Thyroglobulin Antibody Screen 64703 7.6Unit: IU/mL(Note) -- EXPECTED VALUES -- ? (Ref Range) <=2.3 ? TEST PERFORMED OR REFERRED BY [facility] ? [address] ? [place] [address] ? Business Development Intern: ? Ivan Rosenthal M.D. ?(H) [facility] Thyroglobulin Tumor Marker <0.1Unit: ng/mL(Note) Quantitation of thyroglobulin may be unreliable due to the ? presence of anti-thyroglobuli n antibodies. ? Specimens with thyroglobulin concentrations greater than ? 250,000 ng/mL may give falsely lower results. ? Method is [employer] Access Immunoassay System. ? -- EXPECTED VALUES -- ? (Ref Range) <=33 ? Athyrotic individuals ? normally have hTg values ? less than 5 ng/mL. ? Serum markers are not specific for malignancy, and values ? may vary by method. ? TEST PERFORMED OR REFERRED BY [facility] ? [address] ? [place] [address] ? Business Development Intern: ? Ivan Rosenthal M.D. ? [facility] MARTINE[facility] 12/13/2004 12:0 6 EDT 12/13/2004 12:22 EDT us Ale Hsu MD PhD CHEMISTRY & BLOOD GAS ORD ERABLES Final Result [facility] [address] [place] [address] * (ABNORMAL) T4 FREE (12/13/2004 12:06 EDT) Free T4 2.0(H) 0.8 - 1.8 ng/dl [facility] 12/13/2004 12:0 6 EDT 12/13/2004 12:22 EDT us Ale Hsu MD PhD CHEMISTRY & BLOOD GAS ORD ERABLES Final Result Performing Organization Address [facility] Co de Phone Number [facility] [address] [place] [address] documented in this encounter Visit Diagnoses Not on filedocumented in this encounter
--- OUTSIDE RECORDS SUMMARY | 2024-04-22 15:55 | XMS_ITS | Encounter Summary ---
Author Organization [facility] Address [address] [place] [address] Care Team Providers Care Preparator Name Role Phone Rand Harley MD Primary Care Provider [phone] Reason for Visit * Reason Comments Follow-up FBSE Hx BCC Encounter Details Date Type Department Care Team ([facility] Contact Info) Description 02/04/2013 10:15 EDT Office Visit [facility] Dermatology 3rd Floor [facility] [address] [place], [place] [address] Elida Culp MD [address] [place] [address] Md Jose Francisco History of basal cell [...] 2011 (at [facility]) 2. History of angiofibroma of the right cheek SUBJECTIVE:?? Ms. Banerjee presents today to the clinic in follow [...] her skin today. S he works for [email or web address]. The patient does try to be reasonable about sun exposure. For patient's past medical history, past surgical history, medications, medication allergies, social history and family history please refer to the patient's electronic record in [facility]. OBJECTIVE: VS: LMP 02/06/2010 On physical examination, Ms. Banerjee is a [...] skin documented in this encounter Care Teams Preparator Relationship Specialty Start Date End Date Rand Harley MD [address] [place] [address] PCP - General 07/21/12 02/01/14 documented as of this encounter
--- OUTSIDE RECORDS SUMMARY | 2024-04-22 15:55 | XMS_ITS | Encounter Summary ---
Author Organization [facility] Address [address] [place] [address] Care Team Providers Care Casting Finisher Name Role Phone Unavailable Primary Care Provider Unavailabl e Encounter Details Date Type Department Care Team (Late st Contact Info) Description 12/07/2003 17:04 EDT Hospital Encounter [facility] - Other [address] [place] [address] Kenn Cheung PA [address] [place] [address] Social History Tobacco Use Types Packs/Day Years [...]
--- OUTSIDE RECORDS SUMMARY | 2024-04-22 15:55 | XMS_ITS | Encounter Summary ---
Author Organization [facility] Address [address] [place] [address] Care Team Providers Care Ruffling Machine Operator Name Role Phone Catina Chowdhury NP Primary Care Provider [phone] Encounter Details Date Type Department Care Team (Late st Contact Info) Description 02/01/2010 Abstract [facility] Endocrinology - [facility] [address] [place] [address] Ale Hsu MD PhD [address] [facility] [address] [place] [address] Social History Tobacco Use Types [...] may reflect changes made after this encounter. RANITIDINE HCL ORAL Take 1 Tab by mouth as needed. 02/06/2010 levothyroxine (SYNTHROID) 150 mcg tablet Take 150 mcg by mouth daily. 02/06/2010 BUPROPION HCL (WELLBUTRIN ORAL) Take 150 mg by mouth 2 times daily. 02/01/2010 02/05/2011 added in this encounter Care Teams Ruffling Machine Operator Relationship Specialty Start Date End Date Catina Chowdhury NP [facility] [address] [place] [address] PCP - General 02/03/09 07/20/12 documented as of this encounter
--- OUTSIDE RECORDS SUMMARY | 2024-04-22 15:55 | XMS_ITS | Encounter Summary ---
Author Organization [facility] Address [address] [place] [address] Care Team Providers Care Pebble Mill Operator Name Role Phone Unavailable Primary Care Provider Unavailabl e Encounter Details Date Type Department Care Team (Late st Contact Info) Description 12/11/2006 11:06 EDT Hospital Encounter [facility] conversion [address] [place] [address] Ale Hsu MD PhD [address] [place] [address] [place] [phone] Social History Tobacco Use Types Packs/Day [...]
--- OUTSIDE RECORDS SUMMARY | 2024-04-22 15:55 | XMS_ITS | Encounter Summary ---
Author Organization [facility] Address [address] [place] [address] Care Team Providers Care Net Trainer Name Role Phone Catina Chowdhury NP Primary Care Provider [phone] Encounter Details Date Type Department Care Team (Late st Contact Info) Description 11/08/2005 Results Only [facility] conversion [address] [place] [address] Hilda Marcus MD [address] [place] [address] [phone] Social History Tobacco Use Types [...] ? JC BANERJEE ? Accession #: ? [id number] ? : ? 1965 (Age: 40) ??F [...] central, 0.2 cm in diameter, patent os. ??Freight Breaker sections are submitted as follows: BLOCK BRIZUELA A1 ?Freight Breaker anterior cervix A2 ?Freight Breaker posterior cervix A3 ?Freight Breaker anterior endomyometrium to include blood-filled cystic space A4 ?Freight Breaker posterior endomyometrium A5 ?Freight Breaker luis-white whorled nodule nodules A6 ?Freight Breaker luis-pink whorled nodules A7 ?Freight Breaker serosa to include hemorrhagic adhesions from posterior fundus (Lydia Thapa)/[facility] End of Report [facility]IKI MARTINEZ 11/08/2005 11/08/2005 10: 27 EDT us Hilda Marcus MD PATHOLOGY ORDERABLES Final Resu lt [facility] [address] [place] [address] documented in this encounter Visit Diagnoses Not on filedocumented in this encounter Care Teams Net Trainer Relationship Specialty Start Date End Date Catina Chowdhury NP [facility] [address] [place] [address] PCP - General 02/03/09 07/20/12 documented as of this encounter
--- OUTSIDE RECORDS SUMMARY | 2024-04-22 15:55 | XMS_ITS | Encounter Summary ---
Author Organization [facility] Address [address] [place] [address] Care Team Providers Care Underground Utility Locator Name Role Phone Unavailable Primary Care Provider Unavailabl e Encounter Details Date Type Department Care Team (Latest Contact Info) Description 07/13/2005 12:31 EST Hospital Encounter [facility] [address] [place] [address] Ale Hsu MD PhD [address] [place] [phone] Discharge Disposition: Auto Discharge Social History [...] ??tissue identified within the thoracic inlet ??region. /[facility] Procedure Note Adam Omledo MD - 11/27/2008 H/O PAPILLARY THYROID CA, [...] identified within the thoracic inlet region. /[facility] Ale Hsu MD PhD IMG CT ORDERABLES Final R esult * CT NECK W CONTRAST (07/13/2005 13:04 [...] Ale Hsu MD PhD IMG CT ORDERABLES Final R esult documented in this encounter Visit Diagnoses Not on filedocumented in this encounter
--- OUTSIDE RECORDS SUMMARY | 2024-04-22 15:55 | XMS_ITS | Encounter Summary ---
Author Organization [facility] Address [address] [place] [address] Care Team Providers Care Defensive Fire Control Systems Operator Name Role Phone Unavailable Primary Care Provider Unavailabl e Encounter Details Date Type Department Care Team (Latest Contact Info) Description 07/07/2008 23:10 EST Hospital Encounter [facility] - Other [address] [place] [address] Ale Hsu MD PhD [address] [place] [address] [place] [phone] Discharge Disposition: Home or Self Care [...] ? JC BANERJEE ? Accession #: ? [id number] ? : ? 1965 (Age: 43) ??F ?Collect Date: ? 02/16/2009 ? Location: ? [facility] ? Receive Date: ? 02/17/2009 ? Provider: ?PERLA DUONG PA ? Copy to: ? Specimen/Source: ?Pap Test, [...] 15:23 ? End of Report ? KIKI MARTINEZ 02/16/2009 02/17/2009 us Perla Bowling PA-C PATHOLOGY ORDERABLES Fin al Result [facility] [address] [place] [address] * (ABNORMAL) THYROGLOBULIN TUMOR MARKER (02/07/2009 12:00 [...] an immunoenzymatic assay manufactured ? by [employer] and performed on the [employer] DXI ? 800. ? Values obtained with different assay methods or kits may be ? different and cannot be used interchangeably. ? Test results cannot be interpreted as absolute evidence for ? the presence or absence of malignant disease. ? Specimens with thyroglobulin concentrations greater than ? 250,000 ng/mL may give falsely lower results. ? Performed by: [facility], [address], ? [place] [address], Glue Bone Crusher: Brooke Flores, Ph.D. ? [facility] Blood specimen (specimen) 02/07/2009 12:00 EDT 02/07/2009 12:01 EDT Ale Hsu MD PhD CHEMISTRY & BLOOD GAS ORD ERABLES Final Result Performing Organization Address [facility] de Phone Number [facility] [address] [place] [address] * TSH (02/07/2009 12:00 EDT) TSH 1.54 0.35 - 5.00 uIU/ml [facility] Blood specimen (specimen) 02/07/2009 12:00 EDT 02/07/2009 12:01 EDT Ale Hsu MD PhD CHEMISTRY & BLOOD GAS ORD ERABLES Final Result Performing Organization Address [facility] de Phone Number [facility] [address] [place] [address] * T4 FREE (02/07/2009 12:00 EDT) Free T4 1.3 0.8 - 1.8 ng/dL [facility] Blood specimen (specimen) 02/07/2009 12:00 EDT 02/07/2009 12:01 EDT Ale Hsu MD PhD CHEMISTRY & BLOOD GAS ORD ERABLES Final Result [facility] [address] [place] [phone] documented in this encounter Visit Diagnoses Not on filedocumented in this encounter
--- OUTSIDE RECORDS SUMMARY | 2024-04-22 15:55 | XMS_ITS | Encounter Summary ---
Author Organization [facility] Address [address] [place] [address] Care Team Providers Care Med Spec Name Role Phone Rand Harley MD Primary Care Provider [phone] Reason for Visit * Reason Onset Date Comments Requesting Sooner Appointment 09/26/2012 Encounter Details Date Type Department Care Team (Late st Contact Info) Description 09/26/2012 Telephone [facility] Dermatology [address] [facility] [address] [place], [place] [id number] Robbin Garcia MD Requesting Sooner Appointment Social [...] Encounter - Angelica Griffith RN - 09/26/2012 8661 EDT Spoke with patient. She states she [...] on filedocumented in this encounter Care Teams Med Spec Relationship Specialty Start Date End Date Rand Harley MD [address] [place] [address] PCP - General 07/21/12 02/01/14 documented as of this encounter
--- OUTSIDE RECORDS SUMMARY | 2024-04-22 15:55 | XMS_ITS | Encounter Summary ---
Author Organization [facility] Address [address] [place] [address] Care Team Providers Care Deployment Engineer Name Role Phone Catina Chowdhury NP Primary Care Provider [phone] Encounter Details Date Type Department Care Team (Late st Contact Info) Description 12/11/2006 Results Only [facility] Endocrinology - [address] [place] [address] Ale Hsu MD PhD [address] [place] [address] Drive [address] [place] [phone] Social History Tobacco Use Types [...] encounter Results * TSH (12/11/2006 11:43 EDT) Pathologist [facility] TSH 1.00 0.35 - 5.00 uIU/mL KIKI MARTINEZ 12/11/2006 11:4 3 EDT 12/11/2006 11:44 EDT us Ale Hsu MD PhD CHEMISTRY & BLOOD GAS ORD ERABLES Final Result [facility] [address] [place] [address] * (ABNORMAL) THYROGLOBULIN TUMOR MARKER (12/11/2006 11:43 EDT) [facility] Thyroglobulin Antibody Screen 71638 12Unit: IU/mL(Note) -- EXPECTED VALUES -- ? (Ref Range) <4.0 ? Please note reference range change effective 08/27/2006. ?(H) KIKI MARTINEZ Thyroglobulin Tumor Marker <0.1Unit: [...] ? Test Performed by: ? [facility] Med and Pathology ? [address] [facility], [place] [address] ? Supervisor Operations: Geovanny Welch III, M.D. ? [facility] 12/11/2006 11:4 3 EDT 12/11/2006 11:44 EDT Ale Hsu MD PhD CHEMISTRY & BLOOD GAS ORD ERABLES Final Result [facility] [address] [place] [address] * T4 FREE (12/11/2006 11:43 EDT) Free T4 1.8 0.8 - 1.8 ng/dL K[facility]I M[facility] 12/11/2006 11:4 3 EDT 12/11/2006 11:44 EDT us Ale Hsu MD PhD CHEMISTRY & BLOOD GAS ORD ERABLES Final Result [facility] [address] [place] [address] documented in this encounter Visit Diagnoses Not on filedocumented in this encounter Care Teams Deployment Engineer Relationship Specialty Start Date End Date Catina Chowdhury, [facility] [address] [place] [phone] PCP - General 02/03/09 07/20/12 documented as of this encounter
--- OUTSIDE RECORDS SUMMARY | 2024-04-22 15:55 | XMS_ITS | Encounter Summary ---
Author Organization [facility] Address [address] [place] [address] Care Team Providers Care Dental Manager Name Role Phone Unavailable Primary Care Provider Unavailabl e Encounter Details Date Type Department Care Team (Late st Contact Info) Description 12/15/2002 15:24 EDT Hospital Encounter [facility] - Other [address] [place] [address] Ale Hsu MD PhD [address] [place] [phone] Jose Hsu, [facility] [address] [place] [address] Social History Tobacco Use Types Packs/Day Years [...]
--- OUTSIDE RECORDS SUMMARY | 2024-04-22 15:55 | XMS_ITS | Encounter Summary ---
Author Organization [facility] Address [address] [place] [address] Care Team Providers Care Senior Administrative Support Name Role Phone Rand Harley MD Primary Care Provider [phone] Encounter Details Date Type Department Care Team (Latest Contact Info) Description 06/08/2013 Pre-Procedure Orders Encounter [facility] - [facility] [address] [facility] [place] [address] Michelle Oliveira MD [address] [place] [address] [place] [address] SVT (supraventricular tachycardia) (CMS-HCC) (Primary [...] EST Narrative 07/18/2013 17:21 EST *Cardiology* [address] [place] [address] Electrophysiology Study with Ablation Patient: Jc Banerjee ? Study Date: ?07/01/2013 ?Accession #: ? [id number] : ? 1965 Referring: Rand Harley Attending: [...] 7Fr ?? Coronary sinus Bard Decapole 2-5-2 (), 6F ? + +------+ + + R [...] + + + + + + AV Manuelbach ?? 500ms ? 450ms ? 400ms ? [...] ablation. Isoproterenol was stopped. ABLATION PROCEDURE: A Roomster ThermoCool BLUE (D) 3.5mm ablation catheter was [...] MD 07/18/2013 17:20 Procedure Note 09/01/2013 *Cardiology* [address] [place] [address] Electrophysiology Study with Ablation Patient: Jc Banerjee Study Date:07/01/2013 : 1965 Referring: Rand Harley [...] + + + + + + AV Manuelbach 500ms 450ms 400ms 340ms + + + + + + V-A 1:1 420ms + + + + + + V-A conduction Spencer Concentric + + + + + + [...] ablation. Isoproterenol was stopped. ABLATION PROCEDURE: A Roomster ThermoCool BLUE (D) 3.5mm ablation catheter was [...] Wenckebach over the slow AV ellie pathway [id number]. More RF energy was applied to the [...] RAA pacing showed antegrade AVN 1:1 conduction [id number], Wenckebach at 370ms. Isoproterenol was restarted at 2 mcg/min. At thispoint, atrial pacing showed 1:1 antegrade AVN conduction to 360ms, Wenckebach [id number]. RV pacing with 1:1 retrograde conduction to 250 ms, block at 240ms. No tachycardia was induced. Isoproterenol was increased to 4 mcg/min. Therewas 1:1 antegrade AVN conduction to 270 ms, with Wenckebach at 260ms. [11:11:28] Atrial burst pacing at CL 240ms induced AVNRT again ([id number]). This was pace-terminated and isoproterenol was stopped. [...] signed by Michelle Oliveira MD 07/18/2013 17:20 us Michelle Oliveira MD CARDIAC EP ORDERABLES F inal Result documented in this encounter Visit Diagnoses Diagnosis SVT (supraventricular tachycardia) ([facility]-CMS)- Primary Other specified cardiac dysrhythmias documented in this encounter Care Teams Senior Administrative Support Relationship Specialty Start Date End Date Rand Harley MD [address] [place] [address] PCP - General 07/21/12 02/01/14 documented as of this encounter
--- OUTSIDE RECORDS SUMMARY | 2024-04-22 15:55 | XMS_ITS | Encounter Summary ---
Author Organization [facility] Address [address] [place] [address] Care Team Providers Care Contractor Broomcorn Threshing Name Role Phone Rand Harley MD Primary Care Provider [phone] Reason for Visit * Reason Comments New Patient Visit skin check Encounter Details Date Type Department Care Team (Late st Contact Info) Description 07/22/2012 14:30 EDT Office Visit [facility] Dermatology 3rd Floor [facility] [address] [place], [place] [address] Yuri Cowan MD History of basal cell [...] Notes * Sindy Rose MD - 07/22/2012 1451 EDT Dermatology Outpatient Visit Note Problem List 1. History of basal cell carcinoma of right chin, s/p Mohs in Dec 2011 (at [facility]) SUBJECTIVE Chief Complaint Patient presents with ??? New Patient Visit skin check History of Present Illness: Ms. Banerjee is a 46 y.o. female who presents for new evaluation and full skin check with a history of basal cell carcinoma of the chin. 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 YURI COWAN MD 07/24/2012 17:33 card checker * Daniela Ordaz - 07/22/2012 1420 EDT [...] unspecified documented in this encounter Care Teams Contractor Broomcorn Threshing Relationship Specialty Start Date End Date Rand Harley MD [address] [place] [address] PCP - General 07/21/12 02/01/14 documented as of this encounter
--- OUTSIDE RECORDS SUMMARY | 2024-04-22 15:55 | XMS_ITS | Encounter Summary ---
Author Organization [facility] Address [address] [place] [address] Care Team Providers Care Brace End Mainspring Former Name Role Phone Rand Harley MD Primary Care Provider [phone] Reason for Visit * Reason Comments Labs Only Encounter Details Date Type Department Care Team (Latest Contact Info) Description 02/02/2013 11:45 EDT Procedure visit [facility] Endocrinology - [facility] [address] [place] [address] Ale Hsu MD PhD [address] [place] [address] [place] [phone] Phlebotomy, [facility] Endo Postsurgical hypothyroidism; History [...] method is an immunoenzymatic assay manufactured by [employer] and performed on the Drillster DXI 800. The thyroglobulin antibody testing method is an electrochemiluminescence assay manufactured by [employer] and performed on the Modular or [...] normally have hTg values <=2. Performed by: [facility], [address], [place] [address], Corporate Technical Recruiter: Brooke Flores, Ph.D. Blood specimen (specimen) 02/02/2013 11:56 EDT 02/02/2013 15:41 EDT Ale Hsu MD PhD CHEMISTRY & BLOOD GAS ORD ERABLES Final Result [facility] [address] [place] [address] * THYROID CASCADE (02/02/2013 11:56 EDT) TSH 1.67 0.35 - 5.00 uIU/ml [facility] Comment: TSH cascade is not recommended for patients in which pituitary or hypothalamic disorders are suspected. Blood specimen (specimen) 02/02/2013 11:56 EDT 02/02/2013 15:41 EDT us Ale Hsu MD PhD CHEMISTRY & BLOOD GAS ORD ERABLES Final Result Performing Organization Address City/State/[facility] Co de Phone Number [facility] [address] [place] [address] documented in this encounter Visit Diagnoses Diagnosis Postsurgical hypothyroidism History of thyroid cancer Personal history of malignant neoplasm of thyroid documented in this encounter Care Teams Brace End Mainspring Former Relationship Specialty Start Date End Date Rand Harley MD [address] [place] [address] PCP - General 07/21/12 02/01/14 documented as of this encounter
--- OUTSIDE RECORDS SUMMARY | 2024-04-22 15:55 | XMS_ITS | Encounter Summary ---
Author Organization [facility] Address [address] [place] [address] Care Team Providers Care Setter Molding And Coremaking Machines Name Role Phone Catina Chowdhury NP Primary Care Provider [phone] Reason for Visit * Reason Onset Date Comments Appointment Related 04/10/2010 Patient call ed to discuss her Dr Valdes appointment with Dr. Hsu Encounter Details Date Type Department Care Team (Late st Contact Info) Description 04/10/2010 Telephone [facility] Endocrinology - [address] [address] Ale Hsu MD PhD [address] [place] [address] [address] [place] [address] Appointment Related (Patient called to discuss [...] Telephone Encounter - Janae Chamorro - 12/05/2010 1969 EDT Follow up documented in this encounter Plan of Treatment Not on file documented as of this encounter Visit Diagnoses Not on filedocumented in this encounter Care Teams Setter Molding And Coremaking Machines Relationship Specialty Start Date End Date Catina Chowdhury, [facility] [address] [place] [address] PCP - General 02/03/09 07/20/12 documented as of this encounter
--- OUTSIDE RECORDS SUMMARY | 2024-04-22 15:55 | XMS_ITS | Encounter Summary ---
Author Organization [facility] Address [address] [place] [address] Care Team Providers Care Field Service Manager Name Role Phone Unavailable Primary Care Provider Unavailabl e Encounter Details Date Type Department Care Team ([facility] st Contact Info) Description 07/24/2006 13:27 EDT Hospital Encounter [address] [address] Ale Hsu MD PhD [address] [place] [address] [place] [phone] Social History Tobacco Use Types Packs/Day [...] 07/24/2006 13:3 2 EDT 07/24/2006 13:35 EDT us Ale Hsu MD PhD CHEMISTRY & BLOOD GAS ORD ERABLES Final Result [facility] [address] [place] [address] * THYROGLOBULIN TUMOR MARKER (07/24/2006 13:32 EDT) Pathologist [facility] Thyroglobulin Antibody Screen 48876 7.2Unit: IU/mL(Note) This FDA-approved assay has been modified and validated ? by Laboratory Medicine and Pathology, [facility], ? [place], [place] in order to enhance sensitivity. This [...] lower results. ? Test Performed by: ? [facility] Dpt of Lab Med and Pathology ? [address] [facility], [place] [address] ? Boiler Attendant: Geovanny Welch III, M.D. ? [facility] 07/24/2006 13:3 2 EDT 07/24/2006 13:35 EDT Ale Hsu MD PhD CHEMISTRY & BLOOD GAS ORD ERABLES Final Result Performing Organization Address City/[facility]/ZIP Co de Phone Number [facility] [address] [place] [address] * T4 FREE (07/24/2006 13:32 EDT) Free T4 1.5 0.8 - 1.8 ng/dL [facility] 07/24/2006 13:3 2 EDT 07/24/2006 13:35 EDT us Ale Hsu MD PhD CHEMISTRY & BLOOD GAS ORD ERABLES Final Result Performing Organization Address [facility] Co de Phone Number [facility] [address] [place] [address] documented in this encounter Visit Diagnoses Not on filedocumented in this encounter
--- OUTSIDE RECORDS SUMMARY | 2024-04-22 15:55 | XMS_ITS | Encounter Summary ---
Author Organization [facility] Address [address] [place] [address] Care Team Providers Care Veterinary Manager Name Role Phone Rand Harley MD Primary Care Provider [phone] Encounter Details Date Type Department Care Team (Late st Contact Info) Description 10/01/2012 Results Only [facility] Dermatology 5th Floor [address] [address] Robbin Cowan MD Social History Tobacco Use Types [...] ? JC BANERJEE ? Accession #: ? [id number] ? : ? 1965 (Age: 46) ??F ? Collect Date: ? 10/01/2012 ? Location: ? [facility] ? Receive Date: ? 10/01/2012 ? Provider: ROBBIN COWAN MD Copy to: MARGARITA MCCALL MD ? Final Pathologic Diagnosis: ? Skin of cheek, right, shave biopsy: - Angiofibroma, irritated. ??See comment. Comment: ? Present are features of an angiofibroma with associated excoriation. ??(Dr. Delgado)/n Document reviewed and electronically signed by: SHUKRI [...] (1). (Lydia Jauregui/radha ?? End of Report [facility] 10/01/2012 15:1 3 EDT 10/01/2012 15:13 EDT us Robbin Cowan MD PATHOLOGY ORDERABLES Fin al Result Performing Organization Address City/State/[facility] Co de Phone Number [facility] [address] [place] [address] documented in this encounter Visit Diagnoses Not on filedocumented in this encounter Care Teams Veterinary Manager Relationship Specialty Start Date End Date Rand Harley MD [address] [place] [address] PCP - General 07/21/12 02/01/14 documented as of this encounter
--- OUTSIDE RECORDS SUMMARY | 2024-04-22 15:55 | XMS_ITS | Encounter Summary ---
Author Organization [facility] Address [address] [place] [address] Care Team Providers Care Room Attendants Name Role Phone Unavailable Primary Care Provider Unavailabl e Encounter Details Date Type Department Care Team (Late st Contact Info) Description 01/11/2004 10:04 EDT Hospital Encounter [facility] - Other [address] [place] [address] Ale Hsu MD PhD [address] [place] [phone] Social History Tobacco Use Types Packs/Day [...]
--- OUTSIDE RECORDS SUMMARY | 2024-04-22 15:55 | XMS_ITS | Encounter Summary ---
Author Organization [facility] Address [address] [place] [address] Care Team Providers Care Dump Grader Name Role Phone Catina Chowdhury NP Primary Care Provider [phone] Reason for Visit * Reason Comments Follow-up thyroid Encounter Details Date Type Department Care Team (Latest Contact Info) Description 02/06/2010 11:20 EDT Office Visit [facility] Endocrinology - [address] [address] Ale Hsu MD PhD [address] [place] [address] [address] [place] [address] Malignant neoplasm of thyroid gland [...] Notes * Ale Hsu MD - 02/08/2010 7727 EDT DIVISION OF ENDOCRINOLOGY PROGRESS/FOLLOWUP NOTE - [...] - WLP Job ID: SM Doc ID: [id number] Ext Doc ID: [id number] cc: Lance Valdes MD * Ale Hsu [...] Scrn, S 13Reference range: <4.0 Unit: IU/mL(H) [facility] Thyroglobulin, Tumor Marker, S <0.1Unit: ng/mL Quantitation of thyroglobulin may be unreliable due to the ? presence of anti-thyroglobulin antibodies. ? -- REFERENCE VALUE -- ? <=33 ? Athyrotic individuals ? normally have hTg values ? less than 5 ng/mL. ? The testing method is an immunoenzymatic assay manufactured ? by [employer] and performed on the Unicel DXI ? 800. ? Values obtained with different assay methods or kits may be ? different and cannot be used interchangeably. ? Test results cannot be interpreted as absolute evidence for ? the presence or absence of malignant disease. ? Specimens with thyroglobulin concentrations greater than ? 250,000 ng/mL may give falsely lower results. ? Performed by: [facility] [place], [address], ? [place] [address], [place] Laborer: Brooke Flores, Ph.D. ? [facility] Blood specimen (specimen) 02/06/2010 11:59 EDT 02/06/2010 12:00 EDT us Ale Hsu MD PhD CHEMISTRY & BLOOD GAS ORD ERABLES Final Result [facility] [address] [place] [address] * T4 FREE (02/06/2010 11:59 EDT) Free T4 1.5 0.8 - 1.8 ng/dL [facility] Blood specimen (specimen) 02/06/2010 11:59 EDT 02/06/2010 12:00 EDT Ale Hsu MD PhD CHEMISTRY & BLOOD GAS ORD ERABLES Final Result Performing Organization Address City/[facility]/ZIP Co de Phone Number [facility] [address] [place] [address] * TSH (02/06/2010 11:59 EDT) TSH 1.45 0.35 - 5.00 uIU/ml [facility] Blood specimen (specimen) 02/06/2010 11:59 EDT 02/06/2010 12:00 EDT Ale Hsu MD PhD CHEMISTRY & BLOOD GAS ORD ERABLES Final Result Performing Organization Address City/[facility] Co de Phone Number [facility] [address] [place] [address] documented in this encounter Visit Diagnoses Diagnosis [...] may reflect changes made after this encounter. loratadine (CLARITIN) 10 mg tablet Take 10 mg by mouth at bedtime as needed. 02/05/2011 added in this encounter Care Teams Dump Grader Relationship Specialty Start Date End Date Catina Chowdhury NP [facility] [address] [place] [address] PCP - General 02/03/09 07/20/12 documented as of this encounter
--- OUTSIDE RECORDS SUMMARY | 2024-04-22 15:55 | XMS_ITS | Encounter Summary ---
Author Organization [facility] Address [address] [place] [address] Care Team Providers Care Metal Furniture Repairer Name Role Phone Unavailable Primary Care Provider Unavailabl e Encounter Details Date Type Department Care Team (Late st Contact Info) Description 02/10/2008 11:40 EDT Hospital Encounter [facility] [place] [facility] [address] [place] [address] Ale Hsu MD PhD [address] [place] [address] [place] [phone] Social History Tobacco Use Types Packs/Day [...] 07/07/2008 13:4 1 EST 07/07/2008 13:42 EST us Ale Hsu MD PhD CHEMISTRY & BLOOD GAS ORD ERABLES Final Result Performing Organization Address [facility] Co de Phone Number [facility] [address] [place] [address] * (ABNORMAL) T4 FREE (07/07/2008 13:41 EST) Free T4 1.9(H) 0.8 - 1.8 ng/dL [facility] 07/07/2008 13:4 1 EST 07/07/2008 13:42 EST us Ale Hsu MD PhD CHEMISTRY & BLOOD GAS ORD ERABLES Final Result Performing Organization Address City/[facility]/ZIP Co de Phone Number [facility] [address] [place] [address] * TSH (02/10/2008 12:13 EDT) TSH 3.24 0.35 - 5.00 uIU/mL [facility] 02/10/2008 12:1 3 EDT 02/10/2008 12:14 EDT us Ale Hsu MD PhD CHEMISTRY & BLOOD GAS ORD ERABLES Final Result Performing Organization Address City/[facility]/ZIP Co de Phone Number [facility] [address] [place] [address] * T4 FREE (02/10/2008 12:13 EDT) Pathologist [facility] Free T4 1.7 0.8 - 1.8 ng/dL [facility] 02/10/2008 12:1 3 EDT 02/10/2008 12:14 EDT us Ale Hsu MD PhD CHEMISTRY & BLOOD GAS ORD ERABLES Final Result [facility] [address] [place] [address] * (ABNORMAL) THYROGLOBULIN TUMOR MARKER (02/10/2008 12:13 EDT) [facility] Thyroglobulin Antibody Screen 68876 8.8Reference range: <4.0 Unit: IU/mL(H) [facility] Thyroglobulin Tumor Marker <0.1Unit: ng/mL Quantitation of thyroglobulin may be unreliable due to the ? presence of anti-thyroglobulin antibodies. ? -- REFERENCE VALUE -- ? <=33 ? Athyrotic individuals ? normally have hTg values ? less than 5 ng/mL. ? The testing method is an immunoenzymatic assay manufactured ? by [employer] and performed on the Starport System[employer] DXI ? 800. ? Values obtained with different assay methods or kits may be ? different and cannot be used interchangeably. ? Test results cannot be interpreted as absolute evidence for ? the presence or absence of malignant disease. ? Specimens with thyroglobulin concentrations greater than ? 250,000 ng/mL may give falsely lower results. ? Performed by: [facility] [address] , [address] , [place] [address], Lab Dir: ??Geovanny Welch ? III, M.D. ? [facility] 02/10/2008 12:1 3 EDT 02/10/2008 12:14 EDT us Ale Hsu MD PhD CHEMISTRY & BLOOD GAS ORD ERABLES Final Result [facility] [address] [place] [address] documented in this encounter Visit Diagnoses Not on filedocumented in this encounter
--- OUTSIDE RECORDS SUMMARY | 2024-04-22 15:55 | XMS_ITS | Encounter Summary ---
Author Organization [facility] Address [address] [place] [address] Care Team Providers Care Steward Dishwasher Name Role Phone Unavailable Primary Care Provider Unavailabl e Encounter Details Date Type Department Care Team ([facility] st Contact Info) Description 12/12/2005 10:40 EDT Hospital Encounter [address] [address] Ale Hsu MD PhD [address] [place] [address] [place] [phone] Social History Tobacco Use Types Packs/Day [...] encounter Results * TSH (12/12/2005 11:35 EDT) [facility] TSH 1.77 0.35 - 5.00 uIU/mL [facility] 12/12/2005 11:3 5 EDT 12/12/2005 11:50 EDT us Ale Hsu MD PhD CHEMISTRY & BLOOD GAS ORD ERABLES Final Result [facility] [address] [place] [address] * (ABNORMAL) THYROGLOBULIN TUMOR MARKER (12/12/2005 11:35 EDT) [facility] Thyroglobulin Antibody Screen 79981 14Unit: IU/mL(Note) -- EXPECTED VALUES -- ? (Ref Range) <=2.3 ?(H) [facility] Thyroglobulin Tumor Marker <0.1Unit: ng/mL(Note) Quantitation of thyroglobulin may be unreliable due to the ? presence of anti-thyroglobuli n antibodies. ? Specimens with thyroglobulin concentrations greater than ? 250,000 ng/mL may give falsely lower results. ? Method is [employer] Access Immunoassay System. ? -- EXPECTED VALUES -- ? (Ref Range) <=33 ? Athyrotic individuals ? normally have hTg values ? less than 5 ng/mL. ? Serum markers are not specific for malignancy and values ? may vary by method. ? Test Performed by: ? [facility] ? [address] , [place] [address] ? Viticulturist: Melodie Washington M.D. ? [facility] 12/12/2005 11:3 5 EDT 12/12/2005 11:50 EDT us Ale Hsu MD PhD CHEMISTRY & BLOOD GAS ORD ERABLES Final Result Performing Organization Address City/[facility] [[email or web address]] Co de Phone Number [facility] [address] [place] [address] * (ABNORMAL) T4 FREE (12/12/2005 11:35 EDT) Free T4 1.9(H) 0.8 - 1.8 ng/dL [facility] 12/12/2005 11:3 5 EDT 12/12/2005 11:50 EDT us Ale Hsu MD PhD CHEMISTRY & BLOOD GAS ORD ERABLES Final Result Performing Organization Address [facility] [[email or web address]] Co de Phone Number [facility] [address] [place] [address] documented in this encounter Visit Diagnoses Not on filedocumented in this encounter
--- OUTSIDE RECORDS SUMMARY | 2024-04-22 15:55 | XMS_ITS | Encounter Summary ---
Author Organization [facility] Address [address] [place] [address] Care Team Providers Care Ski Binding Fitter And Repairer Name Role Phone Catina Chowdhury NP Primary Care Provider [phone] Reason for Visit * Reason Comments Other Thyroid U/S Encounter Details Date Type Department Care Team (Late st Contact Info) Description 03/30/2010 14:20 EST Office Visit [address] [address] Lance Valdes MD [address] [place] [address], [address] [place] [address] Malignant neoplasm of thyroid gland [...] Notes * Lance Valdes MD - 03/30/2010 4250 EST SUBJECTIVE Jc Banerjee is seen in [...] Miscellaneous Notes * Scanned Note-Null - Jacinto, Cake Decorator - 10/03/2010 1353 EDT * Scanned Note-Null - Inpatient, Physician - 04/25/2010 1131 EST documented in this encounter Plan of Treatment Not on file documented as of this encounter Visit Diagnoses Diagnosis Malignant neoplasm of thyroid gland (HCC-CMS)- Primary Malignant neoplasm of thyroid gland documented in this encounter Care Teams Ski Binding Fitter And Repairer Relationship Specialty Start Date End Date Catina Chowdhury NP [facility] [address] [place] [address] PCP - General 02/03/09 07/20/12 documented as of this encounter
--- OUTSIDE RECORDS SUMMARY | 2024-04-22 15:55 | XMS_ITS | Encounter Summary ---
Author Organization [facility] Address [address] [place] [address] Care Team Providers Care Service Officer Name Role Phone Catina Chowdhury NP Primary Care Provider [phone] Encounter Details Date Type Department Care Team (Late st Contact Info) Description 02/05/2011 Phlebotomy Only [address] [address] [place], Outpatient Postsurgical hypothyroidism; Hx of thyroid cancer [...] is an immunoenzymatic ? assay manufactured by [employer] and ? performed on the Un[employer]el DXI 800. ? The thyroglobulin antibody testing method is an ? electrochemilumine scence assay manufactured by [employer] and performed on the [...] falsely lower results. ? Performed by: [facility] [place], [address], ? [place] [address], Floorworker: Brooke Flores, Ph.D. ? [facility] Blood specimen (specimen) 02/05/2011 12:42 EDT 02/05/2011 12:43 EDT Ale Hsu MD PhD CHEMISTRY & BLOOD GAS ORD ERABLES Final Result [facility] [address] [place] [address] * THYROID CASCADE (02/05/2011 12:42 EDT) TSH 1.74 0.35 - 5.00 uIU/ml [facility] Comment: ??TSH cascade is not recommended for patients in which pituitary or hypothalamic disorders are suspected. Blood specimen (specimen) 02/05/2011 12:42 EDT 02/05/2011 12:43 EDT us Ale Hsu MD PhD CHEMISTRY & BLOOD GAS ORD ERABLES Final Result [facility] [address] [place] [address] documented in this encounter Visit Diagnoses Diagnosis Postsurgical hypothyroidism Hx of thyroid cancer Personal history of malignant neoplasm of thyroid documented in this encounter Care Teams Service Officer Relationship Specialty Start Date End Date Catina Chowdhury NP [facility] [address] [place] [id number] PCP - General 02/03/09 07/20/12 documented as of this encounter
--- OUTSIDE RECORDS SUMMARY | 2024-04-22 15:55 | XMS_ITS | Encounter Summary ---
Author Organization [facility] Address [address] [place] [address] Care Team Providers Care Forest Fire Specialist Supervisor Name Role Phone Rand Harley MD Primary Care Provider [phone] Reason for Visit * Reason Comments Thyroid Problem Encounter Details Date Type Department Care Team (Latest Contact Info) Description 02/02/2013 11:20 EDT Office Visit [facility] Endocrinology - [address] [address] Con Tillman MD PhD [address] [place] [address] [place] [phone] History of thyroid cancer (Primary Dx); [...] method is an immunoenzymatic assay manufactured by [employer]. and performed on the Unicel DXI 800. The thyroglobulin antibody testing method [...] normally have hTg values <=2. Performed by: [facility] [place], [address], [place] [address], Finance Lead: Brooke Flores, Ph.D. All at [facility]. [facility]. documented in this encounter Plan of Treatment Not on file documented as of this encounter Results * THYROGLOBULIN TUMOR MARKER (02/02/2013 11:56 EDT) Thyroid Suppression? YES [facility] Thyroglob Ab Screen <20 <22 IU/mL KIKI MARTINEZ Comment: (Note) The thyroglobulin testing method is an immunoenzymatic assay manufactured by [employer] and performed on the [employer] DXI 800. The thyroglobulin antibody testing method [...] have hTg values <=2. Performed by: [facility] [place], [address], [place] [address], Finance Lead: Brooke Flores, Ph.D. Blood specimen (specimen) 02/02/2013 11:56 EDT 02/02/2013 15:41 EDT Con Tillman MD PhD CHEMISTRY & BLOOD GAS ORD ERABLES Final Result Performing Organization Address [facility] Co de Phone Number [facility] [address] [place] [address] * THYROID CASCADE (02/02/2013 11:56 EDT) TSH 1.67 0.35 - 5.00 uIU/ml [facility] Comment: TSH cascade is not recommended for patients in which pituitary or hypothalamic disorders are suspected. Blood specimen (specimen) 02/02/2013 11:56 EDT 02/02/2013 15:41 EDT Con Tillman MD PhD CHEMISTRY & BLOOD GAS ORD ERABLES Final Result Performing Organization Address [facility] de Phone Number [facility] [address] [place] [address] documented in this encounter Visit Diagnoses Diagnosis History of thyroid cancer- Primary Personal history of malignant neoplasm of thyroid Postsurgical hypothyroidism documented in this encounter Care Teams Forest Fire Specialist Supervisor Relationship Specialty Start Date End Date Rand Harley MD [address] [place] [address] PCP - General 07/21/12 02/01/14 documented as of this encounter
--- OUTSIDE RECORDS SUMMARY | 2024-04-22 15:55 | XMS_ITS | Encounter Summary ---
Author Organization [facility] Address [address] [place] [address] Care Team Providers Care Cardiovascular Rn Name Role Phone Unavailable Primary Care Provider Unavailabl e Encounter Details Date Type Department Care Team (Late st Contact Info) Description 01/15/2006 14:26 EDT Hospital Encounter [facility] [address] [place] [address] Monico Goff MD Social History Tobacco Use [...]
--- OUTSIDE RECORDS SUMMARY | 2024-04-22 15:55 | XMS_ITS | Encounter Summary ---
Author Organization [facility] Address [address] [place] [address] Care Team Providers Care Morning Caregiver Name Role Phone Catina Chowdhury NP Primary Care Provider [phone] Encounter Details Date Type Department Care Team (Late st Contact Info) Description 12/11/2006 Before PRISM Converted Visit ([facility] - [facility] conversion [address] [place] [address] Ale Hsu MD PhD [address] [place] [address] [address] [place] [phone] Social History Tobacco Use Types [...] TSH was 1.77 and then in July h her TSH still a little high [...] Ale Hsu MD,PhD - DD Job ID: [id number] Doc ID: [id number] cc: Cristofer Zapaat MD documented in this encounter Plan of Treatment Not on file documented as of this encounter Visit Diagnoses Not on filedocumented in this encounter Care Teams Morning Caregiver Relationship Specialty Start Date End Date Catina Chowdhury NP [facility] [address] [place] [address] PCP - General 02/03/09 07/20/12 documented as of this encounter
--- OUTSIDE RECORDS SUMMARY | 2024-04-22 15:56 | XMS_ITS | Encounter Summary ---
Author Organization [facility] Address [address] [place] [address] Care Team Providers Care Antenna Design Engineer Name Role Phone Unavailable Primary Care Provider Unavailabl e Encounter Details Date Type Department Care Team (Latest Contact Info) Description 01/11/2000 16:26 EDT Hospital Encounter [address] [address] Ale Hsu MD PhD [address] [place] [phone] Discharge Disposition: Auto Discharge Social History [...] 01/11/2000 14:5 1 EDT 01/11/2000 14:57 EDT us Ale Hsu MD PhD CHEMISTRY & BLOOD GAS ORD ERABLES Final Result [facility] [address] [place] [address] * THYROGLOBULIN TUMOR MARKER (01/11/2000 14:51 EDT) Thyroglobulin Ab Negative ODELL MART[facility] Thyroglobulin <0.5Unit: ng/mL ??(Note) -- EXPECTED VALUES -- ? (Ref Range) < or = 59.4 (normal thyroid) ? < 5.0 (athyroidic patient) ? TEST PERFORMED OR REFERRED BY [facility] ? [facility] ? [address] ? [place], [place] ??[address] ? [facility] 01/11/2000 14:5 1 EDT 01/11/2000 14:57 EDT Ale Hsu MD PhD CHEMISTRY & BLOOD GAS ORD ERABLES Final Result Performing Organization Address City/[facility] de Phone Number [facility] [address] [place] [address] * (ABNORMAL) T4 FREE (01/11/2000 14:51 EDT) Free T4 2.0(H) 0.8 - 1.8 ng/dl [facility] 01/11/2000 14:5 1 EDT 01/11/2000 14:57 EDT Ale Hsu MD PhD CHEMISTRY & BLOOD GAS ORD ERABLES Final Result Performing Organization Address City/[facility] de Phone Number [facility] [address] [place] [address] documented in this encounter Visit Diagnoses Not on filedocumented in this encounter
--- OUTSIDE RECORDS SUMMARY | 2024-04-22 15:56 | XMS_ITS | Encounter Summary ---
Author Organization [facility] Address [address] [place] [address] Care Team Providers Care Collection Development Librarian Name Role Phone Unavailable Primary Care Provider Unavailabl e Encounter Details Date Type Department Care Team (Latest Contact Info) Description 03/05/2001 10:06 EDT - 03/05/2001 11:59 EDT Hospital Encounter [facility] [address] [place] [address] Ale Hsu MD PhD [address] [place] [phone] Discharge Disposition: Auto Discharge Social History [...]
--- OUTSIDE RECORDS SUMMARY | 2024-04-22 15:56 | XMS_ITS | Encounter Summary ---
Author Organization [facility] Address [address] [place] [address] Care Team Providers Care Blending Tank Helper Name Role Phone Unavailable Primary Care Provider Unavailabl e Encounter Details Date Type Department Care Team (Latest Contact Info) Description 02/03/2001 20:03 EDT Hospital Encounter [facility] - Other [address] [place] [address] Ale Hsu MD PhD [address] [place] [phone] Unknown, ProviderMD Discharge Disposition: Auto Discharge [...] Results * (ABNORMAL) TSH (02/03/2001 10:41 EDT) Pathologist [facility] TSH 34.42(H) 0.35 - 5.50 uIU/ml [facility] MARTINE[facility] 02/03/2001 10:4 1 EDT 02/03/2001 10:53 EDT us Ale Hsu MD PhD CHEMISTRY & BLOOD GAS ORD ERABLES Final Result [facility] [address] [place] [address] * THYROGLOBULIN TUMOR MARKER (02/03/2001 10:41 EDT) Pathologist [facility] Thyroglobulin Ab Negative ?? KIKI MARTINEZ Thyroglobulin [...] [facility] ? [address] ? [place], [place] ??[address] ? [facility] 02/03/2001 10:4 1 EDT 02/03/2001 10:53 EDT us Ale Hsu MD PhD CHEMISTRY & BLOOD GAS ORD ERABLES Final Result Performing Organization Address City/[facility]/ZIP Co de Phone Number [facility] [address] [place] [address] * T4 FREE (02/03/2001 10:41 EDT) Free T4 1.1 0.8 - 1.8 ng/dl [facility] 02/03/2001 10:4 1 EDT 02/03/2001 10:53 EDT Ale Hsu MD PhD CHEMISTRY & BLOOD GAS ORD ERABLES Final Result Performing Organization Address [facility] Co de Phone Number [facility] [address] [place] [address] documented in this encounter Visit Diagnoses Not on filedocumented in this encounter
--- OUTSIDE RECORDS SUMMARY | 2024-04-22 15:56 | XMS_ITS | Encounter Summary ---
Author Organization [facility] Address [address] [place] [address] Care Team Providers Care Bucket Pusher Name Role Phone Catina Chowdhury NP Primary Care Provider [phone] Encounter Details Date Type Department Care Team (Late st Contact Info) Description 08/06/2000 Results Only [facility] conversion [address] [place] [address] Araceli Maldonado, [facility] [address] [place] [address] Social History Tobacco Use Types [...] ? JC BANERJEE ? Accession #: ? [id number] : ? 1965 (Age: 34) ??F ?Collect Date: ? 08/06/2000 Location: ? [facility] ? Receive Date: ? 08/07/2000 Provider: ?ARACELI MALDONADO PERIANESTHESIA MANAGER Copy to: ? Specimen/Source: ?Conventional Pap Test, Cervix/Endocervix Last Menstrual Period: ? 08/02/00 ? SPECIMEN ADEQUACY ? Satisfactory for evaluation. GENERAL CATEGORIZATION ? Within Normal Limits ? Document reviewed and electronically signed by: ? ERIKA Linton(ASCP) ? Report Date: ??08/08/2000 10:45 End of Report [facility] 08/06/2000 08/07/2000 Araceli Maldonado PERIANESTHESIA MANAGER PATHOLOGY ORDERABLES Final R esult [facility] [address] [place] [address] documented in this encounter Visit Diagnoses Not on filedocumented in this encounter Care Teams Bucket Pusher Relationship Specialty Start Date End Date Catina Chowdhury NP [facility] [address] [place] [address] PCP - General 02/03/09 07/20/12 documented as of this encounter
== END 2024-04-22 15:52 | disposition home or self-care (01) ==
LOC: LBN 15:51
PROVIDERS: PCP Family Medicine; Visit Provider Physician Assistant Medical
DX: J06.9 Acute upper respiratory infection, unspecified (principal)
CPT/HCPCS: 87070

== ENCOUNTER 2024-05-14 02:27 | Outpatient (CLI) | payer BC, SELFPAY ==
--- NOTE | 2024-05-14 | DI.MAMMO_ITS ---
Exam(s) MAMMO SCREENING EXAM: MAMMO SCREENING CLINICAL HISTORY: SCREENING, Z12.31. TECHNIQUE: Bilateral full field digital CC and MLO mammographic images were obtained with 3D tomosyn thesis and utilizing computer aided detection (CAD). COMPARISON: Prior mammograms were reviewed. FINDINGS: There are no new mammographic findings in the right breast. In the left breast there is a new well-defined nodular density at approximately 6 o'clock position me asuring 4 by 4 mm and located approximately 8 cm in from the nipple on the CC view. Adjacent to this is another new asymmetric density-possible nodule on the CC view which measures 6 x 4 mm, also locat ed slightly over 8 cm in from the nipple. Additional imaging required. There are no malignant-appearing microcalcification groups in this region or elsewhere in either [address]. There is no significant architectural distortion nor skin thickening-retraction. IMPRESSION: 1. No radiographic evidence of malignancy in right breast. 2. There is one, possibly two new small nodules at approximately 6 o'clock position left breast. Spo t compression cc view and breast ultrasound recommended. BI-RADS Category 0 - Incomplete: Need additional imaging evaluation Breast Density - Category B - Scattered areas of fibroglandular density Breast density Category C or D implies that the patient has dense breast tissue. Dense breast tissue can make it harder to find cancer on a mammogram. Dense breast tissue is also associated with an incr eased risk of breast cancer. This information about the result of the mammogram report was provided to the patient to raise their awareness. Use this report when you speak with the patient about their risks for breast cancer, which includes their family history. At that time, you may recommend additional screening tests (Ultrasoun d or MRI) as these tests may add significant information. A negative radiographic report should not delay biopsy if a dominant or clinically suspicious mass is present. Up to ten percent of cancers are not identified on mammography. A negative report may reinforce clinical impression. Adenosis and dense breasts may obscure an underlying neoplasm. False positive reports average 6 to 10%. Patient will receive a letter notifying them of these results.
== END 2024-05-14 02:47 ==
LOC: DI 02:28
PROVIDERS: PCP Family Medicine; Visit Provider Family Medicine
DX: Z12.31 Encounter for screening mammogram for malignant neoplasm of breast (principal); R92.323 Mammographic fibroglandular density, bilateral breasts
CPT/HCPCS: 77063; 77067

== ENCOUNTER 2024-05-22 00:18 | Outpatient (CLI) | payer BC, SELFPAY ==
--- NOTE | 2024-05-22 | DI.MAMMO_ITS ---
Exam(s) MG MAMMO SCREEN CALL BACK UNI US BREAST LT LIMITED EXAM: MG MAMMO SCREEN CALL BACK UNI and U/S breast LT limited CLINICAL HISTORY: New 4x4 mm well-defined nodular density 8 cm from nipple, lt breast, 6:00. TECHNIQUE: Craniocaudal and mediolateral oblique Full Field Digital Mammography views of the left br east with Computer Aided Diagnosis followed by Tomosynthesis and limited left breast ultrasound. COMPARISON: Comparison is made with prior examinations. FINDINGS: Mammography/Tomosynthesis: Masses/Architectural Distortion: There again seen 2 well-circumscribed nodules in the posterior infer ior left breast at approximately 6 o'clock. No area of architectural distortion is seen. Microcalcifictions: No suspicious pleomorphic-type are seen. Skin Thickening/Nipple Retraction: None. Limited left breast US: Echotexture: Normal appearance of the glandular tissue. Shadowing: No suspicious foci. Cyst: There is a small 0.6 x 0.3 x 0.4 cm cyst in the retroareolar region of the left breast at 3 o'c lock. At the 5 o'clock position of the left breast there is a 0.5 x 0.3 x 0.5 cm cyst 4 cm from the nipple. This may account for 1 of the finding seen on the mammogram. Solid lesions: None seen. Ductal dilation: None. IMPRESSION: 1. No definite evidence of malignancy is noted. 2. A six-month follow-up left mammogram is requested for re-evaluation. 3. The findings were discussed with the patient on the date of the examination. BI-RADS Category 3 - 6 month - Probably Benign Finding: Recommend follow-up imaging in 6 months Breast Density - Category B - Scattered areas of fibroglandular density Breast density Category C or D implies that the patient has dense breast tissue. Dense breast tissue can make it harder to find cancer on a mammogram. Dense breast tissue is also associated with an incr eased risk of breast cancer. This information about the result of the mammogram report was provided to the patient to raise their awareness. Use this report when you speak with the patient about their risks for breast cancer, which includes their family history. At that time, you may recommend additional screening tests (Ultrasoun d or MRI) as these tests may add significant information. A negative radiographic report should not delay biopsy if a dominant or clinically suspicious mass is present. Up to ten percent of cancers are not identified on mammography. A negative report may reinforce clinical impression. Adenosis and dense breasts may obscure an underlying neoplasm. False positive reports average 6 to 10%. Patient will receive a letter notifying them of these results.
--- OUTSIDE RECORDS SUMMARY | 2024-05-22 00:32 | XMS_ITS | Encounter Summary ---
Author Organization [facility] Address [address] [place] [address] Care Team Providers Care Yard Jacker Name Role Phone Rand Harley MD Primary Care Provider [phone] Reason for Visit * Reason Comments Follow-up 2-3 month re-eval Encounter Details Date Type Department Care Team (Late st Contact Info) Description 04/24/2021 15:30 EST Office Visit [facility] Dermatology 5th [address] [address] Iron De Oliveira MD [address] [place] [phone] Adverse effect of vaccine, initial encounter (Primary [...] chin, s/p Mohs in Dec 2011 (at [facility]) SUBJECTIVE: Ms. James is a 55 [...] skin documented in this encounter Care Teams Yard Jacker Relationship Specialty Start Date End Date Rand Harley MD [address] [place] [address] PCP - General 07/30/16 documented as of this encounter
--- OUTSIDE RECORDS SUMMARY | 2024-05-22 00:32 | XMS_ITS | Encounter Summary ---
Author Organization [facility] Address [address] [place] [address] Care Team Providers Care Life Support Technician Name Role Phone Rand Harley MD Primary Care Provider [phone] Encounter Details Date Type Department Care Team (Late st Contact Info) Description 02/11/2024 Lab Requisition [facility] Pathology & Laboratory Medicine - [address] [address] Madiha Dillon [address] [place], [place] [address] Encounter for other general examination Social History [...] explore management options, if applicable. 02/12/2024 9:15 [facility] Final Diagnosis A. SKIN OF CHEST, UPPER, PUNCH BIOPSY: - Seborrheic keratosis, inflamed. 02/12/2024 9:15 [facility] Attestation By the signature below, the attending physician certifies that they have 1) personally conducted a gross and/or microscopic examination of the described specimen(s), and/or personally interpreted the results of laboratory testing of the described specimen(s), and 2) personally rendered or confirmed the above diagnosis. 02/12/2024 9:15 [facility] at 0915 Clinical History Lesion mid upper chest 02/12/2024 9:15 [facility] Gross Description A. Received in formalin labelled with proper patient identification (initials M, A) and upper chest is a punch biopsy of luis-white slightly nodular skin (0.3 cm in diameter by 0.2 cm in depth). Submitted intact in A1. RJ CARABALLO(ASCP) 02/11/2024 9:44 02/12/2024 9:15 [facility] Performing Lab [facility] 02/12/2024 9:15 [facility] Scanned Images 02/12/2024 9:15 EDT [facility] Tissue SPECIMEN FROM SKIN / Unknown 02/10/2024 17:20 EDT 02/11/2024 8:26 EDT Madiha Dillon PATHOLOGY ORDERABLES Final Result [facility] [address] [place], [place] [address] documented in this encounter Visit Diagnoses Diagnosis Encounter for other general examination documented in this encounter Care Teams Life Support Technician Relationship Specialty Start Date End Date Rand Harley MD [address] [place] [address] PCP - General 07/30/16 documented as of this encounter
--- OUTSIDE RECORDS SUMMARY | 2024-05-22 00:32 | XMS_ITS | Encounter Summary ---
Author Organization [facility] Address [address] [place] [address] Care Team Providers Care Welding Supervisor Name Role Phone Rand Harley MD Primary Care Provider [phone] Encounter Details Date Type Department Care Team (Late st Contact Info) Description 11/03/2021 Lab Requisition [facility] Pathology & Laboratory Medicine - [address] [address] Outr Resulting Lab, Provider Social History Tobacco [...] ulin <15 <=60 U/mL 11/03/2021 22:02 EDT [facility] Blood VENOUS BLOOD / Unknown 11/02/2021 15:52 EDT 11/03/2021 20:06 EDT us Provider Outr Resulting Lab CHEMISTRY & BLOOD GA S ORDERABLES Final Result Performing Organization Address City/State/[facility] Co de Phone Number [facility] [address] [place] [address] documented in this encounter Visit Diagnoses Not on filedocumented in this encounter Care Teams Welding Supervisor Relationship Specialty Start Date End Date Rand Harley MD [address] [place] [address] PCP - General 07/30/16 documented as of this encounter
--- OUTSIDE RECORDS SUMMARY | 2024-05-22 00:32 | XMS_ITS | Clinical Summary ---
Author Organization [facility] Address [address] [place] [address] Care Team Providers Care Ice Grinder Name Role Phone Rand Harley MD Primary Care Provider [phone] Allergies Active Allergy Reactions Criticality Noted Date [...] Noted Date Diagnosed Date SVT (supraventricular tachycardia) ([facility]) Postsurgical hypothyroidism 02/04/2012 Malignant neoplasm of thyroid gland ([facility]) Endometriosis 02/01/2010 Overview (02/01/2010): S/p hysterectomy, [...] carcinoma Thyroid cancer ([facility]) SVT (supraventricular tachycardia) ([facility]) Social History Tobacco Use Types Packs/Day Years [...] 19+ 3-dose series) 10/31 COVID-19 Vaccine ( - 2023- season) 2024 Insurance Advance Directives For more information, please contact: [phone] * Full Code (Latest Code Status on File) Date Activated Date Inactivated Comments 07/01/2013 6:57 07/01/2013 18:36 Care Teams Ice Grinder Relationship Specialty Start Date End Date Rand Harley MD [address] [place] [id number] PCP - General 07/30/16
--- OUTSIDE RECORDS SUMMARY | 2024-05-22 00:32 | XMS_ITS | Referral Summary ---
Author Organization [facility] Address [address] [place] [address] Care Team Providers Care Meat Supervisor Name Role Phone Rand Harley MD Primary Care Provider Allergies Active Allergy Reactions Criticality Noted Date [...] Noted Date Diagnosed Date SVT (supraventricular tachycardia) ([facility]) Postsurgical hypothyroidism 02/04/2012 Malignant neoplasm of thyroid gland ([facility]) Endometriosis 02/01/2010 Overview (02/01/2010): S/p hysterectomy, 10/16 [...] EDT Plan of Treatment Not on file Insurance Advance Directives For more information, please contact: [phone] * Full Code (Latest Code Status on File) Date Activated Date Inactivated Comments 07/01/2013 6:57 07/01/2013 18:36 Care Teams Meat Supervisor Relationship Specialty Start Date End Date Rand Harley MD [address] [place] [id number] PCP - General 07/30/16
--- OUTSIDE RECORDS SUMMARY | 2024-05-22 00:32 | XMS_ITS | Encounter Summary ---
Author Organization [facility] Address [address] [place] [address] Care Team Providers Care Chief Maintenance Supervisor Name Role Phone Rand Harely MD Primary Care Provider [phone] Encounter Details Date Type Department Care Team (Late st Contact Info) Description 04/11/2023 Lab Requisition [facility] Pathology & Laboratory Medicine - [address] [address] Outr Resulting Lab, Provider Social History Tobacco [...] Lyme Ab Negative Negative 04/12/2023 10:57 EST [facility] Blood VENOUS BLOOD / Unknown 04/11/2023 11:05 EST 04/11/2023 22:00 EST us Provider Outr Resulting Lab IMMUNOLOGY AND SEROL OGY ORDERABLES Final Result [facility] [address] [place] [address] documented in this encounter Visit Diagnoses Not on filedocumented in this encounter Care Teams Chief Maintenance Supervisor Relationship Specialty Start Date End Date Rand Harley MD [address] [place] [address] PCP - General 07/30/16 documented as of this encounter
--- OUTSIDE RECORDS SUMMARY | 2024-05-22 00:33 | XMS_ITS | Encounter Summary ---
Author Organization [facility] Address [address] [place] [address] Care Team Providers Care Route Delivery Supervisor Name Role Phone Rand Harley MD Primary Care Provider Encounter Details Date Type Department Care Team (Late st Contact Info) Description 04/30/2017 Results Only [facility] Endocrinology - [facility] [address] [place] [address] Ale Hsu MD PhD [address] [facility] [address] [place] [address] Social History Tobacco Use Types [...] 0.8 - 2.2 ng/dl 04/30/2017 17:15 EST [facility] Comment:New methodology in u se 11/07/16. BLOOD SPECIMEN / Unknown 04/30/2017 13:42 EST 04/30/2017 15:29 EST us Ale Hsu MD PhD CHEMISTRY & BLOOD GAS ORD ERABLES Final Result [facility] [address] [place] [address] documented in this encounter Visit Diagnoses Not on filedocumented in this encounter Care Teams Route Delivery Supervisor Relationship Specialty Start Date End Date Rand Harley MD [address] [place] [address] PCP - General 07/30/16 documented as of this encounter
--- OUTSIDE RECORDS SUMMARY | 2024-05-22 00:33 | XMS_ITS | Encounter Summary ---
Author Organization [facility] Address [address] [place] [address] Care Team Providers Care System Safety Manager Name Role Phone Rand Harley MD Primary Care Provider Reason for Visit * Reason Onset Date Comments Biopsy Results 08/07/2016 Encounter Details Date Type Department Care Team (Late st Contact Info) Description 08/07/2016 Telephone [facility] Dermatology 3rd Floor [address] [address] Yuri Cowan MD Biopsy Results Social History [...] REMOVED FURTHER YURI COWAN MD 08/07/2016 11:48 shoulder joiner documented in this encounter Plan of Treatment Not on file documented as of this encounter Visit Diagnoses Not on filedocumented in this encounter Care Teams System Safety Manager Relationship Specialty Start Date End Date Rand Harley MD [address] [place] [address] PCP - General 07/30/16 documented as of this encounter
--- OUTSIDE RECORDS SUMMARY | 2024-05-22 00:33 | XMS_ITS | Encounter Summary ---
Author Organization [facility] Address [address] [place] [address] Care Team Providers Care Cook Apprentice Name Role Phone Rand Harley MD Primary Care Provider [phone] Encounter Details Date Type Department Care Team (Latest Contact Info) Description 01/20/2018 11:40 EDT Procedure visit [facility] Endocrinology - [facility] [address] [place] [address] Ale Hsu MD PhD [address] [facility] [address] [place] [address] Phlebotomy, [facility] Endo Postsurgical [...] EDT) Thyroid Suppression? YES 01/20/2018 11:[address] [facility] Thyroglob,Tumor Mrkr <0.1 ng/mL 01/22/2018 8:[address] [facility] Comment: (Note) . REFERENCE VALUE Athyrotic <0.1 Intact Thyroid <=33 . Thyroglobulin Ab, S 3.5 <4.0 IU/mL 01/22/2018 8:[address] [facility] Thyroglobulin Interp (Note) 01/22/2018 8:[address] [facility] Comment: Thyroglobulin (Tg) levels [...] testing methods are immunoenzymatic assays manufactured by [employer]. and performed on the [employer] 800. . Values obtained from different assay methods or kits may be different and cannot be used interchangeably. . The results cannot be interpreted as absolute evidence for the presence or absence of malignant disease. Performed by: [facility]: [facility], [place] [address] Blood specimen (specimen) BLOOD SPECIMEN / Unknown 01/20/2018 11:43 EDT 01/20/2018 15:59 EDT us Ale Hsu MD PhD CHEMISTRY & BLOOD GAS ORD ERABLES Final Result Performing Organization Address City/[facility]/ZIP Co de Phone Number [facility] [address] [place] [address] * T4 FREE (01/20/2018 11:43 EDT) T4, Free 1.5 0.8 - 2.2 ng/dl 01/20/2018 16:[address] [facility] Blood specimen (specimen) BLOOD SPECIMEN / Unknown 01/20/2018 11:43 EDT 01/20/2018 15:59 EDT us Ale Hsu MD PhD CHEMISTRY & BLOOD GAS ORD ERABLES Final Result Performing Organization Address City/[facility]/ZIP Co de Phone Number [facility] [address] [place] [address] * TSH (01/20/2018 11:43 EDT) TSH 3.41 0.47 - 4.68 uIU/ml 01/20/2018 16:[address] [facility] Comment: The results of this assay can be falsely lowered due to the consumption of Biotin. Blood specimen (specimen) BLOOD SPECIMEN / Unknown 01/20/2018 11:43 EDT 01/20/2018 15:59 EDT us lAe Hsu MD PhD CHEMISTRY & BLOOD GAS ORD ERABLES Final Result [facility] [address] [place] [address] documented in this encounter Visit Diagnoses Diagnosis Postsurgical hypothyroidism History of thyroid cancer Personal history of malignant neoplasm of thyroid documented in this encounter Care Teams Cook Apprentice Relationship Specialty Start Date End Date Rand Harley MD [address] [place] [address] PCP - General 07/30/16 documented as of this encounter
--- OUTSIDE RECORDS SUMMARY | 2024-05-22 00:33 | XMS_ITS | Encounter Summary ---
Author Organization [facility] Address [address] [place] [address] Care Team Providers Care Carry Out Clerk And Shelf Stocker Name Role Phone Catina Chowdhury NP Primary Care Provider [phone] Encounter Details Date Type Department Care Team (Late st Contact Info) Description 01/31/2015 Phlebotomy Only [address] [address] Regional Education Manager, Outpatient Postsurgical hypothyroidism; Malignant neoplasm of thyroid [...] EDT) Thyroid Suppression? YES 01/31/2015 11:32 EDT [facility] Thyroglob,Tumor Mrkr <0.1 ng/mL 02/01/2015 7:51 T [facility] Comment: (Note) REFERENCE VALUE Athyrotic <0.1 Intact Thyroid <=33 Thyroglobulin Ab, S 11(H) <4.0 IU/mL 02/01/2015 7:51 EDT [facility] Thyroglobulin Interp (Note) 02/01/2015 7:51 [facility] Comment: Quantitation of thyroglobulin [...] testing methods are immunoenzymatic assays manufactured by [employer] and performed on the [employer] DXI 800. Values obtained from different assay methods or kits may be different and cannot be used interchangeably. The results cannot be interpreted as absolute evidence for the presence or absence of malignant disease. Performed by: [facility], [address], [place] [address], Operations Consultant: Brooke Flores, Ph.D. Blood specimen (specimen) BLOOD SPECIMEN / Unknown 01/31/2015 11:33 EDT 01/31/2015 13:15 EDT Ale Hsu MD PhD CHEMISTRY & BLOOD GAS ORD ERABLES Final Result Performing Organization Address City/[facility]/ZIP Co de Phone Number [facility] [address] [place] [address] * THYROID CASCADE (01/31/2015 11:33 EDT) TSH 0.39 0.35 - 5.00 uIU/ml 01/31/2015 15:09 EDT [facility] Comment: TSH cascade is not recommended for patients in which pituitary or hypothalamic disorders are suspected. Blood specimen (specimen) BLOOD SPECIMEN / Unknown 01/31/2015 11:33 EDT 01/31/2015 13:15 EDT Ale Hsu MD PhD CHEMISTRY & BLOOD GAS ORD ERABLES Final Result Performing Organization Address City/[facility] Co de Phone Number [facility] [address] [place] [address] documented in this encounter Visit Diagnoses Diagnosis Postsurgical hypothyroidism Malignant neoplasm of thyroid gland (HCC-CMS) Malignant neoplasm of thyroid gland documented in this encounter Care Teams Carry Out Clerk And Shelf Stocker Relationship Specialty Start Date End Date Catina Chowdhury NP [facility] [address] [place] [address] PCP - General 02/02/14 07/29/16 documented as of this encounter
--- OUTSIDE RECORDS SUMMARY | 2024-05-22 00:33 | XMS_ITS | Encounter Summary ---
Author Organization [facility] Address [address] [place] [address] Care Team Providers Care Compressor Operator Name Role Phone Catina Chowdhury NP Primary Care Provider [phone] Reason for Visit * Reason Onset Date Comments Requesting Sooner Appointment 12/26/2015 Encounter Details Date Type Department Care Team (Late st Contact Info) Description 12/26/2015 Telephone [facility] [facility] Dermatology [address] [facility] [address] [place], [place] [address] Elida Culp MD [address] [place] [address] Requesting Sooner Appointment Social History Tobacco Use [...] on filedocumented in this encounter Care Teams Compressor Operator Relationship Specialty Start Date End Date Catina Chowdhury NP [facility] [address] [place] [address] PCP - General 02/02/14 07/29/16 documented as of this encounter
--- OUTSIDE RECORDS SUMMARY | 2024-05-22 00:33 | XMS_ITS | Encounter Summary ---
Author Organization [facility] Address [address] [place] [address] Care Team Providers Care Residential Team Leader Name Role Phone Rand Harley MD Primary Care Provider [phone] Encounter Details Date Type Department Care Team (Late st Contact Info) Description 09/22/2019 Lab Requisition [facility] Pathology & Laboratory Medicine - [address] [address] Outr Resulting Lab, Provider Social History Tobacco [...] Priority Date/Time Associated Diagnosis Comments ZZCOVID-19 TEST [facility] PCR Today 09/21/2019 15:30 EDT COVID-19 TESTING Routine 09/21/2019 15:3 0 EDT documented in this encounter Results * COVID-19 TEST [facility] PCR (09/21/2019 15:30 EDT) Swab ENTIRE NASOPHARYNX / Unknown 09/21/2019 15:30 EDT 09/22/2019 20:22 EDT us Provider Outr Resulting Lab MICROBIOLOGY - GENER AL ORDERABLES Final Result [facility] [address] [place] [address] * COVID-19 TESTING (09/21/2019 15:30 EDT) COVID-19 rt-PCR Result Negative Negative 09/23/2019 17:[address] [facility] Comment: Negative results do not preclude 2019-nCoV infection and should not be used as the sole basis for treatment or other patient management decisions. Negative results must be combined with clinical observations, patient history, and epidemiological information. This test was developed and its performance characteristics determined by [facility]. It has not been cleared or approved [...] by the FDA Performed on the [employer] 7500 Fast. Performing Lab [facility] Hospital Lab 09/23/2019 17:[address] [facility] Swab ENTIRE NASOPHARYNX / Unknown 09/21/2019 15:30 EDT 09/22/2019 20:22 EDT us Provider Outr Resulting Lab MICROBIOLOGY - GENER AL ORDERABLES Final Result [facility] [address] [place] [address] documented in this encounter Visit Diagnoses Not on filedocumented in this encounter Care Teams Residential Team Leader Relationship Specialty Start Date End Date Rand Harley MD [address] [place] [address] PCP - General 07/30/16 documented as of this encounter
--- OUTSIDE RECORDS SUMMARY | 2024-05-22 00:33 | XMS_ITS | Encounter Summary ---
Author Organization [facility] Address [address] [place] [address] Care Team Providers Care Marketing Specialist Name Role Phone Rand Harley MD Primary Care Provider [phone] Encounter Details Date Type Department Care Team (Late st Contact Info) Description 04/30/2017 Phlebotomy Only [facility] [address] [place] [address] Bed Control Specialist, Outpatient S/P total thyroidectomy; History of thyroid [...] ANCA Interpretation Negative Negative 05/01/2017 12:45 EST [facility] Comment: MARC Positive, suggest follow-up [...] O RDERABLES Final Result Performing Organization Address [facility] Co de Phone Number [facility] [address] [place] [address] * ANGIOTENSIN CONVERTING ENZYME (JEFERSON) (04/30/2017 13:42 EST) Pathologist [facility] Angiotensin Converting Enzyme 42 8 - 53 U/L 05/02/2017 8:07 EST [facility] Comment: Performed or Referred by: [facility], [facility] [place] [address], Lab Dir: Andrew Jimenez II, M.D., Ph.D. Blood specimen (specimen) BLOOD SPECIMEN / Unknown 04/30/2017 13:42 EST 04/30/2017 15:29 EST Ale Hsu MD PhD CHEMISTRY & BLOOD GAS ORD ERABLES Final Result Performing Organization Address [facility] Co de Phone Number [facility] [address] [place] [address] * LUPUS ANTICOAGULANT CASCADE (04/30/2017 13:42 EST) Pathologist [facility] LA Dane Summary Negative for detection of lupus anticoagulant (LA). 05/02/2017 15:43 EST [facility] Comment: Where clinical suspicion for [...] Viper Venom 33.0 secs 2016 10:58 EST [facility] Comment: Reference Range = 27.2-36.9 secs Results must be interpreted with caution if the patient is on oral anticoagulant, direct thrombin inhibitors or heparin. Silica Clotting Time 33.7 sec 05/02/2017 10:20 EST [facility] Comment: Reference Range = 30.2-48.4 secs Results must be interpreted with caution if the patient is on oral anticoagulant, direct thrombin inhibitors or heparin. Blood specimen (specimen) BLOOD SPECIMEN / Unknown 04/30/2017 13:42 EST 04/30/2017 15:29 EST Ale Hsu MD PhD HEMATOLOGY & PF4 ORDERABL ES Final Result Performing Organization Address [facility] Co de Phone Number [facility] [address] [place] [address] * CK (04/30/2017 13:42 EST) CK 63 30 - 135 U/L 04/30/2017 16:01 EST [facility] Blood specimen (specimen) BLOOD SPECIMEN / Unknown 04/30/2017 13:42 EST 04/30/2017 15:29 EST Ale Hsu MD PhD CHEMISTRY & BLOOD GAS ORD ERABLES Final Result Performing Organization Address City/[facility] Co de Phone Number [facility] [address] [place] [address] * MYOMARKER PANEL 2 (04/30/2017 13:42 EST) [place] 2 Negative Negative 06/01/2017 12:49 EST [facility] [address] Negative Negative 06/01/2017 12:49 EST [facility] [address] Negative Negative 06/01/2017 12:49 EST [facility] EJ Negative Negative 06/01/2017 12:49 EST [facility] OJ Negative Negative 06/01/2017 12:49 EST [facility] SRP Negative Negative 06/01/2017 12:49 [facility] KU Negative Negative 06/01/2017 12:49 [facility] U2 snRNP Negative Negative 06/01/2017 12:49 [facility] Anti PM/Scl 100 Ab <20 <20 Units 2017 12:49 [facility] Anti Tere 1 Ab <20 <20 Units 06/01/2017 12:49 [facility] Comment: (Note) . [...] Test Performed by: [facility] [address] [place] [address] BLOOD SPECIMEN / Unknown 04/30/2017 13:42 EST 04/30/2017 15:29 EST Ale Hsu MD PhD IMMUNOLOGY AND SEROLOGY O RDERABLES Final Result Performing Organization Address City/State/[facility] Co de Phone Number [facility] [address] [place] [address] * SM (BANERJEE) ANTIBODY (04/30/2017 13:42 EST) Sm (Banerjee) Antibody 2.6 <20 Units 05/02/2017 14:40 EST [facility] Comment: Negative: <20 Units Weak Positive: 20 - 39 Units Moderate Positive: 40 - 80 Units Strong Positive: >80 Units Results were obtained with the [employer]ANTA Lite Sm [employer]. Sm values obtained with different manufacturers' assay methods may not be used interchangeably. The magnitude of the reported IgG levels cannot be correlated to an endpoint titer. Blood specimen (specimen) BLOOD SPECIMEN / Unknown 04/30/2017 13:42 EST 04/30/2017 15:29 EST us Ale Hsu MD PhD IMMUNOLOGY AND SEROLOGY O RDERABLES Final Result Performing Organization Address [facility] de Phone Number [facility] [address] [place] [address] * CCP ANTIBODIES (04/30/2017 13:42 EST) CCP Antibodies <2.5 <5.0 U/mL 05/01/2017 13:07 EST [facility] BLOOD SPECIMEN / Unknown 04/30/2017 13:42 EST 04/30/2017 15:29 EST Result Nicholas Hsu MD PhD IMMUNOLOGY AND SEROLOGY O RDERABLES Final Result Performing Organization Address [facility] de Phone Number [facility] [address] [place] [address] * SED. RATE:WESTERGREN (04/30/2017 13:42 EST) Pathologist [facility] Sed. Rate Westergren 8 0 - 30 mm/hr 04/30/2017 15:54 EST [facility] Blood specimen (specimen) BLOOD SPECIMEN / Unknown 04/30/2017 13:42 EST 04/30/2017 15:29 EST Result Nicholas Hsu MD PhD HEMATOLOGY & PF4 ORDERABL ES Final Result Performing Organization Address [facility] de Phone Number [facility] [address] [place] [address] * C REACTIVE PROTEIN (04/30/2017 13:42 EST) C Reactive Protein <7.0 <10.0 mg/L 04/30/2017 16:05 EST [facility] Blood specimen (specimen) BLOOD SPECIMEN / Unknown 04/30/2017 13:42 EST 04/30/2017 15:29 EST us Ale Hsu MD PhD CHEMISTRY & BLOOD GAS ORD ERABLES Final Result Performing Organization Address City/[facility]/ZIP Co de Phone Number [facility] [address] [place] [address] * SSA ANTIBODIES BY LLUVIA (04/30/2017 13:42 EST) [facility] SSA Antibody 3.1 <20 Units 05/02/2017 14:40 EST [facility] Comment: Negative: <20 Units Weak Positive: 20 - 39 Units Moderate Positive: 40 - 80 Units Strong Positive: >80 Units Results were obtained with the [employer] QUANTA Lite SS-A LLUVIA. SS-A values obtained with different manufacturers' assay methods may not be used interchangeably. The magnitude of the reported IgG levels cannot be correlated to an endpoint titer. Blood specimen (specimen) BLOOD SPECIMEN / Unknown 04/30/2017 13:42 EST 04/30/2017 15:29 EST Result [facility] Ale Hsu MD PhD IMMUNOLOGY AND SEROLOGY O RDERABLES Final Result Performing Organization Address [facility] Co de Phone Number [facility] [address] [place] [address] * ALDOLASE (04/30/2017 13:42 EST) [facility] Aldolase, S 5.5 <7.7 U/L 05/02/2017 8:07 EST [facility] Comment: Performed or Referred by: [facility], [facility] [place] [address], Lab Dir: Andrew Jimenez II, M.D., Ph.D. Blood specimen (specimen) BLOOD SPECIMEN / Unknown 04/30/2017 13:42 EST 04/30/2017 15:29 EST Result [facility] Ale Hsu MD PhD CHEMISTRY & BLOOD GAS ORD ERABLES Final Result Performing Organization Address City/[facility]/ZIP Co de Phone Number [facility] [address] [place] [address] * (ABNORMAL) THYROGLOBULIN, TUMOR MARKER, S (04/30/2017 13:42 EST) Thyroid Suppression? YES 04/30/2017 13:29 EST [facility] Thyroglob,Tumor Mrkr <0.1 ng/mL 05/02/2017 8:07 [facility] Comment: (Note) . REFERENCE VALUE Athyrotic <0.1 Intact Thyroid <=33 . Thyroglobulin Ab, S 5.1(H) <4.0 IU/mL 05/02/2017 8:07 [facility] Thyroglobulin Interp (Note) 05/02/2017 8:07 [facility] Comment: Quantitation of [...] testing methods are immunoenzymatic assays manufactured by [employer] and performed on the [employer] DXI 800. . Values obtained from different assay methods or kits may be different and cannot be used interchangeably. . The results cannot be interpreted as absolute evidence for the presence or absence of malignant disease. Performed by: [facility]: [facility], [place] [address], Lab Dir: Andrew Jimenez II, M.D., Ph.D. Blood specimen (specimen) BLOOD SPECIMEN / Unknown 04/30/2017 13:42 EST 04/30/2017 15:29 EST us Ale Hsu MD PhD CHEMISTRY & BLOOD GAS ORD ERABLES Final Result [facility] [address] [place] [address] * (ABNORMAL) THYROID CASCADE (04/30/2017 13:42 EST) TSH <0.02(L) 0.47 - 4.68 uIU/ml 04/30/2017 16:30 EST [facility] Comment: New methodology in use 11/07/16. TSH cascade is not recommended for patients in which pituitary or hypothalamic disorders are suspected. Blood specimen (specimen) BLOOD SPECIMEN / Unknown 04/30/2017 13:42 EST 04/30/2017 15:29 EST Ale Hsu MD PhD CHEMISTRY & BLOOD GAS ORD ERABLES Final Result [facility] [address] [place] [address] documented in this encounter Visit Diagnoses Diagnosis S/P total thyroidectomy Other postprocedural status History of thyroid cancer Personal history of malignant neoplasm of thyroid Pain of both hip joints documented in this encounter Care Teams Marketing Specialist Relationship Specialty Start Date End Date Rand Harley MD [address] [place] [address] PCP - General 07/30/16 documented as of this encounter
--- OUTSIDE RECORDS SUMMARY | 2024-05-22 00:33 | XMS_ITS | Encounter Summary ---
Author Organization [facility] Address [address] [place] [address] Care Team Providers Care Woodworking Machine Operator Name Role Phone Catina Chowdhury NP Primary Care Provider [phone] Encounter Details Date Type Department Care Team (Latest Contact Info) Description 07/20/2016 6:46 EST - 07/20/2016 23:59 EST Hospital Encounter [address] [address] Unknown, Provider, MD Discharge Disposition: Home or [...] Code Departure Means Destination Home or Self Assisted documented in this encounter Plan of Treatment Not on file documented as of this encounter Visit Diagnoses Not on filedocumented in this encounter Care Teams Woodworking Machine Operator Relationship Specialty Start Date End Date Catina Chowdhury NP [facility] [address] [place] [address] PCP - General 02/02/14 07/29/16 documented as of this encounter
--- OUTSIDE RECORDS SUMMARY | 2024-05-22 00:33 | XMS_ITS | Encounter Summary ---
Author Organization [facility] Address [address] [place] [address] Care Team Providers Care Front Loader Residential Driver Name Role Phone Rand Harley MD Primary Care Provider [phone] Reason for Visit * Reason Onset Date Comments Results 02/16/2013 Encounter Details Date Type Department Care Team (Late st Contact Info) Description 02/16/2013 Telephone [facility] Endocrinology - [address] [address] Ale Fernández MD PhD [address] [place] [address] [place] [phone] Results Social History Tobacco Use Types [...] on filedocumented in this encounter Care Teams Front Loader Residential Driver Relationship Specialty Start Date End Date Rand Harley MD [address] [place] [address] PCP - General 07/21/12 02/01/14 documented as of this encounter
--- OUTSIDE RECORDS SUMMARY | 2024-05-22 00:33 | XMS_ITS | Encounter Summary ---
Author Organization [facility] Address [address] [place] [address] Care Team Providers Care Facilities Plant Engineer Name Role Phone Rand Harley MD Primary Care Provider [phone] Reason for Visit * Reason Comments Thyroid Problem Encounter Details Date Type Department Care Team (Latest Contact Info) Description 01/20/2018 11:00 EDT Office Visit [facility] Endocrinology - [address] [address] Ale Hsu MD PhD [address] [place] [address] [place] [phone] Postsurgical hypothyroidism (Primary Dx); History of [...] EDT) Thyroid Suppression? YES 01/20/2018 11:43 EDT [facility] Thyroglob,Tumor Mrkr <0.1 ng/mL 01/22/2018 8:16 EDT [facility] Comment: (Note) . REFERENCE VALUE Athyrotic <0.1 Intact Thyroid <=33 . Thyroglobulin Ab, S 3.5 <4.0 IU/mL 01/22/2018 8:16 T [facility] Thyroglobulin Interp (Note) 01/22/2018 8:16 T [facility] Comment: Thyroglobulin (Tg) levels must [...] testing methods are immunoenzymatic assays manufactured by [employer] and performed on the Vertishear DXI 800. . Values obtained from different assay methods or kits may be different and cannot be used interchangeably. . The results cannot be interpreted as absolute evidence for the presence or absence of malignant disease. Performed by: [facility]: [address], [place] [address] Blood specimen (specimen) BLOOD SPECIMEN / Unknown 01/20/2018 11:43 EDT 01/20/2018 15:59 EDT us Ale Hsu MD PhD CHEMISTRY & BLOOD GAS ORD ERABLES Final Result [facility] [address] [place] [address] * T4 FREE (01/20/2018 11:43 EDT) T4, Free 1.5 0.8 - 2.2 ng/dl 01/20/2018 16:37 EDT [facility] Blood specimen (specimen) BLOOD SPECIMEN / Unknown 01/20/2018 11:43 EDT 01/20/2018 15:59 EDT Ale Hsu MD PhD CHEMISTRY & BLOOD GAS ORD ERABLES Final Result Performing Organization Address City/[facility]/ZIP Co de Phone Number [facility] [address] [place] [address] * TSH (01/20/2018 11:43 EDT) TSH 3.41 0.47 - 4.68 uIU/ml 01/20/2018 16:49 EDT [facility] Comment: The results of this assay can be falsely lowered due to the consumption of Biotin. Blood specimen (specimen) BLOOD SPECIMEN / Unknown 01/20/2018 11:43 EDT 01/20/2018 15:59 EDT Ale Hsu MD PhD CHEMISTRY & BLOOD GAS ORD ERABLES Final Result Performing Organization Address City/[facility]/ZIP Co de Phone Number [facility] [address] [place] [address] documented in this encounter Visit Diagnoses Diagnosis Postsurgical hypothyroidism- Primary History of thyroid cancer Personal history of malignant neoplasm of thyroid documented in this encounter Discontinued Medications Medication Sig Discontinue Reason Start Date End Da te levothyroxine (SYNTHROID) 125 mcg tablet Take 1 Tab by mouth daily. Reorder 05/03/2017 01/20/2018 documented as of this encounter Care Teams Facilities Plant Engineer Relationship Specialty Start Date End Date Rand Harley MD [address] [place] [address] PCP - General 07/30/16 documented as of this encounter
--- OUTSIDE RECORDS SUMMARY | 2024-05-22 00:33 | XMS_ITS | Encounter Summary ---
Author Organization [facility] Address [address] [place] [address] Care Team Providers Care Last Marker Name Role Phone Catina Chowdhury NP Primary Care Provider [phone] Encounter Details Date Type Department Care Team (Latest Contact Info) Description 03/25/2014 Orders Only [facility] Endocrinology - [facility] [address] [place] [address] Ale Hsu MD PhD [address] [facility] [address] [place] [phone] Postsurgical hypothyroidism (Primary Dx); History [...] documented as of this encounter Care Teams Last Marker Relationship Specialty Start Date End Date Catina Chowdhury NP [facility] [address] [place] [address] PCP - General 02/02/14 07/29/16 documented as of this encounter
--- OUTSIDE RECORDS SUMMARY | 2024-05-22 00:33 | XMS_ITS | Encounter Summary ---
Author Organization [facility] Address [address] [place] [address] Care Team Providers Care Junior Bookkeeper Name Role Phone Rand Harley MD Primary Care Provider [phone] Reason for Visit * Reason Comments Follow-up FBSE Hx BCC Encounter Details Date Type Department Care Team ([facility] Contact Info) Description 02/04/2013 10:15 EDT Office Visit [facility] Dermatology 3rd Floor [facility] [address] [place], [place] [address] Elida Culp MD [address] [place] [address] Md Jose Francisco History of basal cell [...] chin, s/p Mohs in Dec 2011 (at [facility]) 2. History of angiofibroma of the [...] her skin today. S he works for [employer]. The patient does try to be reasonable [...] skin documented in this encounter Care Teams Junior Bookkeeper Relationship Specialty Start Date End Date Rand Harley MD [address] [place] [address] PCP - General 07/21/12 02/01/14 documented as of this encounter
--- OUTSIDE RECORDS SUMMARY | 2024-05-22 00:33 | XMS_ITS | Encounter Summary ---
Author Organization [facility] Address [address] [place] [address] Care Team Providers Care Regulatory Analyst Name Role Phone Rand Harley MD Primary Care Provider [phone] Reason for Visit * Reason Comments Labs Only Encounter Details Date Type Department Care Team (Latest Contact Info) Description 02/02/2013 11:45 EDT Procedure visit [facility] Endocrinology - [facility] [address] [place] [address] Ale Hsu MD PhD [address] [place] [address] [address] [place] [phone] Phlebotomy, [facility] Endo Postsurgical hypothyroidism; History of thyroid cancer [...] method is an immunoenzymatic assay manufactured by [employer] and performed on the Dakwak DXI 800. The thyroglobulin antibody testing method is an electrochemiluminescence assay manufactured by [employer] and performed on the Modular or [...] have hTg values <=2. Performed by: [facility], [address] [facility], [place] [address], Billboard Poster Helper: Brooke Flores, Ph.D. Blood specimen (specimen) 02/02/2013 11:56 EDT 02/02/2013 15:41 EDT Ale Hsu MD PhD CHEMISTRY & BLOOD GAS ORD ERABLES Final Result [facility] [address] [place] [address] * THYROID CASCADE (02/02/2013 11:56 EDT) TSH 1.67 0.35 - 5.00 uIU/ml [facility] Comment: TSH cascade is not recommended for patients in which pituitary or hypothalamic disorders are suspected. Blood specimen (specimen) 02/02/2013 11:56 EDT 02/02/2013 15:41 EDT us Ale Hsu MD PhD CHEMISTRY & BLOOD GAS ORD ERABLES Final Result Performing Organization Address City/State/[facility] Co de Phone Number [facility] [address] [place] [address] documented in this encounter Visit Diagnoses Diagnosis Postsurgical hypothyroidism History of thyroid cancer Personal history of malignant neoplasm of thyroid documented in this encounter Care Teams Regulatory Analyst Relationship Specialty Start Date End Date Rand Harley MD [address] [place] [address] PCP - General 07/21/12 02/01/14 documented as of this encounter
--- OUTSIDE RECORDS SUMMARY | 2024-05-22 00:33 | XMS_ITS | Encounter Summary ---
Author Organization [facility] Address [address] [place] [address] Care Team Providers Care Chief Design Drafter Name Role Phone Catina Chowdhury NP Primary Care Provider [phone] Reason for Visit * Reason Comments Hypothyroidism Encounter Details Date Type Department Care Team (Latest Contact Info) Description 01/31/2016 11:20 EDT Office Visit [facility] Endocrinology - [address] [address] Ale Hsu MD PhD [address] [place] [address] [place] [phone] History of thyroid cancer (Primary Dx); [...] EDT) Thyroid Suppression? YES 01/31/2016 12:15 EDT [facility] Thyroglob,Tumor Mrkr <0.1 ng/mL 02/02/2016 9:00 EDT [facility] Comment: (Note) REFERENCE VALUE Athyrotic <0.1 Intact Thyroid <=33 Thyroglobulin Ab, S 5.9(H) <4.0 IU/mL 02/02/2016 9:00 EDT [facility] Thyroglobulin Interp (Note) 02/02/2016 9:00 EDT [facility] Comment: Quantitation of thyroglobulin [...] testing methods are immunoenzymatic assays manufactured by [employer]. and performed on the [employer] DXI 800. Values obtained from different assay methods or kits may be different and cannot be used interchangeably. The results cannot be interpreted as absolute evidence for the presence or absence of malignant disease. Performed by: [facility]: [address], [place] [address], Lab Dir: Andrew Jimenez II, M.D., Ph.D. Blood specimen (specimen) BLOOD SPECIMEN / Unknown 01/31/2016 12:16 EDT 01/31/2016 12:44 EDT us Ale Hsu MD PhD CHEMISTRY & BLOOD GAS ORD ERABLES Final Result [facility] [address] [place] [address] * T4 FREE (01/31/2016 12:16 EDT) Free T4 1.5 0.8 - 1.8 ng/dl 01/31/2016 14:45 EDT [facility] Blood specimen (specimen) BLOOD SPECIMEN / Unknown 01/31/2016 12:16 EDT 01/31/2016 12:44 EDT us Ale Hsu MD PhD CHEMISTRY & BLOOD GAS ORD ERABLES Final Result Performing Organization Address City/[facility]/ZIP Co de Phone Number [facility] [address] [place] [address] * (ABNORMAL) TSH (01/31/2016 12:16 EDT) TSH 0.03(L) 0.55 - 4.78 uIU/ml 01/31/2016 14:45 EDT [facility] Blood specimen (specimen) BLOOD SPECIMEN / Unknown 01/31/2016 12:16 EDT 01/31/2016 12:44 EDT us Ale Hsu MD PhD CHEMISTRY & BLOOD GAS ORD ERABLES Final Result Performing Organization Address City/[facility] [[email or web address]] Co de Phone Number [facility] [address] [place] [address] documented in this encounter Visit Diagnoses Diagnosis History of thyroid cancer- Primary Personal history of malignant neoplasm of thyroid Postsurgical hypothyroidism documented in this encounter Care Teams Chief Design Drafter Relationship Specialty Start Date End Date Catina Chowdhury NP [facility] [address] [place] [address] PCP - General 02/02/14 07/29/16 documented as of this encounter
--- OUTSIDE RECORDS SUMMARY | 2024-05-22 00:33 | XMS_ITS | Encounter Summary ---
Author Organization [facility] Address [address] [place] [address] Care Team Providers Care Supervisor Commissary Production Name Role Phone Catina Chowdhury NP Primary Care Provider [phone] Reason for Visit * Reason Comments Follow-up FBSE. Lesion right n ose Encounter Details Date Type Department Care Team (Late st Contact Info) Description 02/03/2014 10:15 EDT Office Visit [facility] Dermatology 3rd Floor [facility] [address] [place] [address] Elida Culp MD [address] [place] [phone] Personal history of other malignant neoplasm of [...] Try to schedule your outdoor activities for sap mobility architect or early evening. ?? Make clothing a [...] for sun protective clothing and hats: ?? www.[email or web address] ?? [email or web address] ?? For sensitive skin, look for sunscreens [...] chin, s/p Mohs in Dec 2011 (at [facility]) Last Dermatology office visit: Jan 2013 SUBJECTIVE [...] radiation documented in this encounter Care Teams Supervisor Commissary Production Relationship Specialty Start Date End Date Catina Chowdhury, [facility] [address] [place] [address] PCP - General 02/02/14 07/29/16 documented as of this encounter
--- OUTSIDE RECORDS SUMMARY | 2024-05-22 00:33 | XMS_ITS | Encounter Summary ---
Author Organization [facility] Address [address] [place] [address] Care Team Providers Care Forester Silviculture Name Role Phone Rand Harley MD Primary Care Provider Reason for Visit * Reason Comments Thyroid Problem Encounter Details Date Type Department Care Team (Latest Contact Info) Description 04/30/2017 11:40 EST Office Visit [facility] Endocrinology - [address] [address] Ale Hsu MD PhD [address] [place] [address] [place] [phone] S/P total thyroidectomy (Primary Dx); History [...] are getting all the tests that your rfid strategist wanted and they should be sent to [...] keeps her up at night. Saw a rfid strategist outside of [facility], and asking for blood tests when seen [...] be non-autoimmune. Her blood tests for her rfid strategist were ordered and that doctor should get [...] ANCA Interpretation Negative Negative 05/01/2017 12:45 EST [facility] Comment: MARC Positive, [...] O RDERABLES Final Result Performing Organization Address City/State/[facility] Co de Phone Number [facility] [address] [place] [address] * ANGIOTENSIN CONVERTING ENZYME (JEFERSON) (04/30/2017 13:42 EST) Angiotensin Converting Enzyme 42 8 - 53 U/L 05/02/2017 8:07 EST [facility] Comment: Performed or Referred by: [facility], [address] [place] [address], Lab Dir: Andrew Jimenez II, M.D., Ph.D. Blood specimen (specimen) BLOOD SPECIMEN / Unknown 04/30/2017 13:42 EST 04/30/2017 15:29 EST us Ale Hsu MD PhD CHEMISTRY & BLOOD GAS ORD ERABLES Final Result [facility] [address] [place] [address] * LUPUS ANTICOAGULANT CASCADE (04/30/2017 13:42 EST) [place] Summary Negative for detection of lupus anticoagulant ([place]). 05/02/2017 15:43 EST [facility] Comment: Where clinical [...] Viper Venom 33.0 secs 2016 10:58 EST [facility] Comment: Reference Range = 27.2-36.9 secs Results must be interpreted with caution if the patient is on oral anticoagulant, direct thrombin inhibitors or heparin. Silica Clotting Time 33.7 sec 05/02/2017 10:20 EST [facility] Comment: Reference Range = 30.2-48.4 secs Results must be interpreted with caution if the patient is on oral anticoagulant, direct thrombin inhibitors or heparin. Blood specimen (specimen) BLOOD SPECIMEN / Unknown 04/30/2017 13:42 EST 04/30/2017 15:29 EST Ale Hsu MD PhD HEMATOLOGY & PF4 ORDERABL ES Final Result Performing Organization Address City/[facility]/ZIP Co de Phone Number [facility] [address] [place] [address] * CK (04/30/2017 13:42 EST) CK 63 30 - 135 U/L 04/30/2017 16:01 [facility] Blood specimen (specimen) BLOOD SPECIMEN / Unknown 04/30/2017 13:42 EST 04/30/2017 15:29 EST Ale Hsu MD PhD CHEMISTRY & BLOOD GAS ORD ERABLES Final Result [facility] [address] [place] [address] * MYOMARKER PANEL 2 (04/30/2017 13:42 EST) SD 2 Negative Negative 06/01/2017 12:49 EST [facility] [address] Negative Negative 06/01/2017 12:49 [facility] [address] Negative Negative 06/01/2017 12:49 [facility] EJ Negative Negative 06/01/2017 12:49 [facility] OJ Negative Negative 06/01/2017 12:49 [facility] SRP Negative Negative 06/01/2017 12:49 [facility] KU Negative Negative 06/01/2017 12:49 [facility] U2 snRNP Negative Negative 06/01/2017 12:49 [facility] Anti PM/Scl 100 Ab <20 <20 Units 2017 12:49 [facility] Anti Tere 1 Ab <20 <20 Units 06/01/2017 12:49 [facility] Comment: (Note) . ADDITIONAL [...] or for research. . Test Performed by: [facility] [address] [place] [address] BLOOD SPECIMEN / Unknown 04/30/2017 13:42 EST 04/30/2017 15:29 EST us Ale Hsu MD PhD IMMUNOLOGY AND SEROLOGY O RDERABLES Final Result Performing Organization Address [facility] Co de Phone Number [facility] [address] [place] [address] * SM (BANERJEE) ANTIBODY (04/30/2017 13:42 EST) Sm (Banerjee) Antibody 2.6 <20 Units 05/02/2017 14:40 EST [facility] Comment: Negative: <20 Units Weak Positive: 20 - 39 Units Moderate Positive: 40 - 80 Units Strong Positive: >80 Units Results were obtained with the [employer] QUANTA Lite Sm LLUVIA. Sm values obtained with different manufacturers' assay methods may not be used interchangeably. The magnitude of the reported IgG levels cannot be correlated to an endpoint titer. Blood specimen (specimen) BLOOD SPECIMEN / Unknown 04/30/2017 13:42 EST 04/30/2017 15:29 EST us Ale Hsu MD PhD IMMUNOLOGY AND SEROLOGY O RDERABLES Final Result Performing Organization Address [facility] Co de Phone Number [facility] [address] [place] [address] * CCP ANTIBODIES (04/30/2017 13:42 EST) CCP Antibodies <2.5 <5.0 U/mL 05/01/2017 13:07 EST [facility] BLOOD SPECIMEN / Unknown 04/30/2017 13:42 EST 04/30/2017 15:29 EST us Ale Hsu MD PhD IMMUNOLOGY AND SEROLOGY O RDERABLES Final Result Performing Organization Address [facility] Co de Phone Number [facility] [address] [place] [address] * SED. RATE:WESTERGREN (04/30/2017 13:42 EST) Pathologist [facility] Sed. Rate Westergren 8 0 - 30 mm/hr 04/30/2017 15:54 EST [facility] Blood specimen (specimen) BLOOD SPECIMEN / Unknown 04/30/2017 13:42 EST 04/30/2017 15:29 EST us Ale Hsu MD PhD HEMATOLOGY & PF4 ORDERABL ES Final Result Performing Organization Address [facility] Co de Phone Number [facility] [address] [place] [address] * C REACTIVE PROTEIN (04/30/2017 13:42 EST) [facility] C Reactive Protein <7.0 <10.0 mg/L 04/30/2017 16:05 EST [facility] Blood specimen (specimen) BLOOD SPECIMEN / Unknown 04/30/2017 13:42 EST 04/30/2017 15:29 EST Result Nicholas Hsu MD PhD CHEMISTRY & BLOOD GAS ORD ERABLES Final Result Performing Organization Address [facility] de Phone Number [facility] [address] [place] [address] * SSA ANTIBODIES BY LLUVIA (04/30/2017 13:42 EST) [facility] SSA Antibody 3.1 <20 Units 05/02/2017 14:40 EST [facility] Comment: Negative: <20 Units Weak Positive: 20 - 39 Units Moderate Positive: 40 - 80 Units Strong Positive: >80 Units Results were obtained with the [employer]appCloud QUANTA Lite SS-A LLUVIA. SS-A values obtained with different manufacturers' assay methods may not be used interchangeably. The magnitude of the reported IgG levels cannot be correlated to an endpoint titer. Blood specimen (specimen) BLOOD SPECIMEN / Unknown 04/30/2017 13:42 EST 04/30/2017 15:29 EST us Ale Hsu MD PhD IMMUNOLOGY AND SEROLOGY O RDERABLES Final Result Performing Organization Address [facility] Co de Phone Number [facility] [address] [place] [address] * ALDOLASE (04/30/2017 13:42 EST) Pathologist [facility] Aldolase, S 5.5 <7.7 U/L 05/02/2017 8:07 [facility] Comment: Performed or Referred by: [facility], [address] [place] [address], Lab Dir: Andrew Jimenez II, M.D., Ph.D. Blood specimen (specimen) BLOOD SPECIMEN / Unknown 04/30/2017 13:42 EST 04/30/2017 15:29 EST Ale Hsu MD PhD CHEMISTRY & BLOOD GAS ORD ERABLES Final Result Performing Organization Address [facility] Co de Phone Number [facility] [address] [place] [address] * (ABNORMAL) THYROGLOBULIN, TUMOR MARKER, S (04/30/2017 13:42 EST) Pathologist [facility] Thyroid Suppression? YES 04/30/2017 13:29 EST [facility] Thyroglob,Tumor Mrkr <0.1 ng/mL 05/02/2017 8:07 [facility] Comment: (Note) . REFERENCE VALUE Athyrotic <0.1 Intact Thyroid <=33 . Thyroglobulin Ab, S 5.1(H) <4.0 IU/mL 05/02/2017 8:07 [facility] Thyroglobulin Interp (Note) 05/02/2017 8:07 [facility] Comment: Quantitation of thyroglobulin [...] testing methods are immunoenzymatic assays manufactured by [employer]. and performed on the CodinGame DXI 800. . Values obtained from different assay methods or kits may be different and cannot be used interchangeably. . The results cannot be interpreted as absolute evidence for the presence or absence of malignant disease. Performed by: [facility]: [address], [place] [address], Lab Dir: Andrew Jimenez II, M.D., Ph.D. Blood specimen (specimen) BLOOD SPECIMEN / Unknown 04/30/2017 13:42 EST 04/30/2017 15:29 EST Ale Hsu MD PhD CHEMISTRY & BLOOD GAS ORD ERABLES Final Result Performing Organization Address City/[facility] Co de Phone Number [facility] [address] [place] [address] * (ABNORMAL) THYROID CASCADE (04/30/2017 13:42 EST) TSH <0.02(L) 0.47 - 4.68 uIU/ml 04/30/2017 16:30 EST [facility] Comment: New methodology in use 11/07/16. TSH cascade is not recommended for patients in which pituitary or hypothalamic disorders are suspected. Blood specimen (specimen) BLOOD SPECIMEN / Unknown 04/30/2017 13:42 EST 04/30/2017 15:29 EST Ale Hsu MD PhD CHEMISTRY & BLOOD GAS ORD ERABLES Final Result Performing Organization Address City/[facility]/ZIP Co de Phone Number [facility] [address] [place] [address] documented in this encounter Visit Diagnoses Diagnosis S/P total thyroidectomy- Primary Other postprocedural status History of thyroid cancer Personal history of malignant neoplasm of thyroid Pain of both hip joints documented in this encounter Care Teams Forester Silviculture Relationship Specialty Start Date End Date Rand Harley MD [address] [place] [address] PCP - General 07/30/16 documented as of this encounter
--- OUTSIDE RECORDS SUMMARY | 2024-05-22 00:33 | XMS_ITS | Encounter Summary ---
Author Organization [facility] Address [address] [place] [address] Care Team Providers Care Equipment Maintenance Engineer Name Role Phone Rand Harley MD Primary Care Provider [phone] Reason for Visit * Reason Onset Date Comments Biopsy Results 10/07/2012 Encounter Details Date Type Department Care Team (Late st Contact Info) Description 10/07/2012 Telephone [facility] Dermatology 3rd Floor [address] [id number] Robbin Garcia MD Biopsy Results Social History [...] in this encounter Care Teams Equipment Maintenance Engineer Relationship Specialty Start Date End Date Rand Harley MD [address] [place] [address] PCP - General 07/21/12 02/01/14 documented as of this encounter
--- OUTSIDE RECORDS SUMMARY | 2024-05-22 00:33 | XMS_ITS | Encounter Summary ---
Author Organization [facility] Address [address] [place] [address] Care Team Providers Care Enrollment Manager Name Role Phone Rand Harley MD Primary Care Provider [phone] Encounter Details Date Type Department Care Team (Late st Contact Info) Description 05/03/2017 Orders Only [facility] Endocrinology - [facility] [address] [place] [address] Ale Hsu MD PhD [address] [facility] [address] [place] [address] Social History Tobacco Use Types [...] documented as of this encounter Care Teams Enrollment Manager Relationship Specialty Start Date End Date Rand Harley MD [address] [place] [address] PCP - General 07/30/16 documented as of this encounter
--- OUTSIDE RECORDS SUMMARY | 2024-05-22 00:33 | XMS_ITS | Encounter Summary ---
Author Organization [facility] Address [address] [place] [address] Care Team Providers Care Airplane Tester Name Role Phone Rand Harley MD Primary Care Provider Catina Chowdhury NP Primary Care Provider [phone] Rand Harley MD Primary Care Provider [phone] Reason for Visit * Reason Onset Date Comments Medications Refill 02/09/2013 Encounter Details Date Type Department Care Team (Late st Contact Info) Description 02/09/2013 Refill [facility] Endocrinology - [address] [id number] Ale Hsu MD PhD [address] [place] [address] [address] [place] [address] Medications Refill Social History Tobacco [...] documented as of this encounter Care Teams Airplane Tester Relationship Specialty Start Date End Date Rand Harley MD [address] [place] [address] PCP - General 07/21/12 02/01/14 Catina Chowdhury NP [facility] [address] [place] [address] PCP - General 02/02/14 07/29/16 Rand Harley MD [address] [place] [address] PCP - General 07/30/16 documented as of this encounter
--- OUTSIDE RECORDS SUMMARY | 2024-05-22 00:33 | XMS_ITS | Encounter Summary ---
Author Organization [facility] Address [address] [place] [address] Care Team Providers Care Body Die Maker Name Role Phone Rand Harley MD Primary Care Provider [phone] Encounter Details Date Type Department Care Team (Late st Contact Info) Description 07/31/2016 Results Only [facility] Dermatology 5th Floor [address] [address] Yuri Cowan MD Social History Tobacco Use [...] ? JC BANERJEE ? Accession #: ? [id number] ? : ? 1965 (Age: 50) ??F [...] Clifford 08/01/2016 7:11 PM End of Report [facility] 07/31/2016 18:1 3 EDT 08/01/2016 18:13 EDT us Yuri Cowan MD PATHOLOGY ORDERABLES Fin al Result [facility] [address] [place] [address] documented in this encounter Visit Diagnoses Not on filedocumented in this encounter Care Teams Body Die Maker Relationship Specialty Start Date End Date Rand Harley MD [address] [place] [address] PCP - General 07/30/16 documented as of this encounter
--- OUTSIDE RECORDS SUMMARY | 2024-05-22 00:33 | XMS_ITS | Encounter Summary ---
Author Organization [facility] Address [address] [place] [address] Care Team Providers Care Buildings And Grounds Superintendent Name Role Phone Rand Harley MD Primary Care Provider [phone] Reason for Visit * Reason Comments Skin Exam h/o bcc, spots on ch eeks and joint pain Encounter Details Date Type Department Care Team (Late st Contact Info) Description 04/16/2017 10:45 EST Office Visit [facility] Dermatology 3rd Floor [facility] [address] [place], [place] [address] Elida Culp MD [address] [place] [id number] Rash (Primary Dx); History of basal cell [...] chin, s/p Mohs in Dec 2011 (at [facility]) Last Dermatology office visit: 07/2016 SUBJECTIVE [...] skin documented in this encounter Care Teams Buildings And Grounds Superintendent Relationship Specialty Start Date End Date Rand Harley MD [address] [place] [address] PCP - General 07/30/16 documented as of this encounter
--- OUTSIDE RECORDS SUMMARY | 2024-05-22 00:33 | XMS_ITS | Encounter Summary ---
Author Organization [facility] Address [address] [place] [address] Care Team Providers Care Curator Medical Museum Name Role Phone Catina Chowdhury NP Primary Care Provider [phone] Reason for Visit * Reason Comments Skin Exam Annual FBSE, h/o BCC Encounter Details Date Type Department Care Team (Late st Contact Info) Description 02/14/2016 11:00 EDT Office Visit [facility] Dermatology 3rd Floor [facility] [address] [place] [address] Elida Culp MD [address] [place] [phone] History of basal cell carcinoma (Primary Dx); [...] s/p Mohs in Dec 2011 (at [facility]) Last Dermatology office visit: 01/2015 SUBJECTIVE Ms. [...] radiation documented in this encounter Care Teams Curator Medical Museum Relationship Specialty Start Date End Date Catina Chowdhury NP [facility] [address] [place] [address] PCP - General 02/02/14 07/29/16 documented as of this encounter
--- OUTSIDE RECORDS SUMMARY | 2024-05-22 00:33 | XMS_ITS | Encounter Summary ---
Author Organization [facility] Address [address] [place] [address] Care Team Providers Care Department Store Door Greeter Name Role Phone Rand Harley MD Primary Care Provider [phone] Encounter Details Date Type Department Care Team (Latest Contact Info) Description 06/08/2013 Pre-Procedure Orders Encounter [facility] Cardiology - [facility] [address] [place] [address] Michelle Oliveira MD [address] [place] [address] [place] [address] SVT (supraventricular tachycardia) (CMS-HCC) (Primary [...] EST Narrative 07/18/2013 17:21 EST *Cardiology* [address] [place] [address] Electrophysiology Study with Ablation Patient: Jc Banerjee ? Study Date: ?07/01/2013 ?Accession #: ? [id number] : ? 1965 Referring: Rand Harley Attending: [...] ablation. Isoproterenol was stopped. ABLATION PROCEDURE: A goBalto ThermoCool BLUE (D) 3.5mm ablation catheter was [...] MD 07/18/2013 17:20 Procedure Note 09/01/2013 *Cardiology* [address] [place] [address] Electrophysiology Study with Ablation Patient: Jc Banerjee [...] ablation. Isoproterenol was stopped. ABLATION PROCEDURE: A goBalto ThermoCool BLUE (D) 3.5mm ablation catheter was [...] Wenckebach over the slow AV ellie pathway [id number]. More RF energy was applied to the [...] RAA pacing showed antegrade AVN 1:1 conduction [id number], Wenckebach at 370ms. Isoproterenol was restarted at 2 mcg/min. At thispoint, atrial pacing showed 1:1 antegrade AVN conduction to 360ms, Wenckebach [id number]. RV pacing with 1:1 retrograde conduction to 250 ms, block at 240ms. No tachycardia was induced. Isoproterenol was increased to 4 mcg/min. Therewas 1:1 antegrade AVN conduction to 270 ms, with Wenckebach at 260ms. [11:11:28] Atrial burst pacing at CL 240ms induced AVNRT again ([id number]). This was pace-terminated and isoproterenol was stopped. [...] encounter Visit Diagnoses Diagnosis SVT (supraventricular tachycardia) ([facility])- Primary Other specified cardiac dysrhythmias documented in this encounter Care Teams Department Store Door Greeter Relationship Specialty Start Date End Date Rand Harley MD [address] [place] [address] PCP - General 07/21/12 02/01/14 documented as of this encounter
--- OUTSIDE RECORDS SUMMARY | 2024-05-22 00:33 | XMS_ITS | Encounter Summary ---
Author Organization [facility] Address [address] [place] [address] Care Team Providers Care Public Transit Trolley Driver Name Role Phone Catina Chowdhury NP Primary Care Provider [phone] Reason for Visit * Reason Comments Labs Only Encounter Details Date Type Department Care Team (Latest Contact Info) Description 02/03/2014 13:15 EDT Procedure visit [facility] Endocrinology - [address] [address] Unknown, Provider, Phlebotomy, [facility] Postsurgical hypothyroidism; History of thyroid cancer [...] ORD ERABLES Final Result [facility] [address] [place] [address] * THYROGLOBULIN TUMOR MARKER (02/03/2014 13:07 EDT) Thyroid Suppression? YES [facility] Thyroglob Ab Screen <20 <22 IU/mL [facility] Comment: (Note) The thyroglobulin testing method is an immunoenzymatic assay manufactured by [employer] and performed on the Inspirotec DXI 800. The thyroglobulin antibody testing method [...] normally have hTg values <=2. Performed by: [facility], [address], [place] [address], Health Therapist: Brooke Flores, Ph.D. Blood specimen (specimen) 02/03/2014 13:07 EDT 02/03/2014 15:22 EDT Ale Hsu MD PhD CHEMISTRY & BLOOD GAS ORD ERABLES Final Result Performing Organization Address [facility] de Phone Number [facility] [address] [place] [address] * (ABNORMAL) THYROID CASCADE (02/03/2014 13:07 EDT) TSH 0.13(L) 0.35 - 5.00 uIU/ml [facility] Comment: TSH cascade is not recommended for patients in which pituitary or hypothalamic disorders are suspected. Blood specimen (specimen) 02/03/2014 13:07 EDT 02/03/2014 15:22 EDT Ale Hsu MD PhD CHEMISTRY & BLOOD GAS ORD ERABLES Final Result Performing Organization Address [facility] Co de Phone Number [facility] [address] [place] [address] documented in this encounter Visit Diagnoses Diagnosis Postsurgical hypothyroidism History of thyroid cancer Personal history of malignant neoplasm of thyroid documented in this encounter Care Teams Public Transit Trolley Driver Relationship Specialty Start Date End Date Catina Chowdhury NP [facility] [address] [place] [address] PCP - General 02/02/14 07/29/16 documented as of this encounter
--- OUTSIDE RECORDS SUMMARY | 2024-05-22 00:33 | XMS_ITS | Encounter Summary ---
Author Organization [facility] Address [address] [place] [address] Care Team Providers Care Gameplay Engineer Name Role Phone Rand Harley MD Primary Care Provider [phone] Reason for Visit * Reason Comments Skin Lesion spots on scalp, h/o BCC Encounter Details Date Type Department Care Team (Late st Contact Info) Description 07/31/2016 15:45 EDT Office Visit [facility] Dermatology 3rd Floor [address] [address] Yuri Cowan MD Neoplasm of uncertain behavior [...] chin, s/p Mohs in Dec 2011 (at [facility]) Last Dermatology office visit: 02/14/2016 SUBJECTIVE [...] PATIENT INFORMATION: Jc Banerjee : MRN: [id number] SURGEON: Lilia Pan MD, Yuri Cowan MD [...] entire procedure. 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 added in this encounter Care Teams Gameplay Engineer Relationship Specialty Start Date End Date Rand Harley MD [address] [place] [address] PCP - General 07/30/16 documented as of this encounter
--- OUTSIDE RECORDS SUMMARY | 2024-05-22 00:33 | XMS_ITS | Encounter Summary ---
Author Organization [facility] Address [address] [place] [address] Care Team Providers Care Nnp Name Role Phone Catina Chowdhury NP Primary Care Provider [phone] Reason for Visit * Reason Onset Date Comments Medications Refill 03/25/2014 Encounter Details Date Type Department Care Team (Late st Contact Info) Description 03/25/2014 Refill [facility] Endocrinology - [address] [address] Ale Hsu MD PhD [address] [place] [address] [place] [phone] Medications Refill Social History Tobacco Use [...] Navarro - 03/25/2014 0941 EST Abu from [employer] asking for a verbal to dispense this [...] documented as of this encounter Care Teams Nnp Relationship Specialty Start Date End Date Ctaina Chowdhury, [facility] [address] [place] [address] PCP - General 02/02/14 07/29/16 documented as of this encounter
--- OUTSIDE RECORDS SUMMARY | 2024-05-22 00:33 | XMS_ITS | Encounter Summary ---
Author Organization [facility] Address [address] [place] [address] Care Team Providers Care Orthodontic Laboratory Technician Name Role Phone Jerry Harley MD Primary Care Provider [phone] Encounter Details Date Type Department Care Team (Latest Contact Info) Description 07/01/2013 6:37 EST - 07/01/2013 16:15 EST Hospital Encounter [facility] Cardiovascular Unit [address] [place] [address] Hebert Malone MD [address] [place] [address] [address] [place] [address] SVT (supraventricular tachycardia) ([facility]-H[facility]) (Primary Dx) Discharge Disposition: Home or Self [...] Kennedi Zapata RN - 07/01/2013 14:07 EST [facility] Department of Cardiology Ablation Discharge Instructions: Jc Banerjee has had a SVT Ablation today Performed by . Phone# : [facility] Department of Cardiology Wound Care: You May [...] via ambulatory. Patient greeted and identified per [facility] policy, Allergies, procedure verified & patient oriented [...] Both parents with sleep apnea. Father with MS at 49. Medications Prescriptions prior to admission [...] Hebert Malone MD - 07/01/2013 1515 ESTProcedure(s): [id number] Pre-Procedure Diagnose(s): SVT (supraventricular tachycardia) ([facility]) Post-Procedure Diagnose(s): AVNRT (AV ellie re-entry tachycardia) ([facility]) Electrophysiology Laboratory Preliminary Report -- Invasive Electrophysiology Procedure Date of Service/Procedure: 07/01/2013 Attending Physician: Hebert Malone MD Director Of Pediatric Rehabilitation: Aniket Cruz RN Pre-Procedure Diagnosis/Indication: Jc Banerjee is a 47 y.o. year old female Presents to [facility] Electrophysiology Laboratory on [place] [address] for an Electrophysiological study which is Indicated [...] 07/08/2013 14:0 2 EST us Scan 2 Shuttle Veneering Supervisor PROCEDURE/MINOR SURGICAL OR DERABLES Final Result * ECG REPORT - SCANNED (07/06/2013 12:29 EST) 07/06/2013 12:2 9 EST us Scan 2 Shuttle Veneering Supervisor PROCEDURE/MINOR SURGICAL OR DERABLES Final Result * ECG REPORT - SCANNED (07/06/2013 11:14 EST) 07/06/2013 11:1 4 EST us Scan 2 Shuttle Veneering Supervisor PROCEDURE/MINOR SURGICAL OR DERABLES Final Result * INVASIVE CARDIOLOGY REPORT-SCANNED (07/06/2013 11:14 EST) 07/06/2013 11:1 4 EST us Scan 2 Shuttle Veneering Supervisor PROCEDURE/MINOR SURGICAL OR DERABLES Final Result * EKG 12-LEAD (07/01/2013 13:14 EST) 07/01/2013 13:1 4 EST Narrative [facility] EKG - 07/07/2013 11:39 EST ?Chris Gómez Cardiology ? Test Date: ?2013-07-01 Pat Name: ? JC BANERJEE ? Department: ?? CVU ? Room: ? CVU02 Gender: ? F ?Welder And Fitter: ?? [id number] : ?1965 ? Requested By: HEBERT MALONE MD Order Number: [id number] ? Reading MD: ?? JACOB CAMERON MD ? Measurements Intervals ?[place] ? Rate: ? 79 ? P: ?61 TN: ? 158 ?QRS: ?52 QRSD: ? 82 [...] Pat Name: JC BANERJEE Department: CVU Room: [facility] Gender: F Welder And Fitter: [id number] : 1965 Requested By: HEBERT MALONE MD Order Number: [id number] Reading MD: JACOB CAMERON MD Measurements Intervals [place] Rate: 79 P: 61 TN: 158 QRS: 52 QRSD: 82 T: 22 QT: 370 QTc: 425 Interpretive Statements SINUS RHYTHM Nonspecific T abnormalities diffuse leads. Compared to ECG 07/01/2013 07:14:00 No significant changes I have reviewed the tracing and have either agreed or edited the findingsin this report. Electronically Signed On 07-07-13 11:39:10 EST by JACOB CAMERON MD. us Hebert Malone MD CARDIAC ECG ORDERABLES Final Result [facility] EKG * EKG 12-LEAD (07/01/2013 7:14 EST) 07/01/2013 7:14 EST Narrative [facility] EKG - 07/03/2013 13:07 EST ?[facility] ? Test Date: ?2013-07-01 Pat Name: ? JC BANERJEE ? Department: ?? CVU ? Room: ? CVU02 Gender: ? F ?Welder And Fitter: ?? [id number] : ?1965 ? Requested By: HEBERT MALONE MD Order Number: [id number] ? Reading MD: ?? GELACIO MELLO MD ? Measurements Intervals ?[place] ? Rate: ? 69 ? P: ?58 TN: ? 154 ?QRS: ?49 QRSD: ? 80 [...] Pat Name: JC BANERJEE Department: CVU Room: [facility] Gender: F Welder And Fitter: [id number] : 1965 Requested By: HEBERT MALONE MD Order Number: [id number] Reading MD: GELACIO MELLO MD Measurements Intervals [place] Rate: 69 P: 58 TN: 154 QRS: 49 QRSD: 80 T: 36 [...] ORDERA BLES Final Result Performing Organization Address [facility] Co de Phone Number [facility] [address] [place] [address] * HEMAGRAM (07/01/2013 7:09 EST) Pathologist [facility] WBC 11.74 4.0 - 12.4 K/cmm PERE[facility] [...] ORDERA BLES Final Result Performing Organization Address [facility] de Phone Number [facility] [address] [place] [address] * HCG FOR (07/01/2013 7:09 EST) Pathologist [...] O RDERABLES Final Result Performing Organization Address [facility] Co de Phone Number [facility] [address] [place] [address] * (ABNORMAL) ELECTROLYTES (07/01/2013 7:09 EST) Sodium [...] O RDERABLES Final Result Performing Organization Address [facility] Co de Phone Number [facility] [address] [place] [address] * CREATININE (07/01/2013 7:09 EST) Creatinine 0.54 0.52 - 1.04 mg/dl [facility] GFR, Calculated >60 >60 ml/min/1.7 3m2 [facility] Blood specimen (specimen) 07/01/2013 7:09 EST 07/01/2013 7:10 EST Hebert Malone MD CHEMISTRY & BLOOD GAS O RDERABLES Final Result Performing Organization Address [facility] Co de Phone Number [facility] [address] [place] [address] * BUN (07/01/2013 7:09 EST) BUN 11 10 - 26 mg/dl [facility] Blood specimen (specimen) 07/01/2013 7:09 EST 07/01/2013 7:10 EST Hebert Malone MD CHEMISTRY & BLOOD GAS O RDERABLES Final Result Performing Organization Address [facility] Co de Phone Number [facility] [address] [place] [address] documented in this encounter Visit Diagnoses Diagnosis SVT (supraventricular tachycardia) (HCC-CMS)- Primary Other specified cardiac dysrhythmias SVT (supraventricular tachycardia) ([facility]) Other specified cardiac dysrhythmias documented in this [...] 07/01/2013 documented in this encounter Care Teams Orthodontic Laboratory Technician Relationship Specialty Start Date End Date Jerry Harley MD [address] [place] [address] PCP - General 07/21/12 02/01/14 documented as of this encounter
--- OUTSIDE RECORDS SUMMARY | 2024-05-22 00:33 | XMS_ITS | Encounter Summary ---
Author Organization [facility] Address [address] [place] [address] Care Team Providers Care Bread Dough Mixer Name Role Phone Catina Chowdhury NP Primary Care Provider [phone] Reason for Visit * Reason Comments Thyroid Problem Encounter Details Date Type Department Care Team (Latest Contact Info) Description 01/31/2015 11:20 EDT Office Visit [facility] Endocrinology - [address] [address] Ale Hsu MD PhD [address] [place] [address] [place] [phone] Malignant neoplasm of thyroid gland (HCC-CMS) [...] TUMOR MARKER, S (01/31/2015 11:33 EDT) Pathologist [facility] Thyroid Suppression? YES 01/31/2015 11:32 EDT [facility] Thyroglob,Tumor Mrkr <0.1 ng/mL 02/01/2015 7:51 [facility] Comment: (Note) REFERENCE VALUE Athyrotic <0.1 Intact Thyroid <=33 Thyroglobulin Ab, S 11(H) <4.0 IU/mL 02/01/2015 7:51 [facility] Thyroglobulin Interp (Note) 02/01/2015 7:51 [facility] Comment: Quantitation of [...] testing methods are immunoenzymatic assays manufactured by [employer] and performed on the Nuevora DXI 800. Values obtained from different assay methods or kits may be different and cannot be used interchangeably. The results cannot be interpreted as absolute evidence for the presence or absence of malignant disease. Performed by: [facility], [address], [place] [address], Electricians Top Helper: Brooke Flores, Ph.D. Blood specimen (specimen) BLOOD SPECIMEN / Unknown 01/31/2015 11:33 EDT 01/31/2015 13:15 EDT us Ale Hsu MD PhD CHEMISTRY & BLOOD GAS ORD ERABLES Final Result Performing Organization Address City/[facility] Co de Phone Number [facility] [address] [place] [address] * THYROID CASCADE (01/31/2015 11:33 EDT) TSH 0.39 0.35 - 5.00 uIU/ml 01/31/2015 15:09 EDT [facility] Comment: TSH cascade is not recommended for patients in which pituitary or hypothalamic disorders are suspected. Blood specimen (specimen) BLOOD SPECIMEN / Unknown 01/31/2015 11:33 EDT 01/31/2015 13:15 EDT us Ale Hsu MD PhD CHEMISTRY & BLOOD GAS ORD ERABLES Final Result Performing Organization Address City/[facility]/ZIP Co de Phone Number [facility] [address] [place] [address] documented in this encounter Visit Diagnoses Diagnosis Malignant neoplasm of thyroid gland (HCC-CMS)- Primary Malignant neoplasm of thyroid gland Postsurgical hypothyroidism documented in this encounter Care Teams Bread Dough Mixer Relationship Specialty Start Date End Date Catina Chowdhury NP [facility] [address] [place] [address] PCP - General 02/02/14 07/29/16 documented as of this encounter
--- OUTSIDE RECORDS SUMMARY | 2024-05-22 00:33 | XMS_ITS | Encounter Summary ---
Author Organization [facility] Address [address] [place] [address] Care Team Providers Care Planer Setter Name Role Phone Catina Chowdhury NP Primary Care Provider [phone] Reason for Visit * Reason Comments Thyroid Problem Encounter Details Date Type Department Care Team (Latest Contact Info) Description 02/03/2014 11:40 EDT Office Visit [facility] Endocrinology - [address] [address] Ale Hus MD PhD [address] [place] [address] [place] [phone] History of thyroid cancer (Primary Dx); [...] method is an immunoenzymatic assay manufactured by [employer] and performed on the EnglishUp DXI 800. The thyroglobulin antibody testing method [...] normally have hTg values <=2. Performed by: [facility], [address], [place] [address], Sales Account Representative: Brooke Flores, Ph.D. Blood specimen (specimen) 02/03/2014 13:07 EDT 02/03/2014 15:22 EDT Ale Hsu MD PhD CHEMISTRY & BLOOD GAS ORD ERABLES Final Result Performing Organization Address [facility] de Phone Number [facility] [address] [place] [address] * (ABNORMAL) THYROID CASCADE (02/03/2014 13:07 EDT) TSH 0.13(L) 0.35 - 5.00 uIU/ml [facility] Comment: TSH cascade is not recommended for patients in which pituitary or hypothalamic disorders are suspected. Blood specimen (specimen) 02/03/2014 13:07 EDT 02/03/2014 15:22 EDT lAe Hsu MD PhD CHEMISTRY & BLOOD GAS ORD ERABLES Final Result Performing Organization Address [facility] de Phone Number [facility] [address] [place] [address] documented in this encounter Visit Diagnoses Diagnosis History of thyroid cancer- Primary Personal history of malignant neoplasm of thyroid Postsurgical hypothyroidism documented in this encounter Care Teams Planer Setter Relationship Specialty Start Date End Date Catina Chowdhury NP [facility] [address] [place] [address] PCP - General 02/02/14 07/29/16 documented as of this encounter
--- OUTSIDE RECORDS SUMMARY | 2024-05-22 00:33 | XMS_ITS | Encounter Summary ---
Author Organization [facility] Address [address] [place] [address] Care Team Providers Care Automatic Spinning Lathe Setter Name Role Phone Rand Harley MD Primary Care Provider [phone] Reason for Visit * Reason Comments Thyroid Problem Encounter Details Date Type Department Care Team (Latest Contact Info) Description 02/02/2013 11:20 EDT Office Visit [facility] Endocrinology - [address] [address] Con Tillman MD PhD [address] [place] [address] [place] [phone] History of thyroid cancer (Primary Dx); [...] method is an immunoenzymatic assay manufactured by [employer]. and performed on the Unicel DXI 800. [...] normally have hTg values <=2. Performed by: [facility] [place], [address], [place] [address], Programmer Business: Brooke Flores, Ph.D. All at [facility]. [facility]. documented in this encounter Plan of Treatment Not on file documented as of this encounter Results * THYROGLOBULIN TUMOR MARKER (02/02/2013 11:56 EDT) Thyroid Suppression? YES [facility] Thyroglob Ab Screen <20 <22 IU/mL [facility] Comment: (Note) The thyroglobulin testing method is an immunoenzymatic assay manufactured by [employer] and performed on the Alai DXI 800. The thyroglobulin antibody testing method [...] have hTg values <=2. Performed by: [facility] [place], [address], [place] [address], Programmer Business: Brooke Flores, Ph.D. Blood specimen (specimen) 02/02/2013 11:56 EDT 02/02/2013 15:41 EDT Con Tillman MD PhD CHEMISTRY & BLOOD GAS ORD ERABLES Final Result Performing Organization Address [facility] Co de Phone Number [facility] [address] [place] [address] * THYROID CASCADE (02/02/2013 11:56 EDT) TSH 1.67 0.35 - 5.00 uIU/ml [facility] Comment: TSH cascade is not recommended for patients in which pituitary or hypothalamic disorders are suspected. Blood specimen (specimen) 02/02/2013 11:56 EDT 02/02/2013 15:41 EDT Con Tillman MD PhD CHEMISTRY & BLOOD GAS ORD ERABLES Final Result Performing Organization Address [facility] de Phone Number [facility] [address] [place] [address] documented in this encounter Visit Diagnoses Diagnosis History of thyroid cancer- Primary Personal history of malignant neoplasm of thyroid Postsurgical hypothyroidism documented in this encounter Care Teams Automatic Spinning Lathe Setter Relationship Specialty Start Date End Date Rand Harley MD [address] [place] [address] PCP - General 07/21/12 02/01/14 documented as of this encounter
--- OUTSIDE RECORDS SUMMARY | 2024-05-22 00:33 | XMS_ITS | Encounter Summary ---
Author Organization [facility] Address [address] [place] [address] Care Team Providers Care Sculpture Conservator Name Role Phone Catina Chowdhury NP Primary Care Provider [phone] Reason for Visit * Reason Comments Skin Exam Annual FBSE. h/o BCC . Encounter Details Date Type Department Care Team (Late st Contact Info) Description 02/07/2015 10:45 EDT Office Visit [facility] Dermatology 3rd Floor [facility] [address] [place], [place] [phone] Elida Culp MD [address] [place] [phone] Sun-damaged skin (Primary Dx); Personal history of [...] during these hours. Limit outdoor activities to mortgage loan specialist and/or evening hours when the sunlight is [...] provide. In general, loose weaves (Cotton) and teletypewriter installer-colored fabrics offer less protection than tighter weaves [...] or sensitive Recommended sun protection clothing websites www.sunprecautions.[employer] www.coolibar.[employer] www.SiteBrand www.HeadMix documented in this encounter Progress Notes * Rock Knight MD - 02/07/2015 1102 EDT Dermatology Outpatient Visit Note Chief Complaint Patient presents with ??? Skin Exam Annual FBSE. h/o BCC. Dermatologic History: 1. History of basal cell carcinoma of right chin, s/p Mohs in Dec 2011 (at [facility]) Last Dermatology office visit: 02/03/14 SUBJECTIVE [...] history of melanoma. 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 [...] skin documented in this encounter Care Teams Sculpture Conservator Relationship Specialty Start Date End Date Catina Chowdhury NP [facility] [address] [place] [address] PCP - General 02/02/14 07/29/16 documented as of this encounter
--- OUTSIDE RECORDS SUMMARY | 2024-05-22 00:33 | XMS_ITS | Encounter Summary ---
Author Organization [facility] Address [address] [place] [address] Care Team Providers Care Tier Truck Driver Name Role Phone Catina Chowdhury NP Primary Care Provider [phone] Encounter Details Date Type Department Care Team (Late st Contact Info) Description 01/31/2016 Phlebotomy Only [address] [address] [place] [place], Outpatient Postsurgical hypothyroidism; History of thyroid cancer [...] EDT) Thyroid Suppression? YES 01/31/2016 12:15 EDT [facility] Thyroglob,Tumor Mrkr <0.1 ng/mL 02/02/2016 9:00 T [facility] Comment: (Note) REFERENCE VALUE Athyrotic <0.1 Intact Thyroid <=33 Thyroglobulin Ab, S 5.9(H) <4.0 IU/mL 02/02/2016 9:00 T [facility] Thyroglobulin Interp (Note) 02/02/2016 9:00 T [facility] Comment: Quantitation of [...] testing methods are immunoenzymatic assays manufactured by [employer] and performed on the Mark One DXI 800. Values obtained from different assay methods or kits may be different and cannot be used interchangeably. The results cannot be interpreted as absolute evidence for the presence or absence of malignant disease. Performed by: [facility]: [address], [place] [address], Lab Dir: Andrew Jimenez II, M.D., Ph.D. Blood specimen (specimen) BLOOD SPECIMEN / Unknown 01/31/2016 12:16 EDT 01/31/2016 12:44 EDT us Ale Hsu MD PhD CHEMISTRY & BLOOD GAS ORD ERABLES Final Result [facility] [address] [place] [address] * T4 FREE (01/31/2016 12:16 EDT) Free T4 1.5 0.8 - 1.8 ng/dl 01/31/2016 14:45 EDT [facility] Blood specimen (specimen) BLOOD SPECIMEN / Unknown 01/31/2016 12:16 EDT 01/31/2016 12:44 EDT us Ale Hsu MD PhD CHEMISTRY & BLOOD GAS ORD ERABLES Final Result Performing Organization Address [facility] Co de Phone Number [facility] [address] [place] [address] * (ABNORMAL) TSH (01/31/2016 12:16 EDT) TSH 0.03(L) 0.55 - 4.78 uIU/ml 01/31/2016 14:45 EDT [facility] Blood specimen (specimen) BLOOD SPECIMEN / Unknown 01/31/2016 12:16 EDT 01/31/2016 12:44 EDT us Ale Hsu MD PhD CHEMISTRY & BLOOD GAS ORD ERABLES Final Result Performing Organization Address City/[facility] Co de Phone Number [facility] [address] [place] [address] documented in this encounter Visit Diagnoses Diagnosis Postsurgical hypothyroidism History of thyroid cancer Personal history of malignant neoplasm of thyroid documented in this encounter Care Teams Tier Truck Driver Relationship Specialty Start Date End Date Catina Chowdhury, MOLD WORKER [facility] [address] [place] [address] PCP - General 02/02/14 07/29/16 documented as of this encounter
--- OUTSIDE RECORDS SUMMARY | 2024-05-22 00:33 | XMS_ITS | Encounter Summary ---
Author Organization [facility] Address [address] [place] [address] Care Team Providers Care Elementary Summer School Teacher Name Role Phone Rand Harley MD Primary Care Provider [phone] Reason for Visit * Reason Comments New Patient Visit Skin lesion of phillip rn on chest present for 4-5 weeks, patient reports changes * Consult (3 - 10 Business Days) - Closed Specialty Diagnoses / Procedures Referred By Uriel kramer Referred To Contact Dermatology Diagnoses Disorder of the skin and subcutaneous tissue, unspecified Zahra Edgar, AGRICULTURAL ENGINEERING TEACHER [address] [place] [address] Phone: tel: fax: [facility] Dermatology [address] [place] [address] Phone: tel: fax: Referral ID Status Reason Start Date Expiration Date Visits Re quested Visits Authorized [id number] Closed 1 1 Encounter Details Date Type Department Care Team (Late st Contact Info) Description 01/30/2021 15:10 EDT Office Visit [facility] Dermatology [address] [place] [address] [address] [place], [place] [address] Iron De Oliveira MD [address] [place] [phone] Neoplasm of uncertain behavior of skin [...] shower. DISCOMFORT: Extra-Strength Tylenol, as directed by commercial loan closer, usually relieves any pain you may have. [...] * Iron De Oliveira MD - 01/30/2021 7140 EDT Dermatology Outpatient Visit Note Chief Complaint Patient presents with ??? New Patient Visit Skin lesion of concern on chest present for 4-5 weeks, patient reports changes Dermatologic History: History of basal cell carcinoma of right chin, s/p Mohs in Dec [address] ([address] [facility]) SUBJECTIVE: Ms. James is a 55 [...] PATIENT INFORMATION: Jc James : MRN: [id number] SURGEON: MD Anderson Flores MD The indication, [...] explore management options, if applicable. 01/31/2021 9:55 [facility] Final Diagnosis A. SKIN OF CHEST, LEFT, SHAVE BIOPSY: - Lichenoid keratosis (lichen planus-like keratosis). 01/31/2021 9:55 [facility] Attestation By the signature below, the attending physician certifies that they have 1) personally conducted a gross and/or microscopic examination of the described specimen(s), and/or personally interpreted the results of laboratory testing of the described specimen(s), and 2) personally rendered or confirmed the above diagnosis. 01/31/2021 9:55 [facility] at 0955 Microscopic Description There [...] present in the superficial dermis. 01/31/2021 9:55 [facility] Clinical History Eroded pink papule; BCC vs. SCCIS vs. inflamed SK vs. other; clinical diagnosis code: D48.5 01/31/2021 9:55 EDT [facility] Gross Description A. Received [...] RJ CONRAD(ASCP) 01/30/2021 17:34 01/31/2021 9:55 EDT [facility] Performing Lab [facility] 01/31/2021 9:55 EDT [facility] Scanned Images 01/31/2021 9:55 EDT [facility] Tissue TISSUE SPECIMEN FROM SKIN / Unknown Collection, Other / Unknown 01/30/2021 15:38 EDT 01/30/2021 16:47 EDT us Anderson Wagner MD PATHOLOGY ORDERABLES Final R esult [facility] [address] [place] [address] documented in this encounter Visit Diagnoses Diagnosis Neoplasm of uncertain behavior of skin- Primary documented in this encounter Care Teams Elementary Summer School Teacher Relationship Specialty Start Date End Date Rand Harley MD [address] [place] [address] PCP - General 07/30/16 documented as of this encounter
--- OUTSIDE RECORDS SUMMARY | 2024-05-22 00:33 | XMS_ITS | Encounter Summary ---
Author Organization [facility] Address [address] [place] [address] Care Team Providers Care Dental Technology Advisor Name Role Phone Catina Chowdhury NP Primary Care Provider [phone] Encounter Details Date Type Department Care Team (Late st Contact Info) Description 07/20/2016 Results Only [facility]- PRISM [phone] Maria D Krishnan, DO [address] [place] [address] Social History Tobacco Use Types [...] ? JC BANERJEE ? Accession #: ? [id number] ? : ? 1965 (Age: 50) ??F [...] Pugh 07/23/2016 9:30 AM End of Report [facility] 07/20/2016 9:44 EST 07/21/2016 9:44 EST us Maria D Krishnan DO PATHOLOGY ORDERABLES Final Res ult [facility] [address] [place] [address] documented in this encounter Visit Diagnoses Not on filedocumented in this encounter Care Teams Dental Technology Advisor Relationship Specialty Start Date End Date Catina Chowdhury NP [facility] [address] [place], [place] [phone] PCP - General 02/02/14 07/29/16 documented as of this encounter
--- OUTSIDE RECORDS SUMMARY | 2024-05-22 00:33 | XMS_ITS | Encounter Summary ---
Author Organization [facility] Address [address] [place] [address] Care Team Providers Care Aircraft Layout Worker Name Role Phone Rand Harley MD Primary Care Provider [phone] Reason for Visit * Reason Onset Date Comments Appointment Related 03/13/2018 Encounter Details Date Type Department Care Team (Late st Contact Info) Description 03/13/2018 Telephone [facility] Dermatology 5th Floor [facility] [address] [place], [place] [address] Elida Culp MD [address] [place] [address] [phone] Appointment Related Social History Tobacco Use Types [...] on filedocumented in this encounter Care Teams Aircraft Layout Worker Relationship Specialty Start Date End Date Rand Harley MD [address] [place] [phone] PCP - General 07/30/16 documented as of this encounter
--- OUTSIDE RECORDS SUMMARY | 2024-05-22 00:34 | XMS_ITS | Encounter Summary ---
Author Organization [facility] Address [address] [place] [address] Care Team Providers Care Professional Bondsman Name Role Phone Catina Chowdhury NP Primary Care Provider [phone] Encounter Details Date Type Department Care Team (Late st Contact Info) Description 01/15/2006 Before PRISM Converted Visit (Maple) [facility] - Maple conversion [address] [place] [address] Monico Goff MD Social History Tobacco Use [...] January 16, 2006 [facility] [address] [place] [address] DOS: 01/15/06 Dear Ale: I had the [...] - kmb Job ID: tape Document ID: [id number] cc: Ale Hsu MD,PhD * Monico Goff [...] - kmb Job ID: tape Document ID: [id number] cc: * Monico Goff MD - 05/19/2009 [...] - shanita Job ID: tape Document ID: [id number] cc: Ale Hsu MD,PhD documented in this encounter Plan of Treatment Not on file documented as of this encounter Visit Diagnoses Not on filedocumented in this encounter Care Teams Professional Bondsman Relationship Specialty Start Date End Date Catina Chowdhury NP [address] [address] PCP - General 02/03/09 07/20/12 documented as of this encounter
--- OUTSIDE RECORDS SUMMARY | 2024-05-22 00:34 | XMS_ITS | Encounter Summary ---
Author Organization [facility] Address [address] [place] [address] Care Team Providers Care Research Administrator Name Role Phone Unavailable Primary Care Provider Unavailabl e Encounter Details Date Type Department Care Team (Latest Contact Info) Description 07/13/2005 12:31 EST Hospital Encounter [facility] [address] [place] [address] Ale Hsu MD PhD [address] [place] [phone] Discharge Disposition: Auto Discharge Social History [...] ??tissue identified within the thoracic inlet ??region. /[facility] Procedure Note Adam Olmedo MD - 11/27/2008 [...] tissue identified within the thoracic inlet region. /[facility] Ale Hsu MD PhD [...]
--- OUTSIDE RECORDS SUMMARY | 2024-05-22 00:34 | XMS_ITS | Encounter Summary ---
Author Organization [facility] Address [address] [place] [address] Care Team Providers Care Kettle Cleaner Name Role Phone Catina Chowdhury NP Primary Care Provider [phone] Encounter Details Date Type Department Care Team (Late st Contact Info) Description 01/11/2004 Results Only [facility] Endocrinology - [facility] [address] [place] [address] Ale Hsu MD PhD [address] [place] [address] Drive [address] [place] [address] Social History Tobacco Use Types [...] (ABNORMAL) TSH (01/11/2004 16:59 EDT) Pathologist [facility] TSH 23.34(H) 0.35 - 5.50 uIU/ml [facility] 01/11/2004 16:5 9 EDT 01/11/2004 17:48 EDT us Ale Hsu MD PhD CHEMISTRY & BLOOD GAS ORD ERABLES Final Result [facility] [address] [place] [address] * (ABNORMAL) THYROGLOBULIN TUMOR MARKER (01/11/2004 16:59 EDT) Pathologist [facility] Thyroglobulin Antibody Screen 55695 9.8Unit: IU/mL(Note) -- EXPECTED VALUES -- ? (Ref Range) <=2.3 ? TEST PERFORMED OR REFERRED BY [facility] ? [address] ? [place] [address] ? [employer] Bak[employer] Laborer: ? Ivan Rosenthal M.D. ?(H) [facility] [...] method. ? TEST PERFORMED OR REFERRED BY [facility] ? [address] ? [place] [address] ? [employer] Laborer: ? Ivan A. Galo, M.D. ? [facility] 01/11/2004 16:5 9 EDT 01/11/2004 17:48 EDT Ale Hsu MD PhD CHEMISTRY & BLOOD GAS ORD ERABLES Final Result Performing Organization Address [facility] Co de Phone Number [facility] [address] [place] [address] * T4 FREE (01/11/2004 16:59 EDT) Free T4 1.4 0.8 - 1.8 ng/dl [facility] 01/11/2004 16:5 9 EDT 01/11/2004 17:48 EDT Ale Hsu MD PhD CHEMISTRY & BLOOD GAS ORD ERABLES Final Result Performing Organization Address [facility] de Phone Number [facility] [address] [place] [address] documented in this encounter Visit Diagnoses Not on filedocumented in this encounter Care Teams Kettle Cleaner Relationship Specialty Start Date End Date Catina Chowdhury, CHIDI [facility] [address] [place], [place] [address] PCP - General 02/03/09 07/20/12 documented as of this encounter
--- OUTSIDE RECORDS SUMMARY | 2024-05-22 00:34 | XMS_ITS | Encounter Summary ---
Author Organization [facility] Address [address] [place] [address] Care Team Providers Care Reservation Manager Name Role Phone Unavailable Primary Care Provider Unavailabl e Encounter Details Date Type Department Care Team (Late st Contact Info) Description 02/10/2008 11:40 EDT Hospital Encounter [facility] conversion [address] [place] [address] Ale Hsu MD PhD [address] [place] [address] [place] [phone] Social History Tobacco Use Types Packs/Day [...] ORD ERABLES Final Result Performing Organization Address [facility] Co de Phone Number [facility] [address] [place] [address] * (ABNORMAL) T4 FREE (07/07/2008 13:41 EST) Free T4 1.9(H) 0.8 - 1.8 ng/dL [facility] 07/07/2008 13:4 1 EST 07/07/2008 13:42 EST us Ale Hsu MD PhD CHEMISTRY & BLOOD GAS ORD ERABLES Final Result Performing Organization Address City/[facility]/ZIP Co de Phone Number [facility] [address] [place] [address] * TSH (02/10/2008 12:13 EDT) TSH 3.24 0.35 - 5.00 uIU/mL [facility] 02/10/2008 12:1 3 EDT 02/10/2008 12:14 EDT us Ale Hsu MD PhD CHEMISTRY & BLOOD GAS ORD ERABLES Final Result Performing Organization Address City/[facility]/ZIP Co de Phone Number [facility] [address] [place] [address] * T4 FREE (02/10/2008 12:13 EDT) Pathologist [facility] Free T4 1.7 0.8 - 1.8 ng/dL [facility] 02/10/2008 12:1 3 EDT 02/10/2008 12:14 EDT us Ale Hsu MD PhD CHEMISTRY & BLOOD GAS ORD ERABLES Final Result [facility] [address] [place] [address] * (ABNORMAL) THYROGLOBULIN TUMOR MARKER (02/10/2008 12:13 EDT) [facility] Thyroglobulin Antibody Screen 06806 8.8Reference range: <4.0 Unit: IU/mL(H) [facility] Thyroglobulin Tumor Marker <0.1Unit: ng/mL Quantitation of thyroglobulin may be unreliable due to the ? presence of anti-thyroglobulin antibodies. ? -- REFERENCE VALUE -- ? <=33 ? Athyrotic individuals ? normally have hTg values ? less than 5 ng/mL. ? The testing method is an immunoenzymatic assay manufactured ? by [employer] and performed on the H[employer] DXI ? 800. ? Values obtained with different assay methods or kits may be ? different and cannot be used interchangeably. ? Test results cannot be interpreted as absolute evidence for ? the presence or absence of malignant disease. ? Specimens with thyroglobulin concentrations greater than ? 250,000 ng/mL may give falsely lower results. ? Performed by: [facility] [address] , [address] , [place] [address], Lab Dir: ??Geovanny Welch ? III, M.D. ? [facility] 02/10/2008 12:1 3 EDT 02/10/2008 12:14 EDT us Ale Hsu MD PhD CHEMISTRY & BLOOD GAS ORD ERABLES Final Result [facility] [address] [place] [address] documented in this encounter Visit Diagnoses Not on filedocumented in this encounter
--- OUTSIDE RECORDS SUMMARY | 2024-05-22 00:34 | XMS_ITS | Encounter Summary ---
Author Organization [facility] Address [address] [place] [address] Care Team Providers Care Child Development Associate Teacher Name Role Phone Catina Chowdhury NP Primary Care Provider [phone] Encounter Details Date Type Department Care Team (Late st Contact Info) Description 12/04/2006 Before PRISM Converted Visit (Maple) [facility] - Maple conversion [address] [place] [address] Lance Valdes MD [address] [facility] [place] [address] Social History Tobacco Use Types [...] MD -Lance Valdes MD -mld Job ID: [id number] Doc ID: [id number] cc: Ale Hsu MD, PhD Cristofer Zapata MD documented in this encounter Plan of Treatment Not on file documented as of this encounter Visit Diagnoses Not on filedocumented in this encounter Care Teams Child Development Associate Teacher Relationship Specialty Start Date End Date Catina Chowdhury NP [facility] [address] [place] [address] PCP - General 02/03/09 07/20/12 documented as of this encounter
--- OUTSIDE RECORDS SUMMARY | 2024-05-22 00:34 | XMS_ITS | Encounter Summary ---
Author Organization [facility] Address [address] [place] [address] Care Team Providers Care Concreter Name Role Phone Catina Chowdhury NP Primary Care Provider Reason for Visit * Reason Comments Labs Only Encounter Details Date Type Department Care Team (Latest Contact Info) Description 02/04/2012 11:45 EDT Procedure [facility] End[facility]ology - [address] [address] Unknown, Provider, Phlebotomy, [facility] Endo Postsurgical hypothyroidism; Malignant neoplasm [...] is an immunoenzymatic assay manufactured by [employer] and performed on the Jimubox DXI 800. The thyroglobulin antibody testing method [...] normally have hTg values <=2. Performed by: [facility], [address] [facility], [place] [address], Automobile Detailer: Brooke Flores, Ph.D. Blood specimen (specimen) 02/04/2012 11:36 EDT 02/04/2012 15:30 EDT Ale Hsu MD PhD CHEMISTRY & BLOOD GAS ORD ERABLES Final Result Performing Organization Address [facility] Co de Phone Number [facility] [address] [place] [address] * THYROID CASCADE (02/04/2012 11:36 EDT) TSH 0.97 0.35 - 5.00 uIU/ml [facility] Comment: TSH cascade is not recommended for patients in which pituitary or hypothalamic disorders are suspected. Blood specimen (specimen) 02/04/2012 11:36 EDT 02/04/2012 15:30 EDT Ale Hsu MD PhD CHEMISTRY & BLOOD GAS ORD ERABLES Final Result Performing Organization Address [facility] Co de Phone Number [facility] [address] [place] [address] documented in this encounter Visit Diagnoses Diagnosis Postsurgical hypothyroidism Malignant neoplasm of thyroid gland (HCC-CMS) Malignant neoplasm of thyroid gland documented in this encounter Care Teams Concreter Relationship Specialty Start Date End Date Catina Chowdhury NP [facility] [address] [place] [address] PCP - General 02/03/09 07/20/12 documented as of this encounter
--- OUTSIDE RECORDS SUMMARY | 2024-05-22 00:34 | XMS_ITS | Encounter Summary ---
Author Organization [facility] Address [address] [place] [address] Care Team Providers Care In Flight Refueling Operator Name Role Phone Unavailable Primary Care Provider Unavailabl e Encounter Details Date Type Department Care Team ([facility] st Contact Info) Description 07/24/2006 13:27 EDT Hospital Encounter [address] [address] Ale Hsu MD PhD [address] [place] [address] [place] [phone] Social History Tobacco Use Types Packs/Day [...] Results * TSH (07/24/2006 13:32 EDT) Pathologist [facility] TSH 2.44 0.35 - 5.00 uIU/mL [facility] 07/24/2006 13:3 2 EDT 07/24/2006 13:35 EDT us Ale Hsu MD PhD CHEMISTRY & BLOOD GAS ORD ERABLES Final Result [facility] [address] [place] [address] * THYROGLOBULIN TUMOR MARKER (07/24/2006 13:32 EDT) Pathologist [facility] Thyroglobulin Antibody Screen 79988 7.2Unit: IU/mL(Note) This FDA-approved assay has been modified and validated ? by Laboratory Medicine and Pathology, [facility], ? [place], [place] in order to enhance sensitivity. This [...] lower results. ? Test Performed by: ? [facility] of Lab Med and Pathology ? [address] [facility], [place] [address] ? Blacktop Spreader: Geovanny Welch III, M.D. ? [facility] 07/24/2006 13:3 2 EDT 07/24/2006 13:35 EDT Ale Hsu MD PhD CHEMISTRY & BLOOD GAS ORD ERABLES Final Result Performing Organization Address City/[facility]/ZIP Co de Phone Number [facility] [address] [place] [address] * T4 FREE (07/24/2006 13:32 EDT) Free T4 1.5 0.8 - 1.8 ng/dL [facility] 07/24/2006 13:3 2 EDT 07/24/2006 13:35 EDT us Ale Hsu MD PhD CHEMISTRY & BLOOD GAS ORD ERABLES Final Result Performing Organization Address [facility] Co de Phone Number [facility] [address] [place] [address] documented in this encounter Visit Diagnoses Not on filedocumented in this encounter
--- OUTSIDE RECORDS SUMMARY | 2024-05-22 00:34 | XMS_ITS | Encounter Summary ---
Author Organization [facility] Address [address] [place] [address] Care Team Providers Care Assembly Lead Person Name Role Phone Catina Chowdhury NP Primary Care Provider [phone] Encounter Details Date Type Department Care Team (Late st Contact Info) Description 12/11/2006 Results Only [facility] Endocrinology - [address] [place] [address] Ale Hsu MD PhD [address] [place] [address] Drive [address] [place] [address] Social History Tobacco Use Types [...] Results * TSH (12/11/2006 11:43 EDT) Pathologist [facility] TSH 1.00 0.35 - 5.00 uIU/mL [facility] 12/11/2006 11:4 3 EDT 12/11/2006 11:44 EDT us Ale Hsu MD PhD CHEMISTRY & BLOOD GAS ORD ERABLES Final Result [facility] [address] [place] [address] * (ABNORMAL) THYROGLOBULIN TUMOR MARKER (12/11/2006 11:43 EDT) [facility] Thyroglobulin Antibody Screen 13089 12Unit: IU/mL(Note) -- EXPECTED VALUES -- ? [...] an immunoenzymatic assay manufactured ? by [employer] and performed on the [employer]el DXI [...] lower results. ? Test Performed by: ? [facility] Dpt of Lab Med and Pathology ? [address] [facility], [place] [address] ? Auto Repair Shop Manager: Geovanny Welch III, M.D. ? [facility] 12/11/2006 11:4 3 EDT 12/11/2006 11:44 EDT Ale Hsu MD PhD CHEMISTRY & BLOOD GAS ORD ERABLES Final Result [facility] [address] [place] [address] * T4 FREE (12/11/2006 11:43 EDT) Free T4 1.8 0.8 - 1.8 ng/dL [facility] 12/11/2006 11:4 3 EDT 12/11/2006 11:44 EDT us Ale Hsu MD PhD CHEMISTRY & BLOOD GAS ORD ERABLES Final Result [facility] [address] [place] [address] documented in this encounter Visit Diagnoses Not on filedocumented in this encounter Care Teams Assembly Lead Person Relationship Specialty Start Date End Date Catina Chowdhury, CHIDI [facility] [address] [place] [phone] PCP - General 02/03/09 07/20/12 documented as of this encounter
--- OUTSIDE RECORDS SUMMARY | 2024-05-22 00:34 | XMS_ITS | Encounter Summary ---
Author Organization [facility] Address [address] [place] [address] Care Team Providers Care Residential Program Manager Name Role Phone Catina Chowdhury NP Primary Care Provider [phone] Encounter Details Date Type Department Care Team (Late st Contact Info) Description 01/28/2006 Before PRISM Converted Visit (Maple) [facility] - Maple conversion [address] [place] [address] Ale Hsu MD PhD [facility] [address] [place] [address] Social History Tobacco Use Types [...] old assay was not accurate enough to picker and sorter load and unload the antibodies.I think time will show which [...] Hsu MD,PhD P - ds Job ID: [id number] Document ID: [id number] cc: MD Cristofer Rodriguez MD Ms. Jc Banerjee, [address] [facility] [address], [place] [address] documented in this encounter Plan of Treatment Not on file documented as of this encounter Visit Diagnoses Not on filedocumented in this encounter Care Teams Residential Program Manager Relationship Specialty Start Date End Date Catina Chowdhury NP [facility] [address] [place] [phone] PCP - General 02/03/09 07/20/12 documented as of this encounter
--- OUTSIDE RECORDS SUMMARY | 2024-05-22 00:34 | XMS_ITS | Encounter Summary ---
Author Organization [facility] Address [address] [place] [address] Care Team Providers Care Business Services Intern Name Role Phone Catina Chowdhury NP Primary Care Provider [phone] Reason for Visit * Reason Comments Thyroid Cancer Encounter Details Date Type Department Care Team (Latest Contact Info) Description 02/04/2012 11:20 EDT Office Visit [facility] Endocrinology - [address] [address] Ale Hsu MD PhD [address] [place] [address] [place] [phone] Postsurgical hypothyroidism; Malignant neoplasm of thyroid [...] method is an immunoenzymatic assay manufactured by Amanda [employer]. and performed on the Expo[employer]oter DXI 800. The thyroglobulin antibody testing method [...] normally have hTg values <=2. Performed by: [facility] [place], [address], [place] [address], Beater Lead: Brooke Flores, Ph.D. Everything is at goal. documented in this encounter Plan of Treatment Not on file documented as of this encounter Results * THYROGLOBULIN TUMOR MARKER (02/04/2012 11:36 EDT) Thyroid Suppression? YES [facility] Thyroglob Ab Screen <20 <22 IU/mL [facility] Comment: (Note) The thyroglobulin testing method is an immunoenzymatic assay manufactured by [employer] and performed on the Expo[employer]oter DXI 800. The thyroglobulin antibody testing method [...] normally have hTg values <=2. Performed by: [facility] [place], [address], [place] [address], Beater Lead: Brooke Flores, Ph.D. Blood specimen (specimen) 02/04/2012 11:36 EDT 02/04/2012 15:30 EDT us Ale Hsu MD PhD CHEMISTRY & BLOOD GAS ORD ERABLES Final Result Performing Organization Address City/[facility] Co de Phone Number [facility] [address] [place] [address] * THYROID CASCADE (02/04/2012 11:36 EDT) TSH 0.97 0.35 - 5.00 uIU/ml [facility] Comment: TSH cascade is not recommended for patients in which pituitary or hypothalamic disorders are suspected. Blood specimen (specimen) 02/04/2012 11:36 EDT 02/04/2012 15:30 EDT us Ale Hsu MD PhD CHEMISTRY & BLOOD GAS ORD ERABLES Final Result Performing Organization Address [facility] de Phone Number [facility] [address] [place] [address] documented in this encounter Visit Diagnoses Diagnosis Postsurgical hypothyroidism Malignant neoplasm of thyroid gland (HCC-CMS) Malignant neoplasm of thyroid gland documented in this encounter Discontinued Medications Medication Sig Discontinue Reason Start Date End Da te levothyroxine (SYNTHROID) 150 mcg tablet Take 1 Tab by mouth daily. Reorder 02/05/2011 02/04/2012 documented as of this encounter Care Teams Business Services Intern Relationship Specialty Start Date End Date Catina Chowdhury NP [facility] [address] [place], [place] [phone] PCP - General 02/03/09 07/20/12 documented as of this encounter
--- OUTSIDE RECORDS SUMMARY | 2024-05-22 00:34 | XMS_ITS | Encounter Summary ---
Author Organization [facility] Address [address] [place] [address] Care Team Providers Care Family Assessment Worker Name Role Phone Unavailable Primary Care Provider Unavailabl e Encounter Details Date Type Department Care Team ([facility] st Contact Info) Description 12/12/2005 10:40 EDT Hospital Encounter [address] [address] Ale Hsu MD PhD [address] [place] [address] [place] [phone] Social History Tobacco Use Types Packs/Day [...] encounter Results * TSH (12/12/2005 11:35 EDT) [facility] TSH 1.77 0.35 - 5.00 uIU/mL KIKI MARTINEZ 12/12/2005 11:3 5 EDT 12/12/2005 11:50 EDT us Ale Hsu MD PhD CHEMISTRY & BLOOD GAS ORD ERABLES Final Result [facility] [address] [place] [address] * (ABNORMAL) THYROGLOBULIN TUMOR MARKER (12/12/2005 11:35 EDT) [facility] Thyroglobulin Antibody Screen 91678 14Unit: IU/mL(Note) -- EXPECTED VALUES -- ? (Ref Range) <=2.3 ?(H) [facility] Thyroglobulin Tumor Marker <0.1Unit: ng/mL(Note) Quantitation of thyroglobulin may be unreliable due to the ? presence of anti-thyroglobuli n antibodies. ? Specimens with thyroglobulin concentrations greater than ? 250,000 ng/mL may give falsely lower results. ? Method is [employer] Access Immunoassay System. ? -- EXPECTED VALUES -- ? (Ref Range) <=33 ? Athyrotic individuals ? normally have hTg values ? less than 5 ng/mL. ? Serum markers are not specific for malignancy and values ? may vary by method. ? Test Performed by: ? [facility] Lab Med and Pathology ? [address] , [place] [address] ? Physical Therapy Director: Melodie Washington M.D. ? [facility] 12/12/2005 11:3 5 EDT 12/12/2005 11:50 EDT us Ale Hsu MD PhD CHEMISTRY & BLOOD GAS ORD ERABLES Final Result Performing Organization Address City/[facility] Co de Phone Number [facility] [address] [place] [address] * (ABNORMAL) T4 FREE (12/12/2005 11:35 EDT) Free T4 1.9(H) 0.8 - 1.8 ng/dL [facility] 12/12/2005 11:3 5 EDT 12/12/2005 11:50 EDT us Ale Hsu MD PhD CHEMISTRY & BLOOD GAS ORD ERABLES Final Result Performing Organization Address [facility] Co de Phone Number [facility] [address] [place] [address] documented in this encounter Visit Diagnoses Not on filedocumented in this encounter
--- OUTSIDE RECORDS SUMMARY | 2024-05-22 00:34 | XMS_ITS | Encounter Summary ---
Author Organization [facility] Address [address] [place] [address] Care Team Providers Care Food Tester Name Role Phone Unavailable Primary Care Provider Unavailabl e Encounter Details Date Type Department Care Team (Late st Contact Info) Description 12/14/2003 14:26 EDT Hospital Encounter [facility] - Other [address] [place] [address] Ale Hsu MD PhD [address] [place] [address] [place] [phone] Social History Tobacco Use Types Packs/Day [...] * (ABNORMAL) TSH (12/14/2003 14:26 EDT) Pathologist [facility] TSH 9.49(H) 0.35 - 5.50 uIU/ml KIKI MARTINEZ 12/14/2003 14:2 6 EDT 12/14/2003 14:34 EDT us Ale Hsu MD PhD CHEMISTRY & BLOOD GAS ORD ERABLES Final Result [facility] [address] [place] [address] * (ABNORMAL) THYROGLOBULIN TUMOR MARKER (12/14/2003 14:26 EDT) Pathologist [facility] Thyroglobulin Antibody Screen 76941 11Unit: IU/mL(Note) -- EXPECTED VALUES -- ? (Ref Range) <=2.3 ? TEST PERFORMED OR REFERRED BY [facility] ? [address] ? [place] [address] ? Student Driving Instructor: ? Ivan Rosenthal M.D. ?(H) [facility] Thyroglobulin Tumor Marker <0.1Unit: ng/mL(Note) Quantitation of [...] method. ? TEST PERFORMED OR REFERRED BY [facility] ? [address] ? [place] [address] ? Student Driving Instructor: ? Ivan Rosenthal M.D. ? [facility] 12/14/2003 14:2 6 EDT 12/14/2003 14:34 EDT Ale Hsu MD PhD CHEMISTRY & BLOOD GAS ORD ERABLES Final Result Performing Organization Address [facility] de Phone Number [facility] [address] [place] [address] * T4 FREE (12/14/2003 14:26 EDT) Free T4 1.4 0.8 - 1.8 ng/dl [facility] 12/14/2003 14:2 6 EDT 12/14/2003 14:34 EDT Ale Hsu MD PhD CHEMISTRY & BLOOD GAS ORD ERABLES Final Result Performing Organization Address [facility] de Phone Number [facility] [address] [place] [address] documented in this encounter Visit Diagnoses Not on filedocumented in this encounter
--- OUTSIDE RECORDS SUMMARY | 2024-05-22 00:34 | XMS_ITS | Encounter Summary ---
Author Organization [facility] Address [address] [place] [address] Care Team Providers Care Key Sander Name Role Phone Catina Chowdhury NP Primary Care Provider [phone] Reason for Visit * Reason Comments Other Thyroid U/S Encounter Details Date Type Department Care Team (Late st Contact Info) Description 03/30/2010 14:20 EST Office Visit [address] [address] Lance Valdes MD [address] [place] [address], [address] [place] [address] Malignant neoplasm of thyroid gland [...] Notes * Lance Valdes MD - 03/30/2010 4440 EST SUBJECTIVE Jc Banerjee is seen in [...] Miscellaneous Notes * Scanned Note-Null - Jacinto, Flame Cutting Machine Operator - 10/03/2010 1353 EDT * Scanned Note-Null - Inpatient, Physician - 04/25/2010 1131 EST documented in this encounter Plan of Treatment Not on file documented as of this encounter Visit Diagnoses Diagnosis Malignant neoplasm of thyroid gland (HCC-CMS)- Primary Malignant neoplasm of thyroid gland documented in this encounter Care Teams Key Sander Relationship Specialty Start Date End Date Catina Chowdhury NP [facility] [address] [place] [address] PCP - General 02/03/09 07/20/12 documented as of this encounter
--- OUTSIDE RECORDS SUMMARY | 2024-05-22 00:34 | XMS_ITS | Encounter Summary ---
Author Organization [facility] Address [address] [place] [address] Care Team Providers Care Armature Connector Name Role Phone Catina Chowdhury NP Primary Care Provider [phone] Encounter Details Date Type Department Care Team (Late st Contact Info) Description 12/12/2005 Before PRISM Converted Visit (Maple) [facility] - Maple conversion [address] [place] [address] Ale Hsu MD PhD [address] [place] [address] [place] [phone] Social History Tobacco Use Types Packs/Day [...] Hsu MD,PhD P - MR Job ID: [id number] Document ID: [id number] cc: Cristofer Zapata MD documented in this encounter Plan of Treatment Not on file documented as of this encounter Visit Diagnoses Not on filedocumented in this encounter Care Teams Armature Connector Relationship Specialty Start Date End Date Catina Chowdhury NP [facility] [address] [place] [address] PCP - General 02/03/09 07/20/12 documented as of this encounter
--- OUTSIDE RECORDS SUMMARY | 2024-05-22 00:34 | XMS_ITS | Encounter Summary ---
Author Organization [facility] Address [address] [place] [address] Care Team Providers Care Mold Car Pusher Name Role Phone Unavailable Primary Care Provider Unavailabl e Encounter Details Date Type Department Care Team (Late st Contact Info) Description 01/15/2006 14:26 EDT Hospital Encounter [facility] [address] [place] [address] Monico Goff MD Social History Tobacco Use [...]
--- OUTSIDE RECORDS SUMMARY | 2024-05-22 00:34 | XMS_ITS | Encounter Summary ---
Author Organization [facility] Address [address] [place] [address] Care Team Providers Care Nurse Office Name Role Phone Unavailable Primary Care Provider Unavailabl e Encounter Details Date Type Department Care Team (Latest Contact Info) Description 02/03/2001 20:[address] [facility] - Other [address] [place] [address] Ale Hsu MD PhD [address] [place] [phone] Unknown, ProviderMD Discharge Disposition: Auto Discharge [...] TSH (02/03/2001 10:41 EDT) Pathologist [facility] TSH 34.42(H) 0.35 - 5.50 uIU/ml KIKI MARTINEZ 02/03/2001 10:4 1 EDT 02/03/2001 10:53 EDT us Ale Hsu MD PhD CHEMISTRY & BLOOD GAS ORD ERABLES Final Result K[facility]I MARTINEZ [address] [place] [address] * THYROGLOBULIN TUMOR MARKER (02/03/2001 10:41 EDT) Pathologist [facility] Thyroglobulin Ab Negative ?? KIKI MARTINEZ [...] immunoenzymatic assay kit manufactured ? by [employer] ? Serum markers are not specific for malignancy, and values ? may vary by method. ? Please note change in methodology and reference range ? effective January 07, 2001. ? TEST PERFORMED OR REFERRED BY [facility] ? [facility] ? [address] ? [place], [place] [address] ? [facility] 02/03/2001 10:4 1 EDT 02/03/2001 10:53 EDT us Ale Hsu MD PhD CHEMISTRY & BLOOD GAS ORD ERABLES Final Result Performing Organization Address City/[facility]/ZIP Co de Phone Number [facility] [address] [place] [address] * T4 FREE (02/03/2001 10:41 EDT) Free T4 1.1 0.8 - 1.8 ng/dl [facility] 02/03/2001 10:4 1 EDT 02/03/2001 10:53 EDT Ale Hsu MD PhD CHEMISTRY & BLOOD GAS ORD ERABLES Final Result Performing Organization Address [facility] Co de Phone Number [facility] [address] [place] [address] documented in this encounter Visit Diagnoses Not on filedocumented in this encounter
--- OUTSIDE RECORDS SUMMARY | 2024-05-22 00:34 | XMS_ITS | Encounter Summary ---
Author Organization [facility] Address [address] [place] [address] Care Team Providers Care Coiled Coil Inspector Name Role Phone Catina Chowdhury NP Primary Care Provider [phone] Reason for Visit * Reason Onset Date Comments Appointment Related 04/10/2010 Patient call ed to discuss her Dr Valdes appointment with Dr. Hsu Encounter Details Date Type Department Care Team (Late st Contact Info) Description 04/10/2010 Telephone [facility] Endocrinology - [address] [address] Ale Hsu MD PhD [address] [place] [address] [address] [place] [phone] Appointment Related (Patient called to [...] Telephone Encounter - Janae Chamorro - 12/05/2010 6547 EDT Follow up documented in this encounter Plan of Treatment Not on file documented as of this encounter Visit Diagnoses Not on filedocumented in this encounter Care Teams Coiled Coil Inspector Relationship Specialty Start Date End Date Catina Chowdhury, CHIDI [facility] [address] [place] [address] PCP - General 02/03/09 07/20/12 documented as of this encounter
--- OUTSIDE RECORDS SUMMARY | 2024-05-22 00:34 | XMS_ITS | Encounter Summary ---
Author Organization [facility] Address [address] [place] [address] Care Team Providers Care Field Merchandiser Name Role Phone Unavailable Primary Care Provider Unavailabl e Encounter Details Date Type Department Care Team (Late st Contact Info) Description 12/15/2002 15:24 EDT Hospital Encounter [facility] - Other [address] [place] [address] Ale Hsu MD PhD [address] [place] [phone] Jose Hsu, [facility] [address] [place] [address] Social History Tobacco Use Types Packs/Day Years [...]
--- OUTSIDE RECORDS SUMMARY | 2024-05-22 00:34 | XMS_ITS | Encounter Summary ---
Author Organization [facility] Address [address] [place] [address] Care Team Providers Care Yard Warehouse Worker Name Role Phone Rand Harley MD Primary Care Provider [phone] Reason for Visit * Reason Onset Date Comments Requesting Sooner Appointment 09/26/2012 Encounter Details Date Type Department Care Team (Late st Contact Info) Description 09/26/2012 Telephone [facility] Dermatology 3rd Floor [facility] [address] [place], [place] [id number] Robbin Garcia MD Requesting Sooner Appointment Social [...] Encounter - Angelica Griffith RN - 09/26/2012 5894 EDT Spoke with patient. She states she [...] on filedocumented in this encounter Care Teams Yard Warehouse Worker Relationship Specialty Start Date End Date Rand Harley MD [address] [place] [address] PCP - General 07/21/12 02/01/14 documented as of this encounter
--- OUTSIDE RECORDS SUMMARY | 2024-05-22 00:34 | XMS_ITS | Encounter Summary ---
Author Organization [facility] Address [address] [place] [address] Care Team Providers Care Wardrobe Technician Name Role Phone Unavailable Primary Care Provider Unavailabl e Encounter Details Date Type Department Care Team (Latest Contact Info) Description 02/04/2004 10:06 EDT - 02/04/2004 11:59 EDT Hospital Encounter [facility] [address] [place] [address] Ale Hsu MD PhD [address] [place] [phone] Discharge Disposition: Auto Discharge Social History [...]
--- OUTSIDE RECORDS SUMMARY | 2024-05-22 00:34 | XMS_ITS | Encounter Summary ---
Author Organization [facility] Address [address] [place] [address] Care Team Providers Care Rosin Barrel Filler Name Role Phone Unavailable Primary Care Provider Unavailabl e Encounter Details Date Type Department Care Team (Latest Contact Info) Description 07/07/2008 23:10 EST Hospital Encounter [facility] - Other [address] [place] [address] Ale Hsu MD PhD [address] [place] [address] [place] [phone] Discharge Disposition: Home or Self Care [...] ? JC BANERJEE ? Accession #: ? [id number] ? : ? 1965 (Age: 43) ??F ?Collect Date: ? 02/16/2009 ? Location: ? [facility] ? Receive Date: ? 02/17/2009 ? Provider: ?PERLA DUONG PA ? Copy to: ? Specimen/Source: ?Pap Test, Vagina, ThinPrep Imaging System with manual ?? evaluation ? Last Menstrual Period: ? 2006 ? Treatment History: ? LIUS ? Other: ? HPVA - HPV testing [...] Fin al Result [facility] [address] [place] [address] * (ABNORMAL) THYROGLOBULIN TUMOR MARKER (02/07/2009 12:00 [...] an immunoenzymatic assay manufactured ? by [employer] and performed on the [employer] DXI ? 800. ? Values obtained with different assay methods or kits may be ? different and cannot be used interchangeably. ? Test results cannot be interpreted as absolute evidence for ? the presence or absence of malignant disease. ? Specimens with thyroglobulin concentrations greater than ? 250,000 ng/mL may give falsely lower results. ? Performed by: [facility], [address], ? [place] [address], Wire Spiral Binder: Brooke Flores, Ph.D. ? [facility] Blood specimen (specimen) 02/07/2009 12:00 EDT 02/07/2009 12:01 EDT Ale Hsu MD PhD CHEMISTRY & BLOOD GAS ORD ERABLES Final Result Performing Organization Address [facility] de Phone Number [facility] [address] [place] [address] * TSH (02/07/2009 12:00 EDT) TSH 1.54 0.35 - 5.00 uIU/ml [facility] Blood specimen (specimen) 02/07/2009 12:00 EDT 02/07/2009 12:01 EDT Ale Hsu MD PhD CHEMISTRY & BLOOD GAS ORD ERABLES Final Result Performing Organization Address [facility] de Phone Number [facility] [address] [place] [address] * T4 FREE (02/07/2009 12:00 EDT) Free T4 1.3 0.8 - 1.8 ng/dL [facility] Blood specimen (specimen) 02/07/2009 12:00 EDT 02/07/2009 12:01 EDT Ale Hsu MD PhD CHEMISTRY & BLOOD GAS ORD ERABLES Final Result [facility] [address] [place] [id number] documented in this encounter Visit Diagnoses Not on filedocumented in this encounter
--- OUTSIDE RECORDS SUMMARY | 2024-05-22 00:34 | XMS_ITS | Encounter Summary ---
Author Organization [facility] Address [address] [place] [address] Care Team Providers Care Patient Intake Representative Name Role Phone Rand Harley MD Primary Care Provider [phone] Reason for Visit * Reason Comments Skin Lesion right cheek x 3 week s Encounter Details Date Type Department Care Team (Late st Contact Info) Description 10/01/2012 10:30 EDT Office Visit [facility] Dermatology 3rd Floor [facility] [address] [place] [address] Yuri Cowan MD Neoplasm of unspecified nature [...] shower. DISCOMFORT: Extra-Strength Tylenol, as directed by fish grader, usually relieves any pain you may have. [...] chin, s/p Mohs in Dec 2011 (at [facility]) SUBJECTIVE Jc Banerjee is a 46 [...] PATIENT INFORMATION: Jc Banerjee : MRN: [id number] SURGEON: Rock Campa MD The indication, risks, [...] resident's/fellow's note. YURI COWAN MD 10/06/2012 22:19 interactive art director * Daniela Ordaz - 10/01/2012 1035 EDT [...] encounter Miscellaneous Notes * Scanned Note-Null - EDUCATION ADMINISTRATOR, SCAN 2 - 10/07/2012 1155 EDT documented in this encounter Plan of Treatment Not on file documented as of this encounter Visit Diagnoses Diagnosis Neoplasm of unspecified nature of bone, soft tissue, and skin- Primary documented in this encounter Care Teams Patient Intake Representative Relationship Specialty Start Date End Date Rand Harley MD [address] [place] [address] PCP - General 07/21/12 02/01/14 documented as of this encounter
--- OUTSIDE RECORDS SUMMARY | 2024-05-22 00:34 | XMS_ITS | Encounter Summary ---
Author Organization [facility] Address [address] [place] [address] Care Team Providers Care Cash Management Associate Name Role Phone Unavailable Primary Care Provider Unavailabl e Encounter Details Date Type Department Care Team (Latest Contact Info) Description 03/05/2001 10:06 EDT - 03/05/2001 11:59 EDT Hospital Encounter [facility] [address] [place] [address] Ale Hsu MD PhD [address] [place] [phone] Discharge Disposition: Auto Discharge Social History [...]
--- OUTSIDE RECORDS SUMMARY | 2024-05-22 00:34 | XMS_ITS | Encounter Summary ---
Author Organization [facility] Address [address] [place] [address] Care Team Providers Care University Registrar Name Role Phone Catina Chowdhury NP Primary Care Provider [phone] Encounter Details Date Type Department Care Team (Late st Contact Info) Description 02/01/2010 Abstract [facility] Endocrinology - [facility] [address] [place] [address] Ale Hsu MD PhD [address] [facility] [address] [place] [address] Social History Tobacco Use Types [...] 02/05/2011 added in this encounter Care Teams University Registrar Relationship Specialty Start Date End Date Catina Chowdhury NP [facility] [address] [place] [address] PCP - General 02/03/09 07/20/12 documented as of this encounter
--- OUTSIDE RECORDS SUMMARY | 2024-05-22 00:34 | XMS_ITS | Encounter Summary ---
Author Organization [facility] Address [address] [place] [address] Care Team Providers Care Senior Quantity Surveyor Name Role Phone Catina Chowdhury NP Primary Care Provider [phone] Encounter Details Date Type Department Care Team (Late st Contact Info) Description 08/06/2000 Results Only [facility] conversion [address] [place] [address] Araceli Maldonado, [facility] [address] [place] [address] Social History Tobacco Use Types [...] ? JC BANERJEE ? Accession #: ? [id number] : ? 1965 (Age: 34) ??F ?Collect Date: ? 08/06/2000 Location: ? [facility] ? Receive Date: ? 08/07/2000 Provider: ?ARACELI MALDONADO COORDINATOR OF GENETIC SERVICES Copy to: ? Specimen/Source: ?Conventional Pap Test, Cervix/Endocervix Last Menstrual Period: ? 08/02/00 ? SPECIMEN ADEQUACY ? Satisfactory for evaluation. GENERAL CATEGORIZATION ? Within Normal Limits ? Document reviewed and electronically signed by: ? ERIKA Linton(ASCP) ? Report Date: ??08/08/2000 10:45 End of Report [facility]I [facility] 08/06/2000 08/07/2000 Araceli Maldonado COORDINATOR OF GENETIC SERVICES PATHOLOGY ORDERABLES Final R esult [facility] [address] [place] [address] documented in this encounter Visit Diagnoses Not on filedocumented in this encounter Care Teams Senior Quantity Surveyor Relationship Specialty Start Date End Date Catina Chowdhury NP [facility] [address] [place] [address] PCP - General 02/03/09 07/20/12 documented as of this encounter
--- OUTSIDE RECORDS SUMMARY | 2024-05-22 00:34 | XMS_ITS | Encounter Summary ---
Author Organization [facility] Address [address] [place] [address] Care Team Providers Care Arterial Embalmer Name Role Phone Rand Harley MD Primary Care Provider [phone] Encounter Details Date Type Department Care Team (Late st Contact Info) Description 10/01/2012 Results Only [facility] Dermatology 5th Floor [address] [address] Robbin Cowan MD Social History Tobacco Use [...] ? JC BANERJEE ? Accession #: ? [id number] ? : ? 1965 (Age: 46) ??F [...] ORDERABLES Fin al Result Performing Organization Address City/State/[facility] Co de Phone Number [facility] [address] [place] [address] documented in this encounter Visit Diagnoses Not on filedocumented in this encounter Care Teams Arterial Embalmer Relationship Specialty Start Date End Date Rand Harley MD [address] [place] [address] PCP - General 07/21/12 02/01/14 documented as of this encounter
--- OUTSIDE RECORDS SUMMARY | 2024-05-22 00:34 | XMS_ITS | Encounter Summary ---
Author Organization [facility] Address [address] [place] [address] Care Team Providers Care Rn New Grad Name Role Phone Unavailable Primary Care Provider Unavailabl e Encounter Details Date Type Department Care Team (Late st Contact Info) Description 12/07/2003 17:04 EDT Hospital Encounter [facility] - Other [address] [place] [address] Kenn Cheung PA [address] [place] [address] Social History Tobacco Use Types Packs/Day Years [...]
--- OUTSIDE RECORDS SUMMARY | 2024-05-22 00:34 | XMS_ITS | Encounter Summary ---
Author Organization [facility] Address [address] [place] [address] Care Team Providers Care Airworthiness Inspector Name Role Phone Catina Chowdhury NP Primary Care Provider [phone] Encounter Details Date Type Department Care Team (Late st Contact Info) Description 04/23/2005 Results Only [facility] [address] [place] [address] Judd Marcus MD [address] [place] [address] [address] Social History Tobacco Use Types [...] ? JC BANERJEE ? Accession #: ? [id number] ? : ? 1965 (Age: 39) ??F [...] ??Submitted in toto in one cassette. (Lydia Thapa)/[facility] End of Report [facility] M[facility] 04/23/2005 04/23/2005 15: 29 EST us Judd Marcus MD PATHOLOGY ORDERABLES Final Resu lt [facility] [address] [place] [address] documented in this encounter Visit Diagnoses Not on filedocumented in this encounter Care Teams Airworthiness Inspector Relationship Specialty Start Date End Date Catina Chowdhury NP [facility] [address] [place] [address] PCP - General 02/03/09 07/20/12 documented as of this encounter
--- OUTSIDE RECORDS SUMMARY | 2024-05-22 00:34 | XMS_ITS | Encounter Summary ---
Author Organization [facility] Address [address] [place] [address] Care Team Providers Care Grain Picker Name Role Phone Unavailable Primary Care Provider Unavailabl e Encounter Details Date Type Department Care Team (Latest Contact Info) Description 01/11/2000 16:26 EDT Hospital Encounter [address] [address] Ale Hsu MD PhD [address] [place] [phone] Discharge Disposition: Auto Discharge Social History [...] ORD ERABLES Final Result [facility] [address] [place] [address] * THYROGLOBULIN TUMOR MARKER (01/11/2000 14:51 EDT) Thyroglobulin Ab Negative [facility] Thyroglobulin <0.5Unit: ng/mL ??(Note) -- EXPECTED VALUES -- ? (Ref Range) < or = 59.4 (normal thyroid) ? < 5.0 (athyroidic patient) ? TEST PERFORMED OR REFERRED BY [facility] ? [facility] ? [address] ? [place], [place] ??[address] ? [facility] 01/11/2000 14:5 1 EDT 01/11/2000 14:57 EDT Ale Hsu MD PhD CHEMISTRY & BLOOD GAS ORD ERABLES Final Result Performing Organization Address City/[facility] de Phone Number [facility] [address] [place] [address] * (ABNORMAL) T4 FREE (01/11/2000 14:51 EDT) Free T4 2.0(H) 0.8 - 1.8 ng/dl [facility] 01/11/2000 14:5 1 EDT 01/11/2000 14:57 EDT Ale Hsu MD PhD CHEMISTRY & BLOOD GAS ORD ERABLES Final Result Performing Organization Address City/[facility] de Phone Number [facility] [address] [place] [address] documented in this encounter Visit Diagnoses Not on filedocumented in this encounter
--- OUTSIDE RECORDS SUMMARY | 2024-05-22 00:34 | XMS_ITS | Encounter Summary ---
Author Organization [facility] Address [address] [place] [address] Care Team Providers Care Franchise Field Consultant Name Role Phone Unavailable Primary Care Provider Unavailabl e Encounter Details Date Type Department Care Team (Late st Contact Info) Description 12/11/2006 11:06 EDT Hospital Encounter [facility] conversion [address] [place] [address] Ale Hsu MD PhD [address] [place] [address] [place] [phone] Social History Tobacco Use Types Packs/Day [...]
--- OUTSIDE RECORDS SUMMARY | 2024-05-22 00:34 | XMS_ITS | Encounter Summary ---
Author Organization [facility] Address [address] [place] [address] Care Team Providers Care Ply Cutter Name Role Phone Rand Harley MD Primary Care Provider [phone] Reason for Visit * Reason Comments New Patient Visit skin check Encounter Details Date Type Department Care Team (Late st Contact Info) Description 07/22/2012 14:30 EDT Office Visit [facility] Dermatology 3rd Floor [facility] [address] [place], [place] [address] Yuri Cowan MD History of basal cell [...] [facility]) SUBJECTIVE Chief Complaint Patient presents with ??? [...] resident's/fellow's note. YURI COWAN MD 07/24/2012 17:33 cilnical scientist * Daniela Ordaz - 07/22/2012 1420 EDT [...] unspecified documented in this encounter Care Teams Ply Cutter Relationship Specialty Start Date End Date Rand Harley MD [address] [place] [address] PCP - General 07/21/12 02/01/14 documented as of this encounter
--- OUTSIDE RECORDS SUMMARY | 2024-05-22 00:34 | XMS_ITS | Encounter Summary ---
Author Organization [facility] Address [address] [place] [address] Care Team Providers Care Pocket Flap Creasing Machine Operator Name Role Phone Catina Chowdhury NP Primary Care Provider [phone] Encounter Details Date Type Department Care Team (Late st Contact Info) Description 04/03/2005 Results Only [facility] conversion [address] [place] [address] Hilda Marcus MD [address] [place] [address] [address] Social History Tobacco Use Types [...] ? JC BANERJEE ? Accession #: ? [id number] : ? 1965 (Age: 39) ??F ?Collect [...] Final Resu lt [facility] [address] [place] [address] documented in this encounter Visit Diagnoses Not on filedocumented in this encounter Care Teams Pocket Flap Creasing Machine Operator Relationship Specialty Start Date End Date Catina Chowdhury NP [facility] [address] [place] [address] PCP - General 02/03/09 07/20/12 documented as of this encounter
--- OUTSIDE RECORDS SUMMARY | 2024-05-22 00:34 | XMS_ITS | Encounter Summary ---
Author Organization [facility] Address [address] [place] [address] Care Team Providers Care Moth Exterminator Name Role Phone Catina Chowdhury NP Primary Care Provider [phone] Reason for Visit * Reason Comments Follow-up thyroid CA Encounter Details Date Type Department Care Team (Late st Contact Info) Description 10/06/2010 15:00 EDT Office Visit [address] [address] Lance Valdes MD [address] [facility], [address] [place] [address] Thyroid cancer (CMS-HCC) (HCC-CMS) (Primary [...] * Lance Valdes MD, MD - 10/06/2010 4738 EDT SUBJECTIVE Jc Banerjee is seen in [...] gland documented in this encounter Care Teams Moth Exterminator Relationship Specialty Start Date End Date Catina Chowdhury NP [facility] [address] [place] [address] PCP - General 02/03/09 07/20/12 documented as of this encounter
--- OUTSIDE RECORDS SUMMARY | 2024-05-22 00:34 | XMS_ITS | Encounter Summary ---
Author Organization [facility] Address [address] [place] [address] Care Team Providers Care Park Attendant Name Role Phone Catina Chowdhury NP Primary Care Provider [phone] Encounter Details Date Type Department Care Team (Late st Contact Info) Description 12/15/2002 Results Only [facility] Endocrinology - [address] [place] [address] Ale Hsu MD PhD [address] [place] [address] [address] [place] [address] Social History Tobacco Use Types [...] GAS ORD ERABLES Final Result [facility] [address] [place] [address] * THYROGLOBULIN TUMOR MARKER (12/15/2002 15:32 EDT) Pathologist [facility] Thyroglobulin Ab Negative ODE[facility] MARTINE[facility] Thyroglobulin <0.1Unit: ng/mL(Note) Specimens with thyroglobulin concentrations greater than ? 250,000 ng/mL may give falsely lower results. ? -- EXPECTED VALUES -- ? (Ref Range) <= 33 (normal thyroid) ? <5.0 ??(athyroidic patient) ? Test performed by immunoenzymatic assay kit manufactured ? by [employer]. The current form of this assay ? displays a higher rate of heterophile antibody interference ? than is considered acceptable. Therefore all specimens are ? pretreated with Scantibodies heterophile blocking reagents ? which, to the best of our knowledge, removes this interference. ? Serum markers are not specific for malignancy, and values ? may vary by method. ? TEST PERFORMED OR REFERRED BY [facility] ? [address] ? [place] [address] ? Construction Stonemason: ? Ivan Rosenthal M.D. ? [facility] 12/15/2002 15:3 2 EDT 12/15/2002 15:37 EDT us Ale Hsu MD PhD CHEMISTRY & BLOOD GAS ORD ERABLES Final Result Performing Organization Address [facility] de Phone Number [facility] [address] [place] [address] * T4 FREE (12/15/2002 15:32 EDT) Free T4 1.7 0.8 - 1.8 ng/dl [facility] 12/15/2002 15:3 2 EDT 12/15/2002 15:37 EDT us Ale Hsu MD PhD CHEMISTRY & BLOOD GAS ORD ERABLES Final Result Performing Organization Address [facility] Co de Phone Number [facility] [address] [place] [address] documented in this encounter Visit Diagnoses Not on filedocumented in this encounter Care Teams Park Attendant Relationship Specialty Start Date End Date Catina Chowdhury, [facility] [address] [place] [address] PCP - General 02/03/09 07/20/12 documented as of this encounter
--- OUTSIDE RECORDS SUMMARY | 2024-05-22 00:34 | XMS_ITS | Encounter Summary ---
Author Organization [facility] Address [address] [place] [address] Care Team Providers Care Life Enrichment Director Name Role Phone Catina Chowdhury NP Primary Care Provider [phone] Encounter Details Date Type Department Care Team (Late st Contact Info) Description 12/13/2004 Before PRISM Converted Visit (Maple) [facility] conversion [address] [place] [address] Ale Hsu MD PhD [address] [place] [address] [address] [place] [address] Social History Tobacco Use Types [...] A - sa Job ID: Document ID: [id number] cc: documented in this encounter Plan of Treatment Not on file documented as of this encounter Visit Diagnoses Not on filedocumented in this encounter Care Teams Life Enrichment Director Relationship Specialty Start Date End Date Catina Chowdhury NP [facility] [address] [address] PCP - General 02/03/09 07/20/12 documented as of this encounter
--- OUTSIDE RECORDS SUMMARY | 2024-05-22 00:34 | XMS_ITS | Encounter Summary ---
Author Organization [facility] Address [address] [place] [address] Care Team Providers Care Diesel Engineer Name Role Phone Catina Chowdhury NP Primary Care Provider [phone] Reason for Visit * Reason Comments Follow-up thyroid Encounter Details Date Type Department Care Team (Latest Contact Info) Description 02/06/2010 11:20 EDT Office Visit [facility] Endocrinology - [address] [address] Ale Hsu MD PhD [address] [place] [address] [address] [place] [address] Malignant neoplasm of thyroid gland [...] Notes * Ale Hsu MD - 02/08/2010 5907 EDT DIVISION OF ENDOCRINOLOGY PROGRESS/FOLLOWUP NOTE - [...] - WLP Job ID: SM Doc ID: [id number] Ext Doc ID: [id number] cc: Lance Valdes MD * Ale Hsu [...] is an immunoenzymatic assay manufactured ? by [employer] and performed on the Unicel DXI ? 800. ? Values obtained with different assay methods or kits may be ? different and cannot be used interchangeably. ? Test results cannot be interpreted as absolute evidence for ? the presence or absence of malignant disease. ? Specimens with thyroglobulin concentrations greater than ? 250,000 ng/mL may give falsely lower results. ? Performed by: [facility], [address], ? [place] [address], Apprentice Plant Attendant: Brooke Flores, Ph.D. ? [facility] Blood specimen (specimen) 02/06/2010 11:59 EDT 02/06/2010 12:00 EDT us Ale Hsu MD PhD CHEMISTRY & BLOOD GAS ORD ERABLES Final Result [facility] [address] [place] [address] * T4 FREE (02/06/2010 11:59 EDT) Free T4 1.5 0.8 - 1.8 ng/dL [facility] Blood specimen (specimen) 02/06/2010 11:59 EDT 02/06/2010 12:00 EDT Ale Hsu MD PhD CHEMISTRY & BLOOD GAS ORD ERABLES Final Result Performing Organization Address City/[facility]/ZIP Co de Phone Number [facility] [address] [place] [address] * TSH (02/06/2010 11:59 EDT) TSH 1.45 0.35 - 5.00 uIU/ml [facility] Blood specimen (specimen) 02/06/2010 11:59 EDT 02/06/2010 12:00 EDT Ale Hsu MD PhD CHEMISTRY & BLOOD GAS ORD ERABLES Final Result Performing Organization Address City/[facility] Co de Phone Number [facility] [address] [place] [address] documented in this encounter Visit Diagnoses Diagnosis [...] 02/05/2011 added in this encounter Care Teams Diesel Engineer Relationship Specialty Start Date End Date Catina Chowdhury NP [facility] [address] [place] [address] PCP - General 02/03/09 07/20/12 documented as of this encounter
--- OUTSIDE RECORDS SUMMARY | 2024-05-22 00:34 | XMS_ITS | Encounter Summary ---
Author Organization [facility] Address [address] [place] [address] Care Team Providers Care Civil Engineering Assistant Name Role Phone Catina Chowdhury NP Primary Care Provider [phone] Encounter Details Date Type Department Care Team (Late st Contact Info) Description 12/11/2006 Before PRISM Converted Visit (Maple) [facility] - [facility] conversion [address] [place] [address] Ale Hsu MD PhD [address] [place] [address] [address] [place] [address] Social History Tobacco Use Types [...] Ale Hsu MD,PhD - DD Job ID: [id number] Doc ID: [id number] cc: Cristofer Zapata MD documented in this encounter Plan of Treatment Not on file documented as of this encounter Visit Diagnoses Not on filedocumented in this encounter Care Teams Civil Engineering Assistant Relationship Specialty Start Date End Date Catina Chowdhury NP [facility] [address] [place] [address] PCP - General 02/03/09 07/20/12 documented as of this encounter
--- OUTSIDE RECORDS SUMMARY | 2024-05-22 00:34 | XMS_ITS | Encounter Summary ---
Author Organization [facility] Address [address] [place] [address] Care Team Providers Care Deep Fryer Assembler Name Role Phone Catina Chowdhury NP Primary Care Provider [phone] Encounter Details Date Type Department Care Team (Late st Contact Info) Description 11/08/2005 Results Only [facility] conversion [address] [place] [address] Hilda Marcus MD [address] [place] [address] [address] Social History Tobacco Use Types [...] ? JC BANERJEE ? Accession #: ? [id number] ? : ? 1965 (Age: 40) ??F [...] central, 0.2 cm in diameter, patent os. ??Slab Grinder sections are submitted as follows: BLOCK BRIZUELA A1 ?Slab Grinder anterior cervix A2 ?Slab Grinder posterior cervix A3 ?Slab Grinder anterior endomyometrium to include blood-filled cystic space A4 ?Slab Grinder posterior endomyometrium A5 ?Slab Grinder luis-white whorled nodule nodules A6 ?Slab Grinder luis-pink whorled nodules A7 ?Slab Grinder serosa to include hemorrhagic adhesions from posterior fundus (Lydia Thapa)/[facility] End of Report [facility] 11/08/2005 11/08/2005 10: 27 EDT us Hilda Marcus MD PATHOLOGY ORDERABLES Final Resu lt [facility] [address] [place] [address] documented in this encounter Visit Diagnoses Not on filedocumented in this encounter Care Teams Deep Fryer Assembler Relationship Specialty Start Date End Date Catina Chowdhury NP [facility] [address] [place] [address] PCP - General 02/03/09 07/20/12 documented as of this encounter
--- OUTSIDE RECORDS SUMMARY | 2024-05-22 00:34 | XMS_ITS | Encounter Summary ---
Author Organization [facility] Address [address] [place] [address] Care Team Providers Care Elementary School Director Name Role Phone Catina Chowdhury NP Primary Care Provider [phone] Encounter Details Date Type Department Care Team (Late st Contact Info) Description 02/05/2011 Phlebotomy Only [address] [address] Bridge Teacher, Outpatient Postsurgical hypothyroidism; Hx of thyroid cancer [...] is an immunoenzymatic ? assay manufactured by [employer] and ? performed on the Unicel DXI 800. ? The thyroglobulin antibody testing method is an ? electrochemilumine scence assay manufactured by [employer] and performed on the [...] falsely lower results. ? Performed by: [facility] [employer] [facility], [address], ? [place] [address], Machine Greaser: Brooke Flores, Ph.D. ? [facility] Blood specimen (specimen) 02/05/2011 12:42 EDT 02/05/2011 12:43 EDT Ale Hsu MD PhD CHEMISTRY & BLOOD GAS ORD ERABLES Final Result [facility] [address] [place] [address] * THYROID CASCADE (02/05/2011 12:42 EDT) TSH 1.74 0.35 - 5.00 uIU/ml [facility] Comment: ??TSH cascade is not recommended for patients in which pituitary or hypothalamic disorders are suspected. Blood specimen (specimen) 02/05/2011 12:42 EDT 02/05/2011 12:43 EDT us Ale Hsu MD PhD CHEMISTRY & BLOOD GAS ORD ERABLES Final Result [facility] [address] [place] [address] documented in this encounter Visit Diagnoses Diagnosis Postsurgical hypothyroidism Hx of thyroid cancer Personal history of malignant neoplasm of thyroid documented in this encounter Care Teams Elementary School Director Relationship Specialty Start Date End Date Catina Chowdhury NP [facility] [address] [place] [id number] PCP - General 02/03/09 07/20/12 documented as of this encounter
--- OUTSIDE RECORDS SUMMARY | 2024-05-22 00:34 | XMS_ITS | Encounter Summary ---
Author Organization [facility] Address [address] [place] [address] Care Team Providers Care Minilab Operator Name Role Phone Catina Chowdhury NP Primary Care Provider [phone] Reason for Visit * Reason Comments Thyroid Cancer f/u Encounter Details Date Type Department Care Team (Latest Contact Info) Description 02/05/2011 11:20 EDT Office Visit [facility] Endocrinology - [address] [address] Ale Hsu MD PhD [address] [place] [address] [place] [phone] Hx of thyroid cancer; Postsurgical hypothyroidism [...] is an immunoenzymatic ? assay manufactured by [employer]. and ? performed on the Unicel DXI 800. ? The thyroglobulin antibody testing method is an ? electrochemilumine scence assay manufactured by [employer] and performed on the [...] give falsely lower results. ? Performed by: [facility], [address], ? [place] [address], Chief Medical Director: Brooke Flores, Ph.D. ? [facility] Blood specimen (specimen) 02/05/2011 12:42 EDT 02/05/2011 12:43 EDT us Ale Hsu MD PhD CHEMISTRY & BLOOD GAS ORD ERABLES Final Result [facility] [address] [place] [address] * THYROID CASCADE (02/05/2011 12:42 EDT) TSH 1.74 0.35 - 5.00 uIU/ml [facility] Comment: ??TSH cascade is not recommended for patients in which pituitary or hypothalamic disorders are suspected. Blood specimen (specimen) 02/05/2011 12:42 EDT 02/05/2011 12:43 EDT Ale Hsu MD PhD CHEMISTRY & BLOOD GAS ORD ERABLES Final Result [facility] [address] [place] [address] documented in this encounter Visit Diagnoses Diagnosis [...] documented as of this encounter Care Teams Minilab Operator Relationship Specialty Start Date End Date Catina Chowdhury NP [facility] [address] [place], [place] [id number] PCP - General 02/03/09 07/20/12 documented as of this encounter
--- OUTSIDE RECORDS SUMMARY | 2024-05-22 00:34 | XMS_ITS | Encounter Summary ---
Author Organization [facility] Address [address] [place] [address] Care Team Providers Care Cardroom Manager Name Role Phone Unavailable Primary Care Provider Unavailabl e Encounter Details Date Type Department Care Team (Late st Contact Info) Description 01/11/2004 10:04 EDT Hospital Encounter [facility] - Other [address] [place] [address] Ale Hsu MD PhD [address] [place] [phone] Social History Tobacco Use Types Packs/Day [...]
--- OUTSIDE RECORDS SUMMARY | 2024-05-22 00:34 | XMS_ITS | Encounter Summary ---
Author Organization [facility] Address [address] [place] [address] Care Team Providers Care Racket Stringer Name Role Phone Unavailable Primary Care Provider Unavailabl e Encounter Details Date Type Department Care Team (Late st Contact Info) Description 12/13/2004 11:50 EDT Hospital Encounter [facility] - Other [address] [place] [address] Ale Hsu MD PhD [address] [place] [address] [place] [phone] Social History Tobacco Use Types Packs/Day [...] * (ABNORMAL) TSH (12/13/2004 12:06 EDT) Pathologist [facility] TSH 0.05(L) 0.35 - 5.50 uIU/ml [facility] 12/13/2004 12:0 6 EDT 12/13/2004 12:22 EDT us Ale Hsu MD PhD CHEMISTRY & BLOOD GAS ORD ERABLES Final Result [facility] [address] [place] [address] * (ABNORMAL) THYROGLOBULIN TUMOR MARKER (12/13/2004 12:06 EDT) Pathologist [facility] Thyroglobulin Antibody Screen 79037 7.6Unit: IU/mL(Note) -- EXPECTED VALUES -- ? (Ref Range) <=2.3 ? TEST PERFORMED OR REFERRED BY [facility] ? [address] ? [place] [address] ? Bottle Capping Machine Operator: ? Ivan Rosenthal M.D. ?(H) [facility] Thyroglobulin Tumor Marker <0.1Unit: ng/mL(Note) Quantitation of thyroglobulin may be unreliable due to the ? presence of anti-thyroglobuli n antibodies. ? Specimens with thyroglobulin concentrations greater than ? 250,000 ng/mL may give falsely lower results. ? Method is [employer] Access Immunoassay System. ? -- EXPECTED VALUES -- ? (Ref Range) <=33 ? Athyrotic individuals ? normally have hTg values ? less than 5 ng/mL. ? Serum markers are not specific for malignancy, and values ? may vary by method. ? TEST PERFORMED OR REFERRED BY [facility] ? [address] ? [place] [address] ? Bottle Capping Machine Operator: ? Ivan Rosenthal M.D. ? [facility] 12/13/2004 12:0 6 EDT 12/13/2004 12:22 EDT us Ale Hsu MD PhD CHEMISTRY & BLOOD GAS ORD ERABLES Final Result [facility] [address] [place] [address] * (ABNORMAL) T4 FREE (12/13/2004 12:06 EDT) Free T4 2.0(H) 0.8 - 1.8 ng/dl [facility] 12/13/2004 12:0 6 EDT 12/13/2004 12:22 EDT us Ale Hsu MD PhD CHEMISTRY & BLOOD GAS ORD ERABLES Final Result Performing Organization Address [facility] Co de Phone Number [facility] [address] [place] [address] documented in this encounter Visit Diagnoses Not on filedocumented in this encounter
== END 2024-05-22 00:38 ==
LOC: DI 00:18
PROVIDERS: PCP Family Medicine; Visit Provider Family Medicine
DX: Z12.31 Encounter for screening mammogram for malignant neoplasm of breast (principal); R92.323 Mammographic fibroglandular density, bilateral breasts; D24.2 Benign neoplasm of left breast
CPT/HCPCS: 76642; 77063; 77067

== ENCOUNTER 2024-11-03 16:26 | Outpatient (REF) | payer BC, SELFPAY ==
[2024-11-03 17:11] LABS: Hemoglobin A1C 5.8 % (<5.7)
[2024-11-03 17:48] LABS: Anion Gap 6.4 mmol/L (3-11); BUN 8 mg/dL (7-18); CO2 31.6 mmol/L (21.0-32.0); CREATININE 0.8 mg/dL (0.55-1.02); Calcium 9.3 mg/dL (8.5-10.1); Calculated LDL 193 mg/dL (<100); Chloride 104 mmol/L (98-107); Cholesterol 272 mg/dL (<200); Estimated GFR 84.82 (mL/min/1.73m2); FREE T4 1.27 ng/dL (0.76-1.46); Glucose 94 mg/dL (74-106); HDL Cholesterol 56 mg/dL (>or=50); Sodium 142 mmol/L (136-145); Triglyceride 119 mg/dL (<150)
== END 2024-11-03 16:27 | disposition home or self-care (01) ==
LOC: NCHCN 16:26
PROVIDERS: PCP Family Medicine; Visit Provider Family Medicine
DX: E11.9 Type 2 diabetes mellitus without complications (principal); I10 Essential (primary) hypertension; E06.3 Autoimmune thyroiditis; E78.5 Hyperlipidemia, unspecified
CPT/HCPCS: 80048; 80061; 83036; 84439

== ENCOUNTER 2024-11-20 00:25 | Outpatient (CLI) | payer BC, SELFPAY ==
--- NOTE | 2024-11-20 | DI.US_ITS ---
Exam(s) US BREAST LT COMPLETE MG MAMMO DIAGNOSTIC UNI EXAM: MG MAMMO DIAGNOSTIC UNI-LEFT AND COMPLETE LEFT BREAST ULTRASOUND CLINICAL HISTORY: 6-mo f/u lt breast, R92.8-other abnormal and inconclusive findings on. TECHNIQUE: Unilateral left breast cc and MLO mammographic images were obtained with 3D tomosynthesis technique and utilizing computer aided detection (CAD). COMPLETE LEFT BREAST ULTRASOUND performed including all 4 quadrants as well as the retroareolar region. COMPARISON: Prior mammograms were reviewed, the most recent being May 2024. Prior ultrasound May 2024 was also reviewed. FINDINGS: DIAGNOSTIC LEFT BREAST MAMMOGRAM: The 2 benign-appearing previously described nodules posteriorly are unchanged in size and configuration. There are no new spiculated masses. No malignant-appearing microcalcification groups. No new architectural distortion or skin thickening-retraction. COMPLETE LEFT BREAST ULTRASOUND: At 12 o'clock position there is a 3-4 mm microcyst which corresponds to 1 of the 2 nodules seen on the mammogram. At the 1 o'clock position there is a 4-5 mm microcyst which corresponds to the other nodule seen posteriorly on the mammogram. At the 5 o'clock position there is another microcysts measuring 5 mm. Most importantly, there are no solid lesions in all 4 quadrants of the left breast. Scanning of the left axilla is negative for significant adenopathy. IMPRESSION: Benign left breast findings which appears stable when compared to imaging studies of May 2024 Appropriate follow-up is to keep this patient on her yearly mammogram schedule, this implying the next bilateral mammogram would be in May 2025, with earlier imaging if a self detected breast change is noted. The patient was informed of the findings and follow-up recommendations by myself prior to leaving the department today. BI-RADS Category 2 - Benign Findings Breast Density - Category B - There are scattered areas of fibroglandular density. Breast density Category C or D implies that the patient has dense breast tissue. Dense breast tissue can make it harder to find cancer on a mammogram. Dense breast tissue is also associated with an increased risk of breast cancer. This information about the result of the mammogram report was provided to the patient to raise their awareness. Use this report when you speak with the patient about their risks for breast cancer, which includes their family history. At that time, you may recommend additional screening tests (Ultrasound or MRI) as these tests may add significant information. A negative radiographic report should not delay biopsy if a dominant or clinically suspicious mass is present. Up to ten percent of cancers are not identified on mammography. A negative report may reinforce clinical impression. Adenosis and dense breasts may obscure an underlying neoplasm. False positive reports average 6 to 10%. Patient will receive a letter notifying them of these results.
== END 2024-11-20 00:45 ==
LOC: DI 00:25
PROVIDERS: PCP Family Medicine; Visit Provider Family Medicine
DX: Z12.31 Encounter for screening mammogram for malignant neoplasm of breast (principal); N60.12 Diffuse cystic mastopathy of left breast
CPT/HCPCS: 76642; 77061; 77065; G0279

== ENCOUNTER 2025-04-30 16:57 | Outpatient (REF) | payer BC, SELFPAY ==
[2025-04-30 19:40] LABS: Hemoglobin A1C 5.6 % (<5.7)
[2025-04-30 19:50] LABS: ALT 17 U/L (10-49); AST 19 U/L (<34); Albumin 4.6 g/dL (3.2-5.0); Alkaline Phosphatase 107 U/L (46-116); Anion Gap 10.6 mmol/L (3-11); BUN 15 mg/dL (9-23); Bilirubin, Total 0.6 mg/dL (0.2-1.2); CO2 25.4 mmol/L (20.0-31.0); Calcium 9.2 mg/dL (8.3-10.6); Chloride 104 mmol/L (98-107); Cholesterol 261 mg/dL (<200); Glucose 84 mg/dL (74-106); HDL Cholesterol 50 mg/dL (>or=50); Potassium 4.3 mmol/L (3.5-5.1); Sodium 140 mmol/L (136-145); Total Protein 7.5 g/dL (5.7-8.2)
[2025-04-30 19:51] LABS: Microalb ug/mg Crea 6.4 ug/mg Cr
== END 2025-04-30 16:58 | disposition home or self-care (01) ==
LOC: NCHCN 16:57
PROVIDERS: PCP Family Medicine; Visit Provider Family Medicine
DX: I10 Essential (primary) hypertension (principal); E03.9 Hypothyroidism, unspecified; E78.5 Hyperlipidemia, unspecified; E11.9 Type 2 diabetes mellitus without complications
CPT/HCPCS: 80053; 80061; 82043; 82570; 83036; 84439